=== PATIENT | male | born 1930 | race Caucasian/White ===

== ENCOUNTER 2017-01-31 17:18 | Inpatient (IN) ==
--- NOTE | 2017-01-31 17:42 | Emergency Department Note ---
Fall HPI - General Chief Complaint: Fall Stated Complaint: Fall Time Seen by Provider: 01/31/17 17:39 Source: patient, family, EMS Mode of arrival: EMS - History of Present Illness HPI Narrative: This patient fell in the kitchen and has pain in his right hip. he had a previous hip replacement on that side. Not sure why he fell. - Related Data Home Medications Medication Instructions Recorded Confirmed No Known Home Meds [No Known Home 01/31/17 01/31/17 Meds] Allergies Allergy/AdvReac Type Severity Reaction Status Date / Time No Known Drug Allergies Allergy Verified 01/31/17 17:24 Review of Systems All systems ED: reviewed and negative except as stated. Fall PMH - Past Medical History PMF Narrative: Medical History (Last Updated 11/13/16 @ 10:21 by Bradley Whelan MD) Memory difficulties (Chronic) Fracture of rib (Resolved) Ribs, multiple fractures (Resolved) Vascular dementia of acute onset (Ruled-out) Past Surgical History (Last Updated 11/15/15 @ 08:41 by Bradley Whelan MD) History of hip replacement (Resolved) Ulcer, surgical (Resolved) - Social History smoking status: Former smoker Physical Exam Patient has tenderness about the right hip - General Limitations: no limitations General appearance: alert, in no apparent distress - Head Head exam: atraumatic, normocephalic - Eye Eye exam: Present: normal appearance - ENT ENT exam: normal exam - Neck Neck exam: Present: normal inspection - Chest Chest inspection: Present: normal inspection - Respiratory Respiratory exam: Present: normal lung sounds bilaterally - Cardiovascular Cardiovascular exam: Present: regular rate, normal rhythm, normal heart sounds - Abdominal Exam Abdominal exam: Present: soft. Absent: distention, tenderness - Neurological Exam Neurological exam: Present: alert - Psychiatric Psychiatric exam: Present: normal affect, normal mood - Skin Skin exam: Present: warm, dry, intact Course Vital Signs Temperature 97.1 F 01/31/17 17:19 Pulse Rate 80 01/31/17 17:19 Respiratory Rate 16 01/31/17 17:19 Blood Pressure 112/71 01/31/17 17:19 Pulse Oximetry (%) 94 01/31/17 17:19 Temperature 97.1 F 01/31/17 17:19 Pulse Rate 65 01/31/17 17:46 Respiratory Rate 16 01/31/17 17:19 Blood Pressure 119/67 01/31/17 17:46 Pulse Oximetry (%) 96 01/31/17 17:46 Fall - [facility] Narrative Medical decision making narrative: X-ray shows a sub-trochanteric fracture in the bone going around the prosthesis with slight displacement. Dr. Ribeiro did the original surgery 3 years ago. I discussed case with the orthopedist electrophonic engineer Dr. Bourne who requested to call Dr. Ribeiro. Dr. Ribeiro said he is unavailable tonight to take care of this patient. Dr. Bourne then said the patient could go home in a wheelchair and follow-up with Dr. Ribeiro in clinic tomorrow. We will send him home with some hydrocodone. - Radiology Data Radiology results reviewed: Yes I reviewed the patient's radiology results. Disposition Pt seen by [employer] only: No Clinical Impression: Femur fracture, right Disposition: Home, Self-Care Condition: Good Instructions: Leg Fracture (ED), Hip Fracture (ED) Additional Instructions: Follow-up with Dr. Campos tomorrow Referrals: Bradley Whelan MD [Primary Care Provider] - Omega Campos MD [Physician] - Time of Disposition: 18:30
[2017-01-31] MEDS: HYDROmorphone 2 MG/ML SYRINGE IV PRN ×2 (17:52→19:51)
--- NOTE | 2017-01-31 18:12 | XRay Report ---
CLINICAL INFORMATION: Fall. Right hip injury TECHNIQUE: AP pelvis. AP and crosstable lateral right hip COMPARISON: Previous postoperative right hip dated 02/27/2014 FINDINGS: Previous right total hip arthroplasty. Acute right subtrochanteric fracture. Lateral view demonstrates slight displacement of the lesser trochanter. Pelvis is negative. No fracture. No lytic lesion. Sacrum is negative. 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
[2017-01-31] MEDS ORDERED: HYDROcodone/APAP (PP) 5/325MG TABLET (#4) PO ONE (18:29)
[2017-01-31] MEDS ORDERED: 0.9 % SODIUM CHLORIDE 1,000 ML IV SCH (19:00)
--- NOTE | 2017-01-31 19:56 | XRay Report ---
INDICATION: Preoperative chest x-ray. Hip fracture. TECHNIQUE: AP chest x-ray,portable semiupright COMPARISON: Previous examinations dated 09/19/2014, 09/13/2014 FINDINGS:Elevated right hemidiaphragm. This is unchanged. No acute or focal pulmonary parenchymal infiltrate. Lungs are negative. Heart size and vascularity are normal. No pulmonary congestion. No pulmonary edema No interval change IMPRESSION: No acute abnormality. No interval change Interpreted and Authenticated by: Eliezer Koehler 01/31/17
[2017-01-31 19:58] LABS: Basophils # (Auto) 0 K/mcL (0.0-0.3); Basophils % (Auto) 0.2 % (0.0-2.0); Eosinophils # (Auto) 0.1 K/mcL (0.0-0.7); Eosinophils % (Auto) 1.3 % (0.0-7.0); Granulocytes % (Auto) 87.1 % (38.0-78.0); Lymphocytes # (Auto) 0.7 K/mcL (1.5-4.8); Lymphocytes % (Auto) 6.9 % (15.5-49.0); Mean Corpuscular HGB Conc 34.1 g/dL (31.0-36.0); Monocytes # (Auto) 0.5 K/mcL (0.1-0.9); Monocytes % (Auto) 4.5 % (1.0-12.0); Platelet Count 201 K/mcL (140-440); RBC 4.19 M/mcL (4.50-5.90); Red Cell Distribution Width 15.5 % (11.5-14.5)
[2017-01-31 20:09] LABS: ALT/SGPT 7 U/l (0-40); Albumin 4.2 gm/dL (3.2-5.2); Albumin/Globulin Ratio 1.6 (1.0-2.3); Alkaline Phosphatase 61 U/L (39-117); Blood Urea Nitrogen 21 mg/dl (8-23)
[2017-01-31] MEDS ORDERED: ONDANSETRON 4 MG/2 ML VIAL IV ONE (20:41)
[2017-01-31 21:21] LABS: Appearance,Urine CLEAR; Bacteria,Urine 0 /hpf (0); Bilirubin,Urine NEG (NEG); Color,Urine YELLOW; Glucose,Urine (UA) NEGATIVE (NEG); Leukocyte Esterase,Urine NEG /uL (NEG); Mucus,Urine FEW /hpf (0); Nitrate,Urine NEG (NEG); Protein,Urine NEG (NEG); Specific Gravity,Urine 1.024 (1.000-1.035); Urine Blood 0.2 mg/dL (<0.03); Urine RBC 44 /hpf (0-1); Urine Squamous Epithelial Cell < 1 /hpf (0-4); Urine WBC 2 /hpf (0-4); Urobilinogen,Urine NEG (NEG)
--- NOTE | 2017-01-31 21:40 | Internal Med History&Physical ---
Medical - H&P: HPI Patient information: Note initiated : 01/31/17 at 9:38 pm Service Date, if different from initiated Date: [] Patient: Edgard Bae a 86 y/o M admitted on for Fall. Chief Complaint: [] History of present illness: Mr. Bae is a 86 year old man who apparently fell this evening at home. ER evaluation revealed an acute right subtrochanteric hip fracture with slight displacement of the lesser trochanter, as well as a previous right total hip arthroplasty. The patient has moderate dementia, and cannot recall how or why he fell. When I saw him late in the evening, his family was not available. Otherwise, he does not think that he has been ill lately. He denies being aware fever or chills, headaches or dizziness, new or ear symptoms, chest pain or palpitations, shortness of breath or wheezing or cough, abdominal pain, nausea or vomiting, diarrhea or constipation, or dysuria. Medical History Memory difficulties (Chronic) Fracture of rib (Resolved) Ribs, multiple fractures (Resolved) Vascular dementia of acute onset (Ruled-out) Surgical History History of hip replacement (Resolved) Ulcer, surgical (Resolved) Medication List: No Known Home Meds Allergies/Adverse Reactions No Known Drug Allergies Allergy Social History smoking status: Former smoker Medical - H&P: Meds Home Medications Medication Instructions Recorded Confirmed Type No Known Home Meds [No Known Home 01/31/17 01/31/17 History Meds] Allergies Allergy/AdvReac Type Severity Reaction Status Date / Time No Known Drug Allergies Allergy Verified 01/31/17 17:24 Medical - H&P: Exam - Constitutional Vitals: Temp Pulse Resp BP Pulse Ox 97.1 F 80 16 93/62 88 L 01/31/17 17:19 01/31/17 21:33 01/31/17 17:19 01/31/17 21:31 01/31/17 21:33 O2 saturation ranges from 87-98% on room air On exam, he is a well-developed well-nourished pleasant elderly man in no acute distress. He reports he has pain only if he moves. Head: Normocephalic, atraumatic. TM's and canals clear. Perrla, EOMI, anicteric. Neck: Is supple, without obvious lymphadenopathy, JVD, thyromegaly, bruits. Cardiac exam shows regular rate and rhythm with normal S1 and S2. Lungs are clear to auscultation, without rales, rhonchi, wheezes. Abdomen is soft and nontender with no obvious masses. Bowel sounds are active. Extremities: Right leg actually appears to be held in a bit of internal rotation. He is able to move his toes and feet well, but movement of the leg is uncomfortable. Left leg appears normal, without cyanosis, clubbing, edema. Neurologic exam: The patient is extremely forgetful, but calm and cooperative. Motor exam is grossly nonfocal. Medical - H&P: Reslt - Labs CBC & Chem 7: 02/03/17 04:08 02/03/17 04:08 Labs: Short CBC 01/31/17 Range/Units 19:15 WBC 10.7 (4.5-11.0) K/mcL Hgb 13.0 L (13.5-16.5) g/dL Hct 38.1 L (41.0-55.0) % Plt Count 201 (140-440) K/mcL BMP 01/31/17 19:15 Sodium 138 Potassium 4.9 Chloride 101 Carbon Dioxide 29 BUN 21 Creatinine 1.0 Glucose 139 H Calcium 8.8 Liver Function 01/31/17 Range/Units 19:15 Total Bilirubin 0.6 (0.0-1.0) mg/dL AST 13 (0-37) U/l ALT 7 (0-40) U/l Alkaline Phosphatase 61 (39-117) U/L Albumin 4.2 (3.2-5.2) gm/dL Urine 01/31/17 Range/Units 20:37 Urine Color Yellow Urine Appearance Clear Urine pH 5.0 (5.0-9.0) Ur Specific [place] 1.024 (1.000-1.035) Urine Protein Neg (NEG) mg/dL Urine Glucose (UA) Negative (NEG) mg/dL CBC differential: Shows granulocyte count of 9300, lymphocyte count of 700 Urinalysis: Shows 44 red blood cells, without leukocyte esterase or nitrites. Chest x-ray: Shows elevated right hemidiaphragm, unchanged. No other abnormalities. Hip x-ray: Shows acute right trochanteric fracture, and previous right total hip arthroplasty. Medical - H&P: A/P (1) Femur fracture, right Current visit: Yes Status: Acute (2) Impairment of cognitive function Problem details: with balance difficulties Current visit: No Status: Chronic - Narrative A/P Narrative: #1. Orthopedic. Patient presents with hip fracture after fall. Admit for monitoring. -Orthopedic consult with Dr. Bourne in the morning. -N.p.o. after midnight in case surgery will be performed. -IV fluids, urinalysis, preop EKG and chest x-ray. -Pain control with IV and oral pain medications. -PT and OT evaluations. At this time, I do not see any absolute contraindications for surgery. The patient is in generally good health. 2. CODE STATUS: Chart indicates DNR CODE STATUS. 3. DVT prophylaxis: SCDs tonight. Start heparin or Coumadin postop. 4. Hematuria. No signs of infection at this time.
[2017-01-31] MEDS ORDERED: ACETAMINOPHEN 325 MG TABLET PO PRN (22:29)
[2017-01-31] MEDS ORDERED: ONDANSETRON 4 MG/2 ML VIAL IV PRN (22:29)
[2017-01-31] MEDS ORDERED: NALOXONE HCL 0.4 MG/ML VIAL IV PRN (22:29)
[2017-01-31] MEDS ORDERED: DOCUSATE SODIUM 100 MG CAPSULE PO PRN (22:29)
[2017-01-31] MEDS ORDERED: MAGNESIUM HYDROXIDE 30 ML ORAL.SUSP PO PRN (22:29)
[2017-01-31] MEDS: 0.9 % SODIUM CHLORIDE 10 ML SYRINGE IV SCH (22:40)
[2017-01-31] MEDS: DEXTROSE 5%-LR 1,000 ML IV SCH (22:40)
[2017-01-31 23:18] LABS: Basophils # (Auto) 0 K/mcL (0.0-0.3); Basophils % (Auto) 0.2 % (0.0-2.0); Eosinophils # (Auto) 0.1 K/mcL (0.0-0.7); Eosinophils % (Auto) 0.7 % (0.0-7.0); Granulocytes % (Auto) 88.6 % (38.0-78.0); Lymphocytes # (Auto) 0.6 K/mcL (1.5-4.8); Lymphocytes % (Auto) 4.6 % (15.5-49.0); Mean Cell Volume 89.2 fL (80.0-100.0); Mean Corpuscular HGB Conc 33.7 g/dL (31.0-36.0); Mean Corpuscular Hemoglobin 30.1 pg (26.0-34.0); Monocytes # (Auto) 0.7 K/mcL (0.1-0.9); Monocytes % (Auto) 5.9 % (1.0-12.0); Platelet Count 191 K/mcL (140-440); RBC 4.04 M/mcL (4.50-5.90); Red Cell Distribution Width 14.8 % (11.5-14.5)
[2017-02-01] MEDS ORDERED: ACETAMINOPHEN 325 MG TABLET PO ONE (02:15)
[2017-02-01] MEDS ORDERED: HYDROmorphone 2 MG/ML SYRINGE ONE (02:15)
[2017-02-01] MEDS: 0.9 % SODIUM CHLORIDE 10 ML SYRINGE IV SCH ×3 (05:31→22:26)
[2017-02-01 06:08] LABS: Basophils # (Auto) 0 K/mcL (0.0-0.3); Basophils % (Auto) 0.3 % (0.0-2.0); Eosinophils # (Auto) 0 K/mcL (0.0-0.7); Eosinophils % (Auto) 0.1 % (0.0-7.0); Granulocytes % (Auto) 80.4 % (38.0-78.0); Lymphocytes % (Auto) 10.8 % (15.5-49.0); Mean Cell Volume 92.1 fL (80.0-100.0); Mean Corpuscular HGB Conc 34.4 g/dL (31.0-36.0); Mean Corpuscular Hemoglobin 31.7 pg (26.0-34.0); Monocytes # (Auto) 0.8 K/mcL (0.1-0.9); Monocytes % (Auto) 8.4 % (1.0-12.0); Platelet Count 174 K/mcL (140-440); RBC 3.57 M/mcL (4.50-5.90)
[2017-02-01 06:39] LABS: ALT/SGPT 6 U/l (0-40); Albumin 3.8 gm/dL (3.2-5.2); Albumin/Globulin Ratio 1.7 (1.0-2.3); Alkaline Phosphatase 56 U/L (39-117); Bilirubin,Direct < 0.2 mg/dL (0.0-0.3); Blood Urea Nitrogen 22 mg/dl (8-23); Gamma Glutamyl Transpeptidase 8 U/L (8-61); Magnesium 2.1 mg/dL (1.6-2.5); Uric Acid 6.7 mg/dL (2.5-8.0)
[2017-02-01] MEDS: HYDROmorphone 2 MG/ML SYRINGE IV PRN ×2 (10:00→11:34)
--- NOTE | 2017-02-01 10:32 | Internal Med Progress Note ---
Medical - PN: Subj Patient information: Note initiated : 02/01/17 at 10:32 am Service Date, if different from initiated Date: [] Patient: Edgard Bae 86 y/o M admitted on 01/31/17 for Fall. Chief Complaint: [] Interval history: January 31, 2017:History of present illness: Mr. Bae is a 86 year old man who apparently fell this evening at home. ER evaluation revealed an acute right subtrochanteric hip fracture with slight displacement of the lesser trochanter, as well as a previous right total hip arthroplasty. The patient has moderate dementia, and cannot recall how or why he fell. When I saw him late in the evening, his family was not available. Otherwise, he does not think that he has been ill lately. He denies being aware fever or chills, headaches or dizziness, new or ear symptoms, chest pain or palpitations, shortness of breath or wheezing or cough, abdominal pain, nausea or vomiting, diarrhea or constipation, or dysuria. February 01: This morning, the patient was having a bit more pain, and was given IV Dilaudid. About an hour later I was called to see him urgently, as the nurse found him somewhat obtunded and twitching all over. Extremities were cyanotic, and the patient had decreased mental status. O2 saturation at the time was reading about 70% but we were not sure the oximeter was accurate. Follow-up blood gas did confirm that the patient was hypoxic, with a PO2 of 40, and a PCO2 of 53. As we talked with him and did test on him, he did become a bit more arousable. The twitching was a little hard to figure out, and I thought perhaps he was having an allergic reaction to the Dilaudid, so Benadryl was given. He was also given topical nitroglycerin, IV Lasix, and albuterol nebulizer treatment, and oxygen, while we were working him up. He was then transferred over to telemetry for closer monitoring. EKG did not show acute changes. D-dimer is elevated, but this would be expected in the setting of his hip fracture. Troponin is normal. BNP is a bit elevated at 500. Currently, the patient is still quite sleepy. His color is much improved. He is now maintaining oxygen saturations in the mid 90s on 2 L O2 via mask. He reports no fevers or chills, cough, chest pain or palpitations, and denied feeling especially short of breath. He denied abdominal pain, nausea or vomiting, diarrhea. Chester catheter remains in place. He continues to have significant right hip pain with any movement of the right leg. - Constitutional Vitals: Vital Signs Temp Pulse Resp BP Pulse Ox 97.5 F 73 20 118/68 95 02/01/17 07:08 02/01/17 04:00 02/01/17 07:08 02/01/17 07:08 02/01/17 08:44 Period Temp Pulse Resp BP Sys/[place]son Pulse Ox Last 24 Hr 97.5 F-98.4 F 73-77 16-20 95-118/60-68 88-97 Intake and Output 01/31/17 02/01/17 02/01/17 21:59 05:59 13:59 Output Total 250 / 250 Balance -250 / -250 Intake & Output: Intake & Output 01/31/17 02/01/17 02/01/17 21:59 05:59 13:59 Output Total 250 / 250 Balance -250 / -250 Output: Urine Catheter Amount 250 / 250 On exam, he looked fine first thing this morning. Later in the morning, he was lethargic, although able to answer some questions. He appeared quite cyanotic. He had myoclonic jerking noted of all extremities. He seemed to be having chills. Current vital signs: Temperature 100.7, heart rate 112, respiratory rate 18, blood pressure 110/76, O2 saturation 92% on a 5 L mask Neck showed no obvious JVD or lymphadenopathy. Cardiac exam showed regular rate and rhythm. Lungs had somewhat coarse breath sounds, with soft expiratory wheezes noted. Abdomen was soft and nontender. Extremities show no significant edema. Other than his lethargy and his baseline forgetfulness, neuro exam appears nonfocal. Medical - PN: Obj Da - Labs CBC & Chem 7: 02/01/17 12:38 02/01/17 05:00 Labs: Abnormal Lab Results 02/01/17 02/01/17 02/01/17 05:00 05:00 05:00 WBC RBC 3.57 L Hgb 11.3 L Hct 32.9 L RDW 16.0 H Gran % 80.4 H Lymph % (Auto) 10.8 L Gran # Lymph # (Auto) 1.0 L PT 15.2 H INR 1.2 H Anion Gap 6.0 L Glucose 128 H Calcium 8.4 L 01/31/17 22:51 WBC 12.6 H RBC 4.04 L Hgb 12.1 L Hct 36.0 L RDW 14.8 H Gran % 88.6 H Lymph % (Auto) 4.6 L Gran # 11.2 H Lymph # (Auto) 0.6 L PT INR Anion Gap Glucose Calcium February 01: CBC: White blood cell count 13,000, hemoglobin 12, hematocrit 36, granulocyte count 11,000 D-dimer is elevated at 7.7 ProBNP is mildly elevated at 501 Troponin is normal at less than 0.01 EKG showed sinus tachycardia, with no obvious acute ischemic changes. ABG on room air, while in distress: Shows pH of 7.37, PCO2 of 53, PO2 of 40, bicarb of 30, O2 saturation 73% Chest x-ray: There is moderate cardiomegaly. Chronic right diaphragm elevation. Minor right base atelectasis. No signs of CHF. Nasal MRSA screen is negative. January 31: CBC differential: Shows granulocyte count of 9300, lymphocyte count of 700 Urinalysis: Shows 44 red blood cells, without leukocyte esterase or nitrites. Chest x-ray: Shows elevated right hemidiaphragm, unchanged. No other abnormalities. Hip x-ray: Shows acute right trochanteric fracture, and previous right total hip arthroplasty. Meds: Medications Acetaminophen (Tylenol) 650 mg PO Q6HP PRN PRN Reason: PAIN/FEVER > 101 Last Admin: 02/01/17 10:01 Dose: 650 mg Docusate Sodium (Colace) 100 mg PO BID PRN PRN Reason: Constipation Hydromorphone HCl (Dilaudid) 1 mg IV Q2HP PRN PRN Reason: Pain Last Admin: 02/01/17 10:00 Dose: 1 mg Dextrose/Lactated Ringer's (Dextrose 5%-Lactated Ringers) 1,000 mls @ 100 mls/ hr IV .Q10H MYKEL Last Admin: 01/31/17 22:40 Dose: 100 mls/hr Magnesium Hydroxide (Milk Of Magnesia) 30 ml PO DAILYP PRN PRN Reason: Constipation Naloxone HCl (Narcan) 0.1 mg IV Q2MIN PRN PRN Reason: Opiate Reversal Ondansetron HCl (Zofran) 4 mg IV Q6HP PRN PRN Reason: Nausea And Vomiting Sodium Chloride (Saline Flush) 10 ml IV Q8 MYKEL Last Admin: 02/01/17 05:31 Dose: Not Given Medical - PN: A/P - Time Spent With Patient Total time spent is greater than 50% in coordination of care (as documented) at patient's floor/unit and/or counseling patient: Greater than 35 minutes (1) Femur fracture, right Status: Acute Current Visit: Yes (2) Impairment of cognitive function Problem details: with balance difficulties Status: Chronic Current Visit: No - Narrative A/P Narrative: #1. Cardiopulmonary. Patient had a sudden decline in oxygenation earlier today, of uncertain cause. The most likely etiology is probably oversedation with narcotics, causing respiratory depression. However, he could also have experienced acute embolism , acute MA, acute infection, medication reaction. -Patient has been transferred to telemetry for closer monitoring. Vital signs are reasonably stable at this time. At this time I am leaning towards just giving him more time to recover, and withholding narcotics until he is clearly in need of them. Dilaudid has been discontinued. -If he gradually wakes up and breathes better over the next 12 hours or so, then we will reassess if he is stable for surgical repair of his hip. If he continues to be hypoxic, we may need to proceed with CT angiogram of the chest, to rule out embolism. #2. Orthopedic. Patient presents with right hip fracture. He was seen by Dr. Bourne today. Decisions about surgery are being put off until we are sure the patient is more stable. -Dilaudid discontinued. Use oral or IV Tylenol, and then low-dose morphine if absolutely needed. -Patient will eventually need PT and OT evaluations. 2. CODE STATUS: Chart indicates DNR CODE STATUS. 3. DVT prophylaxis: SCDs tonight. Start heparin or Coumadin postop. 4. Hematuria. No signs of infection at this time. #5. Infectious disease. The patient is currently febrile, tachycardic, and did bump his white blood cell count. I think he is probably at high risk for an aspiration event earlier today, so we will cover him with Zosyn for now. Approximately 60 minutes has been spent so far today, interviewing and examining the patient twice, reviewing test results, reviewing plan of care with family and the staff, touching base with orthopedics, and writing orders. Medical - PN: Qual - VTE Deep Vein Thrombosis/Pulmonary Embolism Present on Admission: No
[2017-02-01] MEDS: DEXTROSE 5%-LR 1,000 ML IV SCH ×4 (10:54→22:27)
[2017-02-01] MEDS ORDERED: diphenhydrAMINE 50 MG/ML VIAL IV ONE (12:18)
[2017-02-01] MEDS ORDERED: ALBUTEROL SULFATE 2.5 MG/3 ML NEBULIZER NEB ONE ×2 (12:22→13:00)
[2017-02-01] MEDS ORDERED: FUROSEMIDE 20 MG/2 ML VIAL IV ONE ×2 (12:26→12:39)
[2017-02-01] MEDS ORDERED: NITROGLYCERIN 1 GM OINT.TOP TD ONE ×2 (12:28→12:42)
--- NOTE | 2017-02-01 12:54 | XRay Report ---
CLINICAL INFORMATION: Dyspnea COMPARISON: 01/31/2017 FINDINGS: Moderate cardiomegaly is unchanged. Mediastinum is unremarkable. Pulmonary vessels are normal. Right diaphragm shows moderate chronic elevation. There are bowel loops in the right subdiaphragmatic region which are known to be interposed between the liver and the anterior abdominal wall on the prior two view chest. Minor atelectasis in the right base IMPRESSION: Moderate stable cardiomegaly-no evidence of CHF Moderate chronic elevation right diaphragm-stable Interpreted and Authenticated by: Eliezer Underwood 02/01/17
[2017-02-01] MEDS ORDERED: NALOXONE HCL 0.4 MG/ML VIAL IV PRN (13:00)
[2017-02-01] MEDS ORDERED: DOCUSATE SODIUM 100 MG CAPSULE PO PRN (13:00)
[2017-02-01] MEDS ORDERED: ACETAMINOPHEN 325 MG TABLET PO PRN (13:00)
[2017-02-01 13:07] LABS: Basophils # (Auto) 0 K/mcL (0.0-0.3); Basophils % (Auto) 0.1 % (0.0-2.0); Eosinophils # (Auto) 0.1 K/mcL (0.0-0.7); Lymphocytes # (Auto) 1.1 K/mcL (1.5-4.8); Mean Cell Volume 92.2 fL (80.0-100.0); Mean Corpuscular HGB Conc 34.7 g/dL (31.0-36.0); Monocytes # (Auto) 0.9 K/mcL (0.1-0.9); Monocytes % (Auto) 6.9 % (1.0-12.0); Platelet Count 192 K/mcL (140-440); Red Cell Distribution Width 15.5 % (11.5-14.5)
[2017-02-01] MEDS: PIPERACILLIN SODIUM/TAZOBACTAM 3.375 GM in DEXTROSE 5% IN WATER 50 ML IV SCH ×2 (17:31→22:25)
--- NOTE | 2017-02-01 21:19 | Consultation ---
DATE OF CONSULTATION: 02/01/2017 DATE OF CONSULTATION: 02/01/2017 CHIEF COMPLAINT: Right hip pain. HISTORY: This 86-year-old male who fell yesterday evening from standing level height, had pain and inability to bear weight. He does have dementia. He was taken to the Emergency Department at [facility]. X-rays were taken which showed a fracture around a prior total hip arthroplasty. Apparently the total hip was done by Dr. Campos approximately 3 years ago. He is ambulatory independently. His pain is worse with movement, better with rest. Denies any other associated injuries, although unreliable due to his dementia. PAST MEDICAL HISTORY: Dementia. PAST SURGICAL HISTORY: His total hip replacement done by Dr. Campos 3 years ago. ALLERGIES: He has NO KNOWN DRUG ALLERGIES. SOCIAL HISTORY: He lives with his in a multilevel home. Former smoker. REVIEW OF SYSTEMS: Difficult to assess due to his memory problems. FAMILY HISTORY: Unobtainable. PHYSICAL EXAMINATION: VITAL SIGNS: On admission temperature was 97.1, pulse 80, respirations 16, blood pressure 93/62. He is 88 percent O2 sat. GENERAL APPEARANCE: He appears stated age in no acute distress. He is oriented to person. EXTREMITIES: Bilateral upper extremities and left lower extremity show no obvious evidence of injury and are normal to inspection, range of motion, stability and strength. The right hip on inspection shows skin with a healed surgical scar. He has no obvious deformity; however, he is tender to palpation over the right hip. Range of motion is limited secondary to pain. Stability: There is no gross instability noted although difficult to assess due to pain. Strength is 5/5 with foot flexion and extension distally. IMAGING: X-rays reviewed show a minimally displaced fracture of the proximal femur around a total hip arthroplasty stem. IMPRESSION: Mildly displaced periprosthetic right proximal femur fracture in an 86-year-old male with dementia but who was previously ambulatory. PLAN: I discussed with his treatment options which include nonoperative treatment and nonweightbearing and letting the fracture heal. I did discuss with them however, it might not allow him to ever really walk again and would mainly to just be transfers. The second option would be to proceed operatively with revision of the total hip arthroplasty, removal of his hip stem with replacement of a long hip stem. They would like to proceed surgically. However, at the time I was visiting the patient he had an acute decline and he was transferred to the Intensive Care Unit. Hospitalist has held surgery for now so we will do this tomorrow if he has stabilized by then. I did discuss with his that the mortality within a year from a hip fracture is very high with or without operative intervention and even if he made it through the surgery he is at high risk for complications including pneumonia, DVT and pulmonary embolus risk, urinary tract infection, possible falling and dislocating the hip. I also discussed with her, there is a high probability he will not return to his prior level of function and may never be able to return to his multilevel home. ANGELIB:milvia Job ID: [id number] Doc ID: [id number] John Bourne MD
[2017-02-02] MEDS: PIPERACILLIN SODIUM/TAZOBACTAM 3.375 GM in DEXTROSE 5% IN WATER 50 ML IV SCH ×3 (05:36→21:46)
[2017-02-02] MEDS: 0.9 % SODIUM CHLORIDE 10 ML SYRINGE IV SCH ×2 (05:37→14:46)
[2017-02-02 07:10] LABS: ALT/SGPT 8 U/l (0-40); Albumin 3.6 gm/dL (3.2-5.2); Albumin/Globulin Ratio 1.6 (1.0-2.3); Alkaline Phosphatase 51 U/L (39-117); Bilirubin,Direct 0.2 mg/dL (0.0-0.3); Blood Urea Nitrogen 22 mg/dl (8-23); Gamma Glutamyl Transpeptidase 7 U/L (8-61); Magnesium 1.8 mg/dL (1.6-2.5); Uric Acid 5.9 mg/dL (2.5-8.0)
--- NOTE | 2017-02-02 08:04 | XRay Report ---
CLINICAL INFORMATION: Fever COMPARISON: 02/01/2017 FINDINGS: Mild cardiomegaly is unchanged. Mediastinum and pulmonary vessels are normal. Moderate chronic elevation right diaphragm seen - as before. There is minor atelectasis right base. No infiltrates. No effusions IMPRESSION: Moderate chronic elevation right diaphragm with minor right basilar atelectasis. No infiltrates Interpreted and Authenticated by: Eliezer Underwood 02/02/17
[2017-02-02 08:23] LABS: Basophils # (Auto) 0 K/mcL (0.0-0.3); Basophils % (Auto) 0.3 % (0.0-2.0); Eosinophils # (Auto) 0 K/mcL (0.0-0.7); Eosinophils % (Auto) 0.1 % (0.0-7.0); Lymphocytes # (Auto) 0.9 K/mcL (1.5-4.8); Mean Cell Volume 91.6 fL (80.0-100.0); Mean Corpuscular HGB Conc 34.9 g/dL (31.0-36.0); Monocytes % (Auto) 13.6 % (1.0-12.0); Platelet Count 128 K/mcL (140-440); RBC 3.32 M/mcL (4.50-5.90); Red Cell Distribution Width 15.6 % (11.5-14.5)
[2017-02-02] MEDS: DEXTROSE 5%-LR 1,000 ML IV SCH ×2 (08:33→19:57)
[2017-02-02] MEDS ORDERED: ceFAZolin 1 GM VIAL IV ONE (15:15)
[2017-02-02] MEDS ORDERED: ceFAZolin 1 GM VIAL ONE (15:27)
[2017-02-02] MEDS ORDERED: MIDAZOLAM 5 MG/5 ML VIAL IV ONE (15:30)
[2017-02-02] MEDS ORDERED: PROPOFOL 200 MG/20 ML VIAL IV ONE (15:30)
[2017-02-02] MEDS ORDERED: LIDOCAINE HCL/PF 100 MG/5 ML SYRINGE IV ONE (15:30)
[2017-02-02] MEDS ORDERED: ONDANSETRON 4 MG/2 ML VIAL IV ONE (15:30)
[2017-02-02] MEDS ORDERED: TRANEXAMIC ACID 1,000 MG/10 ML VIAL IV ONE (15:30)
[2017-02-02] MEDS ORDERED: fentaNYL 100 MCG/2 ML VIAL IV ONE (15:30)
[2017-02-02] MEDS ORDERED: DEXAMETHASONE 10 MG/ML VIAL IV ONE (15:30)
[2017-02-02] MEDS ORDERED: fentaNYL 100 MCG/2 ML VIAL IV PRN (16:55)
[2017-02-02] MEDS ORDERED: FLUMAZENIL 0.1 MG/ML ML IV PRN (16:55)
[2017-02-02] MEDS ORDERED: LACTATED RINGERS 250 ML IV PRN (16:55)
[2017-02-02] MEDS ORDERED: ONDANSETRON 4 MG/2 ML VIAL IV PRN (16:55)
[2017-02-02] MEDS ORDERED: NALOXONE HCL 0.4 MG/ML VIAL IV PRN (16:55)
[2017-02-02] MEDS ORDERED: ACETAMINOPHEN 1,000 MG/100 ML BOTTLE IV ONE (16:55)
[2017-02-02] MEDS ORDERED: BENZOCAINE/MENTHOL 1 LOZENGE PO PRN (16:55)
[2017-02-02] MEDS ORDERED: MEPERIDINE 25 MG/ML SYRINGE IV PRN (16:55)
[2017-02-02] MEDS ORDERED: IPRATROPIUM/ALBUTEROL 3 ML AMPUL.NEB NEB PRN (16:55)
[2017-02-02] MEDS ORDERED: diphenhydrAMINE 50 MG/ML VIAL IV PRN (16:55)
[2017-02-02] MEDS ORDERED: METHOCARBAMOL 1,000 MG/10 ML VIAL IV PRN (16:55)
[2017-02-02] MEDS ORDERED: LACTATED RINGERS 1,000 ML IV SCH (17:00)
--- NOTE | 2017-02-02 17:11 | Brief Operative Note ---
Date of procedure: 02/02/17 Pre-op diagnosis: Right periprosthetic proximal femur fracture Post-op diagnosis: same Procedure: Revision of Right total hip arthroplasty femoral component for periprosthetic fracture, removal of previous femoral stem Grafts/Implants: Yes (Bishop 17mm distal 195mm stem, 25mm +20 proximal body, + 2.5 36mm head) Anesthesia: spinal, GLMA Findings: stem well fixed Complications: none Surgeon: John Bourne Home Care Companion: Rambo Deluca Estimated blood loss (cc): 100 Specimens Removed/Pathology: other (removed femoral stem & cobalt chrome head) Condition: stable Disposition: PACU
--- NOTE | 2017-02-02 17:45 | Internal Med Progress Note ---
Medical - PN: Subj Patient information: Note initiated : 02/02/17 at 10:36 am Patient: Edgard Bae 86 y/o M admitted on 01/31/17 for Fall/Femur Fracture, Right. Interval history: January 31, 2017:History of present illness: Mr. Bae is a 86 year old man who apparently fell this evening at home. ER evaluation revealed an acute right subtrochanteric hip fracture with slight displacement of the lesser trochanter, as well as a previous right total hip arthroplasty. The patient has moderate dementia, and cannot recall how or why he fell. When I saw him late in the evening, his family was not available. Otherwise, he does not think that he has been ill lately. He denies being aware fever or chills, headaches or dizziness, new or ear symptoms, chest pain or palpitations, shortness of breath or wheezing or cough, abdominal pain, nausea or vomiting, diarrhea or constipation, or dysuria. February 01: This morning, the patient was having a bit more pain, and was given IV Dilaudid. About an hour later I was called to see him urgently, as the nurse found him somewhat obtunded and twitching all over. Extremities were cyanotic, and the patient had decreased mental status. O2 saturation at the time was reading about 70% but we were not sure the oximeter was accurate. Follow-up blood gas did confirm that the patient was hypoxic, with a PO2 of 40, and a PCO2 of 53. As we talked with him and did test on him, he did become a bit more arousable. The twitching was a little hard to figure out, and I thought perhaps he was having an allergic reaction to the Dilaudid, so Benadryl was given. He was also given topical nitroglycerin, IV Lasix, and albuterol nebulizer treatment, and oxygen, while we were working him up. He was then transferred over to telemetry for closer monitoring. EKG did not show acute changes. D-dimer is elevated, but this would be expected in the setting of his hip fracture. Troponin is normal. BNP is a bit elevated at 500. Currently, the patient is still quite sleepy. His color is much improved. He is now maintaining oxygen saturations in the mid 90s on 2 L O2 via mask. He reports no fevers or chills, cough, chest pain or palpitations, and denied feeling especially short of breath. He denied abdominal pain, nausea or vomiting, diarrhea. Chester catheter remains in place. He continues to have significant right hip pain with any movement of the right leg. February 02: Today, the patient reports he is feeling better. He still notes pain in the right hip if he moves, but is otherwise comfortable. He denies fever or chills, headaches or dizziness, chest pain or palpitations, shortness of breath or wheezing, abdominal pain, nausea or vomiting, diarrhea or constipation. Chester catheter remains in place. Vital signs overnight, with O2 saturations ranging from 94-98% on 1-2 L O2. He did spike a temperature of 101.7 last evening. - Constitutional Vitals: Vital Signs Temp Pulse Resp BP Pulse Ox 99.1 F H 93 H 18 101/56 95 02/02/17 08:00 02/02/17 00:27 02/02/17 08:00 02/02/17 08:00 02/02/17 08:00 Period Temp Pulse Resp BP Sys/Hutson Pulse Ox Last 24 Hr 98 F-101.7 F 81-113 18-24 101-139/51-78 91-100 Intake and Output 02/01/17 02/02/17 02/02/17 21:59 05:59 13:59 Intake Total 1050 / 1050 977 / 977 241 / 241 Output Total 1000 / 1000 650 / 650 Balance 50 / 50 327 / 327 241 / 241 Weight 175 lb 14.4 oz Intake & Output: Intake & Output 02/01/17 02/02/17 02/02/17 21:59 05:59 13:59 Intake Total 1050 / 1050 977 / 977 241 / 241 Output Total 1000 / 1000 650 / 650 Balance 50 / 50 327 / 327 241 / 241 Weight 175 lb 14.4 oz Intake: IV 1050 / 1050 857 / 857 241 / 241 Dextrose 5%-Lactated 1000 / 1000 807 / 807 193 / 193 Ringers 1,000 ml @ 100 mls/hr IV .Q10H [facility] Rx#: [id number] Zosyn 3.375 gm In 50 / 50 50 / 50 48 / 48 Dextrose 5% in Water 50 ml @ 100 mls/hr IV Q8H [facility] Rx#:[id number] Oral 120 / 120 Output: Urine Catheter Amount 1000 / 1000 650 / 650 Other: # Bowel Movements 0 0 The patient is awake and alert, in no acute distress. Temperature 100.4. Heart rate 80. Respiratory rate 18-24. Blood pressure 131/ 62. O2 saturation is 91-99% on 1 L O2 Neck showed no obvious JVD or lymphadenopathy. Cardiac exam showed regular rate and rhythm. Lungs had somewhat coarse breath sounds, with soft expiratory wheezes noted. Abdomen was soft and nontender. Extremities show no significant edema. Other than his lethargy and his baseline forgetfulness, neuro exam appears nonfocal. Medical - PN: Obj Da - Labs CBC & Chem 7: 02/02/17 07:45 02/02/17 03:57 Labs: Abnormal Lab Results 02/02/17 02/02/17 02/01/17 07:45 03:57 12:38 WBC RBC 3.32 L Hgb 10.6 L Hct 30.4 L RDW 15.6 H Plt Count 128 L Gran % Lymph % (Auto) 12.0 L [place] % (Auto) 13.6 H Gran # Lymph # (Auto) 0.9 L [place] # (Auto) 1.0 H PT INR D-Dimer 7.71 H Anion Gap Glucose 123 H Calcium 8.4 L Phosphorus 2.6 L Total Bilirubin 1.2 H GGT 7 L NT-Pro-B Natriuret Pep 02/01/17 02/01/17 02/01/17 12:38 12:38 05:00 WBC 13.2 H RBC 3.90 L Hgb 12.5 L Hct 36.0 L RDW 15.5 H Plt Count Gran % 84.0 H Lymph % (Auto) 8.0 L [place] % (Auto) Gran # 11.1 H Lymph # (Auto) 1.1 L [place] # (Auto) PT 15.2 H INR 1.2 H D-Dimer Anion Gap Glucose Calcium Phosphorus Total Bilirubin GGT NT-Pro-B Natriuret Pep 501.1 H 02/01/17 02/01/17 01/31/17 05:00 05:00 22:51 WBC 12.6 H RBC 3.57 L 4.04 L Hgb 11.3 L 12.1 L Hct 32.9 L 36.0 L RDW 16.0 H 14.8 H Plt Count Gran % 80.4 H 88.6 H Lymph % (Auto) 10.8 L 4.6 L [place] % (Auto) Gran # 11.2 H Lymph # (Auto) 1.0 L 0.6 L [place] # (Auto) PT INR D-Dimer Anion Gap 6.0 L Glucose 128 H Calcium 8.4 L Phosphorus Total Bilirubin GGT NT-Pro-B Natriuret Pep February 02: Chest x-ray: Moderate chronic elevation of the right diaphragm, with right basilar atelectasis. No infiltrates are seen. February 01: CBC: White blood cell count 13,000, hemoglobin 12, hematocrit 36, granulocyte count 11,000 D-dimer is elevated at 7.7 ProBNP is mildly elevated at 501 Troponin is normal at less than 0.01 EKG showed sinus tachycardia, with no obvious acute ischemic changes. ABG on room air, while in distress: Shows pH of 7.37, PCO2 of 53, PO2 of 40, bicarb of 30, O2 saturation 73% Chest x-ray: There is moderate cardiomegaly. Chronic right diaphragm elevation. Minor right base atelectasis. No signs of CHF. Nasal MRSA screen is negative. January 31: CBC differential: Shows granulocyte count of 9300, lymphocyte count of 700 Urinalysis: Shows 44 red blood cells, without leukocyte esterase or nitrites. Chest x-ray: Shows elevated right hemidiaphragm, unchanged. No other abnormalities. Hip x-ray: Shows acute right trochanteric fracture, and previous right total hip arthroplasty. Meds: Medications Acetaminophen (Tylenol) 650 mg PO Q6HP PRN PRN Reason: PAIN/FEVER > 101 Last Admin: 02/02/17 00:35 Dose: 650 mg Docusate Sodium (Colace) 100 mg PO BID PRN PRN Reason: Constipation Dextrose/Lactated Ringer's (Dextrose 5%-Lactated Ringers) 1,000 mls @ 100 mls/ hr IV .[facility]10H [facility] Last Admin: 02/02/17 08:33 Dose: 100 mls/hr Piperacillin Sod/Tazobactam (Sod 3.375 gm/ Dextrose) 50 mls @ 100 mls/hr IV Q8H [facility] Last Infusion: 02/02/17 06:05 Dose: 0 mls/hr Magnesium Hydroxide (Milk Of Magnesia) 30 ml PO DAILYP PRN PRN Reason: Constipation Morphine Sulfate (Morphine) 1 mg IV Q3HP PRN PRN Reason: Pain Naloxone HCl (Narcan) 0.1 mg IV Q2MIN PRN PRN Reason: Opiate Reversal Ondansetron HCl (Zofran) 4 mg IV Q6HP PRN PRN Reason: Nausea And Vomiting Sodium Chloride (Saline Flush) 10 ml IV Q8 [facility] Last Admin: 02/02/17 05:37 Dose: Not Given Medical - PN: A/P - Time Spent With Patient Total time spent is greater than 50% in coordination of care (as documented) at patient's floor/unit and/or counseling patient: 25 - 35 minutes (1) Femur fracture, right Status: Acute Current Visit: Yes (2) Impairment of cognitive function Problem details: with balance difficulties Status: Chronic Current Visit: No - Narrative A/P Narrative: #1. Cardiopulmonary. Patient had a sudden decline in oxygenation yesterday, of uncertain cause. The most likely etiology is probably oversedation with narcotics, causing respiratory depression. However, he could also have experienced acute embolism , acute FL, acute infection, medication reaction. -He was monitored on telemetry overnight, and did fine. He did spike a fever, and I suspect he may have aspirated during yesterday's events. However his chest x-ray looks fine today. I did add IV Zosyn to cover for possible aspiration. Otherwise, he does appear stable today, and I think it would be fine to move ahead with his hip surgery. He is anxious to get this over with, and to try to get back to walking so that he can eventually make it back home. #2. Orthopedic. Patient presents with right hip fracture. He was seen by Dr. Bourne. I believe they will proceed with hip replacement surgery today. -Dilaudid discontinued. Use oral or IV Tylenol, and then low-dose morphine if absolutely needed. -Patient will eventually need PT and OT evaluations. 2. CODE STATUS: Chart indicates DNR CODE STATUS. 3. DVT prophylaxis: SCDs tonight. Start heparin or Coumadin postop. 4. Hematuria. No signs of infection at this time. #5. Infectious disease. The patient may have aspirated yesterday, so is currently being covered with IV Zosyn. Blood cultures are pending. Approximately 30 minutes has been spent so far today, interviewing and examining the patient , reviewing test results, reviewing plan of care with family and the staff, touching base with orthopedics, and writing orders. Medical - PN: Qual - VTE Deep Vein Thrombosis/Pulmonary Embolism Present on Admission: No
--- NOTE | 2017-02-02 18:24 | XRay Report ---
CLINICAL INFORMATION: Postop right total hip revision. Acute right subtrochanteric fracture COMPARISON: 01/31/2017 preoperative study. FINDINGS: A new long stem femoral neck prosthesis has been placed and cerclage wires transfix the subtrochanteric fracture. All relationships are anatomic. Acetabular region normal. Soft tissue swelling seen as before. IMPRESSION: Right hip revision by cerclage wires. The subtrochanteric fracture remains anatomically aligned Interpreted and Authenticated by: Eliezer Underwood 02/02/17
[2017-02-02] MEDS: ceFAZolin 1 GM VIAL IV SCH (21:46)
[2017-02-03] MEDS ORDERED: IPRATROPIUM/ALBUTEROL SULFATE 1 PUFF INHALER INH PRN (03:34)
[2017-02-03] MEDS ORDERED: FUROSEMIDE 20 MG/2 ML VIAL IV ONE ×2 (03:35→03:36)
[2017-02-03] MEDS ORDERED: IPRATROPIUM/ALBUTEROL 3 ML AMPUL.NEB NEB ONE (03:35)
[2017-02-03 05:59] LABS: Basophils # (Auto) 0 K/mcL (0.0-0.3); Basophils % (Auto) 0 % (0.0-2.0); Eosinophils # (Auto) 0 K/mcL (0.0-0.7); Eosinophils % (Auto) 0 % (0.0-7.0); Lymphocytes # (Auto) 0.7 K/mcL (1.5-4.8); Lymphocytes % (Auto) 4.4 % (15.5-49.0); Mean Cell Volume 92.6 fL (80.0-100.0); Mean Corpuscular HGB Conc 34.3 g/dL (31.0-36.0); Mean Corpuscular Hemoglobin 31.7 pg (26.0-34.0); Monocytes # (Auto) 1.1 K/mcL (0.1-0.9); Monocytes % (Auto) 6.6 % (1.0-12.0); Platelet Count 171 K/mcL (140-440); RBC 3.46 M/mcL (4.50-5.90); Red Cell Distribution Width 15.5 % (11.5-14.5)
[2017-02-03] MEDS: ceFAZolin 1 GM VIAL IV SCH (06:01)
[2017-02-03] MEDS: PIPERACILLIN SODIUM/TAZOBACTAM 3.375 GM in DEXTROSE 5% IN WATER 50 ML IV SCH ×3 (06:01→22:03)
[2017-02-03 06:26] LABS: ALT/SGPT 13 U/l (0-40); Albumin 3.4 gm/dL (3.2-5.2); Albumin/Globulin Ratio 1.2 (1.0-2.3); Alkaline Phosphatase 47 U/L (39-117); Bilirubin,Direct < 0.2 mg/dL (0.0-0.3); Blood Urea Nitrogen 20 mg/dl (8-23); Gamma Glutamyl Transpeptidase 10 U/L (8-61); Magnesium 1.6 mg/dL (1.6-2.5); Uric Acid 4.4 mg/dL (2.5-8.0)
--- NOTE | 2017-02-03 08:16 | Operative Note ---
DATE OF OPERATION: 02/02/2017 PREOPERATIVE DIAGNOSIS: Right periprosthetic proximal femur fracture. POSTOPERATIVE DIAGNOSIS: Right periprosthetic proximal femur fracture. PROCEDURE PERFORMED: Revision right total hip arthroplasty of the femoral component with internal fixation of the proximal femur fracture using the Steele hoahaoism modular hip stem size 17 x 195 mm distal stem with a 25 mm +20 proximal body, a +2.5, 36 mm delta ceramic head ball. SURGEON: John Bourne MD. RAILCAR BRAKE OPERATOR: Abdoulaye Deluca PA-C. ANESTHESIA: Spinal plus general. DRAINS: None. SPECIMENS REMOVED: Prior femoral stem. BLOOD LOSS: 100 mL COMPLICATIONS: None. POSTOPERATIVE CONDITION: Fair. INDICATIONS FOR SURGERY: This is an 86-year-old, mildly demented male who was previously ambulatory and had a hip replacement done 3 years ago. He sustained a fall 2 days ago injuring his right hip and was unable to bear weight. He was taken to the Emergency Department and x-rays showed a periprosthetic subtrochanteric fracture of the proximal femur. I had a discussion with his regarding option of nonoperative treatment versus operative treatment and she elected to proceed with operative treatment. FINDINGS AT SURGERY: The previous hip femoral stem was well fixed to the proximal fragment. Revision showed what appeared to be relatively equal leg lengths and stable hip. PROCEDURE IN DETAIL: The patient and his had been seen preoperatively and informed consent had been obtained after discussion of risks and benefits of surgery. Risks including, but not limited to, bleeding, possibly requiring transfusion; infection, possibly requiring implant removal and prolonged IV antibiotics; injury to nerves, blood vessels, and other surrounding structures; anesthetic risks, which include heart attack, stroke or , DVT and pulmonary embolus risks, dislocation; fracture, possibility of needing further revision surgery. She understood these risks and wished to have them proceed and she had power of deputy attorney general. The patient was marked in preoperative holding and then received spinal anesthesia. He was taken to the operating room and general anesthesia induced. He was carefully positioned in the left lateral decubitus position and pressure points carefully padded. The right hip and lower extremity were carefully prepped and draped in normal sterile fashion and a time-out was performed verifying patient name, operative site, and plan. Ioban was used to cover all skin surfaces and then his previous posterior hip incision was used. Scalpel was used through skin and subcutaneous tissue, continued sharp dissection down onto the IT band. This was hemorrhagic from his fall. We then incised the iliotibial band in line with the skin incision and a Charnley retractor was placed. There was a large hematoma which was aspirated and we had direct visualization and then into the joint as it appeared that the posterior capsular repair had at least partially failed. We went ahead and released the remainder of the capsule and then dislocated the hip prosthesis. The femoral head was removed with a drift punch. We then proceeded to try and remove the femoral stem using flexible osteotomes circumferentially around the stem. It was a difficult time getting along the medial calcar. We also noted there was almost no bone posteriorly. We continued trying with a SLAP hammer and when we could not get it loose we continued working with longer flexible osteotomes. Finally we were able to remove the stem; however, there was some cortical bone attached to the lateral portion of the distal porous coating that came out with the stem. Once we had the stem removed we started reaming the distal shaft and 17 mm reamer took some cortical chatter and reaming to seat down to the greater trochanter. Due to the concern of fracture propagation distally, we went ahead and chose a longer 195 mm depth. We opened a 1 95 x 17 stem. We irrigated the femoral canal with IrriSept as well as the whole joint. After giving this a minute, we pulse lavaged copiously with saline and then impacted the femoral stem with gentle rapid blows of the mallet. This finally seated at about +20 on our sizing. We then went ahead and reamed up for the proximal body due to the absence of the posterior bone. We went all the way up to 25 mm proximal body. We chose a +20. We did go ahead and trial this with a standard head ball. We reduced the hip without excessive tension. We liked our stability, so we went ahead and removed the proximal body trial and opened the definitive trial. This was anteverted anatomically and then screwed onto the shaft distally. I then trialed with a +2.5 head as the previous head ball head reduced fairly easily. This time it reduced with better tension. We checked our leg length through the drapes and it appeared equal so we went ahead and first placed two cables around the proximal femur. These were 2.0 mm. One was placed at the level of the subtrochanter area and this was tensioned and crimped and cut and then we placed one around the greater trochanter and just above the lesser trochanter. This was tensioned and cut. We then cleaned the proximal stem and trunnion, and dried it and then a 36 delta ceramic head ball was briskly impacted. The hip was reduced again with excellent tension. We then did another IrriSept irrigation and after a minute we pulse lavaged with saline, used a #5 FiberWire to repair the posterior capsule with [id number] sutures. We then used #1 Vicryl, one running proximal and one running distal to close our iliotibial band. Final IrriSept irrigation was done, after a minute pulse lavage and then 2-0 Monocryl for subcutaneous and susana for skin. Xeroform and sterile dressing were applied. Abductor wedge was placed. The patient was turned supine and transferred to [facility], extubated, and taken to recovery. [email or web address] Job ID: [id number] Doc ID: [id number] John Bourne MD
--- NOTE | 2017-02-03 09:00 | XRay Report ---
CLINICAL INFORMATION: Dyspnea COMPARISON: 02/02/2017 FINDINGS: Moderate cardiomegaly is unchanged. Mediastinum is unremarkable. Pulmonary vasculature is slightly distended. There is minor perihilar airspace disease either infiltrate or edema as well. Marked chronic elevation right diaphragm noted no definite effusion IMPRESSION: Mild perihilar edema or infiltrate developing since yesterday. Interpreted and Authenticated by: Eliezer Underwood 02/03/17
[2017-02-03] MEDS: ONDANSETRON 4 MG/2 ML VIAL IV PRN ×2 (09:48→16:03)
[2017-02-03] MEDS ORDERED: ALBUTEROL SULFATE 2.5 MG/3 ML NEBULIZER NEB PRN (10:00)
[2017-02-03] MEDS ORDERED: DEXTROSE 5%-1/2NS W/20MEQ KCL 1,000 ML IV SCH (10:15)
--- NOTE | 2017-02-03 10:16 | Internal Med Progress Note ---
Medical - PN: Subj Patient information: Note initiated : 02/03/17 at 10:16 am Patient: Edgard Bae 86 y/o M admitted on 01/31/17 for Fall/Femur Fracture, Right. Interval history: January 31, 2017:History of present illness: Mr. Bae is a 86 year old man who apparently fell this evening at home. ER evaluation revealed an acute right subtrochanteric hip fracture with slight displacement of the lesser trochanter, as well as a previous right total hip arthroplasty. The patient has moderate dementia, and cannot recall how or why he fell. When I saw him late in the evening, his family was not available. Otherwise, he does not think that he has been ill lately. He denies being aware fever or chills, headaches or dizziness, new or ear symptoms, chest pain or palpitations, shortness of breath or wheezing or cough, abdominal pain, nausea or vomiting, diarrhea or constipation, or dysuria. February 01: This morning, the patient was having a bit more pain, and was given IV Dilaudid. About an hour later I was called to see him urgently, as the nurse found him somewhat obtunded and twitching all over. Extremities were cyanotic, and the patient had decreased mental status. O2 saturation at the time was reading about 70% but we were not sure the oximeter was accurate. Follow-up blood gas did confirm that the patient was hypoxic, with a PO2 of 40, and a PCO2 of 53. As we talked with him and did test on him, he did become a bit more arousable. The twitching was a little hard to figure out, and I thought perhaps he was having an allergic reaction to the Dilaudid, so Benadryl was given. He was also given topical nitroglycerin, IV Lasix, and albuterol nebulizer treatment, and oxygen, while we were working him up. He was then transferred over to telemetry for closer monitoring. EKG did not show acute changes. D-dimer is elevated, but this would be expected in the setting of his hip fracture. Troponin is normal. BNP is a bit elevated at 500. Currently, the patient is still quite sleepy. His color is much improved. He is now maintaining oxygen saturations in the mid 90s on 2 L O2 via mask. He reports no fevers or chills, cough, chest pain or palpitations, and denied feeling especially short of breath. He denied abdominal pain, nausea or vomiting, diarrhea. Chester catheter remains in place. He continues to have significant right hip pain with any movement of the right leg. February 02: Today, the patient reports he is feeling better. He still notes pain in the right hip if he moves, but is otherwise comfortable. He denies fever or chills, headaches or dizziness, chest pain or palpitations, shortness of breath or wheezing, abdominal pain, nausea or vomiting, diarrhea or constipation. Chester catheter remains in place. Vital signs overnight, with O2 saturations ranging from 94-98% on 1-2 L O2. He did spike a temperature of 101.7 last evening. February 03: This morning, after being given morphine for pain, the patient vomited and appeared to aspirate vomitus into his lungs. He was suctioned by respiratory therapy, and oxygen mask applied. Later in the morning his O2 saturations continued to decline, and I requested that respiratory therapy start him on BiPAP. Not long after that, the patient vomited again, in spite of being n.p.o. , into the facemask. The vomit consisted mainly of bilious appearing fluid. We then placed an NG tube, and high flow oxygen via mask. The patient has been less alert today, but does wake up enough to tell me that he is not having any pain. He does feel like his breathing is a bit labored. Otherwise he does not report subjective fever or chills, chest pain or palpitations, abdominal pain, diarrhea or constipation. His hip pain is relatively well controlled at this time. - Constitutional Vitals: Vital Signs Temp Pulse Resp BP Pulse Ox 99.4 F H 106 H 22 99/53 96 02/03/17 08:00 02/03/17 08:35 02/03/17 08:19 02/03/17 08:00 02/03/17 08:19 Period Temp Pulse Resp BP Sys/Hutson Pulse Ox Last 24 Hr 97.7 F-100.4 F 75-106 16-24 69-149/41-79 90-100 Intake and Output 02/02/17 02/03/17 02/03/17 21:59 05:59 13:59 Intake Total 1124 / 1124 682 / 682 50 / 50 Output Total 280 / 280 990 / 990 Balance 844 / 844 -308 / -308 50 / 50 Weight 177 lb Intake & Output: Intake & Output 02/02/17 02/03/17 02/03/17 21:59 05:59 13:59 Intake Total 1124 / 1124 682 / 682 50 / 50 Output Total 280 / 280 990 / 990 Balance 844 / 844 -308 / -308 50 / 50 Weight 177 lb Intake: IV 874 / 874 562 / 562 50 / 50 Dextrose 5%-Lactated 824 / 824 512 / 512 Ringers 1,000 ml @ 100 mls/hr IV .Q10H [facility] Rx#: [id number] Zosyn 3.375 gm In 50 / 50 50 / 50 50 / 50 Dextrose 5% in Water 50 ml @ 100 mls/hr IV Q8H [facility] Rx#:[id number] Oral 120 / 120 Epidural 250 / 250 Output: Urine Catheter Amount 280 / 280 990 / 990 Other: # Bowel Movements 0 0 On exam, the patient is a bit sleepy. Current vital signs show temperature of 96.1, heart rate 107, respiratory rate 16, blood pressure 120/75, O2 saturation is 97% on a 10 L mask Supple without obvious JVD. Cardiac exam shows regular rate and rhythm. Lung exam initially this morning showed just a few scattered crackles. This afternoon after aspirating, breath sounds are much more coarse, with more wheezing noted throughout both lung salvador. He tends to have a fair amount of upper airway noise as well. Abdomen is soft and nontender with normal bowel sounds. Extremities show no significant edema. Neurologic: The patient's and staff report that he has been intermittently confused since surgery. Medical - PN: Obj Da - Labs CBC & Chem 7: 02/03/17 04:08 02/03/17 04:08 Labs: Abnormal Lab Results 02/03/17 02/03/17 02/02/17 04:08 04:08 07:45 WBC 16.2 H RBC 3.46 L 3.32 L Hgb 11.0 L 10.6 L Hct 32.0 L 30.4 L RDW 15.5 H 15.6 H Plt Count 128 L Gran % 89.0 H Lymph % (Auto) 4.4 L 12.0 L Stearns % (Auto) 13.6 H Gran # 14.4 H Lymph # (Auto) 0.7 L 0.9 L Stearns # (Auto) 1.1 H 1.0 H PT INR D-Dimer Anion Gap 17.0 H Glucose 168 H Calcium 8.4 L Phosphorus Total Bilirubin GGT NT-Pro-B Natriuret Pep 02/02/17 02/01/17 02/01/17 03:57 12:38 12:38 WBC 13.2 H RBC 3.90 L Hgb 12.5 L Hct 36.0 L RDW 15.5 H Plt Count Gran % 84.0 H Lymph % (Auto) 8.0 L Stearns % (Auto) Gran # 11.1 H Lymph # (Auto) 1.1 L Stearns # (Auto) PT INR D-Dimer 7.71 H Anion Gap Glucose 123 H Calcium 8.4 L Phosphorus 2.6 L Total Bilirubin 1.2 H GGT 7 L NT-Pro-B Natriuret Pep 02/01/17 02/01/17 02/01/17 12:38 05:00 05:00 WBC RBC 3.57 L Hgb 11.3 L Hct 32.9 L RDW 16.0 H Plt Count Gran % 80.4 H Lymph % (Auto) 10.8 L Stearns % (Auto) Gran # Lymph # (Auto) 1.0 L Stearns # (Auto) PT 15.2 H INR 1.2 H D-Dimer Anion Gap Glucose Calcium Phosphorus Total Bilirubin GGT NT-Pro-B Natriuret Pep 501.1 H 02/01/17 01/31/17 05:00 22:51 WBC 12.6 H RBC 4.04 L Hgb 12.1 L Hct 36.0 L RDW 14.8 H Plt Count Gran % 88.6 H Lymph % (Auto) 4.6 L Stearns % (Auto) Gran # 11.2 H Lymph # (Auto) 0.6 L Stearns # (Auto) PT INR D-Dimer Anion Gap 6.0 L Glucose 128 H Calcium 8.4 L Phosphorus Total Bilirubin GGT NT-Pro-B Natriuret Pep February 03: Follow-up chest x-ray this afternoon shows mild perihilar infiltrates, with slight worsening. Continued elevation of the right hemidiaphragm. February 02: Chest x-ray: Moderate chronic elevation of the right diaphragm, with right basilar atelectasis. No infiltrates are seen. February 01: CBC: White blood cell count 13,000, hemoglobin 12, hematocrit 36, granulocyte count 11,000 D-dimer is elevated at 7.7 ProBNP is mildly elevated at 501 Troponin is normal at less than 0.01 EKG showed sinus tachycardia, with no obvious acute ischemic changes. ABG on room air, while in distress: Shows pH of 7.37, PCO2 of 53, PO2 of 40, bicarb of 30, O2 saturation 73% Chest x-ray: There is moderate cardiomegaly. Chronic right diaphragm elevation. Minor right base atelectasis. No signs of CHF. Nasal MRSA screen is negative. January 31: CBC differential: Shows granulocyte count of 9300, lymphocyte count of 700 Urinalysis: Shows 44 red blood cells, without leukocyte esterase or nitrites. Chest x-ray: Shows elevated right hemidiaphragm, unchanged. No other abnormalities. Hip x-ray: Shows acute right trochanteric fracture, and previous right total hip arthroplasty. Meds: Medications Albuterol Sulfate (Ventolin) 2.5 mg NEB Q6HRT MYKEL Albuterol Sulfate (Ventolin) 2.5 mg NEB Q2HP PRN PRN Reason: Shortness Of Breath Docusate Sodium (Colace) 100 mg PO BID PRN PRN Reason: Constipation Piperacillin Sod/Tazobactam (Sod 3.375 gm/ Dextrose) 50 mls @ 100 mls/hr IV Q8H [facility] Last Infusion: 02/03/17 07:09 Dose: Infused Potassium Chloride/Dextrose/Sod Cl (Dextrose 5%-1/2ns W/20meq Kcl) 1,000 mls @ 50 mls/hr IV .Q20H [facility] Acetaminophen (Ofirmev) 650 mg in 65 mls @ 130 mls/hr IV Q6HP PRN PRN Reason: PAIN/FEVER > 101 Magnesium Hydroxide (Milk Of Magnesia) 30 ml PO DAILYP PRN PRN Reason: Constipation Morphine Sulfate (Morphine) 1 mg IV Q3HP PRN PRN Reason: Pain Last Admin: 02/03/17 09:16 Dose: 1 mg Naloxone HCl (Narcan) 0.1 mg IV Q2MIN PRN PRN Reason: Opiate Reversal Ondansetron HCl (Zofran) 4 mg IV Q6HP PRN PRN Reason: Nausea And Vomiting Last Admin: 02/03/17 09:48 Dose: 4 mg Medical - PN: A/P - Time Spent With Patient Total time spent is greater than 50% in coordination of care (as documented) at patient's floor/unit and/or counseling patient: Greater than 35 minutes (1) Femur fracture, right Status: Acute Current Visit: Yes (2) Impairment of cognitive function Problem details: with balance difficulties Status: Chronic Current Visit: No - Narrative A/P Narrative: #1. Cardiopulmonary. Patient had a sudden decline in oxygenation again today, after apparent aspiration, twice. He did not tolerate the initial trial of BiPAP. He is currently on high flow oxygen mask, and is maintaining O2 saturations. He continues on IV Zosyn to cover for aspiration pneumonia versus pneumonitis. #2. Orthopedic. Patient presents with right hip fracture. He was seen by Dr. Bourne. He did undergo hip replacement surgery today, and overall did well with the surgery. We are now just trying to manage his nausea and pain during the postop period - low-dose morphine if absolutely needed. IV Tylenol as needed. -Patient will eventually need PT and OT evaluations. -Start DVT prophylaxis soon. 2. CODE STATUS: Chart indicates DNR CODE STATUS. 3. DVT prophylaxis: SCDs tonight. Start heparin or Coumadin postop. 4. Hematuria. No signs of infection at this time. #5. Infectious disease. The patient may have aspirated yesterday, so is currently being covered with IV Zosyn. Blood cultures are pending. Approximately 45 minutes has been spent so far today, interviewing and examining the patient , reviewing test results, reviewing plan of care with family and the staff, and writing orders. Medical - PN: Qual - VTE Deep Vein Thrombosis/Pulmonary Embolism Present on Admission: No
[2017-02-03] MEDS: ALBUTEROL SULFATE 2.5 MG/3 ML NEBULIZER NEB SCH ×2 (11:00→18:32)
--- NOTE | 2017-02-03 13:58 | XRay Report ---
CLINICAL INFORMATION: Aspiration hypoxia COMPARISON: 02/03/2017 0824 hours FINDINGS: Moderate cardiomegaly is unchanged. Mediastinum is unremarkable. Pulmonary vessels appear normal. There is mild bilateral perihilar infiltrate which have worsened slightly. Moderate chronic elevation of the right diaphragm with interposition of the hepatic flexure of the colon between the liver and diaphragm seen - as before. IMPRESSION: Mild perihilar infiltrates - slight worsening. No evidence CHF Interpreted and Authenticated by: Eliezer Underwood 02/03/17
--- NOTE | 2017-02-03 16:38 | Orthopedic Progress Note ---
Orthopedics - Auxillary Note - Subjective Patient Information: Note initiated : 02/03/17 at 4:37 pm Service Date, if different from initiated Date: [] Patient: Edgard Bae 86 y/o M admitted on 01/31/17 for Fall/Femur Fracture, Right. Chief Complaint: Pt sleeping on exam. Spoke with son. bandages c/d/i nvi-distal Vital Signs Temp Pulse Pulse Pulse Pulse Resp BP 02/03/17 15:50 96.1 F L 16 120/75 02/03/17 14:45 107 H 02/03/17 14:00 104 H 22 121/80 02/03/17 13:00 113 H 99/60 02/03/17 12:53 120 H 18 02/03/17 12:48 115 H 124/69 02/03/17 12:05 98.9 F 24 H 115/69 02/03/17 12:00 121 H 115/69 02/03/17 11:29 101 H 115/62 02/03/17 11:15 98 H 22 02/03/17 10:00 24 H 02/03/17 08:35 106 H 02/03/17 08:19 96 H 22 02/03/17 08:00 99.4 F H 95 H 20 99/53 02/03/17 04:11 98.8 F 99 H 22 118/63 02/03/17 00:00 97.7 F 84 18 96/64 02/02/17 23:00 75 105/66 02/02/17 22:00 87 102/58 02/02/17 21:15 85 16 02/02/17 21:00 83 106/64 02/02/17 20:34 82 02/02/17 20:30 89 112/63 02/02/17 20:15 98.0 F 92 H 85 18 02/02/17 20:00 83 98/59 02/02/17 19:51 91 H 02/02/17 19:45 88 86 18 103/58 02/02/17 19:30 88 101/68 02/02/17 19:15 86 87 18 104/60 02/02/17 19:01 86 92/52 02/02/17 19:00 88 16 02/02/17 18:51 18 02/02/17 18:45 87 89 16 109/58 02/02/17 18:39 94 H 105/41 02/02/17 18:38 97.8 F 88 16 02/02/17 18:25 99.1 F H 94 H 97 H 95 H 18 02/02/17 18:10 99.1 F H 94 H 97 H 95 H 18 02/02/17 17:50 99.1 F H 100 H 97 H 95 H 20 02/02/17 17:45 99.1 F H 95 H 97 H 94 H 20 02/02/17 17:40 99.1 F H 94 H 97 H 94 H 18 02/02/17 17:35 99.1 F H 97 H 97 H 24 H BP BP Pulse Ox 02/03/17 15:50 97 02/03/17 14:45 02/03/17 14:00 94 02/03/17 13:00 02/03/17 12:53 93 02/03/17 12:48 02/03/17 12:05 94 02/03/17 12:00 98 02/03/17 11:29 02/03/17 11:15 02/03/17 10:00 93 02/03/17 08:35 02/03/17 08:19 96 02/03/17 08:00 93 02/03/17 04:11 94 02/03/17 00:00 95 02/02/17 23:00 99 02/02/17 22:00 94 02/02/17 21:15 102/58 96 02/02/17 21:00 93 02/02/17 20:34 94 02/02/17 20:30 91 02/02/17 20:15 112/63 94 02/02/17 20:00 97 02/02/17 19:51 97 02/02/17 19:45 103/58 92 02/02/17 19:30 98 02/02/17 19:15 104/60 96 02/02/17 19:01 92 02/02/17 19:00 92/52 94 02/02/17 18:51 94 02/02/17 18:45 109/58 96 02/02/17 18:39 92 02/02/17 18:38 105/41 95 02/02/17 18:25 122/64 134/74 100 02/02/17 18:10 122/64 134/74 100 02/02/17 17:50 119/58 134/74 02/02/17 17:45 122/67 134/74 02/02/17 17:40 145/64 134/74 02/02/17 17:35 149/79 134/74 95 Intake and Output 02/03/17 02/03/17 02/03/17 05:59 13:59 21:59 Intake Total 682 / 682 50 / 50 50 / 50 Output Total 990 / 990 Balance -308 / -308 50 / 50 50 / 50 Intake: IV 562 / 562 50 / 50 50 / 50 Dextrose 5%-Lactated 512 / 512 Ringers 1,000 ml @ 100 mls/hr IV .Q10H [facility] Rx#: [id number] Zosyn 3.375 gm In 50 / 50 50 / 50 50 / 50 Dextrose 5% in Water 50 ml @ 100 mls/hr IV Q8H [facility] Rx#:[id number] Oral 120 / 120 Output: Urine Catheter Amount 990 / 990 Other: # Bowel Movements 0 Laboratory Results - last 24 hr 02/03/17 02/03/17 04:08 04:08 WBC 16.2 H RBC 3.46 L Hgb 11.0 L Hct 32.0 L MCV 92.6 MCH 31.7 MCHC 34.3 RDW 15.5 H Plt Count 171 MPV 9.1 Gran % 89.0 H Lymph % (Auto) 4.4 L Hamilton % (Auto) 6.6 Eos % (Auto) 0 Baso % (Auto) 0 Gran # 14.4 H Lymph # (Auto) 0.7 L Hamilton # (Auto) 1.1 H Eos # (Auto) 0 Baso # (Auto) 0 Sodium 137 Potassium 3.9 Chloride 96 Carbon Dioxide 24 Anion Gap 17.0 H BUN 20 Creatinine 1.0 GFR Calculation 67 Glucose 168 H Uric Acid 4.4 Calcium 8.4 L Phosphorus 2.9 Magnesium 1.6 Total Bilirubin 0.8 Direct Bilirubin < 0.2 GGT 10 AST 25 ALT 13 Alkaline Phosphatase 47 Lactate Dehydrogenase 237 Total Protein 6.3 Albumin 3.4 Globulin 2.9 Albumin/Globulin Ratio 1.2 Triglycerides 55 continue with medical tx per hospitalist. mobilize with PT when able
[2017-02-03] MEDS: DEXTROSE 5%-1/2NS W/20MEQ KCL 1,000 ML IV SCH (19:18)
[2017-02-04] MEDS: ALBUTEROL SULFATE 2.5 MG/3 ML NEBULIZER NEB SCH ×4 (01:42→19:16)
[2017-02-04] MEDS: DEXTROSE 5%-1/2NS W/20MEQ KCL 1,000 ML IV SCH ×3 (04:37→22:02)
[2017-02-04] MEDS: PIPERACILLIN SODIUM/TAZOBACTAM 3.375 GM in DEXTROSE 5% IN WATER 50 ML IV SCH ×3 (05:44→22:02)
[2017-02-04 06:17] LABS: Basophils # (Auto) 0 K/mcL (0.0-0.3); Basophils % (Auto) 0 % (0.0-2.0); Eosinophils # (Auto) 0.1 K/mcL (0.0-0.7); Eosinophils % (Auto) 0.3 % (0.0-7.0); Granulocytes % (Auto) 88.9 % (38.0-78.0); Lymphocytes # (Auto) 0.7 K/mcL (1.5-4.8); Lymphocytes % (Auto) 3.9 % (15.5-49.0); Mean Cell Volume 91.4 fL (80.0-100.0); Mean Corpuscular HGB Conc 35.4 g/dL (31.0-36.0); Mean Corpuscular Hemoglobin 32.3 pg (26.0-34.0); Monocytes # (Auto) 1.2 K/mcL (0.1-0.9); Monocytes % (Auto) 6.9 % (1.0-12.0); Platelet Count 159 K/mcL (140-440); Red Cell Distribution Width 15.3 % (11.5-14.5)
[2017-02-04 06:30] LABS: ALT/SGPT 9 U/l (0-40); Alkaline Phosphatase 42 U/L (39-117); Bilirubin,Direct < 0.2 mg/dL (0.0-0.3); Blood Urea Nitrogen 36 mg/dl (8-23); Gamma Glutamyl Transpeptidase 8 U/L (8-61); Magnesium 1.8 mg/dL (1.6-2.5); Uric Acid 5.8 mg/dL (2.5-8.0)
--- NOTE | 2017-02-04 07:54 | Orthopedic Progress Note ---
Orthopedics - Auxillary Note - Subjective Patient Information: Note initiated : 02/04/17 at 7:52 am Service Date, if different from initiated Date: [] Patient: Edgard Bae 86 y/o M admitted on 01/31/17 for Fall/Femur Fracture, Right. Chief Complaint: Pt asleep on exam. No ortho concerns per nursing. bandages c/d/i nvi-distal Vital Signs Temp Pulse Pulse Pulse Pulse Resp BP 02/04/17 07:00 100 H 25 H 02/04/17 01:45 104 H 20 02/04/17 00:26 108 H 02/04/17 00:01 100 H 114/70 02/04/17 00:00 106 H 22 02/03/17 23:02 106 H 120/72 02/03/17 22:51 106 H 20 02/03/17 22:01 111 H 145/75 02/03/17 21:01 112 H 130/76 02/03/17 20:52 112 H 23 H 02/03/17 20:01 99 H 119/79 02/03/17 20:00 107 H 100 H 107 H 100 H 22 119/79 02/03/17 19:01 107 H 111/69 02/03/17 18:32 105 H 22 02/03/17 18:01 99.2 F H 110 H 113/62 02/03/17 17:20 106 H 21 02/03/17 17:01 97 H 121/69 02/03/17 16:01 109 H 115/78 02/03/17 15:50 96.1 F L 16 120/75 02/03/17 15:46 103 H 120/75 02/03/17 15:00 105 H 135/86 02/03/17 14:45 107 H 02/03/17 14:00 104 H 22 121/80 02/03/17 13:00 113 H 99/60 02/03/17 12:53 120 H 18 02/03/17 12:48 115 H 124/69 02/03/17 12:05 98.9 F 24 H 115/69 02/03/17 12:00 121 H 115/69 02/03/17 11:29 101 H 115/62 02/03/17 11:15 98 H 22 02/03/17 10:00 24 H 02/03/17 08:35 106 H 09/20/17 08:19 96 H 22 02/03/17 08:00 99.4 F H 95 H 20 99/53 Pulse Ox 02/04/17 07:00 96 02/04/17 01:45 02/04/17 00:26 02/04/17 00:01 02/04/17 00:00 96 02/03/17 23:02 02/03/17 22:51 96 02/03/17 22:01 02/03/17 21:01 02/03/17 20:52 96 02/03/17 20:01 02/03/17 20:00 94 02/03/17 19:01 02/03/17 18:32 98 02/03/17 18:01 02/03/17 17:20 97 02/03/17 17:01 02/03/17 16:01 02/03/17 15:50 97 02/03/17 15:46 02/03/17 15:00 02/03/17 14:45 02/03/17 14:00 94 02/03/17 13:00 02/03/17 12:53 93 02/03/17 12:48 02/03/17 12:05 94 02/03/17 12:00 98 02/03/17 11:29 02/03/17 11:15 02/03/17 10:00 93 02/03/17 08:35 02/03/17 08:19 96 02/03/17 08:00 93 Intake and Output 02/03/17 02/04/17 02/04/17 21:59 05:59 13:59 Intake Total 50 / 50 1050 / 1050 288 / 288 Output Total 100 / 100 320 / 320 Balance -50 / -50 730 / 730 288 / 288 Intake: IV 50 / 50 1050 / 1050 288 / 288 Dextrose 5%-1/2Ns W/20Meq 1000 / 1000 238 / 238 KCl 1,000 ml @ 100 mls/ hr IV .Q10H [facility] Rx#: [id number] Zosyn 3.375 gm In 50 / 50 50 / 50 50 / 50 Dextrose 5% in Water 50 ml @ 100 mls/hr IV Q8H [facility] Rx#:[id number] Output: Urine Catheter Amount 320 / 320 Emesis 100 / 100 Other: # Emeses 3 Laboratory Results - last 24 hr 02/04/17 02/04/17 03:54 03:54 WBC 17.5 H RBC 3.10 L Hgb 10.0 L Hct 28.3 L MCV 91.4 MCH 32.3 MCHC 35.4 RDW 15.3 H Plt Count 159 MPV 9.2 Gran % 88.9 H Lymph % (Auto) 3.9 L Forrest % (Auto) 6.9 Eos % (Auto) 0.3 Baso % (Auto) 0 Gran # 15.6 H Lymph # (Auto) 0.7 L Forrest # (Auto) 1.2 H Eos # (Auto) 0.1 Baso # (Auto) 0 Sodium 135 Potassium 3.8 Chloride 95 L Carbon Dioxide 27 Anion Gap 13.0 BUN 36 H Creatinine 1.1 GFR Calculation 60 Glucose 137 H Uric Acid 5.8 Calcium 8.4 L Phosphorus 2.3 L Magnesium 1.8 Total Bilirubin 0.8 Direct Bilirubin < 0.2 GGT 8 AST 21 ALT 9 Alkaline Phosphatase 42 Lactate Dehydrogenase 211 Total Protein 6.0 Albumin 3.0 L Globulin 3.0 Albumin/Globulin Ratio 1.0 Triglycerides 79 s/p R total hip revision for periprosthetic fx. cont medical management per hospitalist. sign off from ortho. Staple removal in 14 days, Weight bear as tolerated. f/u 10 -14 day with ortho.
--- NOTE | 2017-02-04 08:01 | XRay Report ---
CLINICAL INFORMATION: Follow pneumonia COMPARISON: 02/03/2017 FINDINGS: Moderate cardiomegaly is unchanged. Mediastinum is unremarkable. NG tube in place with the tip overlies the gastric body. Pulmonary vessels are unremarkable. Mild perihilar infiltrates have improved considerably. Right diaphragm remains elevated IMPRESSION: Improvement in perihilar infiltrates - now small. Interpreted and Authenticated by: Eliezer Underwood 02/04/17
[2017-02-04] MEDS ORDERED: MAGNESIUM SULFATE 2 GM/50 ML BAG IV ONE (08:18)
[2017-02-04] MEDS ORDERED: POTASSIUM CHLORIDE 20 MEQ in DEXTROSE 5% IN WATER 250 ML IV ONE (08:19)
[2017-02-04] MEDS: ACETAMINOPHEN 650 MG/65 ML BOTTLE IV PRN ×3 (09:35→22:49)
[2017-02-04] MEDS: PANTOPRAZOLE 40 MG VIAL IV SCH ×2 (09:54→18:41)
[2017-02-04] MEDS: 0.9 % SODIUM CHLORIDE 10 ML SYRINGE IV SCH ×3 (09:55→22:03)
--- NOTE | 2017-02-04 12:55 | Internal Med Progress Note ---
Medical - PN: Subj Patient information: Note initiated : 02/04/17 at 12:38 pm Service Date, if different from initiated Date: [] Patient: Edgard Bae 86 y/o M admitted on 01/31/17 for Fall/Femur Fracture, Right. Chief Complaint: [] Interval history: January 31, 2017:History of present illness: Mr. Bae is a 86 year old man who apparently fell this evening at home. ER evaluation revealed an acute right subtrochanteric hip fracture with slight displacement of the lesser trochanter, as well as a previous right total hip arthroplasty. The patient has moderate dementia, and cannot recall how or why he fell. When I saw him late in the evening, his family was not available. Otherwise, he does not think that he has been ill lately. He denies being aware fever or chills, headaches or dizziness, new or ear symptoms, chest pain or palpitations, shortness of breath or wheezing or cough, abdominal pain, nausea or vomiting, diarrhea or constipation, or dysuria. February 01: This morning, the patient was having a bit more pain, and was given IV Dilaudid. About an hour later I was called to see him urgently, as the nurse found him somewhat obtunded and twitching all over. Extremities were cyanotic, and the patient had decreased mental status. O2 saturation at the time was reading about 70% but we were not sure the oximeter was accurate. Follow-up blood gas did confirm that the patient was hypoxic, with a PO2 of 40, and a PCO2 of 53. As we talked with him and did test on him, he did become a bit more arousable. The twitching was a little hard to figure out, and I thought perhaps he was having an allergic reaction to the Dilaudid, so Benadryl was given. He was also given topical nitroglycerin, IV Lasix, and albuterol nebulizer treatment, and oxygen, while we were working him up. He was then transferred over to telemetry for closer monitoring. EKG did not show acute changes. D-dimer is elevated, but this would be expected in the setting of his hip fracture. Troponin is normal. BNP is a bit elevated at 500. Currently, the patient is still quite sleepy. His color is much improved. He is now maintaining oxygen saturations in the mid 90s on 2 L O2 via mask. He reports no fevers or chills, cough, chest pain or palpitations, and denied feeling especially short of breath. He denied abdominal pain, nausea or vomiting, diarrhea. Chester catheter remains in place. He continues to have significant right hip pain with any movement of the right leg. February 02: Today, the patient reports he is feeling better. He still notes pain in the right hip if he moves, but is otherwise comfortable. He denies fever or chills, headaches or dizziness, chest pain or palpitations, shortness of breath or wheezing, abdominal pain, nausea or vomiting, diarrhea or constipation. Chester catheter remains in place. Vital signs overnight, with O2 saturations ranging from 94-98% on 1-2 L O2. He did spike a temperature of 101.7 last evening. February 03: This morning, after being given morphine for pain, the patient vomited and appeared to aspirate vomitus into his lungs. He was suctioned by respiratory therapy, and oxygen mask applied. Later in the morning his O2 saturations continued to decline, and I requested that respiratory therapy start him on BiPAP. Not long after that, the patient vomited again, in spite of being n.p.o. , into the facemask. The vomit consisted mainly of bilious appearing fluid. We then placed an NG tube, and high flow oxygen via mask. The patient has been less alert today, but does wake up enough to tell me that he is not having any pain. He does feel like his breathing is a bit labored. Otherwise he does not report subjective fever or chills, chest pain or palpitations, abdominal pain, diarrhea or constipation. His hip pain is relatively well controlled at this time. February 04: Patient seen examined, no acute overnight events, patient was asleep much of my eval, but did open eyes slightly to verbal stimuli and did obey commands like grasp hand. The patient wbc count trended up slightly, his tele showed some SVT His NG tube suction shows dark coloured secretions, h/h has remained stable, IV PPI added. NO more vomiting now. Pt remains on bipap to maintain his oxygen saturations, Fio2 40 % in AM, 10/5 settings. He remains on antibiotics. cxr today shows improved perihilar infiltrates. Pertinent ROS: unable,pt asleep. - Constitutional Vitals: Vital Signs Temp Pulse Resp BP Pulse Ox 98.2 F 112 H 25 H 100/65 96 02/04/17 08:01 02/04/17 11:15 02/04/17 11:15 02/04/17 08:01 02/04/17 11:15 Period Temp Pulse Resp BP Sys/Hutson Pulse Ox Last 24 Hr 96.1 F-99.2 F 86-120 16-26 99-145/60-86 93-98 Intake and Output 02/03/17 02/04/17 02/04/17 21:59 05:59 13:59 Intake Total 50 / 50 1905 / 1905 660 / 660 Output Total 100 / 100 320 / 320 520 / 520 Balance -50 / -50 1585 / 1585 140 / 140 Intake & Output: Intake & Output 02/03/17 02/04/17 02/04/17 21:59 05:59 13:59 Intake Total 50 / 50 1905 / 1905 660 / 660 Output Total 100 / 100 320 / 320 520 / 520 Balance -50 / -50 1585 / 1585 140 / 140 Intake: IV 50 / 50 1905 / 1905 660 / 660 Dextrose 5%-1/2Ns W/20Meq 1000 / 1000 495 / 495 KCl 1,000 ml @ 100 mls/ hr IV .Q10H [facility] Rx#: [id number] Zosyn 3.375 gm In 50 / 50 50 / 50 50 / 50 Dextrose 5% in Water 50 ml @ 100 mls/hr IV Q8H [facility] Rx#:[id number] Output: Gastric Drainage 350 / 350 Right Nare 350 / 350 Urine Catheter Amount 320 / 320 170 / 170 Emesis 100 / 100 Other: # Emeses 3 Exam: Constitutional; Afebrile, drowsy, not in distress. Eyes- No icterus, , No periorbital swelling Ears- Ext ear normal, Neck- Midline trachea, supple Respiratory system: Air Entry equal on both sides, No crackles or wheezing, no rhonchi. on bipap, fio2 40, 10/5 CVS- Rate rhythm regular, S1,S2 heard, no gallop, no rub. (intermittent SVT on tele) Abdomen- Soft nontender abdomen, no organomegaly, no tenderness, no guarding or rigidity, [employer]- AOOx0, moving all extremities, no gross focal deficit noted. Medical - PN: Obj Da - Labs CBC & Chem 7: 09/21/17 03:54 02/04/17 03:54 Labs: Abnormal Lab Results 02/04/17 02/04/17 02/03/17 03:54 03:54 04:08 WBC 17.5 H 16.2 H RBC 3.10 L 3.46 L Hgb 10.0 L 11.0 L Hct 28.3 L 32.0 L RDW 15.3 H 15.5 H Plt Count Gran % 88.9 H 89.0 H Lymph % (Auto) 3.9 L 4.4 L [place] % (Auto) Gran # 15.6 H 14.4 H Lymph # (Auto) 0.7 L 0.7 L [place] # (Auto) 1.2 H 1.1 H D-Dimer Chloride 95 L Anion Gap BUN 36 H Glucose 137 H Calcium 8.4 L Phosphorus 2.3 L Total Bilirubin GGT NT-Pro-B Natriuret Pep Albumin 3.0 L 02/03/17 02/02/17 02/02/17 04:08 07:45 03:57 WBC RBC 3.32 L Hgb 10.6 L Hct 30.4 L RDW 15.6 H Plt Count 128 L Gran % Lymph % (Auto) 12.0 L [place] % (Auto) 13.6 H Gran # Lymph # (Auto) 0.9 L [place] # (Auto) 1.0 H D-Dimer Chloride Anion Gap 17.0 H BUN Glucose 168 H 123 H Calcium 8.4 L 8.4 L Phosphorus 2.6 L Total Bilirubin 1.2 H GGT 7 L NT-Pro-B Natriuret Pep Albumin 02/01/17 02/01/17 02/01/17 12:38 12:38 12:38 WBC 13.2 H RBC 3.90 L Hgb 12.5 L Hct 36.0 L RDW 15.5 H Plt Count Gran % 84.0 H Lymph % (Auto) 8.0 L [place] % (Auto) Gran # 11.1 H Lymph # (Auto) 1.1 L [place] # (Auto) D-Dimer 7.71 H Chloride Anion Gap BUN Glucose Calcium Phosphorus Total Bilirubin GGT NT-Pro-B Natriuret Pep 501.1 H Albumin Meds: Medications Albuterol Sulfate (Ventolin) 2.5 mg NEB Q6HRT [facility] Last Admin: 02/04/17 06:56 Dose: 2.5 mg Albuterol Sulfate (Ventolin) 2.5 mg NEB Q2HP PRN PRN Reason: Shortness Of Breath Docusate Sodium (Colace) 100 mg PO BID PRN PRN Reason: Constipation Piperacillin Sod/Tazobactam (Sod 3.375 gm/ Dextrose) 50 mls @ 100 mls/hr IV Q8H [facility] Last Infusion: 02/04/17 07:02 Dose: Infused Acetaminophen (Ofirmev) 650 mg in 65 mls @ 130 mls/hr IV Q6HP PRN PRN Reason: PAIN/FEVER > 101 Last Infusion: 02/04/17 10:17 Dose: Infused Potassium Chloride/Dextrose/Sod Cl (Dextrose 5%-1/2ns W/20meq Kcl) 1,000 mls @ 100 mls/hr IV .Q10H [facility] Last Infusion: 02/04/17 09:35 Dose: 0 mls/hr Magnesium Hydroxide (Milk Of Magnesia) 30 ml PO DAILYP PRN PRN Reason: Constipation Metoclopramide HCl (Reglan) 5 mg IV Q6HP PRN PRN Reason: Nausea And Vomiting Morphine Sulfate (Morphine) 1 mg IV Q3HP PRN PRN Reason: Pain Last Admin: 02/03/17 16:03 Dose: 1 mg Naloxone HCl (Narcan) 0.1 mg IV Q2MIN PRN PRN Reason: Opiate Reversal Ondansetron HCl (Zofran) 4 mg IV Q6HP PRN PRN Reason: Nausea And Vomiting Last Admin: 02/03/17 16:03 Dose: 4 mg Pantoprazole Sodium (Protonix) 40 mg IV BIDAC [facility] Last Admin: 02/04/17 09:54 Dose: 40 mg Sodium Chloride (Saline Flush) 10 ml IV Q8 [facility] Last Admin: 02/04/17 09:55 Dose: 10 ml Medical - PN: A/P - Time Spent With Patient Total time spent is greater than 50% in coordination of care (as documented) at patient's floor/unit and/or counseling patient: - Narrative A/P Narrative: #1. Cardiopulmonary. Aspiration pneumonia Acute hpoxic REsp failure On bipap, tolerating well this AM, wean off as tolerated. On iv zosyn for aspiration pneumonia. continue same. SVT: K 3.8. mg 1.8, replace to keep mg > 2.0, K > 4, metoprolol prn if sustained svt > 30 sec #2. Orthopedic. Patient presents with right hip fracture. He was seen by Dr. Bourne. s/p hip surgery \ - low-dose morphine if absolutely needed avoid as much as possible. IV Tylenol as needed. -Patient will eventually need PT and OT evaluations. 2. CODE STATUS: Chart indicates DNR CODE STATUS. 3. DVT prophylaxis: lovenox sq 4. Hematuria. No signs of infection at this time. #5. Infectious disease. The patient may have aspirated yesterday, so is currently being covered with IV Zosyn. Blood cultures are pending. Medical - PN: Qual - VTE Deep Vein Thrombosis/Pulmonary Embolism Present on Admission: No
[2017-02-04] MEDS ORDERED: ENOXAPARIN 40 MG/0.4 ML SYRINGE SQ SCH (12:59)
[2017-02-04] MEDS ORDERED: METOPROLOL TARTRATE 5 MG/5 ML VIAL IV ONE (14:50)
[2017-02-04] MEDS ORDERED: IOPAMIDOL 100 ML BOTTLE IJ ONE (15:11)
--- NOTE | 2017-02-04 15:32 | Cat Scan Report ---
CLINICAL INFORMATION: Respiratory distress. COMPARISON: Chest CT from 09/17/2014 TECHNIQUE: Axial images obtained through the chest. 80 intravenous contrast administration was administered, and scanning was performed during pulmonary arterial phase. Sagittally and coronally reformatted images were obtained. MIP reformatted images. FINDINGS: Mediastinal windows show a segmental embolus to the superior segment right lower lobe pulmonary artery (axial image 43). No other definite pulmonary emboli identified. Central pulmonary arteries are mildly enlarged suggesting mild pulmonary hypertension. Heart is mildly enlarged. Right ventricle and atrium are proportionate however - no evidence of right heart pressure elevation. No adenopathy seen in the mediastinal, hilar or axillary region. OG tube tip is in the gastric body. Esophagus is grossly normal. Pulmonary parenchymal windows show moderate sized vague groundglass infiltrates throughout both upper and lower lobes. There are scattered bullae throughout both lungs. Small bilateral pleural effusions noted. IMPRESSION: 1. Solitary embolus to the superior segment right lower lobe pulmonary artery. 2. Mild enlargement of the central pulmonary arteries suggesting mild pulmonary hypertension. 3. Moderate sized vague groundglass infiltrates diffusely throughout both lungs. Suspect aspiration or infection. Small bilateral pleural effusions also noted Interpreted and Authenticated by: Eliezer Underwood 02/04/17
[2017-02-04] MEDS ORDERED: ENOXAPARIN 100 MG/ML SYRINGE SQ SCH (16:11)
[2017-02-04] MEDS: METOPROLOL TARTRATE 5 MG/5 ML VIAL IV SCH ×3 (16:19→16:28)
[2017-02-04] MEDS ORDERED: METOPROLOL TARTRATE 5 MG/5 ML VIAL IV PRN (16:26)
[2017-02-04] MEDS ORDERED: ENOXAPARIN 80 MG/0.8 ML SYRINGE SQ ONE (16:31)
[2017-02-05] MEDS: ALBUTEROL SULFATE 2.5 MG/3 ML NEBULIZER NEB SCH ×4 (00:49→19:52)
[2017-02-05] MEDS: 0.9 % SODIUM CHLORIDE 10 ML SYRINGE IV SCH ×5 (05:25→22:12)
[2017-02-05] MEDS: PIPERACILLIN SODIUM/TAZOBACTAM 3.375 GM in DEXTROSE 5% IN WATER 50 ML IV SCH ×3 (05:26→22:12)
[2017-02-05 06:18] LABS: Basophils # (Auto) 0 K/mcL (0.0-0.3); Basophils % (Auto) 0.1 % (0.0-2.0); Eosinophils # (Auto) 0 K/mcL (0.0-0.7); Eosinophils % (Auto) 0.4 % (0.0-7.0); Granulocytes % (Auto) 85.2 % (38.0-78.0); Lymphocytes % (Auto) 7.8 % (15.5-49.0); Mean Cell Volume 92.4 fL (80.0-100.0); Mean Corpuscular HGB Conc 34.5 g/dL (31.0-36.0); Mean Corpuscular Hemoglobin 31.9 pg (26.0-34.0); Monocytes # (Auto) 0.8 K/mcL (0.1-0.9); Monocytes % (Auto) 6.5 % (1.0-12.0); Platelet Count 150 K/mcL (140-440); RBC 2.66 M/mcL (4.50-5.90); Red Cell Distribution Width 15.6 % (11.5-14.5)
[2017-02-05 06:19] LABS: ALT/SGPT 9 U/l (0-40); Albumin/Globulin Ratio 1.1 (1.0-2.3); Alkaline Phosphatase 43 U/L (39-117); Bilirubin,Direct 0.2 mg/dL (0.0-0.3); Blood Urea Nitrogen 34 mg/dl (8-23); Gamma Glutamyl Transpeptidase 12 U/L (8-61); Magnesium 2.4 mg/dL (1.6-2.5); Uric Acid 5.6 mg/dL (2.5-8.0)
[2017-02-05] MEDS: ACETAMINOPHEN 650 MG/65 ML BOTTLE IV PRN ×2 (07:56→23:44)
[2017-02-05] MEDS: PANTOPRAZOLE 40 MG VIAL IV SCH ×2 (08:15→17:16)
[2017-02-05] MEDS: DEXTROSE 5%-1/2NS W/20MEQ KCL 1,000 ML IV SCH ×3 (09:40→20:26)
--- NOTE | 2017-02-05 11:07 | Orthopedic Progress Note ---
Subjective Patient information: Note initiated : 02/05/17 at 11:04 am Service Date, if different from initiated Date: [] Patient: Edgard Bae 86 y/o M admitted on 01/31/17 for Fall/Femur Fracture, Right. Chief Complaint: [] Principal diagnosis: R periprosthetic femur fracture Interval history: still on bipap, lethargic Objective Vital signs: Vital Signs Temp Pulse Resp BP Pulse Ox 02/05/17 09:00 99 H 25 H 100 02/05/17 07:25 108 H 24 H 96 02/05/17 07:20 110 H 25 H 02/05/17 07:00 28 H 98 02/05/17 04:43 94 H 16 95 02/05/17 04:13 98.6 F 102 H 20 111/69 100 02/05/17 02:30 92 H 18 100 02/05/17 00:50 99 H 20 98 02/05/17 00:00 98.7 F 92 H 17 106/68 95 02/04/17 19:58 97.7 F 100 H 22 103/59 97 02/04/17 19:37 94 02/04/17 19:19 105 H 25 H 02/04/17 19:16 104 H 25 H 98 02/04/17 17:54 101 H 22 98 02/04/17 15:24 98 H 21 92 02/04/17 15:17 97.9 F 97 H 20 110/73 94 02/04/17 14:01 116/75 93 02/04/17 13:25 115 H 21 95 02/04/17 13:20 115 H 21 02/04/17 12:01 97.8 F 18 100/71 95 02/04/17 11:15 112 H 25 H 96 Intake and Output 02/04/17 02/05/17 02/05/17 21:59 05:59 13:59 Intake Total 858 / 858 115 / 115 1115 / 1115 Output Total 300 / 300 515 / 515 100 / 100 Balance 558 / 558 -400 / -400 1015 / 1015 Intake: IV 858 / 858 115 / 115 1115 / 1115 Dextrose 5%-1/2Ns W/20Meq 743 / 743 1000 / 1000 KCl 1,000 ml @ 100 mls/ hr IV .Q10H [facility] Rx#: [id number] Zosyn 3.375 gm In 50 / 50 50 / 50 50 / 50 Dextrose 5% in Water 50 ml @ 100 mls/hr IV Q8H [facility] Rx#:[id number] Output: Gastric Drainage 150 / 150 125 / 125 Right Nare 150 / 150 125 / 125 Urine Catheter Amount 150 / 150 390 / 390 100 / 100 Other: Weight 181 lb 14.4 oz Intake & Output: Intake & Output 02/04/17 02/05/17 02/05/17 21:59 05:59 13:59 Intake Total 858 / 858 115 / 115 1115 / 1115 Output Total 300 / 300 515 / 515 100 / 100 Balance 558 / 558 -400 / -400 1015 / 1015 Weight 181 lb 14.4 oz Intake: IV 858 / 858 115 / 115 1115 / 1115 Dextrose 5%-1/2Ns W/20Meq 743 / 743 1000 / 1000 KCl 1,000 ml @ 100 mls/ hr IV .Q10H [facility] Rx#: [id number] Zosyn 3.375 gm In 50 / 50 50 / 50 50 / 50 Dextrose 5% in Water 50 ml @ 100 mls/hr IV Q8H [facility] Rx#:[id number] Output: Gastric Drainage 150 / 150 125 / 125 Right Nare 150 / 150 125 / 125 Urine Catheter Amount 150 / 150 390 / 390 100 / 100 Dressing: Yes clean, Yes dry, Yes intact Extremities exam IM: Yes Foot pink and warm - Periperhal Pulses Peripheral pulses: 1+: posterior tibialis (R) - Labs CBC & BMP: 02/05/17 03:43 02/05/17 03:43 Labs: Orthopedic Labs 02/01/17 02/01/17 12:38 05:00 PT 15.2 H INR 1.2 H D-Dimer 7.71 H 02/05/17 02/04/17 02/04/17 03:43 12:17 03:54 Hgb 8.5 L 9.6 L 10.0 L Hct 24.6 L 27.3 L 28.3 L 02/03/17 02/02/17 02/01/17 04:08 07:45 12:38 Hgb 11.0 L 10.6 L 12.5 L Hct 32.0 L 30.4 L 36.0 L 02/01/17 01/31/17 05:00 22:51 Hgb 11.3 L 12.1 L Hct 32.9 L 36.0 L Assessment and Plan (1) Femur fracture, right POD#3 s/p revision R total hip arthroplasty-ortho stable, -mobilize when cognitive and pulmonary allows -ortho signing off for now when d/c'd susana out 14 days post op, PT for posterior BING protocol, WBAT, f/u Dr. Bourne in 1 month Status: Acute Qualifiers: Femur location: subtrochanteric Fracture type: closed Fracture alignment : displaced
[2017-02-05] MEDS ORDERED: POTASSIUM PHOSPHATE 40 MEQ in DEXTROSE 5% IN WATER 500 ML IV ONE (11:35)
[2017-02-05] MEDS: BISACODYL 10 MG SUPP.RECT PR PRN (11:42)
[2017-02-05] MEDS ORDERED: TPN PER PHARMACY IV SCH (12:31)
--- NOTE | 2017-02-05 14:04 | Internal Med Progress Note ---
Medical - PN: Subj Patient information: Note initiated : 02/05/17 at 2:04 pm Patient: Edgard Bae 86 y/o M admitted on 01/31/17 for Fall/Femur Fracture, Right. Interval history: January 31, 2017:History of present illness: Mr. Bae is a 86 year old man who apparently fell this evening at home. ER evaluation revealed an acute right subtrochanteric hip fracture with slight displacement of the lesser trochanter, as well as a previous right total hip arthroplasty. The patient has moderate dementia, and cannot recall how or why he fell. When I saw him late in the evening, his family was not available. Otherwise, he does not think that he has been ill lately. He denies being aware fever or chills, headaches or dizziness, new or ear symptoms, chest pain or palpitations, shortness of breath or wheezing or cough, abdominal pain, nausea or vomiting, diarrhea or constipation, or dysuria. February 01: This morning, the patient was having a bit more pain, and was given IV Dilaudid. About an hour later I was called to see him urgently, as the nurse found him somewhat obtunded and twitching all over. Extremities were cyanotic, and the patient had decreased mental status. O2 saturation at the time was reading about 70% but we were not sure the oximeter was accurate. Follow-up blood gas did confirm that the patient was hypoxic, with a PO2 of 40, and a PCO2 of 53. As we talked with him and did test on him, he did become a bit more arousable. The twitching was a little hard to figure out, and I thought perhaps he was having an allergic reaction to the Dilaudid, so Benadryl was given. He was also given topical nitroglycerin, IV Lasix, and albuterol nebulizer treatment, and oxygen, while we were working him up. He was then transferred over to telemetry for closer monitoring. EKG did not show acute changes. D-dimer is elevated, but this would be expected in the setting of his hip fracture. Troponin is normal. BNP is a bit elevated at 500. Currently, the patient is still quite sleepy. His color is much improved. He is now maintaining oxygen saturations in the mid 90s on 2 L O2 via mask. He reports no fevers or chills, cough, chest pain or palpitations, and denied feeling especially short of breath. He denied abdominal pain, nausea or vomiting, diarrhea. Chester catheter remains in place. He continues to have significant right hip pain with any movement of the right leg. February 02: Today, the patient reports he is feeling better. He still notes pain in the right hip if he moves, but is otherwise comfortable. He denies fever or chills, headaches or dizziness, chest pain or palpitations, shortness of breath or wheezing, abdominal pain, nausea or vomiting, diarrhea or constipation. Chester catheter remains in place. Vital signs overnight, with O2 saturations ranging from 94-98% on 1-2 L O2. He did spike a temperature of 101.7 last evening. February 03: This morning, after being given morphine for pain, the patient vomited and appeared to aspirate vomitus into his lungs. He was suctioned by respiratory therapy, and oxygen mask applied. Later in the morning his O2 saturations continued to decline, and I requested that respiratory therapy start him on BiPAP. Not long after that, the patient vomited again, in spite of being n.p.o. , into the facemask. The vomit consisted mainly of bilious appearing fluid. We then placed an NG tube, and high flow oxygen via mask. The patient has been less alert today, but does wake up enough to tell me that he is not having any pain. He does feel like his breathing is a bit labored. Otherwise he does not report subjective fever or chills, chest pain or palpitations, abdominal pain, diarrhea or constipation. His hip pain is relatively well controlled at this time. February 04: Patient seen examined, no acute overnight events, patient was asleep much of my eval, but did open eyes slightly to verbal stimuli and did obey commands like grasp hand. The patient wbc count trended up slightly, his tele showed some SVT His NG tube suction shows dark coloured secretions, h/h has remained stable, IV PPI added. NO more vomiting now. Pt remains on bipap to maintain his oxygen saturations, Fio2 40 % in AM, 10/5 settings. He remains on antibiotics. cxr today shows improved perihilar infiltrates. February 05: The patient has continued to struggle. He did receive some morphine overnight, and remains quite somnolent today. The nursing staff feels that Tylenol is actually helping his pain more than morphine. NG output is declining, but continues rather dark in color, although tending towards dark green rather than reddish. The patient really does not arouse enough today to give me a history, although when asked if he is in pain he seems to indicate no. He continues to require BiPAP to maintain oxygen saturations. Because of ongoing hypoxia yesterday, he did undergo CT angiogram, which does show a small PE, in addition to bilateral infiltrates. He is now on Lovenox, therapeutic dose. He has not really had any nutrition since admission, so today we are evaluating for PPN versus TPN. I am reluctant to give him tube feedings at this point, since he has vomited and aspirated twice so far. We will give him more time to decrease his NG output. - Constitutional Vitals: Vital Signs Temp Pulse Resp BP Pulse Ox 98.6 F 106 H 23 H 123/87 96 02/05/17 12:00 02/05/17 13:31 02/05/17 13:31 02/05/17 12:00 02/05/17 13:31 Period Temp Pulse Resp BP Sys/H[place]son Pulse Ox Last 24 Hr 97.7 F-98.7 F 92-110 16-28 103-123/59-87 92-100 Intake and Output 02/05/17 02/05/17 02/05/17 05:59 13:59 21:59 Intake Total 115 / 115 1348 / 1348 Output Total 515 / 515 275 / 275 Balance -400 / -400 1073 / 1073 Weight 181 lb 14.4 oz 181 lb 14.4 oz Patient Weight 02/06/17 05:59 Weight 181 lb 14.4 oz Intake & Output: Intake & Output 02/05/17 02/05/17 02/05/17 05:59 13:59 21:59 Intake Total 115 / 115 1348 / 1348 Output Total 515 / 515 275 / 275 Balance -400 / -400 1073 / 1073 Weight 181 lb 14.4 oz 181 lb 14.4 oz Intake: IV 115 / 115 1348 / 1348 Dextrose 5%-1/2Ns W/20Meq 1233 / 1233 KCl 1,000 ml @ 100 mls/ hr IV .Q10H [facility] Rx#: [id number] Zosyn 3.375 gm In 50 / 50 50 / 50 Dextrose 5% in Water 50 ml @ 100 mls/hr IV Q8H [facility] Rx#:[id number] Output: Gastric Drainage 125 / 125 Right Nare 125 / 125 Urine Catheter Amount 390 / 390 275 / 275 On exam, he is somnolent, but does arouse briefly to stimulation. Nurses note that earlier today he was a little more arousable, but was trying to pull on his lines etc. I believe he is currently sedated due to the morphine. Temperatures 98.2. Heart rate is 106. Respiratory rate 23. Blood pressure 123 /87. O2 saturation 96% on BiPAP at 25 to 30% FiO2. Neck is supple without obvious lymphadenopathy or JVD. Cardiac exam shows regular rate and rhythm. Lungs: Show a few scattered crackles, but overall are fairly clear. No wheezing is noted. Abdomen: Soft and appears nontender. Bowel sounds are active. Extremities: Show no significant edema. Neurologic exam: The patient is mostly somnolent. When he is awake, he is generally confused. Motor exam is grossly nonfocal. Medical - PN: Obj Da - Labs CBC & Chem 7: 02/05/17 03:43 02/05/17 13:02 Labs: Abnormal Lab Results 02/05/17 02/05/17 02/04/17 03:43 03:43 12:17 WBC 12.3 H RBC 2.66 L Hgb 8.5 L 9.6 L Hct 24.6 L 27.3 L RDW 15.6 H Gran % 85.2 H Lymph % (Auto) 7.8 L Gran # 10.5 H Lymph # (Auto) 1.0 L [place] # (Auto) Chloride Anion Gap BUN 34 H Glucose 129 H Calcium 8.0 L Phosphorus 2.2 L Total Protein 5.7 L Albumin 3.0 L 02/04/17 02/04/17 02/03/17 03:54 03:54 04:08 WBC 17.5 H 16.2 H RBC 3.10 L 3.46 L Hgb 10.0 L 11.0 L Hct 28.3 L 32.0 L RDW 15.3 H 15.5 H Gran % 88.9 H 89.0 H Lymph % (Auto) 3.9 L 4.4 L Gran # 15.6 H 14.4 H Lymph # (Auto) 0.7 L 0.7 L [place] # (Auto) 1.2 H 1.1 H Chloride 95 L Anion Gap BUN 36 H Glucose 137 H Calcium 8.4 L Phosphorus 2.3 L Total Protein Albumin 3.0 L 02/03/17 04:08 WBC RBC Hgb Hct RDW Gran % Lymph % (Auto) Gran # Lymph # (Auto) [place] # (Auto) Chloride Anion Gap 17.0 H BUN Glucose 168 H Calcium 8.4 L Phosphorus Total Protein Albumin February 05: No change in mild perihilar infiltrates, suspect aspiration. PICC line tip in the left brachiocephalic junction, nurses instructed to withdraw 2 cm. February 04: CT angiogram: Solitary embolus to the superior right lower lobe segment pulmonary artery. Mild pulmonary hypertension. Moderate vague groundglass infiltrates diffusely throughout both lungs, suspect aspiration. Small bilateral pleural effusions. February 03: Follow-up chest x-ray this afternoon shows mild perihilar infiltrates, with slight worsening. Continued elevation of the right hemidiaphragm. February 02: Chest x-ray: Moderate chronic elevation of the right diaphragm, with right basilar atelectasis. No infiltrates are seen. February 01: CBC: White blood cell count 13,000, hemoglobin 12, hematocrit 36, granulocyte count 11,000 D-dimer is elevated at 7.7 ProBNP is mildly elevated at 501 Troponin is normal at less than 0.01 EKG showed sinus tachycardia, with no obvious acute ischemic changes. ABG on room air, while in distress: Shows pH of 7.37, PCO2 of 53, PO2 of 40, bicarb of 30, O2 saturation 73% Chest x-ray: There is moderate cardiomegaly. Chronic right diaphragm elevation. Minor right base atelectasis. No signs of CHF. Nasal MRSA screen is negative. January 31: CBC differential: Shows granulocyte count of 9300, lymphocyte count of 700 Urinalysis: Shows 44 red blood cells, without leukocyte esterase or nitrites. Chest x-ray: Shows elevated right hemidiaphragm, unchanged. No other abnormalities. Hip x-ray: Shows acute right trochanteric fracture, and previous right total hip arthroplasty. Meds: Medications Albuterol Sulfate (Ventolin) 2.5 mg NEB Q6HRT MYKEL Last Admin: 02/05/17 13:27 Dose: 2.5 mg Albuterol Sulfate (Ventolin) 2.5 mg NEB Q2HP PRN PRN Reason: Shortness Of Breath Bisacodyl (Dulcolax) 10 mg RI Q2-3DAYS PRN PRN Reason: Constipation Last Admin: 02/05/17 11:42 Dose: 10 mg Docusate Sodium (Colace) 100 mg PO BID PRN PRN Reason: Constipation Enoxaparin Sodium (Lovenox) 120 mg SQ DAILY@1500 MYKEL Piperacillin Sod/Tazobactam (Sod 3.375 gm/ Dextrose) 50 mls @ 100 mls/hr IV Q8H [facility] Last Infusion: 02/05/17 06:09 Dose: Infused Acetaminophen (Ofirmev) 650 mg in 65 mls @ 130 mls/hr IV Q6HP PRN PRN Reason: PAIN/FEVER > 101 Last Infusion: 02/05/17 08:30 Dose: Infused Potassium Chloride/Dextrose/Sod Cl (Dextrose 5%-1/2ns W/20meq Kcl) 1,000 mls @ 100 mls/hr IV .Q10H [facility] Last Infusion: 02/05/17 12:00 Dose: 0 mls/hr Potassium Phosphate 40 meq/ (Dextrose) 509.0909 mls @ 127.273 mls/hr IV ONCE ONE Stop: 02/05/17 15:34 Last Admin: 02/05/17 11:54 Dose: 127.273 mls/hr Insulin Human Lispro (Humalog) 0 unit SQ Q6 [facility] PRN Reason: Protocol Magnesium Hydroxide (Milk Of Magnesia) 30 ml PO DAILYP PRN PRN Reason: Constipation Metoclopramide HCl (Reglan) 5 mg IV Q6HP PRN PRN Reason: Nausea And Vomiting Metoprolol Tartrate (Lopressor) 5 mg IV Q4HP PRN PRN Reason: Tachyarrhythmias Naloxone HCl (Narcan) 0.1 mg IV Q2MIN PRN PRN Reason: Opiate Reversal Ondansetron HCl (Zofran) 4 mg IV Q6HP PRN PRN Reason: Nausea And Vomiting Last Admin: 02/03/17 16:03 Dose: 4 mg Pantoprazole Sodium (Protonix) 40 mg IV BIDAC [facility] Last Admin: 02/05/17 08:15 Dose: 40 mg Sodium Chloride (Saline Flush) 10 ml IV Q8 [facility] Last Admin: 02/05/17 09:00 Dose: 10 ml Medical - PN: A/P - Time Spent With Patient Total time spent is greater than 50% in coordination of care (as documented) at patient's floor/unit and/or counseling patient: Greater than 35 minutes (1) Femur fracture, right Status: Acute Current Visit: Yes (2) Impairment of cognitive function Problem details: with balance difficulties Status: Chronic Current Visit: No - Narrative A/P Narrative: #1. Cardio/pulmonary. a) the patient has bilateral pneumonia, likely due to aspiration pneumonia. He also has been diagnosed with a new pulmonary embolism. It is not clear if that was there prior to admission, or if it occurred during his stay here. He continues to be quite groggy, related to pain medications. This makes him high risk for any sort of feeding. -Continue BiPAP for respiratory support, as he is maintaining O2 saturations with this. -Continue therapeutic dose Lovenox, for at least 60 days. Monitor hemoglobin closely. -Continue NG tube, to help avoid recurrent aspiration and vomiting. -Continue iv zosyn for aspiration pneumonia. continue same. b) patient has had episodes of SVT. Potassium and magnesium were both running low, so those were replaced. As needed metoprolol as ordered as well. #2. Orthopedic. Patient presents with right hip fracture. He was seen by Dr. Bourne. s/p hip surgery -We will discontinue morphine, as this does not seem particularly effective, and seems to suppress his mental status significantly. - IV Tylenol as needed. -Patient will eventually need PT and OT evaluations. 3. CODE STATUS: DNR CODE STATUS. 4 DVT prophylaxis: lovenox sq 5. Hematuria. No signs of infection at this time. -Continue Chester catheter for accurate fluid assessments. #6. Infectious disease. The patient is being treated for aspiration pneumonia, as noted above. 7. Neurologic. Patient has known dementia, and increased confusion over the last couple of days , due to acute illness. Continue to follow. 8. GI. Patient did have heme positive NG drainage yesterday. He may have gastritis. NG drainage is improving. He was started on a proton pump inhibitor for possible gastritis. #9. Nutrition. Patient has not adequate nutrition for several days. I have asked the dietitian to make recommendations. I am reluctant to use his gut at this time because of recent vomiting, so we will opt for a PICC line today, and then start PPN, hopefully for just a few days. I would prefer not to pursue a central line or other invasive measures at this time, if not absolutely necessary. -If NG drainage is minimal tomorrow, we may consider tube feedings. He will need speech therapy evaluation prior to any oral diet. Next 10. Renal. Patient continues to have issues with low potassium and phosphate and magnesium. Replace as needed. Approximately 35 minutes has been spent so far today, reviewing the patient's test results, interviewing and examining him, reviewing plan of care with nursing staff several times, and adjusting orders. Medical - PN: Qual - VTE Deep Vein Thrombosis/Pulmonary Embolism Present on Admission: No
[2017-02-05 14:36] LABS: ALT/SGPT 15 U/l (0-40); Albumin/Globulin Ratio 1.3 (1.0-2.3); Alkaline Phosphatase 45 U/L (39-117); Bilirubin,Direct 0.3 mg/dL (0.0-0.3); Blood Urea Nitrogen 32 mg/dl (8-23); Gamma Glutamyl Transpeptidase 17 U/L (8-61); Magnesium 2.3 mg/dL (1.6-2.5); Uric Acid 4.9 mg/dL (2.5-8.0)
[2017-02-05 14:38] LABS: Prealbumin 7.9 mg/dl (20-40)
[2017-02-05] MEDS: ENOXAPARIN 120 MG/0.8 ML SYRINGE SQ SCH (15:21)
--- NOTE | 2017-02-05 16:02 | XRay Report ---
CLINICAL INFORMATION: PICC placement COMPARISON: 02/04/2017 FINDINGS: The heart is mildly enlarged, but unchanged. Mediastinum is unremarkable. PICC line tip is better in the left brachycephalic/SVC junction. NG tube is in stable satisfactory position. Pulmonary vessels are normal. Mild perihilar infiltrates are unchanged IMPRESSION: 1. No change in mild perihilar infiltrates - suspect aspiration 2. PICC line tip in the left brachycephalic SVC junction. Nurses instructed to withdraw tube 2 cm Interpreted and Authenticated by: Eliezer Underwood 02/05/17
[2017-02-05] MEDS ORDERED: DEXTROSE 50% 50 ML VIAL IV PRN (16:03)
[2017-02-05] MEDS ORDERED: [UNRECOGNIZED DRUG - REMARK] IV SCH (17:00)
[2017-02-05] MEDS: FAT EMULSION 20% 250 ML in PREMIX 1 BAG IV SCH (17:05)
[2017-02-05] MEDS: INSULIN LISPRO 1 UNIT/0.01 ML UNIT SQ SCH (17:17)
[2017-02-06] MEDS: INSULIN LISPRO 1 UNIT/0.01 ML UNIT SQ SCH ×4 (00:28→18:03)
[2017-02-06] MEDS: ALBUTEROL SULFATE 2.5 MG/3 ML NEBULIZER NEB SCH ×4 (01:38→19:29)
[2017-02-06] MEDS: DEXTROSE 5%-1/2NS W/20MEQ KCL 1,000 ML IV SCH ×3 (01:39→19:23)
[2017-02-06] MEDS ORDERED: KETOROLAC 15 MG/ML VIAL ONE (03:12)
[2017-02-06] MEDS: ACETAMINOPHEN 650 MG/65 ML BOTTLE IV PRN ×2 (03:56→21:15)
[2017-02-06 05:12] LABS: Basophils # (Auto) 0 K/mcL (0.0-0.3); Basophils % (Auto) 0.2 % (0.0-2.0); Eosinophils # (Auto) 0.2 K/mcL (0.0-0.7); Eosinophils % (Auto) 2.6 % (0.0-7.0); Granulocytes % (Auto) 78.8 % (38.0-78.0); Lymphocytes # (Auto) 0.9 K/mcL (1.5-4.8); Lymphocytes % (Auto) 9.9 % (15.5-49.0); Mean Cell Volume 90.9 fL (80.0-100.0); Mean Corpuscular HGB Conc 34.9 g/dL (31.0-36.0); Mean Corpuscular Hemoglobin 31.7 pg (26.0-34.0); Monocytes # (Auto) 0.7 K/mcL (0.1-0.9); Monocytes % (Auto) 8.5 % (1.0-12.0); Platelet Count 144 K/mcL (140-440); RBC 2.47 M/mcL (4.50-5.90); Red Cell Distribution Width 15.7 % (11.5-14.5)
[2017-02-06 05:22] LABS: ALT/SGPT 19 U/l (0-40); Albumin 2.8 gm/dL (3.2-5.2); Alkaline Phosphatase 44 U/L (39-117); Bilirubin,Direct 0.3 mg/dL (0.0-0.3); Blood Urea Nitrogen 28 mg/dl (8-23); Gamma Glutamyl Transpeptidase 25 U/L (8-61); Magnesium 2.1 mg/dL (1.6-2.5)
[2017-02-06] MEDS: 0.9 % SODIUM CHLORIDE 10 ML SYRINGE IV SCH ×4 (05:28→22:37)
[2017-02-06] MEDS: PIPERACILLIN SODIUM/TAZOBACTAM 3.375 GM in DEXTROSE 5% IN WATER 50 ML IV SCH ×3 (05:28→22:35)
[2017-02-06] MEDS: PANTOPRAZOLE 40 MG VIAL IV SCH ×2 (06:59→17:03)
--- NOTE | 2017-02-06 10:15 | XRay Report ---
CLINICAL INFORMATION: Hypoxia COMPARISON: 02/05/2017 FINDINGS: Moderate cardiomegaly is unchanged. PICC line is now in satisfactory position. Mediastinum and pulmonary vessels are normal. Perihilar infiltrates have almost cleared. Chronic elevation right diaphragm noted IMPRESSION: Near complete clearance of perihilar infiltrates. Interpreted and Authenticated by: Eliezer Underwood 02/06/17
[2017-02-06] MEDS: KETOROLAC 15 MG/ML VIAL IV PRN ×3 (10:59→23:54)
[2017-02-06] MEDS: MAGNESIUM HYDROXIDE 30 ML ORAL.SUSP PO PRN (11:57)
--- NOTE | 2017-02-06 13:23 | Internal Med Progress Note ---
Medical - PN: Subj Patient information: Note initiated : 02/06/17 at 1:23 pm Patient: Edgard Bae 86 y/o M admitted on 01/31/17 for Fall/Femur Fracture, Right. Interval history: January 31, 2017:History of present illness: Mr. Bae is a 86 year old man who apparently fell this evening at home. ER evaluation revealed an acute right subtrochanteric hip fracture with slight displacement of the lesser trochanter, as well as a previous right total hip arthroplasty. The patient has moderate dementia, and cannot recall how or why he fell. When I saw him late in the evening, his family was not available. Otherwise, he does not think that he has been ill lately. He denies being aware fever or chills, headaches or dizziness, new or ear symptoms, chest pain or palpitations, shortness of breath or wheezing or cough, abdominal pain, nausea or vomiting, diarrhea or constipation, or dysuria. February 01: This morning, the patient was having a bit more pain, and was given IV Dilaudid. About an hour later I was called to see him urgently, as the nurse found him somewhat obtunded and twitching all over. Extremities were cyanotic, and the patient had decreased mental status. O2 saturation at the time was reading about 70% but we were not sure the oximeter was accurate. Follow-up blood gas did confirm that the patient was hypoxic, with a PO2 of 40, and a PCO2 of 53. As we talked with him and did test on him, he did become a bit more arousable. The twitching was a little hard to figure out, and I thought perhaps he was having an allergic reaction to the Dilaudid, so Benadryl was given. He was also given topical nitroglycerin, IV Lasix, and albuterol nebulizer treatment, and oxygen, while we were working him up. He was then transferred over to telemetry for closer monitoring. EKG did not show acute changes. D-dimer is elevated, but this would be expected in the setting of his hip fracture. Troponin is normal. BNP is a bit elevated at 500. Currently, the patient is still quite sleepy. His color is much improved. He is now maintaining oxygen saturations in the mid 90s on 2 L O2 via mask. He reports no fevers or chills, cough, chest pain or palpitations, and denied feeling especially short of breath. He denied abdominal pain, nausea or vomiting, diarrhea. Chester catheter remains in place. He continues to have significant right hip pain with any movement of the right leg. February 02: Today, the patient reports he is feeling better. He still notes pain in the right hip if he moves, but is otherwise comfortable. He denies fever or chills, headaches or dizziness, chest pain or palpitations, shortness of breath or wheezing, abdominal pain, nausea or vomiting, diarrhea or constipation. Chester catheter remains in place. Vital signs overnight, with O2 saturations ranging from 94-98% on 1-2 L O2. He did spike a temperature of 101.7 last evening. February 03: This morning, after being given morphine for pain, the patient vomited and appeared to aspirate vomitus into his lungs. He was suctioned by respiratory therapy, and oxygen mask applied. Later in the morning his O2 saturations continued to decline, and I requested that respiratory therapy start him on BiPAP. Not long after that, the patient vomited again, in spite of being n.p.o. , into the facemask. The vomit consisted mainly of bilious appearing fluid. We then placed an NG tube, and high flow oxygen via mask. The patient has been less alert today, but does wake up enough to tell me that he is not having any pain. He does feel like his breathing is a bit labored. Otherwise he does not report subjective fever or chills, chest pain or palpitations, abdominal pain, diarrhea or constipation. His hip pain is relatively well controlled at this time. February 04: Patient seen examined, no acute overnight events, patient was asleep much of my eval, but did open eyes slightly to verbal stimuli and did obey commands like grasp hand. The patient wbc count trended up slightly, his tele showed some SVT His NG tube suction shows dark coloured secretions, h/h has remained stable, IV PPI added. NO more vomiting now. Pt remains on bipap to maintain his oxygen saturations, Fio2 40 % in AM, 10/5 settings. He remains on antibiotics. cxr today shows improved perihilar infiltrates. February 05: The patient has continued to struggle. He did receive some morphine overnight, and remains quite somnolent today. The nursing staff feels that Tylenol is actually helping his pain more than morphine. NG output is declining, but continues rather dark in color, although tending towards dark green rather than reddish. The patient really does not arouse enough today to give me a history, although when asked if he is in pain he seems to indicate no. He continues to require BiPAP to maintain oxygen saturations. Because of ongoing hypoxia yesterday, he did undergo CT angiogram, which does show a small PE, in addition to bilateral infiltrates. He is now on Lovenox, therapeutic dose. He has not really had any nutrition since admission, so today we are evaluating for PPN versus TPN. I am reluctant to give him tube feedings at this point, since he has vomited and aspirated twice so far. We will give him more time to decrease his NG output. February 06: Today, the patient remains fairly somnolent, although nurses note they did get him to sit up on the side of the bed. He did open his eyes long enough to look outside, and also seems to recognize his today. They were not certain that he recognized his other family members. For the most part he remains asleep. He is quite difficult to arouse, and does not answer questions for me this morning. Nurses feel that his respiratory status has been fairly stable overnight. He has some audible wheezing when he is taken off BiPAP, but does very well while on it and seems to tolerate it. He is unable to give a review of systems at this time. Chest x-ray from this morning actually looks a bit better. Hemoglobin and hematocrit have fallen further however. Patient continues to have gross hematuria as well, likely due to being on therapeutic dose Lovenox. Nurses note he has not had a bowel movement in several days. He was given a suppository yesterday, but did not have much of a response. He has not had any oral intake though for several days. He was started on PPN yesterday, after a PICC line was placed. - Constitutional Vitals: Vital Signs Temp Pulse Resp BP Pulse Ox 97.8 F 100 H 22 132/84 98 02/06/17 12:00 02/06/17 11:08 02/06/17 12:00 02/06/17 12:00 02/06/17 12:00 Period Temp Pulse Resp BP Sys/Hutson Pulse Ox Last 24 Hr 97.8 F-99.0 F 80-106 17-26 103-132/62-84 94-98 Intake and Output 02/05/17 02/06/17 02/06/17 21:59 05:59 13:59 Intake Total 559.0909 / 559.0909 1197 / 1197 50 / 50 Output Total 300 / 300 510 / 510 Balance 259.0909 / 259.0909 687 / 687 50 / 50 Weight 184 lb 9.6 oz Intake & Output: Intake & Output 02/05/17 02/06/17 02/06/17 21:59 05:59 13:59 Intake Total 559.0909 / 559.0909 1197 / 1197 50 / 50 Output Total 300 / 300 510 / 510 Balance 259.0909 / 259.0909 687 / 687 50 / 50 Weight 184 lb 9.6 oz Intake: IV 559.0909 / 559.0909 1197 / 1197 50 / 50 Dextrose 5%-1/2Ns W/20Meq 0 / 0 767 / 767 KCl 1,000 ml @ 100 mls/ hr IV .Q10H [facility] Rx#: [id number] Intralipid 20% 250 ml In 250 / 250 Premix 1 Bag @ 25 mls/hr IV Q24H [facility] Rx#:[id number] Zosyn 3.375 gm In 50 / 50 50 / 50 50 / 50 Dextrose 5% in Water 50 ml @ 100 mls/hr IV Q8H [facility] Rx#:[id number] Potassium Phosphate 40 509.0909 / 509.0909 Meq In Dextrose 5% in Water 500 ml @ 127.273 mls/hr IV ONCE ONE Rx#: [id number] Output: Gastric Drainage 100 / 100 150 / 150 Right Nare 100 / 100 150 / 150 Urine Catheter Amount 200 / 200 360 / 360 Current temperature is 97.8, with T-max of 99.0. Heart rate 90-100. Respiratory rate 92-26. Blood pressure 132/84. O2 saturation ranges from 95-98 % on either 6 L oxygen mask or BiPAP with 30% FiO2. Intake and output shows 3100 mL in yesterday, 1085 mL out, positive for 2019 mL. Patient remains fairly somnolent. However breathing appears comfortable with the BiPAP mask in place. Neck shows no obvious JVD. Cardiac exam shows regular rate and rhythm. Lungs are mostly clear, without obvious rales, rhonchi, wheezes. abdomen is soft without obvious tenderness. Bowel sounds are rather hypoactive. NG drainage has slowed quite a bit, and is fairly clear to greenish at this time. Extremities: Show minimal edema. Right hip incision was recently covered with a new dressing, and appears clean and dry. Neurologic: Patient is mostly somnolent, although he was apparently more alert earlier today, which is an improvement over yesterday. Medical - PN: Obj Da - Labs CBC & Chem 7: 02/06/17 15:05 02/07/17 04:00 Labs: Abnormal Lab Results 02/06/17 02/06/17 02/05/17 04:00 04:00 13:02 WBC RBC 2.47 L Hgb 7.8 L Hct 22.4 L RDW 15.7 H Gran % 78.8 H Lymph % (Auto) 9.9 L Gran # Lymph # (Auto) 0.9 L Wallace # (Auto) Chloride BUN 28 H 32 H Glucose 144 H 134 H Calcium 7.8 L 8.0 L Phosphorus 2.4 L 2.5 L Total Protein 5.5 L 5.4 L Albumin 2.8 L 3.0 L Prealbumin 7.9 L 02/05/17 02/05/17 02/04/17 03:43 03:43 12:17 WBC 12.3 H RBC 2.66 L Hgb 8.5 L 9.6 L Hct 24.6 L 27.3 L RDW 15.6 H Gran % 85.2 H Lymph % (Auto) 7.8 L Gran # 10.5 H Lymph # (Auto) 1.0 L Wallace # (Auto) Chloride BUN 34 H Glucose 129 H Calcium 8.0 L Phosphorus 2.2 L Total Protein 5.7 L Albumin 3.0 L Prealbumin 02/04/17 02/04/17 03:54 03:54 WBC 17.5 H RBC 3.10 L Hgb 10.0 L Hct 28.3 L RDW 15.3 H Gran % 88.9 H Lymph % (Auto) 3.9 L Gran # 15.6 H Lymph # (Auto) 0.7 L Wallace # (Auto) 1.2 H Chloride 95 L BUN 36 H Glucose 137 H Calcium 8.4 L Phosphorus 2.3 L Total Protein Albumin 3.0 L Prealbumin February 06: Follow-up H and H this afternoon are stable at 7.9 and 23.2 Chest x-ray: Moderate cardiomegaly. PICC line in satisfactory position. Perihilar infiltrates have almost cleared. Chronic elevation of right diaphragm. February 05: No change in mild perihilar infiltrates, suspect aspiration. PICC line tip in the left brachiocephalic junction, nurses instructed to withdraw 2 cm. February 04: CT angiogram: Solitary embolus to the superior right lower lobe segment pulmonary artery. Mild pulmonary hypertension. Moderate vague groundglass infiltrates diffusely throughout both lungs, suspect aspiration. Small bilateral pleural effusions. February 03: Follow-up chest x-ray this afternoon shows mild perihilar infiltrates, with slight worsening. Continued elevation of the right hemidiaphragm. February 02: Chest x-ray: Moderate chronic elevation of the right diaphragm, with right basilar atelectasis. No infiltrates are seen. Blood cultures are negative so far. February 01: CBC: White blood cell count 13,000, hemoglobin 12, hematocrit 36, granulocyte count 11,000 D-dimer is elevated at 7.7 ProBNP is mildly elevated at 501 Troponin is normal at less than 0.01 EKG showed sinus tachycardia, with no obvious acute ischemic changes. ABG on room air, while in distress: Shows pH of 7.37, PCO2 of 53, PO2 of 40, bicarb of 30, O2 saturation 73% Chest x-ray: There is moderate cardiomegaly. Chronic right diaphragm elevation. Minor right base atelectasis. No signs of CHF. Nasal MRSA screen is negative. January 31: CBC differential: Shows granulocyte count of 9300, lymphocyte count of 700 Urinalysis: Shows 44 red blood cells, without leukocyte esterase or nitrites. Chest x-ray: Shows elevated right hemidiaphragm, unchanged. No other abnormalities. Hip x-ray: Shows acute right trochanteric fracture, and previous right total hip arthroplasty. Meds: Medications Albuterol Sulfate (Ventolin) 2.5 mg NEB Q6HRT [facility] Last Admin: 02/06/17 06:48 Dose: 2.5 mg Albuterol Sulfate (Ventolin) 2.5 mg NEB Q2HP PRN PRN Reason: Shortness Of Breath Bisacodyl (Dulcolax) 10 mg NE Q2-3DAYS PRN PRN Reason: Constipation Last Admin: 02/05/17 11:42 Dose: 10 mg Dextrose (Dextrose 50%) 50 ml IV UD PRN PRN Reason: Hypoglycemia Diagnostic Test (Pha) (Accu-Chek) 1 each FS Q6 [facility] Last Admin: 02/06/17 11:53 Dose: 1 each Docusate Sodium (Colace) 100 mg PO BID PRN PRN Reason: Constipation Enoxaparin Sodium (Lovenox) 120 mg SQ DAILY@1500 [facility] Last Admin: 02/05/17 15:21 Dose: 120 mg Heparin Sodium (Porcine) (Heparin Flush) 2 ml IV Q12 [facility] Last Admin: 02/06/17 09:40 Dose: 2 ml Piperacillin Sod/Tazobactam (Sod 3.375 gm/ Dextrose) 50 mls @ 100 mls/hr IV Q8H [facility] Last Infusion: 02/06/17 06:00 Dose: Infused Acetaminophen (Ofirmev) 650 mg in 65 mls @ 130 mls/hr IV Q6HP PRN PRN Reason: PAIN/FEVER > 101 Last Infusion: 02/06/17 04:50 Dose: Infused Potassium Chloride/Dextrose/Sod Cl (Dextrose 5%-1/2ns W/20meq Kcl) 1,000 mls @ 100 mls/hr IV .Q10H [facility] Last Admin: 02/06/17 01:39 Dose: 100 mls/hr Fat Emulsion Intravenous 250 (ml/ Premix) 250 mls @ 25 mls/hr IV Q24H [facility] Last Infusion: 02/06/17 03:53 Dose: Infused Calcium Gluconate 5 meq/Sodium Chloride 20 meq/Multivitamins/Minerals 10 ml/ Selenium 60 mcg/ Potassium Phosphate 20 meq/ Amino Acids 1,031.7981 mls @ 30 mls/hr IV Q24H [facility] Last Admin: 02/05/17 17:09 Dose: 30 mls/hr Insulin Human Lispro (Humalog) 0 unit SQ Q6 [facility] PRN Reason: Protocol Last Admin: 02/06/17 11:54 Dose: Not Given Ketorolac Tromethamine (Toradol) 15 mg IV Q6HP PRN PRN Reason: Pain Stop: 02/08/17 03:01 Last Admin: 02/06/17 10:59 Dose: 15 mg Magnesium Hydroxide (Milk Of Magnesia) 30 ml PO DAILYP PRN PRN Reason: Constipation Last Admin: 02/06/17 11:57 Dose: 30 ml Metoclopramide HCl (Reglan) 5 mg IV Q6HP PRN PRN Reason: Nausea And Vomiting Metoprolol Tartrate (Lopressor) 5 mg IV Q4HP PRN PRN Reason: Tachyarrhythmias Naloxone HCl (Narcan) 0.1 mg IV Q2MIN PRN PRN Reason: Opiate Reversal Ondansetron HCl (Zofran) 4 mg IV Q6HP PRN PRN Reason: Nausea And Vomiting Last Admin: 02/03/17 16:03 Dose: 4 mg Pantoprazole Sodium (Protonix) 40 mg IV BIDAC [facility] Last Admin: 02/06/17 06:59 Dose: 40 mg Sodium Chloride (Saline Flush) 10 ml IV Q8 [facility] Last Admin: 02/06/17 09:41 Dose: 10 ml Medical - PN: A/P - Time Spent With Patient Total time spent is greater than 50% in coordination of care (as documented) at patient's floor/unit and/or counseling patient: 25 - 35 minutes (1) Femur fracture, right Status: Acute Current Visit: Yes (2) Impairment of cognitive function Problem details: with balance difficulties Status: Chronic Current Visit: No - Narrative A/P Narrative: #1. Cardio/pulmonary. a) the patient has bilateral pneumonia, likely due to aspiration pneumonia. He also has been diagnosed with pulmonary embolism. It is not clear if that was there prior to admission, or if it occurred during his stay here. He continues to be quite groggy, related to pain medications. This makes him high risk for any sort of feeding. -Lungs are fairly clear today. Oxygenation is mildly improved. Chest x-ray shows improvement as well. -Continue BiPAP for respiratory support, as he is maintaining O2 saturations with this. -Continue therapeutic dose Lovenox, for at least 60 days. Monitor hemoglobin closely. -Continue NG tube, to help avoid recurrent aspiration and vomiting. -Continue iv zosyn for aspiration pneumonia. b) patient has had episodes of SVT. Potassium and magnesium were both running low, so those were replaced. As needed metoprolol was ordered as well. SVT has not recurred. #2. Orthopedic. Patient presents with right hip fracture. He was seen by Dr. Bourne. s/p hip surgery -Discontinued morphine, as this does not seem particularly effective, and seems to suppress his mental status significantly. - IV Tylenol as needed. IV Toradol as needed. -PT did work with him today, and they were able to sit him up. He is showing some increased alertness. He is quite weak, and will require extensive rehab. 3. CODE STATUS: DNR CODE STATUS. 4 DVT prophylaxis: lovenox sq 5. Hematuria. No signs of infection at this time. -Continue Chester catheter for accurate fluid assessments. #6. Infectious disease. The patient is being treated for aspiration pneumonia, as noted above. 7. Neurologic. Patient has known dementia, and increased confusion over the last couple of days , due to acute illness. Continue to follow. 8. GI. Patient did have heme positive NG drainage yesterday. He may have gastritis. NG drainage is improving. He was started on a proton pump inhibitor for possible gastritis. NG drainage is decreasing. There are no signs of active bleeding. -Bowel movement so far. He was given milk of magnesia per NG tube today. #9. Nutrition. Patient has not adequate nutrition for several days. I have asked the dietitian to make recommendations. I am reluctant to use his gut at this time because of recent vomiting, so PICC line was placed and TPN was started. I would prefer not to pursue a central line or other invasive measures at this time, if not absolutely necessary. -If NG drainage is minimal tomorrow, we may consider tube feedings. He will need speech therapy evaluation prior to any oral diet. 10. Renal. Patient continues to have issues with low potassium and phosphate and magnesium. Replace as needed. 11. Hematologic. Hemoglobin and hematocrit have declined. I suspect some of this may be delutional, and some due to gross hematuria, while being also on Lovenox. Continue to monitor. If this drops much lower, he will need transfusion. Approximately 35 minutes has been spent so far today, reviewing the patient's test results, interviewing and examining him, reviewing plan of care with nursing staff, and adjusting orders. Medical - PN: Qual - VTE Deep Vein Thrombosis/Pulmonary Embolism Present on Admission: No
[2017-02-06] MEDS: ENOXAPARIN 120 MG/0.8 ML SYRINGE SQ SCH (14:45)
[2017-02-06] MEDS: FAT EMULSION 20% 250 ML in PREMIX 1 BAG IV SCH (16:34)
[2017-02-06] MEDS ORDERED: [UNRECOGNIZED DRUG - REMARK] IV SCH (17:00)
[2017-02-06] MEDS ORDERED: FUROSEMIDE 20 MG/2 ML VIAL IV ONE ×2 (19:30→20:36)
[2017-02-07] MEDS: ALBUTEROL SULFATE 2.5 MG/3 ML NEBULIZER NEB SCH ×4 (01:05→19:34)
[2017-02-07] MEDS: DEXTROSE 5%-1/2NS W/20MEQ KCL 1,000 ML IV SCH ×2 (01:11→01:45)
[2017-02-07] MEDS: ACETAMINOPHEN 650 MG/65 ML BOTTLE IV PRN (03:44)
[2017-02-07] MEDS: PIPERACILLIN SODIUM/TAZOBACTAM 3.375 GM in DEXTROSE 5% IN WATER 50 ML IV SCH ×3 (05:39→22:05)
[2017-02-07] MEDS: 0.9 % SODIUM CHLORIDE 10 ML SYRINGE IV SCH ×4 (05:40→20:25)
[2017-02-07] MEDS: INSULIN LISPRO 1 UNIT/0.01 ML UNIT SQ SCH ×5 (05:45→23:56)
[2017-02-07 06:00] LABS: ALT/SGPT 18 U/l (0-40); Albumin 2.7 gm/dL (3.2-5.2); Alkaline Phosphatase 40 U/L (39-117); Bilirubin,Direct 0.4 mg/dL (0.0-0.3); Blood Urea Nitrogen 25 mg/dl (8-23); Gamma Glutamyl Transpeptidase 26 U/L (8-61); Magnesium 2.2 mg/dL (1.6-2.5); Uric Acid 3.6 mg/dL (2.5-8.0)
[2017-02-07] MEDS: PANTOPRAZOLE 40 MG VIAL IV SCH ×2 (07:38→17:26)
[2017-02-07] MEDS: METOCLOPRAMIDE 10 MG/2 ML VIAL IV PRN (07:49)
[2017-02-07] MEDS ORDERED: FUROSEMIDE 20 MG/2 ML VIAL IV ONE (08:55)
--- NOTE | 2017-02-07 11:58 | Internal Med Progress Note ---
Medical - PN: Subj Patient information: Note initiated : 02/07/17 at 11:58 am Patient: Edgard Bae 86 y/o M admitted on 01/31/17 for Fall/Femur Fracture, Right. Interval history: January 31, 2017:History of present illness: Mr. Bae is a 86 year old man who apparently fell this evening at home. ER evaluation revealed an acute right subtrochanteric hip fracture with slight displacement of the lesser trochanter, as well as a previous right total hip arthroplasty. The patient has moderate dementia, and cannot recall how or why he fell. When I saw him late in the evening, his family was not available. Otherwise, he does not think that he has been ill lately. He denies being aware fever or chills, headaches or dizziness, new or ear symptoms, chest pain or palpitations, shortness of breath or wheezing or cough, abdominal pain, nausea or vomiting, diarrhea or constipation, or dysuria. February 01: This morning, the patient was having a bit more pain, and was given IV Dilaudid. About an hour later I was called to see him urgently, as the nurse found him somewhat obtunded and twitching all over. Extremities were cyanotic, and the patient had decreased mental status. O2 saturation at the time was reading about 70% but we were not sure the oximeter was accurate. Follow-up blood gas did confirm that the patient was hypoxic, with a PO2 of 40, and a PCO2 of 53. As we talked with him and did test on him, he did become a bit more arousable. The twitching was a little hard to figure out, and I thought perhaps he was having an allergic reaction to the Dilaudid, so Benadryl was given. He was also given topical nitroglycerin, IV Lasix, and albuterol nebulizer treatment, and oxygen, while we were working him up. He was then transferred over to telemetry for closer monitoring. EKG did not show acute changes. D-dimer is elevated, but this would be expected in the setting of his hip fracture. Troponin is normal. BNP is a bit elevated at 500. Currently, the patient is still quite sleepy. His color is much improved. He is now maintaining oxygen saturations in the mid 90s on 2 L O2 via mask. He reports no fevers or chills, cough, chest pain or palpitations, and denied feeling especially short of breath. He denied abdominal pain, nausea or vomiting, diarrhea. Chester catheter remains in place. He continues to have significant right hip pain with any movement of the right leg. February 02: Today, the patient reports he is feeling better. He still notes pain in the right hip if he moves, but is otherwise comfortable. He denies fever or chills, headaches or dizziness, chest pain or palpitations, shortness of breath or wheezing, abdominal pain, nausea or vomiting, diarrhea or constipation. Chester catheter remains in place. Vital signs overnight, with O2 saturations ranging from 94-98% on 1-2 L O2. He did spike a temperature of 101.7 last evening. February 03: This morning, after being given morphine for pain, the patient vomited and appeared to aspirate vomitus into his lungs. He was suctioned by respiratory therapy, and oxygen mask applied. Later in the morning his O2 saturations continued to decline, and I requested that respiratory therapy start him on BiPAP. Not long after that, the patient vomited again, in spite of being n.p.o. , into the facemask. The vomit consisted mainly of bilious appearing fluid. We then placed an NG tube, and high flow oxygen via mask. The patient has been less alert today, but does wake up enough to tell me that he is not having any pain. He does feel like his breathing is a bit labored. Otherwise he does not report subjective fever or chills, chest pain or palpitations, abdominal pain, diarrhea or constipation. His hip pain is relatively well controlled at this time. February 04: Patient seen examined, no acute overnight events, patient was asleep much of my eval, but did open eyes slightly to verbal stimuli and did obey commands like grasp hand. The patient wbc count trended up slightly, his tele showed some SVT His NG tube suction shows dark coloured secretions, h/h has remained stable, IV PPI added. NO more vomiting now. Pt remains on bipap to maintain his oxygen saturations, Fio2 40 % in AM, 10/5 settings. He remains on antibiotics. cxr today shows improved perihilar infiltrates. February 05: The patient has continued to struggle. He did receive some morphine overnight, and remains quite somnolent today. The nursing staff feels that Tylenol is actually helping his pain more than morphine. NG output is declining, but continues rather dark in color, although tending towards dark green rather than reddish. The patient really does not arouse enough today to give me a history, although when asked if he is in pain he seems to indicate no. He continues to require BiPAP to maintain oxygen saturations. Because of ongoing hypoxia yesterday, he did undergo CT angiogram, which does show a small PE, in addition to bilateral infiltrates. He is now on Lovenox, therapeutic dose. He has not really had any nutrition since admission, so today we are evaluating for PPN versus TPN. I am reluctant to give him tube feedings at this point, since he has vomited and aspirated twice so far. We will give him more time to decrease his NG output. February 06: Today, the patient remains fairly somnolent, although nurses note they did get him to sit up on the side of the bed. He did open his eyes long enough to look outside, and also seems to recognize his today. They were not certain that he recognized his other family members. For the most part he remains asleep. He is quite difficult to arouse, and does not answer questions for me this morning. Nurses feel that his respiratory status has been fairly stable overnight. He has some audible wheezing when he is taken off BiPAP, but does very well while on it and seems to tolerate it. He is unable to give a review of systems at this time. Chest x-ray from this morning actually looks a bit better. Hemoglobin and hematocrit have fallen further however. Patient continues to have gross hematuria as well, likely due to being on therapeutic dose Lovenox. Nurses note he has not had a bowel movement in several days. He was given a suppository yesterday, but did not have much of a response. He has not had any oral intake though for several days. He was started on PPN yesterday, after a PICC line was placed. February 07: The patient did seem to have some increasing hip pain last night, some morphine was resumed at low doses. This morning he was given another dose of morphine so that he could work with physical therapy, but he was essentially too weak to stand up. He remains fairly somnolent, and only speaks occasionally. He is too sleepy to talk to me when I entered the room this morning, so could not answer a review of systems. Nurses note he still has not had a bowel movement, although he does have some bowel sounds. Oxygenation is improving, and he is currently tolerating low flow oxygen via nasal cannula. Nurses note that he seems to be fine when asleep, but he when he wakes up he starts to have a lot of upper airway noise. Nursing staff also talked with the patient's son, who said he has been declining for the last 2 months. The son noted he had been complaining of hip pain for over a month, and had become quite a bit more sedentary at home. - Constitutional Vitals: Vital Signs Temp Pulse Resp BP Pulse Ox 98.0 F 87 24 H 141/87 100 02/07/17 08:00 02/07/17 08:00 02/07/17 08:00 02/07/17 08:00 02/07/17 08:00 Period Temp Pulse Resp BP Sys/Hutson Pulse Ox Last 24 Hr 97.2 F-98.3 F 73-96 18-24 106-141/69-102 91-100 Intake and Output 02/06/17 02/07/17 02/07/17 21:59 05:59 13:59 Intake Total 763 / 763 1430 / 1430 907 / 907 Output Total 600 / 600 1275 / 1275 800 / 800 Balance 163 / 163 155 / 155 107 / 107 Weight 184 lb 6.4 oz Intake & Output: Intake & Output 02/06/17 02/07/17 02/07/17 21:59 05:59 13:59 Intake Total 763 / 763 1430 / 1430 907 / 907 Output Total 600 / 600 1275 / 1275 800 / 800 Balance 163 / 163 155 / 155 107 / 107 Weight 184 lb 6.4 oz Intake: IV 763 / 763 1430 / 1430 907 / 907 Calcium Gluconate 5 Meq 713 / 713 Sodium Chloride 20 Meq Infuvite Adult 10 ml Selenium 60 Mcg Potassium Phosphate 20 Meq In Clinimix 5%-20% Solution 1,000 ml @ 30 mls/hr IV Q24H [facility] Rx#:[id number] Dextrose 5%-1/2Ns W/20Meq 1000 / 1000 KCl 1,000 ml @ 100 mls/ hr IV .Q10H [facility] Rx#: [id number] Intralipid 20% 250 ml In 250 / 250 Premix 1 Bag @ 25 mls/hr IV Q24H [facility] Rx#:[id number] Zosyn 3.375 gm In 50 / 50 50 / 50 50 / 50 Dextrose 5% in Water 50 ml @ 100 mls/hr IV Q8H [facility] Rx#:[id number] Output: Gastric Drainage 300 / 300 100 / 100 Right Nare 300 / 300 100 / 100 Urine Catheter Amount 300 / 300 1175 / 1175 800 / 800 On exam, he remains mostly obtunded. He only opens his eyes briefly when we try to roll him over. He does not speak to me. Staff notes he will occasionally say yes or no when asked a question.. Temperature is 99.5. Heart rate 84. Respiratory rate 16-24. Blood pressure 108/76. O2 saturation is 100% on 2 L nasal cannula. Intake and output are still positive for 1300 mL yesterday. Weight has increased from his preop weight of 177 pounds, up to 184 pounds. patient remains fairly somnolent. However breathing appears comfortable with the BiPAP mask in place. Neck shows no obvious JVD. Cardiac exam shows regular rate and rhythm. Lungs have scattered rhonchi and wheezes, although most of the noise and hearing appears to be upper airway centered around his trachea. We try to get him to cough to clear his throat, but he could not abdomen is soft without obvious tenderness. Bowel sounds are rather hypoactive. NG drainage has slowed quite a bit, and is fairly clear to greenish at this time. Extremities: Show mild dependent edema. Right hip incision was recently covered with a new dressing, and appears clean and dry. Neurologic: Patient is mostly somnolent, although he was apparently more alert earlier today. Medical - PN: Obj Da - Labs CBC & Chem 7: 02/06/17 15:05 02/07/17 04:00 Labs: Abnormal Lab Results 02/07/17 02/06/17 02/06/17 04:00 15:05 04:00 WBC RBC Hgb 7.9 L Hct 23.2 L RDW Gran % Lymph % (Auto) Gran # Lymph # (Auto) BUN 25 H 28 H Glucose 148 H 144 H Calcium 7.7 L 7.8 L Phosphorus 2.4 L 2.4 L Total Bilirubin 1.1 H Direct Bilirubin 0.4 H Total Protein 5.4 L 5.5 L Albumin 2.7 L 2.8 L Prealbumin 02/06/17 02/05/17 02/05/17 04:00 13:02 03:43 WBC RBC 2.47 L Hgb 7.8 L Hct 22.4 L RDW 15.7 H Gran % 78.8 H Lymph % (Auto) 9.9 L Gran # Lymph # (Auto) 0.9 L BUN 32 H 34 H Glucose 134 H 129 H Calcium 8.0 L 8.0 L Phosphorus 2.5 L 2.2 L Total Bilirubin Direct Bilirubin Total Protein 5.4 L 5.7 L Albumin 3.0 L 3.0 L Prealbumin 7.9 L 02/05/17 02/04/17 03:43 12:17 WBC 12.3 H RBC 2.66 L Hgb 8.5 L 9.6 L Hct 24.6 L 27.3 L RDW 15.6 H Gran % 85.2 H Lymph % (Auto) 7.8 L Gran # 10.5 H Lymph # (Auto) 1.0 L BUN Glucose Calcium Phosphorus Total Bilirubin Direct Bilirubin Total Protein Albumin Prealbumin February 06: Follow-up H and H this afternoon are stable at 7.9 and 23.2 Chest x-ray: Moderate cardiomegaly. PICC line in satisfactory position. Perihilar infiltrates have almost cleared. Chronic elevation of right diaphragm. February 05: No change in mild perihilar infiltrates, suspect aspiration. PICC line tip in the left brachiocephalic junction, nurses instructed to withdraw 2 cm. February 04: CT angiogram: Solitary embolus to the superior right lower lobe segment pulmonary artery. Mild pulmonary hypertension. Moderate vague groundglass infiltrates diffusely throughout both lungs, suspect aspiration. Small bilateral pleural effusions. February 03: Follow-up chest x-ray this afternoon shows mild perihilar infiltrates, with slight worsening. Continued elevation of the right hemidiaphragm. February 02: Chest x-ray: Moderate chronic elevation of the right diaphragm, with right basilar atelectasis. No infiltrates are seen. Blood cultures are negative so far. February 01: CBC: White blood cell count 13,000, hemoglobin 12, hematocrit 36, granulocyte count 11,000 D-dimer is elevated at 7.7 ProBNP is mildly elevated at 501 Troponin is normal at less than 0.01 EKG showed sinus tachycardia, with no obvious acute ischemic changes. ABG on room air, while in distress: Shows pH of 7.37, PCO2 of 53, PO2 of 40, bicarb of 30, O2 saturation 73% Chest x-ray: There is moderate cardiomegaly. Chronic right diaphragm elevation. Minor right base atelectasis. No signs of CHF. Nasal MRSA screen is negative. January 31: CBC differential: Shows granulocyte count of 9300, lymphocyte count of 700 Urinalysis: Shows 44 red blood cells, without leukocyte esterase or nitrites. Chest x-ray: Shows elevated right hemidiaphragm, unchanged. No other abnormalities. Hip x-ray: Shows acute right trochanteric fracture, and previous right total hip arthroplasty. Meds: Medications Albuterol Sulfate (Ventolin) 2.5 mg NEB Q6HRT [facility] Last Admin: 02/07/17 07:02 Dose: 2.5 mg Albuterol Sulfate (Ventolin) 2.5 mg NEB Q2HP PRN PRN Reason: Shortness Of Breath Bisacodyl (Dulcolax) 10 mg UT Q2-3DAYS PRN PRN Reason: Constipation Last Admin: 02/05/17 11:42 Dose: 10 mg Dextrose (Dextrose 50%) 50 ml IV UD PRN PRN Reason: Hypoglycemia Diagnostic Test (Pha) (Accu-Chek) 1 each FS Q6 [facility] Last Admin: 02/07/17 05:44 Dose: 1 each Docusate Sodium (Colace) 100 mg PO BID PRN PRN Reason: Constipation Enoxaparin Sodium (Lovenox) 120 mg SQ DAILY@1500 [facility] Last Admin: 02/06/17 14:45 Dose: 120 mg Heparin Sodium (Porcine) (Heparin Flush) 2 ml IV Q12 [facility] Last Admin: 02/07/17 09:33 Dose: Not Given Piperacillin Sod/Tazobactam (Sod 3.375 gm/ Dextrose) 50 mls @ 100 mls/hr IV Q8H [facility] Last Infusion: 02/07/17 06:10 Dose: Infused Acetaminophen (Ofirmev) 650 mg in 65 mls @ 130 mls/hr IV Q6HP PRN PRN Reason: PAIN/FEVER > 101 Last Infusion: 02/07/17 04:15 Dose: Infused Fat Emulsion Intravenous 250 (ml/ Premix) 250 mls @ 25 mls/hr IV Q24H [facility] Last Infusion: 02/07/17 02:45 Dose: Infused Calcium Gluconate 5 meq/Sodium Chloride 20 meq/Multivitamins/Minerals 10 ml/ Selenium 60 mcg/ Potassium Phosphate 20 meq/ Magnesium Sulfate 8.12 meq/ Amino Acids 1,033.7981 mls @ 50 mls/hr IV Q24H [facility] Stop: 02/07/17 12:59 Last Admin: 02/06/17 16:56 Dose: 50 mls/hr Calcium Gluconate 10 meq/Sodium Chloride 40 meq/Multivitamins/Minerals 10 ml/ Selenium 60 mcg/ Potassium Phosphate 40 meq/ Magnesium Sulfate 16.24 meq/ Sodium Phosphate 30 mmol/ Amino Acids 2,066.0962 mls @ 70 mls/hr IV Q24H [facility] Insulin Human Lispro (Humalog) 0 unit SQ Q6 [facility] PRN Reason: Protocol Last Admin: 02/07/17 05:45 Dose: 2 unit Ketorolac Tromethamine (Toradol) 15 mg IV Q6HP PRN PRN Reason: Pain Stop: 02/08/17 03:01 Last Admin: 02/06/17 23:54 Dose: 15 mg Magnesium Hydroxide (Milk Of Magnesia) 30 ml PO DAILYP PRN PRN Reason: Constipation Last Admin: 02/06/17 11:57 Dose: 30 ml Metoclopramide HCl (Reglan) 5 mg IV Q6HP PRN PRN Reason: Nausea And Vomiting Last Admin: 02/07/17 07:49 Dose: 5 mg Metoprolol Tartrate (Lopressor) 5 mg IV Q4HP PRN PRN Reason: Tachyarrhythmias Morphine Sulfate (Morphine) 1 - 2 mg IV Q4HP PRN PRN Reason: Pain Last Admin: 02/07/17 07:40 Dose: 1 mg Naloxone HCl (Narcan) 0.1 mg IV Q2MIN PRN PRN Reason: Opiate Reversal Ondansetron HCl (Zofran) 4 mg IV Q6HP PRN PRN Reason: Nausea And Vomiting Last Admin: 02/03/17 16:03 Dose: 4 mg Pantoprazole Sodium (Protonix) 40 mg IV BIDAC [facility] Last Admin: 02/07/17 07:38 Dose: 40 mg Sodium Chloride (Saline Flush) 10 ml IV Q8 [facility] Last Admin: 02/07/17 05:40 Dose: 10 ml Medical - PN: A/P - Time Spent With Patient Total time spent is greater than 50% in coordination of care (as documented) at patient's floor/unit and/or counseling patient: 25 - 35 minutes (1) Femur fracture, right Status: Acute Current Visit: Yes (2) Impairment of cognitive function Problem details: with balance difficulties Status: Chronic Current Visit: No - Narrative A/P Narrative: #1. Cardio/pulmonary. a) the patient has bilateral pneumonia, likely due to aspiration pneumonia. He also has been diagnosed with pulmonary embolism. It is not clear if that was there prior to admission, or if it occurred during his stay here. He continues to be quite groggy, related to pain medications. This makes him high risk for any sort of feeding. -Lungs are fairly clear today. Oxygenation is improved. Chest x-ray shows improvement as well. -Continue BiPAP as needed for respiratory support, as he is maintaining O2 saturations with this. -Continue therapeutic dose Lovenox, for at least 60 days. Monitor hemoglobin closely. -Continue NG tube, to help avoid recurrent aspiration and vomiting. This is also occasionally been used for p.o. medications. -Continue iv zosyn for aspiration pneumonia. b) patient had episodes of SVT. Potassium and magnesium were both running low , so those were replaced. As needed metoprolol was ordered as well. SVT has not recurred. #2. Orthopedic. Patient presents with right hip fracture. He was seen by Dr. Bourne. s/p hip surgery Low-dose morphine was resumed last night, as they could not seem to get him comfortable. Unfortunately this still tends to make him quite somnolent. - IV Tylenol as needed. IV Toradol as needed. -PT did work with him today, and they were able to sit him up. He is showing some increased alertness. He is quite weak, and will require extensive rehab. 3. CODE STATUS: DNR CODE STATUS. 4 DVT prophylaxis: lovenox sq 5. Hematuria. No signs of infection at this time. -Continue Chester catheter for accurate fluid assessments. #6. Infectious disease. The patient is being treated for aspiration pneumonia, as noted above. 7. Neurologic. Patient has known dementia, and increased confusion over the last couple of days , due to acute illness. Continue to follow. 8. GI. Patient did have heme positive NG drainage yesterday. He may have gastritis. NG drainage is improving. He was started on a proton pump inhibitor for possible gastritis. NG drainage is decreasing. There are no signs of active bleeding. -Bowel movement so far. Continue as needed bowel meds.. #9. Nutrition. Patient has not adequate nutrition for several days. I have asked the dietitian to make recommendations. I am reluctant to use his gut at this time because of recent vomiting, so PICC line was placed and TPN was started. I would prefer not to pursue a central line or other invasive measures at this time, if not absolutely necessary. -If NG drainage is minimal tomorrow, we may consider tube feedings. He will need speech therapy evaluation prior to any oral diet. 10. Renal. Patient continues to have issues with low potassium and phosphate and magnesium. Replace as needed. 11. Hematologic. Hemoglobin and hematocrit have declined. I suspect some of this may be dilutional, and some due to gross hematuria, while being also on Lovenox. Continue to monitor. If this drops much lower, he will need transfusion. Approximately 35 minutes has been spent so far today, reviewing the patient's test results, interviewing and examining him, reviewing plan of care with nursing staff, and adjusting orders. Medical - PN: Qual - VTE Deep Vein Thrombosis/Pulmonary Embolism Present on Admission: No
[2017-02-07] MEDS: BISACODYL 10 MG SUPP.RECT PR PRN (12:13)
[2017-02-07] MEDS ORDERED: [UNRECOGNIZED DRUG - REMARK] IV SCH (13:00)
[2017-02-07] MEDS: ENOXAPARIN 120 MG/0.8 ML SYRINGE SQ SCH (14:32)
[2017-02-07] MEDS: FAT EMULSION 20% 250 ML in PREMIX 1 BAG IV SCH (15:45)
[2017-02-07] MEDS: KETOROLAC 15 MG/ML VIAL IV PRN (17:27)
[2017-02-08] MEDS: ALBUTEROL SULFATE 2.5 MG/3 ML NEBULIZER NEB SCH ×3 (00:28→13:18)
[2017-02-08] MEDS: PIPERACILLIN SODIUM/TAZOBACTAM 3.375 GM in DEXTROSE 5% IN WATER 50 ML IV SCH ×3 (05:47→22:38)
[2017-02-08] MEDS: INSULIN LISPRO 1 UNIT/0.01 ML UNIT SQ SCH ×3 (05:47→17:47)
[2017-02-08] MEDS: 0.9 % SODIUM CHLORIDE 10 ML SYRINGE IV SCH ×6 (05:48→22:37)
[2017-02-08 06:41] LABS: Basophils # (Auto) 0 K/mcL (0.0-0.3); Basophils % (Auto) 0.2 % (0.0-2.0); Eosinophils # (Auto) 0.7 K/mcL (0.0-0.7); Granulocytes % (Auto) 77.4 % (38.0-78.0); Lymphocytes % (Auto) 9.5 % (15.5-49.0); Mean Cell Volume 91.2 fL (80.0-100.0); Mean Corpuscular HGB Conc 34.5 g/dL (31.0-36.0); Mean Corpuscular Hemoglobin 31.5 pg (26.0-34.0); Monocytes # (Auto) 0.6 K/mcL (0.1-0.9); Monocytes % (Auto) 5.9 % (1.0-12.0); Platelet Count 203 K/mcL (140-440); Red Cell Distribution Width 15.8 % (11.5-14.5)
[2017-02-08] MEDS: PANTOPRAZOLE 40 MG VIAL IV SCH ×2 (07:37→16:35)
[2017-02-08] MEDS: METOCLOPRAMIDE 10 MG/2 ML VIAL IV PRN (07:38)
[2017-02-08 08:30] LABS: ALT/SGPT 16 U/l (0-40); Albumin 2.8 gm/dL (3.2-5.2); Albumin/Globulin Ratio 1.1 (1.0-2.3); Alkaline Phosphatase 40 U/L (39-117); Bilirubin,Direct 0.3 mg/dL (0.0-0.3); Blood Urea Nitrogen 22 mg/dl (8-23); Gamma Glutamyl Transpeptidase 27 U/L (8-61); Magnesium 2.2 mg/dL (1.6-2.5); Uric Acid 3.1 mg/dL (2.5-8.0)
--- NOTE | 2017-02-08 13:53 | Cat Scan Report ---
CLINICAL INFORMATION: Decreased mental status COMPARISON: None. TECHNIQUE: 2.5 mm helical slices were obtained in the skull base to vertex. Following reconstruction, axial reformatted images were reviewed at bone and parenchymal windows. FINDINGS: The ventricles, sulci, fissures, and cisterns are symmetrically enlarged compatible with moderate age-related atrophy - there is no subdural hemorrhage or other extra-axial fluid collection appreciated. Moderate chronic ischemic changes noted in cerebral white matter - expected for age. There is no cerebral hemorrhage, mass effect, edema or other acute intracerebral finding. Bone windows shows no osseous abnormality. A large (18 mm) polyp is seen in the right middle ethmoid air cell. There is also subtotal opacification of the right maxillary sinus. IMPRESSION: Moderate atrophy and chronic ischemic changes in the cerebral white matter - expected for age. No hemorrhage or other acute intracerebral abnormality 17 mm polyp right middle ethmoid air cell and moderate right maxillary sinusitis Interpreted and Authenticated by: Eliezer Underwood 02/08/17
--- NOTE | 2017-02-08 13:58 | XRay Report ---
CLINICAL INFORMATION: Constipation, pain COMPARISON: None FINDINGS: There is moderate stool within the hepatic flexure of the colon - the remainder of the colon is unremarkable. Small bowel and stomach are grossly normal. NG tube in satisfactory position in the gastric body Multiple calcifications overlie the right L5-S1 paraspinous region which were not seen on pelvic films from 01/31/2017 IMPRESSION: Moderate stool confined to the hepatic flexure of the colon - GI tract otherwise normal. Right L5-S1 paraspinous calcifications appearing rapidly over the last week are likely undigested calcific particles in the GI tract Interpreted and Authenticated by: Eliezer Underwood 02/08/17
[2017-02-08] MEDS ORDERED: LACTULOSE 20 GM/30 ML ORAL.SOL PT ONE (14:08)
[2017-02-08] MEDS: [UNRECOGNIZED DRUG - REMARK] IV SCH (14:32)
[2017-02-08] MEDS: ENOXAPARIN 120 MG/0.8 ML SYRINGE SQ SCH (14:51)
[2017-02-08] MEDS: ACETAMINOPHEN 650 MG/65 ML BOTTLE IV PRN (14:56)
[2017-02-08 15:51] LABS: Ferritin 318.4 ng/ml (30-400)
[2017-02-08] MEDS: FAT EMULSION 20% 250 ML in PREMIX 1 BAG IV SCH (16:36)
--- NOTE | 2017-02-08 16:55 | Internal Med Progress Note ---
Medical - PN: Subj Patient information: Note initiated : 02/08/17 at 4:53 pm Service Date, if different from initiated Date: [] Patient: Edgard Bae 86 y/o M admitted on 01/31/17 for Fall/Femur Fracture, Right. Chief Complaint: [] Interval history: January 31, 2017:History of present illness: Mr. Bae is a 86 year old man who apparently fell this evening at home. ER evaluation revealed an acute right subtrochanteric hip fracture with slight displacement of the lesser trochanter, as well as a previous right total hip arthroplasty. The patient has moderate dementia, and cannot recall how or why he fell. When I saw him late in the evening, his family was not available. Otherwise, he does not think that he has been ill lately. He denies being aware fever or chills, headaches or dizziness, new or ear symptoms, chest pain or palpitations, shortness of breath or wheezing or cough, abdominal pain, nausea or vomiting, diarrhea or constipation, or dysuria. February 01: This morning, the patient was having a bit more pain, and was given IV Dilaudid. About an hour later I was called to see him urgently, as the nurse found him somewhat obtunded and twitching all over. Extremities were cyanotic, and the patient had decreased mental status. O2 saturation at the time was reading about 70% but we were not sure the oximeter was accurate. Follow-up blood gas did confirm that the patient was hypoxic, with a PO2 of 40, and a PCO2 of 53. As we talked with him and did test on him, he did become a bit more arousable. The twitching was a little hard to figure out, and I thought perhaps he was having an allergic reaction to the Dilaudid, so Benadryl was given. He was also given topical nitroglycerin, IV Lasix, and albuterol nebulizer treatment, and oxygen, while we were working him up. He was then transferred over to telemetry for closer monitoring. EKG did not show acute changes. D-dimer is elevated, but this would be expected in the setting of his hip fracture. Troponin is normal. BNP is a bit elevated at 500. Currently, the patient is still quite sleepy. His color is much improved. He is now maintaining oxygen saturations in the mid 90s on 2 L O2 via mask. He reports no fevers or chills, cough, chest pain or palpitations, and denied feeling especially short of breath. He denied abdominal pain, nausea or vomiting, diarrhea. Chester catheter remains in place. He continues to have significant right hip pain with any movement of the right leg. February 02: Today, the patient reports he is feeling better. He still notes pain in the right hip if he moves, but is otherwise comfortable. He denies fever or chills, headaches or dizziness, chest pain or palpitations, shortness of breath or wheezing, abdominal pain, nausea or vomiting, diarrhea or constipation. Chester catheter remains in place. Vital signs overnight, with O2 saturations ranging from 94-98% on 1-2 L O2. He did spike a temperature of 101.7 last evening. February 03: This morning, after being given morphine for pain, the patient vomited and appeared to aspirate vomitus into his lungs. He was suctioned by respiratory therapy, and oxygen mask applied. Later in the morning his O2 saturations continued to decline, and I requested that respiratory therapy start him on BiPAP. Not long after that, the patient vomited again, in spite of being n.p.o. , into the facemask. The vomit consisted mainly of bilious appearing fluid. We then placed an NG tube, and high flow oxygen via mask. The patient has been less alert today, but does wake up enough to tell me that he is not having any pain. He does feel like his breathing is a bit labored. Otherwise he does not report subjective fever or chills, chest pain or palpitations, abdominal pain, diarrhea or constipation. His hip pain is relatively well controlled at this time. February 04: Patient seen examined, no acute overnight events, patient was asleep much of my eval, but did open eyes slightly to verbal stimuli and did obey commands like grasp hand. The patient wbc count trended up slightly, his tele showed some SVT His NG tube suction shows dark coloured secretions, h/h has remained stable, IV PPI added. NO more vomiting now. Pt remains on bipap to maintain his oxygen saturations, Fio2 40 % in AM, 10/5 settings. He remains on antibiotics. cxr today shows improved perihilar infiltrates. February 05: The patient has continued to struggle. He did receive some morphine overnight, and remains quite somnolent today. The nursing staff feels that Tylenol is actually helping his pain more than morphine. NG output is declining, but continues rather dark in color, although tending towards dark green rather than reddish. The patient really does not arouse enough today to give me a history, although when asked if he is in pain he seems to indicate no. He continues to require BiPAP to maintain oxygen saturations. Because of ongoing hypoxia yesterday, he did undergo CT angiogram, which does show a small PE, in addition to bilateral infiltrates. He is now on Lovenox, therapeutic dose. He has not really had any nutrition since admission, so today we are evaluating for PPN versus TPN. I am reluctant to give him tube feedings at this point, since he has vomited and aspirated twice so far. We will give him more time to decrease his NG output. February 06: Today, the patient remains fairly somnolent, although nurses note they did get him to sit up on the side of the bed. He did open his eyes long enough to look outside, and also seems to recognize his today. They were not certain that he recognized his other family members. For the most part he remains asleep. He is quite difficult to arouse, and does not answer questions for me this morning. Nurses feel that his respiratory status has been fairly stable overnight. He has some audible wheezing when he is taken off BiPAP, but does very well while on it and seems to tolerate it. He is unable to give a review of systems at this time. Chest x-ray from this morning actually looks a bit better. Hemoglobin and hematocrit have fallen further however. Patient continues to have gross hematuria as well, likely due to being on therapeutic dose Lovenox. Nurses note he has not had a bowel movement in several days. He was given a suppository yesterday, but did not have much of a response. He has not had any oral intake though for several days. He was started on PPN yesterday, after a PICC line was placed. February 07: The patient did seem to have some increasing hip pain last night, some morphine was resumed at low doses. This morning he was given another dose of morphine so that he could work with physical therapy, but he was essentially too weak to stand up. He remains fairly somnolent, and only speaks occasionally. He is too sleepy to talk to me when I entered the room this morning, so could not answer a review of systems. Nurses note he still has not had a bowel movement, although he does have some bowel sounds. Oxygenation is improving, and he is currently tolerating low flow oxygen via nasal cannula. Nurses note that he seems to be fine when asleep, but he when he wakes up he starts to have a lot of upper airway noise. Nursing staff also talked with the patient's son, who said he has been declining for the last 2 months. The son noted he had been complaining of hip pain for over a month, and had become quite a bit more sedentary at home. February 08: Patient seen examined, a bit more awake today, opened eyes to verbal stimulus, and obeyed commands, but overall his mental status is still pretty obtunded. The patient did not respond well enough to provide ROS or any history. He remains on NG tube suction. CT head was done today which was reported neg. He has not had a BM in 6 days, X ray abdomen shows some stool in the hepatic flexure. Lactulose given via NG tube The reason for his obtunded state is bit unknown. likely opiates and infection. He remains on anabiotics, Ammonia level is negative. Pertinent ROS: unable. - Constitutional Vitals: Vital Signs Temp Pulse Resp BP Pulse Ox 99.8 F H 88 20 118/51 90 02/08/17 16:00 02/08/17 13:18 02/08/17 16:00 02/08/17 16:00 02/08/17 16:00 Period Temp Pulse Resp BP Sys/Hutson Pulse Ox Last 24 Hr 98.0 F-99.9 F 82-93 16-24 118-149/51-77 90-100 Intake and Output 02/08/17 02/08/17 02/08/17 05:59 13:59 21:59 Intake Total 300 / 300 50 / 50 1867 / 1867 Output Total 150 / 150 1400 / 1400 Balance 150 / 150 50 / 50 467 / 467 Weight 177 lb 9.6 oz Patient Weight 02/09/17 05:59 Weight 177 lb 9.6 oz Intake & Output: Intake & Output 02/08/17 02/08/17 02/08/17 05:59 13:59 21:59 Intake Total 300 / 300 50 / 50 1867 / 1867 Output Total 150 / 150 1400 / 1400 Balance 150 / 150 50 / 50 467 / 467 Weight 177 lb 9.6 oz Intake: IV 300 / 300 50 / 50 1866 Calcium Gluconate 10 Meq 1752 / 1752 Sodium Chloride 40 Meq Infuvite Adult 10 ml Selenium 60 Mcg Potassium Phosphate 40 Meq Magnesium Sulfate 16.24 Meq Sodium Phosphate 30 Mmol In Clinimix 5%-20% Solution 2,000 ml @ 70 mls/hr IV Q24H [facility] Rx#: [id number] Intralipid 20% 250 ml In 250 / 250 Premix 1 Bag @ 25 mls/hr IV Q24H [facility] Rx#:[id number] Zosyn 3.375 gm In 50 / 50 50 / 50 50 / 50 Dextrose 5% in Water 50 ml @ 100 mls/hr IV Q8H [facility] Rx#:[id number] Output: Gastric Drainage 150 / 150 Right Nare 150 / 150 Urine Catheter Amount 1400 / 1400 Exam: Constitutional; Afebrile,drowsy, not in distress. Eyes- No icterus, , No periorbital swelling Ears- Ext ear normal, Neck- Midline trachea, supple Respiratory system: Air Entry equal on both sides, No crackles, but maureen exp wheezing present. CVS- Rate rhythm regular, S1,S2 heard, no gallop, no rub. Abdomen- Soft nontender abdomen, no organomegaly, no tenderness, no guarding or rigidity, BS present [employer]- AOOx1 (self), moving all extremities, no gross focal deficit noted. Medical - PN: Obj Da - Labs CBC & Chem 7: 02/08/17 04:00 02/08/17 04:00 Labs: Abnormal Lab Results 02/08/17 02/08/17 02/08/17 14:35 04:00 04:00 RBC 2.40 L Hgb 7.6 L Hct 21.9 L RDW 15.8 H Gran % Lymph % (Auto) 9.5 L Gran # 8.2 H Lymph # (Auto) 1.0 L BUN Glucose 144 H Calcium 7.8 L Phosphorus Iron 42 L TIBC 186 L Total Bilirubin 1.2 H Direct Bilirubin Lactate Dehydrogenase 269 H Total Protein 5.3 L Albumin 2.8 L Prealbumin 02/08/17 02/07/17 02/06/17 04:00 04:00 15:05 RBC Hgb 7.9 L Hct 23.2 L RDW Gran % Lymph % (Auto) Gran # Lymph # (Auto) BUN 25 H Glucose 148 H Calcium 7.7 L Phosphorus 2.4 L Iron TIBC Total Bilirubin 1.1 H Direct Bilirubin 0.4 H Lactate Dehydrogenase Total Protein 5.4 L Albumin 2.7 L Prealbumin 12.3 L 02/06/17 02/06/17 04:00 04:00 RBC 2.47 L Hgb 7.8 L Hct 22.4 L RDW 15.7 H Gran % 78.8 H Lymph % (Auto) 9.9 L Gran # Lymph # (Auto) 0.9 L BUN 28 H Glucose 144 H Calcium 7.8 L Phosphorus 2.4 L Iron TIBC Total Bilirubin Direct Bilirubin Lactate Dehydrogenase Total Protein 5.5 L Albumin 2.8 L Prealbumin Meds: Medications Albuterol Sulfate (Ventolin) 2.5 mg NEB Q6HRT [facility] Last Admin: 02/08/17 13:18 Dose: 2.5 mg Albuterol Sulfate (Ventolin) 2.5 mg NEB Q2HP PRN PRN Reason: Shortness Of Breath Bisacodyl (Dulcolax) 10 mg IA Q2-3DAYS PRN PRN Reason: Constipation Last Admin: 02/07/17 12:13 Dose: 10 mg Dextrose (Dextrose 50%) 50 ml IV UD PRN PRN Reason: Hypoglycemia Diagnostic Test (Pha) (Accu-Chek) 1 each FS Q6 [facility] Last Admin: 02/08/17 12:32 Dose: 1 each Docusate Sodium (Colace) 100 mg PO BID PRN PRN Reason: Constipation Enoxaparin Sodium (Lovenox) 120 mg SQ DAILY@1500 [facility] Last Admin: 02/08/17 14:51 Dose: 120 mg Heparin Sodium (Porcine) (Heparin Flush) 2 ml IV Q12 [facility] Last Admin: 02/08/17 08:50 Dose: 2 ml Piperacillin Sod/Tazobactam (Sod 3.375 gm/ Dextrose) 50 mls @ 100 mls/hr IV Q8H [facility] Last Infusion: 02/08/17 15:02 Dose: Infused Acetaminophen (Ofirmev) 650 mg in 65 mls @ 130 mls/hr IV Q6HP PRN PRN Reason: PAIN/FEVER > 101 Last Infusion: 02/08/17 15:27 Dose: Infused Fat Emulsion Intravenous 250 (ml/ Premix) 250 mls @ 25 mls/hr IV Q24H [facility] Last Admin: 02/08/17 16:36 Dose: 25 mls/hr Calcium Gluconate 10 meq/Sodium Chloride 60 meq/Multivitamins/Minerals 10 ml/ Selenium 60 mcg/ Potassium Phosphate 40 meq/ Magnesium Sulfate 16.24 meq/ Sodium Phosphate 15 mmol/ Amino Acids 2,066.0962 mls @ 70 mls/hr IV Q24H [facility] Last Admin: 02/08/17 14:32 Dose: 70 mls/hr Insulin Human Lispro (Humalog) 0 unit SQ Q6 [facility] PRN Reason: Protocol Last Admin: 02/08/17 12:32 Dose: 2 unit Magnesium Hydroxide (Milk Of Magnesia) 30 ml PO DAILYP PRN PRN Reason: Constipation Last Admin: 02/06/17 11:57 Dose: 30 ml Metoclopramide HCl (Reglan) 5 mg IV Q6HP PRN PRN Reason: Nausea And Vomiting Last Admin: 02/08/17 07:38 Dose: 5 mg Metoprolol Tartrate (Lopressor) 5 mg IV Q4HP PRN PRN Reason: Tachyarrhythmias Morphine Sulfate (Morphine) 1 - 2 mg IV Q4HP PRN PRN Reason: Pain Last Admin: 02/08/17 01:04 Dose: 2 mg Naloxone HCl (Narcan) 0.1 mg IV Q2MIN PRN PRN Reason: Opiate Reversal Ondansetron HCl (Zofran) 4 mg IV Q6HP PRN PRN Reason: Nausea And Vomiting Last Admin: 02/03/17 16:03 Dose: 4 mg Pantoprazole Sodium (Protonix) 40 mg IV BIDAC [facility] Last Admin: 02/08/17 16:35 Dose: 40 mg Sodium Chloride (Saline Flush) 10 ml IV Q8 [facility] Last Admin: 02/08/17 14:40 Dose: 10 ml Medical - PN: A/P - Time Spent With Patient Total time spent is greater than 50% in coordination of care (as documented) at patient's floor/unit and/or counseling patient: - Narrative A/P Narrative: #1. Cardio/pulmonary. a) the patient has bilateral pneumonia, likely due to aspiration pneumonia. He also has been diagnosed with pulmonary embolism. It is not clear if that was there prior to admission, or if it occurred during his stay here. He continues to be quite groggy, related to pain medications. This makes him high risk for any sort of feeding. -Lungs have maureen exp wheeze, start on duonebs q4hrs, start on IV solumedrol. -Get ABG. previous ABG reviewed it seems patient had pco2 54, a high PCo2 may explain the patients obtundation. repeat ABG today. -Continue BiPAP as needed for respiratory support, as he is maintaining O2 saturations with this. -Continue therapeutic dose Lovenox, for at least 90 days. Monitor hemoglobin closely. seems to be dropping gradually. -Continue NG tube, to help avoid recurrent aspiration and vomiting. This is also occasionally been used for p.o. medications. -Continue iv zosyn for aspiration pneumonia. b) patient had episodes of SVT. Potassium and magnesium were both running low , so those were replaced. As needed metoprolol was ordered as well. SVT has not recurred. #2. Orthopedic. Patient presents with right hip fracture. He was seen by Dr. Bourne. s/p hip surgery Low-dose morphine was resumed last night, as they could not seem to get him comfortable. Unfortunately this still tends to make him quite somnolent. - IV Tylenol as needed. IV Toradol as needed. -PT did work with him today, and they were able to sit him up. He is showing some increased alertness. He is quite weak, and will require extensive rehab. 3. CODE STATUS: DNR CODE STATUS. 4 DVT prophylaxis: lovenox sq 5. Hematuria. No signs of infection at this time. -Continue Chester catheter for accurate fluid assessments. #6. Infectious disease. The patient is being treated for aspiration pneumonia, as noted above. 7. Neurologic. Patient has known dementia, and increased confusion over the last couple of days , due to acute illness. Continue to follow. CT head done today is negative. 8. GI. Patient did have heme positive NG drainage . He may have gastritis. NG drainage is improving. He was started on a proton pump inhibitor for possible gastritis. NG drainage is decreasing. There are no signs of active bleeding. -Bowel movement so far. are neg. PO lactulose given X Ray abdomen does not show any e/o obstruction. Continue as needed bowel meds.. #9. Nutrition. Patient has not adequate nutrition for several days. I have asked the dietitian to make recommendations. I am reluctant to use his gut at this time because of recent vomiting, so PICC line was placed and TPN was started. I would prefer not to pursue a central line or other invasive measures at this time, if not absolutely necessary. -If NG drainage is minimal tomorrow, we may consider tube feedings. He will need speech therapy evaluation prior to any oral diet. 10. Renal. Patient continues to have issues with low potassium and phosphate and magnesium. Replace as needed. 11. Hematologic. Hemoglobin and hematocrit have declined. I suspect some of this may be dilutional, and some due to gross hematuria, while being also on Lovenox. Continue to monitor. If this drops much lower, he will need transfusion. anemia workup ordered. Medical - PN: Qual - VTE Deep Vein Thrombosis/Pulmonary Embolism Present on Admission: No
[2017-02-08] MEDS: methylPREDNISolone SOD SUCC 125 MG/2 ML VIAL IV SCH ×2 (17:37→22:38)
[2017-02-08] MEDS: IPRATROPIUM/ALBUTEROL 3 ML AMPUL.NEB NEB SCH ×3 (19:13→23:14)
[2017-02-08] MEDS ORDERED: LACTULOSE 20 GM/30 ML ORAL.SOL PO ONE (20:51)
[2017-02-09] MEDS: INSULIN LISPRO 1 UNIT/0.01 ML UNIT SQ SCH ×4 (00:11→18:11)
[2017-02-09] MEDS: IPRATROPIUM/ALBUTEROL 3 ML AMPUL.NEB NEB SCH ×4 (03:02→18:43)
[2017-02-09] MEDS: methylPREDNISolone SOD SUCC 125 MG/2 ML VIAL IV SCH (05:17)
[2017-02-09] MEDS: 0.9 % SODIUM CHLORIDE 10 ML SYRINGE IV SCH ×6 (05:18→22:31)
[2017-02-09] MEDS: PIPERACILLIN SODIUM/TAZOBACTAM 3.375 GM in DEXTROSE 5% IN WATER 50 ML IV SCH ×3 (06:01→22:30)
[2017-02-09 06:25] LABS: Basophils # (Auto) 0 K/mcL (0.0-0.3); Basophils % (Auto) 0 % (0.0-2.0); Eosinophils # (Auto) 0.1 K/mcL (0.0-0.7); Eosinophils % (Auto) 0.5 % (0.0-7.0); Granulocytes % (Auto) 95.2 % (38.0-78.0); Lymphocytes # (Auto) 0.4 K/mcL (1.5-4.8); Lymphocytes % (Auto) 3.1 % (15.5-49.0); Mean Cell Volume 90.8 fL (80.0-100.0); Mean Corpuscular HGB Conc 34.8 g/dL (31.0-36.0); Mean Corpuscular Hemoglobin 31.6 pg (26.0-34.0); Monocytes # (Auto) 0.1 K/mcL (0.1-0.9); Monocytes % (Auto) 1.2 % (1.0-12.0); Platelet Count 251 K/mcL (140-440); RBC 2.65 M/mcL (4.50-5.90); Red Cell Distribution Width 16.2 % (11.5-14.5)
[2017-02-09 06:40] LABS: Prealbumin 14.3 mg/dl (20-40); Retic Absolute 5.9 % (0.5-1.5)
[2017-02-09] MEDS: PANTOPRAZOLE 40 MG VIAL IV SCH ×2 (07:56→17:18)
--- NOTE | 2017-02-09 08:19 | XRay Report ---
CLINICAL INFORMATION: Dyspnea COMPARISON: 02/06/2017 FINDINGS: Moderate cardiomegaly is unchanged. Mediastinum is unremarkable. Lines and tubes in stable satisfactory position. Pulmonary vessels are normal. Minor atelectasis in the right base. No definite infiltrates on today's exam. Marked chronic elevation right diaphragm - as before IMPRESSION: Moderate stable cardiomegaly, marked chronic elevation right diaphragm with minor atelectasis right base - all stable Interpreted and Authenticated by: Eliezer Underwood 02/09/17
[2017-02-09] MEDS: DOCUSATE SODIUM 50 MG/5 ML ORAL.SOL PT PRN (10:07)
--- NOTE | 2017-02-09 10:20 | Internal Med Progress Note ---
Medical - PN: Subj Patient information: Note initiated : 02/09/17 at 10:20 am Patient: Edgard Bae 86 y/o M admitted on 01/31/17 for Fall/Femur Fracture, Right. Interval history: January 31, 2017:History of present illness: Mr. Bae is a 86 year old man who apparently fell this evening at home. ER evaluation revealed an acute right subtrochanteric hip fracture with slight displacement of the lesser trochanter, as well as a previous right total hip arthroplasty. The patient has moderate dementia, and cannot recall how or why he fell. When I saw him late in the evening, his family was not available. Otherwise, he does not think that he has been ill lately. He denies being aware fever or chills, headaches or dizziness, new or ear symptoms, chest pain or palpitations, shortness of breath or wheezing or cough, abdominal pain, nausea or vomiting, diarrhea or constipation, or dysuria. February 01: This morning, the patient was having a bit more pain, and was given IV Dilaudid. About an hour later I was called to see him urgently, as the nurse found him somewhat obtunded and twitching all over. Extremities were cyanotic, and the patient had decreased mental status. O2 saturation at the time was reading about 70% but we were not sure the oximeter was accurate. Follow-up blood gas did confirm that the patient was hypoxic, with a PO2 of 40, and a PCO2 of 53. As we talked with him and did test on him, he did become a bit more arousable. The twitching was a little hard to figure out, and I thought perhaps he was having an allergic reaction to the Dilaudid, so Benadryl was given. He was also given topical nitroglycerin, IV Lasix, and albuterol nebulizer treatment, and oxygen, while we were working him up. He was then transferred over to telemetry for closer monitoring. EKG did not show acute changes. D-dimer is elevated, but this would be expected in the setting of his hip fracture. Troponin is normal. BNP is a bit elevated at 500. Currently, the patient is still quite sleepy. His color is much improved. He is now maintaining oxygen saturations in the mid 90s on 2 L O2 via mask. He reports no fevers or chills, cough, chest pain or palpitations, and denied feeling especially short of breath. He denied abdominal pain, nausea or vomiting, diarrhea. Chester catheter remains in place. He continues to have significant right hip pain with any movement of the right leg. February 02: Today, the patient reports he is feeling better. He still notes pain in the right hip if he moves, but is otherwise comfortable. He denies fever or chills, headaches or dizziness, chest pain or palpitations, shortness of breath or wheezing, abdominal pain, nausea or vomiting, diarrhea or constipation. Chester catheter remains in place. Vital signs overnight, with O2 saturations ranging from 94-98% on 1-2 L O2. He did spike a temperature of 101.7 last evening. February 03: This morning, after being given morphine for pain, the patient vomited and appeared to aspirate vomitus into his lungs. He was suctioned by respiratory therapy, and oxygen mask applied. Later in the morning his O2 saturations continued to decline, and I requested that respiratory therapy start him on BiPAP. Not long after that, the patient vomited again, in spite of being n.p.o. , into the facemask. The vomit consisted mainly of bilious appearing fluid. We then placed an NG tube, and high flow oxygen via mask. The patient has been less alert today, but does wake up enough to tell me that he is not having any pain. He does feel like his breathing is a bit labored. Otherwise he does not report subjective fever or chills, chest pain or palpitations, abdominal pain, diarrhea or constipation. His hip pain is relatively well controlled at this time. February 04: Patient seen examined, no acute overnight events, patient was asleep much of my eval, but did open eyes slightly to verbal stimuli and did obey commands like grasp hand. The patient wbc count trended up slightly, his tele showed some SVT His NG tube suction shows dark coloured secretions, h/h has remained stable, IV PPI added. NO more vomiting now. Pt remains on bipap to maintain his oxygen saturations, Fio2 40 % in AM, 10/5 settings. He remains on antibiotics. cxr today shows improved perihilar infiltrates. February 05: The patient has continued to struggle. He did receive some morphine overnight, and remains quite somnolent today. The nursing staff feels that Tylenol is actually helping his pain more than morphine. NG output is declining, but continues rather dark in color, although tending towards dark green rather than reddish. The patient really does not arouse enough today to give me a history, although when asked if he is in pain he seems to indicate no. He continues to require BiPAP to maintain oxygen saturations. Because of ongoing hypoxia yesterday, he did undergo CT angiogram, which does show a small PE, in addition to bilateral infiltrates. He is now on Lovenox, therapeutic dose. He has not really had any nutrition since admission, so today we are evaluating for PPN versus TPN. I am reluctant to give him tube feedings at this point, since he has vomited and aspirated twice so far. We will give him more time to decrease his NG output. February 06: Today, the patient remains fairly somnolent, although nurses note they did get him to sit up on the side of the bed. He did open his eyes long enough to look outside, and also seems to recognize his today. They were not certain that he recognized his other family members. For the most part he remains asleep. He is quite difficult to arouse, and does not answer questions for me this morning. Nurses feel that his respiratory status has been fairly stable overnight. He has some audible wheezing when he is taken off BiPAP, but does very well while on it and seems to tolerate it. He is unable to give a review of systems at this time. Chest x-ray from this morning actually looks a bit better. Hemoglobin and hematocrit have fallen further however. Patient continues to have gross hematuria as well, likely due to being on therapeutic dose Lovenox. Nurses note he has not had a bowel movement in several days. He was given a suppository yesterday, but did not have much of a response. He has not had any oral intake though for several days. He was started on PPN yesterday, after a PICC line was placed. February 07: The patient did seem to have some increasing hip pain last night, some morphine was resumed at low doses. This morning he was given another dose of morphine so that he could work with physical therapy, but he was essentially too weak to stand up. He remains fairly somnolent, and only speaks occasionally. He is too sleepy to talk to me when I entered the room this morning, so could not answer a review of systems. Nurses note he still has not had a bowel movement, although he does have some bowel sounds. Oxygenation is improving, and he is currently tolerating low flow oxygen via nasal cannula. Nurses note that he seems to be fine when asleep, but he when he wakes up he starts to have a lot of upper airway noise. Nursing staff also talked with the patient's son, who said he has been declining for the last 2 months. The son noted he had been complaining of hip pain for over a month, and had become quite a bit more sedentary at home. February 08: Patient seen examined, a bit more awake today, opened eyes to verbal stimulus, and obeyed commands, but overall his mental status is still pretty obtunded. The patient did not respond well enough to provide ROS or any history. He remains on NG tube suction. CT head was done today which was reported neg. He has not had a BM in 6 days, X ray abdomen shows some stool in the hepatic flexure. Lactulose given via NG tube The reason for his obtunded state is bit unknown. likely opiates and infection. He remains on anabiotics, Ammonia level is negative. February 09: The patient is a little more awake today than yesterday. He is able to sit up on the side of the bed with physical therapy, but is clearly too weak to stand. The source of his continued lethargic mental status has not been clear. He did have a head CT yesterday, which did not show any obvious reason. His son reports that he has been declining in alertness and functional abilities for at least a couple of months. He still has his NG tube in place, to give oral meds, as it is not clear that he is safe to swallow at this time. He is just been quite lethargic. He still occasionally receives morphine for uncontrolled pain, although mostly pain is managed with Tylenol and Toradol. Lungs remain fairly clear. He is oxygenating well currently just with oxygen via nasal cannula. -He continues to receive PPN via his PICC line. -His eyes are open when I entered the room, but he can barely say the word yes when asked him questions. Otherwise he really is not able to participate in a review of systems. - Constitutional Vitals: Vital Signs Temp Pulse Resp BP Pulse Ox 98.2 F 84 16 140/50 96 02/09/17 07:35 02/09/17 07:33 02/09/17 07:35 02/09/17 07:35 02/09/17 07:35 Period Temp Pulse Resp BP Sys/Hutson Pulse Ox Last 24 Hr 98.1 F-99.9 F 84-100 16-28 109-149/50-80 90-98 Intake and Output 02/08/17 02/09/17 02/09/17 21:59 05:59 13:59 Intake Total 1866 300 / 300 50 / 50 Output Total 1775 / 1775 850 / 850 Balance 92 / 92 -550 / -550 50 / 50 Weight 173 lb 12.8 oz Intake & Output: Intake & Output 02/08/17 02/09/17 02/09/17 21:59 05:59 13:59 Intake Total 1866 / 1866 300 / 300 50 / 50 Output Total 1775 / 1775 850 / 850 Balance 92 / 92 -550 / -550 50 / 50 Weight 173 lb 12.8 oz Intake: IV 1866 300 / 300 50 / 50 Calcium Gluconate 10 Meq 1752 / 1752 Sodium Chloride 40 Meq Infuvite Adult 10 ml Selenium 60 Mcg Potassium Phosphate 40 Meq Magnesium Sulfate 16.24 Meq Sodium Phosphate 30 Mmol In Clinimix 5%-20% Solution 2,000 ml @ 70 mls/hr IV Q24H [facility] Rx#: [id number] Intralipid 20% 250 ml In 250 / 250 Premix 1 Bag @ 25 mls/hr IV Q24H [facility] Rx#:[id number] Zosyn 3.375 gm In 50 / 50 50 / 50 50 / 50 Dextrose 5% in Water 50 ml @ 100 mls/hr IV Q8H [facility] Rx#:[id number] Output: Urine Catheter Amount 1775 / 1775 850 / 850 Eyes are open and he is awake, but he still seems lethargic. He is afebrile. Heart rate ranges from 84-108. Respiratory rate ranges from 16 -26. O2 saturation is 90-97% on 2 L nasal cannula. Blood pressure 140/50. Neck shows no obvious JVD. Cardiac exam shows regular rate and rhythm. Lungs have somewhat decreased breath sounds, but overall are quite clear. abdomen is soft without obvious tenderness. Bowel sounds are rather hypoactive. NG drainage has slowed quite a bit, and is fairly clear to greenish at this time. Extremities: Show mild dependent edema. Right hip incision was recently covered with a dressing, and appears clean and dry. Neurologic: Patient is a little more alert today than I have seen him in the past few days. He is still mostly nonverbal though. Medical - PN: Obj Da - Labs CBC & Chem 7: 02/10/17 03:40 02/10/17 03:40 Labs: Abnormal Lab Results 02/09/17 02/09/17 02/09/17 03:30 03:30 03:30 WBC 12.3 H RBC 2.65 L Hgb 8.4 L Hct 24.1 L RDW 16.2 H Gran % 95.2 H Lymph % (Auto) 3.1 L Gran # 11.7 H Lymph # (Auto) 0.4 L Absolute Retic 5.9 H BUN Glucose Calcium Phosphorus Iron TIBC Total Bilirubin Direct Bilirubin Lactate Dehydrogenase Total Protein Albumin Prealbumin 14.3 L 02/08/17 02/08/17 02/08/17 14:35 04:00 04:00 WBC RBC 2.40 L Hgb 7.6 L Hct 21.9 L RDW 15.8 H Gran % Lymph % (Auto) 9.5 L Gran # 8.2 H Lymph # (Auto) 1.0 L Absolute Retic BUN Glucose 144 H Calcium 7.8 L Phosphorus Iron 42 L TIBC 186 L Total Bilirubin 1.2 H Direct Bilirubin Lactate Dehydrogenase 269 H Total Protein 5.3 L Albumin 2.8 L Prealbumin 02/08/17 02/07/17 02/06/17 04:00 04:00 15:05 WBC RBC Hgb 7.9 L Hct 23.2 L RDW Gran % Lymph % (Auto) Gran # Lymph # (Auto) Absolute Retic BUN 25 H Glucose 148 H Calcium 7.7 L Phosphorus 2.4 L Iron TIBC Total Bilirubin 1.1 H Direct Bilirubin 0.4 H Lactate Dehydrogenase Total Protein 5.4 L Albumin 2.7 L Prealbumin 12.3 L February 08: Chest x-ray: Moderate cardiomegaly, chronic right diaphragm elevation. Minor right base atelectasis. Stable. February 06: Follow-up H and H this afternoon are stable at 7.9 and 23.2 Chest x-ray: Moderate cardiomegaly. PICC line in satisfactory position. Perihilar infiltrates have almost cleared. Chronic elevation of right diaphragm. February 05: No change in mild perihilar infiltrates, suspect aspiration. PICC line tip in the left brachiocephalic junction, nurses instructed to withdraw 2 cm. February 04: CT angiogram: Solitary embolus to the superior right lower lobe segment pulmonary artery. Mild pulmonary hypertension. Moderate vague groundglass infiltrates diffusely throughout both lungs, suspect aspiration. Small bilateral pleural effusions. February 03: Follow-up chest x-ray this afternoon shows mild perihilar infiltrates, with slight worsening. Continued elevation of the right hemidiaphragm. February 02: Chest x-ray: Moderate chronic elevation of the right diaphragm, with right basilar atelectasis. No infiltrates are seen. Blood cultures are negative so far. February 01: CBC: White blood cell count 13,000, hemoglobin 12, hematocrit 36, granulocyte count 11,000 D-dimer is elevated at 7.7 ProBNP is mildly elevated at 501 Troponin is normal at less than 0.01 EKG showed sinus tachycardia, with no obvious acute ischemic changes. ABG on room air, while in distress: Shows pH of 7.37, PCO2 of 53, PO2 of 40, bicarb of 30, O2 saturation 73% Chest x-ray: There is moderate cardiomegaly. Chronic right diaphragm elevation. Minor right base atelectasis. No signs of CHF. Nasal MRSA screen is negative. January 31: CBC differential: Shows granulocyte count of 9300, lymphocyte count of 700 Urinalysis: Shows 44 red blood cells, without leukocyte esterase or nitrites. Chest x-ray: Shows elevated right hemidiaphragm, unchanged. No other abnormalities. Hip x-ray: Shows acute right trochanteric fracture, and previous right total hip arthroplasty. Meds: Medications Albuterol/Ipratropium (Duoneb) 3 ml NEB Q4HRT [facility] Last Admin: 02/09/17 07:30 Dose: 3 ml Bisacodyl (Dulcolax) 10 mg TX Q2-3DAYS PRN PRN Reason: Constipation Last Admin: 02/07/17 12:13 Dose: 10 mg Dextrose (Dextrose 50%) 50 ml IV UD PRN PRN Reason: Hypoglycemia Diagnostic Test (Pha) (Accu-Chek) 1 each FS Q6 [facility] Last Admin: 02/09/17 05:16 Dose: 1 each Docusate Sodium (Colace) 100 mg PT BIDP PRN PRN Reason: Constipation Last Admin: 02/09/17 10:07 Dose: 100 mg Enoxaparin Sodium (Lovenox) 120 mg SQ DAILY@1500 [facility] Last Admin: 02/08/17 14:51 Dose: 120 mg Heparin Sodium (Porcine) (Heparin Flush) 2 ml IV Q12 [facility] Last Admin: 02/09/17 10:06 Dose: 2 ml Piperacillin Sod/Tazobactam (Sod 3.375 gm/ Dextrose) 50 mls @ 100 mls/hr IV Q8H [facility] Last Infusion: 02/09/17 06:32 Dose: Infused Acetaminophen (Ofirmev) 650 mg in 65 mls @ 130 mls/hr IV Q6HP PRN PRN Reason: PAIN/FEVER > 101 Last Infusion: 02/08/17 15:27 Dose: Infused Fat Emulsion Intravenous 250 (ml/ Premix) 250 mls @ 25 mls/hr IV Q24H [facility] Last Infusion: 02/09/17 02:40 Dose: Infused Calcium Gluconate 10 meq/Sodium Chloride 60 meq/Multivitamins/Minerals 10 ml/ Selenium 60 mcg/ Potassium Phosphate 40 meq/ Magnesium Sulfate 16.24 meq/ Sodium Phosphate 15 mmol/ Amino Acids 2,066.0962 mls @ 70 mls/hr IV Q24H [facility] Last Admin: 02/08/17 14:32 Dose: 70 mls/hr Insulin Human Lispro (Humalog) 0 unit SQ Q6 [facility] PRN Reason: Protocol Last Admin: 02/09/17 05:16 Dose: 6 unit Magnesium Hydroxide (Milk Of Magnesia) 30 ml PO DAILYP PRN PRN Reason: Constipation Last Admin: 02/06/17 11:57 Dose: 30 ml Methylprednisolone Sodium Succinate (Solu-Medrol) 62.5 mg IV Q8 [facility] Last Admin: 02/09/17 05:17 Dose: 62.5 mg Metoclopramide HCl (Reglan) 5 mg IV Q6HP PRN PRN Reason: Nausea And Vomiting Last Admin: 02/08/17 07:38 Dose: 5 mg Metoprolol Tartrate (Lopressor) 5 mg IV Q4HP PRN PRN Reason: Tachyarrhythmias Morphine Sulfate (Morphine) 1 - 2 mg IV Q4HP PRN PRN Reason: Pain Last Admin: 02/09/17 05:17 Dose: 1 mg Naloxone HCl (Narcan) 0.1 mg IV Q2MIN PRN PRN Reason: Opiate Reversal Ondansetron HCl (Zofran) 4 mg IV Q6HP PRN PRN Reason: Nausea And Vomiting Last Admin: 02/03/17 16:03 Dose: 4 mg Pantoprazole Sodium (Protonix) 40 mg IV BIDAC [facility] Last Admin: 02/09/17 07:56 Dose: 40 mg Sodium Chloride (Saline Flush) 10 ml IV Q8 [facility] Last Admin: 02/09/17 07:56 Dose: 10 ml Medical - PN: A/P - Time Spent With Patient Total time spent is greater than 50% in coordination of care (as documented) at patient's floor/unit and/or counseling patient: Greater than 35 minutes (1) Femur fracture, right Status: Acute Current Visit: Yes (2) Impairment of cognitive function Problem details: with balance difficulties Status: Chronic Current Visit: No - Narrative A/P Narrative: #1. Cardio/pulmonary. a) the patient has bilateral pneumonia, likely due to aspiration pneumonia. He also has been diagnosed with pulmonary embolism. It is not clear if that was there prior to admission, or if it occurred during his stay here. He continues to be quite groggy, related to pain medications. This makes him high risk for any sort of feeding. -Continue as needed nebulized bronchodilators as needed. He is not wheezing today, and has no reported history of COPD, so I will discontinue steroids. -Continue BiPAP as needed for respiratory support, but so far he is doing well on oxygen by nasal cannula. -Continue therapeutic dose Lovenox, for at least 90 days. Monitor hemoglobin closely. seems to be dropping gradually. -Continue NG tube, to help avoid recurrent aspiration and vomiting. This is also occasionally been used for p.o. medications. -Continue iv zosyn for aspiration pneumonia. He is about day 8 on antibiotics today. I will continue for at least another 2 days, and then consider discontinuing, particularly if he is swallowing better. b) patient had episodes of SVT. Potassium and magnesium were both running low , so those were replaced. As needed metoprolol was ordered as well. SVT has not recurred. #2. Orthopedic. Patient presents with right hip fracture. He was seen by Dr. Bourne. s/p hip surgery Low-dose morphine was resumed , as they could not seem to get him comfortable. Unfortunately this still tends to make him quite somnolent. - IV Tylenol as needed. IV Toradol as needed. -PT did work with him today, and they were able to sit him up. He is showing some increased alertness. He is quite weak, and will require extensive rehab. 3. CODE STATUS: DNR CODE STATUS. 4 DVT prophylaxis: lovenox sq 5. Hematuria. No signs of infection at this time. -Continue Chester catheter for accurate fluid assessments. We hope to get the Chester out sometime soon. He is just not alert enough at this time to use a urinal, and this would complicate his care in terms of his hip pain as well. #6. Infectious disease. The patient is being treated for aspiration pneumonia, as noted above. -White blood cell count did bump up a bit today, for uncertain reasons. Chest x -ray from yesterday looked okay. He should be pretty well covered for most things as he is on Zosyn. He certainly has no signs of C. difficile colitis at this point. Elevated white blood cell count may actually be due to the addition of steroids yesterday. 7. Neurologic. Patient has known dementia, and increased confusion over the last couple of days , due to acute illness. Continue to follow. CT head is negative. 8. GI. Patient did have heme positive NG drainage . He may have gastritis. NG drainage is improving. He was started on a proton pump inhibitor for possible gastritis. NG drainage is decreasing. There are no signs of active bleeding. -No Bowel movement so far. are neg. PO lactulose given. Continue as needed bowel meds.. We may add mag citrate today, as his abdominal x -ray does suggest stool in the colon. #9. Nutrition. Patient has not adequate nutrition for several days. I have asked the dietitian to make recommendations. I am reluctant to use his gut at this time because of recent vomiting, so PICC line was placed and PPN was started. I would prefer not to pursue a central line or other invasive measures at this time, if not absolutely necessary. -If NG drainage is minimal tomorrow, we may consider tube feedings. He will need speech therapy evaluation prior to any oral diet. 10. Renal. Patient continues to have issues with low potassium and phosphate and magnesium. Replace as needed. 11. Hematologic. Hemoglobin and hematocrit have declined. I suspect some of this may be dilutional, and some due to gross hematuria, while being also on Lovenox. Continue to monitor. If this drops much lower, he will need transfusion. anemia workup ordered. Approximately 40 minutes was spent today, reviewing patient's test results, interviewing and examining him, reviewing plan of care with staff, and then having a family conference later in the day, to go over all of his treatments and progress to date, with the patient and his . Medical - PN: Qual - VTE Deep Vein Thrombosis/Pulmonary Embolism Present on Admission: No
[2017-02-09] MEDS: ACETAMINOPHEN 160 MG/5 ML ORAL.SOL PT PRN (12:07)
[2017-02-09] MEDS: [UNRECOGNIZED DRUG - REMARK] IV SCH (14:35)
[2017-02-09] MEDS: ENOXAPARIN 120 MG/0.8 ML SYRINGE SQ SCH (14:35)
[2017-02-09] MEDS: FAT EMULSION 20% 250 ML in PREMIX 1 BAG IV SCH (17:18)
[2017-02-09 21:54] LABS: Appearance,Urine HAZY; Bacteria,Urine FEW /hpf (0); Bilirubin,Urine NEG (NEG); Color,Urine YELLOW; Glucose,Urine (UA) NEGATIVE (NEG); Leukocyte Esterase,Urine NEG /uL (NEG); Mucus,Urine FEW /hpf (0); Nitrate,Urine NEG (NEG); Protein,Urine NEG (NEG); Specific Gravity,Urine 1.018 (1.000-1.035); Uric Acid Crystals,Urine FEW /hpf (0); Urine Blood >=1.0 mg/dL (<0.03); Urine RBC > 182 /hpf (0-1); Urine Squamous Epithelial Cell 0 /hpf (0-4); Urine WBC 8 /hpf (0-4); Urobilinogen,Urine NEG (NEG)
[2017-02-10] MEDS: INSULIN LISPRO 1 UNIT/0.01 ML UNIT SQ SCH ×5 (00:29→23:47)
[2017-02-10] MEDS: ACETAMINOPHEN 650 MG/65 ML BOTTLE IV PRN ×2 (03:46→12:16)
[2017-02-10] MEDS ORDERED: RACEPINEPHRINE 0.5 ML AMPUL.NEB NEB ONE (04:33)
[2017-02-10] MEDS ORDERED: RACEPINEPHRINE 0.5 ML AMPUL.NEB ONE (04:47)
[2017-02-10 05:00] LABS: Basophils # (Auto) 0 K/mcL (0.0-0.3); Basophils % (Auto) 0 % (0.0-2.0); Eosinophils # (Auto) 0 K/mcL (0.0-0.7); Eosinophils % (Auto) 0 % (0.0-7.0); Granulocytes % (Auto) 86.4 % (38.0-78.0); Lymphocytes % (Auto) 5.9 % (15.5-49.0); Mean Cell Volume 91.4 fL (80.0-100.0); Mean Corpuscular HGB Conc 34.6 g/dL (31.0-36.0); Mean Corpuscular Hemoglobin 31.6 pg (26.0-34.0); Monocytes # (Auto) 1.4 K/mcL (0.1-0.9); Monocytes % (Auto) 7.7 % (1.0-12.0); Platelet Count 290 K/mcL (140-440); RBC 2.43 M/mcL (4.50-5.90); Red Cell Distribution Width 16.3 % (11.5-14.5)
[2017-02-10] MEDS: PIPERACILLIN SODIUM/TAZOBACTAM 3.375 GM in DEXTROSE 5% IN WATER 50 ML IV SCH ×3 (05:14→22:37)
[2017-02-10] MEDS: 0.9 % SODIUM CHLORIDE 10 ML SYRINGE IV SCH ×4 (05:15→20:42)
[2017-02-10 05:17] LABS: ALT/SGPT 48 U/l (0-40); Albumin/Globulin Ratio 1.3 (1.0-2.3); Alkaline Phosphatase 51 U/L (39-117); Bilirubin,Direct 0.3 mg/dL (0.0-0.3); Blood Urea Nitrogen 29 mg/dl (8-23); Gamma Glutamyl Transpeptidase 50 U/L (8-61); Magnesium 2.1 mg/dL (1.6-2.5); Uric Acid 3.1 mg/dL (2.5-8.0)
[2017-02-10 05:23] LABS: Prealbumin 15.1 mg/dl (20-40)
[2017-02-10] MEDS ORDERED: FUROSEMIDE 20 MG/2 ML VIAL IV ONE (07:56)
[2017-02-10] MEDS: PANTOPRAZOLE 40 MG VIAL IV SCH ×2 (08:35→15:01)
--- NOTE | 2017-02-10 09:34 | Internal Med Progress Note ---
Medical - PN: Subj Patient information: Note initiated : 02/10/17 at 9:34 am Patient: Edgard Bae 86 y/o M admitted on 01/31/17 for Fall/Femur Fracture, Right. Interval history: January 31, 2017:History of present illness: Mr. Bae is a 86 year old man who apparently fell this evening at home. ER evaluation revealed an acute right subtrochanteric hip fracture with slight displacement of the lesser trochanter, as well as a previous right total hip arthroplasty. The patient has moderate dementia, and cannot recall how or why he fell. When I saw him late in the evening, his family was not available. Otherwise, he does not think that he has been ill lately. He denies being aware fever or chills, headaches or dizziness, new or ear symptoms, chest pain or palpitations, shortness of breath or wheezing or cough, abdominal pain, nausea or vomiting, diarrhea or constipation, or dysuria. February 01: This morning, the patient was having a bit more pain, and was given IV Dilaudid. About an hour later I was called to see him urgently, as the nurse found him somewhat obtunded and twitching all over. Extremities were cyanotic, and the patient had decreased mental status. O2 saturation at the time was reading about 70% but we were not sure the oximeter was accurate. Follow-up blood gas did confirm that the patient was hypoxic, with a PO2 of 40, and a PCO2 of 53. As we talked with him and did test on him, he did become a bit more arousable. The twitching was a little hard to figure out, and I thought perhaps he was having an allergic reaction to the Dilaudid, so Benadryl was given. He was also given topical nitroglycerin, IV Lasix, and albuterol nebulizer treatment, and oxygen, while we were working him up. He was then transferred over to telemetry for closer monitoring. EKG did not show acute changes. D-dimer is elevated, but this would be expected in the setting of his hip fracture. Troponin is normal. BNP is a bit elevated at 500. Currently, the patient is still quite sleepy. His color is much improved. He is now maintaining oxygen saturations in the mid 90s on 2 L O2 via mask. He reports no fevers or chills, cough, chest pain or palpitations, and denied feeling especially short of breath. He denied abdominal pain, nausea or vomiting, diarrhea. Chester catheter remains in place. He continues to have significant right hip pain with any movement of the right leg. February 02: Today, the patient reports he is feeling better. He still notes pain in the right hip if he moves, but is otherwise comfortable. He denies fever or chills, headaches or dizziness, chest pain or palpitations, shortness of breath or wheezing, abdominal pain, nausea or vomiting, diarrhea or constipation. Chester catheter remains in place. Vital signs overnight, with O2 saturations ranging from 94-98% on 1-2 L O2. He did spike a temperature of 101.7 last evening. February 03: This morning, after being given morphine for pain, the patient vomited and appeared to aspirate vomitus into his lungs. He was suctioned by respiratory therapy, and oxygen mask applied. Later in the morning his O2 saturations continued to decline, and I requested that respiratory therapy start him on BiPAP. Not long after that, the patient vomited again, in spite of being n.p.o. , into the facemask. The vomit consisted mainly of bilious appearing fluid. We then placed an NG tube, and high flow oxygen via mask. The patient has been less alert today, but does wake up enough to tell me that he is not having any pain. He does feel like his breathing is a bit labored. Otherwise he does not report subjective fever or chills, chest pain or palpitations, abdominal pain, diarrhea or constipation. His hip pain is relatively well controlled at this time. February 04: Patient seen examined, no acute overnight events, patient was asleep much of my eval, but did open eyes slightly to verbal stimuli and did obey commands like grasp hand. The patient wbc count trended up slightly, his tele showed some SVT His NG tube suction shows dark coloured secretions, h/h has remained stable, IV PPI added. NO more vomiting now. Pt remains on bipap to maintain his oxygen saturations, Fio2 40 % in AM, 10/5 settings. He remains on antibiotics. cxr today shows improved perihilar infiltrates. February 05: The patient has continued to struggle. He did receive some morphine overnight, and remains quite somnolent today. The nursing staff feels that Tylenol is actually helping his pain more than morphine. NG output is declining, but continues rather dark in color, although tending towards dark green rather than reddish. The patient really does not arouse enough today to give me a history, although when asked if he is in pain he seems to indicate no. He continues to require BiPAP to maintain oxygen saturations. Because of ongoing hypoxia yesterday, he did undergo CT angiogram, which does show a small PE, in addition to bilateral infiltrates. He is now on Lovenox, therapeutic dose. He has not really had any nutrition since admission, so today we are evaluating for PPN versus TPN. I am reluctant to give him tube feedings at this point, since he has vomited and aspirated twice so far. We will give him more time to decrease his NG output. February 06: Today, the patient remains fairly somnolent, although nurses note they did get him to sit up on the side of the bed. He did open his eyes long enough to look outside, and also seems to recognize his today. They were not certain that he recognized his other family members. For the most part he remains asleep. He is quite difficult to arouse, and does not answer questions for me this morning. Nurses feel that his respiratory status has been fairly stable overnight. He has some audible wheezing when he is taken off BiPAP, but does very well while on it and seems to tolerate it. He is unable to give a review of systems at this time. Chest x-ray from this morning actually looks a bit better. Hemoglobin and hematocrit have fallen further however. Patient continues to have gross hematuria as well, likely due to being on therapeutic dose Lovenox. Nurses note he has not had a bowel movement in several days. He was given a suppository yesterday, but did not have much of a response. He has not had any oral intake though for several days. He was started on PPN yesterday, after a PICC line was placed. February 07: The patient did seem to have some increasing hip pain last night, some morphine was resumed at low doses. This morning he was given another dose of morphine so that he could work with physical therapy, but he was essentially too weak to stand up. He remains fairly somnolent, and only speaks occasionally. He is too sleepy to talk to me when I entered the room this morning, so could not answer a review of systems. Nurses note he still has not had a bowel movement, although he does have some bowel sounds. Oxygenation is improving, and he is currently tolerating low flow oxygen via nasal cannula. Nurses note that he seems to be fine when asleep, but he when he wakes up he starts to have a lot of upper airway noise. Nursing staff also talked with the patient's son, who said he has been declining for the last 2 months. The son noted he had been complaining of hip pain for over a month, and had become quite a bit more sedentary at home. February 08: Patient seen examined, a bit more awake today, opened eyes to verbal stimulus, and obeyed commands, but overall his mental status is still pretty obtunded. The patient did not respond well enough to provide ROS or any history. He remains on NG tube suction. CT head was done today which was reported neg. He has not had a BM in 6 days, X ray abdomen shows some stool in the hepatic flexure. Lactulose given via NG tube The reason for his obtunded state is bit unknown. likely opiates and infection. He remains on anabiotics, Ammonia level is negative. February 09: The patient is a little more awake today than yesterday. He is able to sit up on the side of the bed with physical therapy, but is clearly too weak to stand. The source of his continued lethargic mental status has not been clear. He did have a head CT yesterday, which did not show any obvious reason. His son reports that he has been declining in alertness and functional abilities for at least a couple of months. He still has his NG tube in place, to give oral meds, as it is not clear that he is safe to swallow at this time. He is just been quite lethargic. He still occasionally receives morphine for uncontrolled pain, although mostly pain is managed with Tylenol and Toradol. Lungs remain fairly clear. He is oxygenating well currently just with oxygen via nasal cannula. -He continues to receive PPN via his PICC line. -His eyes are open when I entered the room, but he can barely say the word yes when asked him questions. Otherwise he really is not able to participate in a review of systems. February 10: We have been attempting to minimize how much morphine the patient gets. Yesterday speech therapy worked with him, and felt that he could tolerate a dysphagia diet. G-tube was removed. This morning, he is sitting up on the side of the bed, after being propped up, and is eating. Staff says so far he seems to be swallowing pretty well. He coughs after some bites, does not appear to be aspirating. The patient continues very weak, but he is much more awake and alert this morning. He denies any significant pain. He denies fever chills, chest pain, abdominal pain, nausea or vomiting or diarrhea. He has not had a bowel movement in over a week. Although he reportedly is passing some flatus. He does note that his breathing is a little labored. His cough continues to be quite weak, but he does a better job with strong encouragement. He did bump his white blood cell count today, but I am hopeful that that is just from yesterday's steroid dose. He does continue to be a little far ahead on his intake versus output. - Constitutional Vitals: Vital Signs Temp Pulse Resp BP Pulse Ox 98.4 F 84 24 H 138/83 96 02/10/17 07:26 02/10/17 07:26 02/10/17 07:26 02/10/17 07:26 02/10/17 07:26 Period Temp Pulse Resp BP Sys/Hutson Pulse Ox Last 24 Hr 97.4 F-100.0 F 84-123 16-28 118-141/74-83 93-98 Intake and Output 02/09/17 02/10/17 02/10/17 21:59 05:59 13:59 Intake Total 1913 415 / 415 Output Total 600 / 600 928 / 928 Balance 1314 / 1314 -513 / -513 Weight 181 lb Intake & Output: Intake & Output 02/09/17 02/10/17 02/10/17 21:59 05:59 13:59 Intake Total 1913 415 / 415 Output Total 600 / 600 928 / 928 Balance 1314 / 1314 -513 / -513 Weight 181 lb Intake: IV 1733 / 1733 415 / 415 Calcium Gluconate 10 Meq 1684 / 1684 Sodium Chloride 60 Meq Infuvite Adult 10 ml Selenium 60 Mcg Potassium Phosphate 40 Meq Magnesium Sulfate 16.24 Meq Sodium Phosphate 15 Mmol In Clinimix 5%-20% Solution 2,000 ml @ 70 mls/hr IV Q24H [facility] Rx#: [id number] Intralipid 20% 250 ml In 250 / 250 Premix 1 Bag @ 25 mls/hr IV Q24H [facility] Rx#:[id number] Zosyn 3.375 gm In 50 / 50 100 / 100 Dextrose 5% in Water 50 ml @ 100 mls/hr IV Q8H [facility] Rx#:[id number] Oral 180 / 180 Output: Urine Catheter Amount 600 / 600 928 / 928 Other: Meal Dinner Percent of Meal Consumed 75% Feeding Ability Total Assistance He is afebrile. Rate 84. Respiratory rate ranges from 16-28. When he is awake , he exhibits upper airway noise and almost sounds like stridor. When he is asleep this noise goes away. O2 saturations continue to range from 93-98% on 2 L nasal cannula. He is sitting up on the side of the bed. He is being fed by staff Neck is supple without obvious JVD. Cardiac exam shows regular rate and rhythm. Lungs: He still has a few crackles scattered throughout the right lung salvador, and a few crackles just at the left base. Otherwise I do not hear significant rhonchi or wheezing. Abdomen soft and nontender. Extremities show minimal edema. Neurologic exam: The patient is awake. He seems to answer questions appropriately, but voice is very soft, and he speaks very few words. He remains extraordinarily weak, requiring maximal assistance with any movements. Medical - PN: Obj Da - Labs CBC & Chem 7: 02/10/17 03:40 02/10/17 03:40 Labs: Abnormal Lab Results 02/10/17 02/10/17 02/09/17 03:40 03:40 20:13 WBC 17.7 H RBC 2.43 L Hgb 7.7 L Hct 22.2 L RDW 16.3 H Gran % 86.4 H Lymph % (Auto) 5.9 L Gran # 15.3 H Lymph # (Auto) 1.0 L [place] # (Auto) 1.4 H Absolute Retic BUN 29 H Glucose 142 H Calcium 7.8 L Iron TIBC Total Bilirubin 1.1 H AST 55 H ALT 48 H Lactate Dehydrogenase 259 H Total Protein 5.4 L Albumin 3.0 L Prealbumin 15.1 L Urine Occult Blood >=1.0 A Urine RBC > 182 H Urine WBC 8 H Uric Acid Crystals Few A Urine Bacteria Few A 02/09/17 02/09/17 02/09/17 03:30 03:30 03:30 WBC 12.3 H RBC 2.65 L Hgb 8.4 L Hct 24.1 L RDW 16.2 H Gran % 95.2 H Lymph % (Auto) 3.1 L Gran # 11.7 H Lymph # (Auto) 0.4 L [place] # (Auto) Absolute Retic 5.9 H BUN Glucose Calcium Iron TIBC Total Bilirubin AST ALT Lactate Dehydrogenase Total Protein Albumin Prealbumin 14.3 L Urine Occult Blood Urine RBC Urine WBC Uric Acid Crystals Urine Bacteria 02/08/17 02/08/17 02/08/17 14:35 04:00 04:00 WBC RBC 2.40 L Hgb 7.6 L Hct 21.9 L RDW 15.8 H Gran % Lymph % (Auto) 9.5 L Gran # 8.2 H Lymph # (Auto) 1.0 L [place] # (Auto) Absolute Retic BUN Glucose 144 H Calcium 7.8 L Iron 42 L TIBC 186 L Total Bilirubin 1.2 H AST ALT Lactate Dehydrogenase 269 H Total Protein 5.3 L Albumin 2.8 L Prealbumin Urine Occult Blood Urine RBC Urine WBC Uric Acid Crystals Urine Bacteria 02/08/17 04:00 WBC RBC Hgb Hct RDW Gran % Lymph % (Auto) Gran # Lymph # (Auto) [place] # (Auto) Absolute Retic BUN Glucose Calcium Iron TIBC Total Bilirubin AST ALT Lactate Dehydrogenase Total Protein Albumin Prealbumin 12.3 L Urine Occult Blood Urine RBC Urine WBC Uric Acid Crystals Urine Bacteria February 09: Urinalysis: Shows greater than 180 red blood cells, 8 white blood cells, few bacteria. Culture is pending. Chest x-ray: Shows mild recurrent perihilar airspace infiltrates. February 08: Chest x-ray: Moderate cardiomegaly, chronic right diaphragm elevation. Minor right base atelectasis. Stable. February 06: Follow-up H and H this afternoon are stable at 7.9 and 23.2 Chest x-ray: Moderate cardiomegaly. PICC line in satisfactory position. Perihilar infiltrates have almost cleared. Chronic elevation of right diaphragm. February 05: No change in mild perihilar infiltrates, suspect aspiration. PICC line tip in the left brachiocephalic junction, nurses instructed to withdraw 2 cm. February 04: CT angiogram: Solitary embolus to the superior right lower lobe segment pulmonary artery. Mild pulmonary hypertension. Moderate vague groundglass infiltrates diffusely throughout both lungs, suspect aspiration. Small bilateral pleural effusions. February 03: Follow-up chest x-ray this afternoon shows mild perihilar infiltrates, with slight worsening. Continued elevation of the right hemidiaphragm. February 02: Chest x-ray: Moderate chronic elevation of the right diaphragm, with right basilar atelectasis. No infiltrates are seen. Blood cultures are negative so far. February 01: CBC: White blood cell count 13,000, hemoglobin 12, hematocrit 36, granulocyte count 11,000 D-dimer is elevated at 7.7 ProBNP is mildly elevated at 501 Troponin is normal at less than 0.01 EKG showed sinus tachycardia, with no obvious acute ischemic changes. ABG on room air, while in distress: Shows pH of 7.37, PCO2 of 53, PO2 of 40, bicarb of 30, O2 saturation 73% Chest x-ray: There is moderate cardiomegaly. Chronic right diaphragm elevation. Minor right base atelectasis. No signs of CHF. Nasal MRSA screen is negative. Meds: Medications Acetaminophen (Tylenol) 650 mg PT Q6HP PRN PRN Reason: PAIN/FEVER > 101 Last Admin: 02/09/17 12:07 Dose: 650 mg Albuterol Sulfate (Ventolin) 2.5 mg NEB Q4HP PRN PRN Reason: Shortness Of Breath Bisacodyl (Dulcolax) 10 mg TN Q2-3DAYS PRN PRN Reason: Constipation Last Admin: 02/07/17 12:13 Dose: 10 mg Dextrose (Dextrose 50%) 50 ml IV UD PRN PRN Reason: Hypoglycemia Diagnostic Test (Pha) (Accu-Chek) 1 each FS Q6 [facility] Last Admin: 02/10/17 05:58 Dose: 1 each Docusate Sodium (Colace) 100 mg PT BIDP PRN PRN Reason: Constipation Last Admin: 02/09/17 10:07 Dose: 100 mg Enoxaparin Sodium (Lovenox) 120 mg SQ DAILY@1500 [facility] Last Admin: 02/09/17 14:35 Dose: 120 mg Heparin Sodium (Porcine) (Heparin Flush) 2 ml IV Q12 [facility] Last Admin: 02/09/17 22:30 Dose: 2 ml Piperacillin Sod/Tazobactam (Sod 3.375 gm/ Dextrose) 50 mls @ 100 mls/hr IV Q8H [facility] Last Infusion: 02/10/17 05:56 Dose: Infused Acetaminophen (Ofirmev) 650 mg in 65 mls @ 130 mls/hr IV Q6HP PRN PRN Reason: PAIN/FEVER > 101 Last Infusion: 02/10/17 04:17 Dose: Infused Fat Emulsion Intravenous 250 (ml/ Premix) 250 mls @ 25 mls/hr IV Q24H [facility] Last Infusion: 02/10/17 03:20 Dose: Infused Calcium Gluconate 10 meq/Sodium Chloride 60 meq/Multivitamins/Minerals 10 ml/ Selenium 60 mcg/ Potassium Phosphate 40 meq/ Magnesium Sulfate 16.24 meq/ Sodium Phosphate 15 mmol/ Amino Acids 2,066.0962 mls @ 70 mls/hr IV Q24H [facility] Stop: 02/10/17 12:59 Last Admin: 02/09/17 14:35 Dose: 70 mls/hr Calcium Gluconate 10 meq/Sodium Chloride 60 meq/Multivitamins/Minerals 10 ml/ Selenium 60 mcg/ Potassium Phosphate 50 meq/ Magnesium Sulfate 16.24 meq/ Sodium Phosphate 15 mmol/ Amino Acids 2,068.3689 mls @ 70 mls/hr IV Q24H [facility] Insulin Human Lispro (Humalog) 0 unit SQ Q6 [facility] PRN Reason: Protocol Last Admin: 02/10/17 05:59 Dose: 2 unit Iron Carb/Multivit/Barry/Folic Acid (Multivitamin W/Minerals) 1 tab PO DAILY [facility] Magnesium Hydroxide (Milk Of Magnesia) 30 ml PO DAILYP PRN PRN Reason: Constipation Last Admin: 02/06/17 11:57 Dose: 30 ml Metoclopramide HCl (Reglan) 5 mg IV Q6HP PRN PRN Reason: Nausea And Vomiting Last Admin: 02/08/17 07:38 Dose: 5 mg Metoprolol Tartrate (Lopressor) 5 mg IV Q4HP PRN PRN Reason: Tachyarrhythmias Morphine Sulfate (Morphine) 1 - 2 mg IV Q4HP PRN PRN Reason: Pain Last Admin: 02/10/17 04:07 Dose: 1 mg Naloxone HCl (Narcan) 0.1 mg IV Q2MIN PRN PRN Reason: Opiate Reversal Ondansetron HCl (Zofran) 4 mg IV Q6HP PRN PRN Reason: Nausea And Vomiting Last Admin: 02/03/17 16:03 Dose: 4 mg Pantoprazole Sodium (Protonix) 40 mg IV BIDAC [facility] Last Admin: 02/10/17 08:35 Dose: 40 mg Sodium Chloride (Saline Flush) 10 ml IV Q8 [facility] Last Admin: 02/10/17 08:35 Dose: 10 ml Medical - PN: A/P - Time Spent With Patient Total time spent is greater than 50% in coordination of care (as documented) at patient's floor/unit and/or counseling patient: 25 - 35 minutes (1) Femur fracture, right Status: Acute Current Visit: Yes (2) Impairment of cognitive function Problem details: with balance difficulties Status: Chronic Current Visit: No - Narrative A/P Narrative: #1. Cardio/pulmonary. a) the patient has bilateral pneumonia, likely due to aspiration pneumonia. He also has been diagnosed with pulmonary embolism. It is not clear if that was there prior to admission, or if it occurred during his stay here. He continues to be quite groggy, related to pain medications. This makes him high risk for any sort of feeding. -Continue as needed nebulized bronchodilators as needed. He is not wheezing today, and has no reported history of COPD, so I discontinued steroids. -He is now off BiPAP, and so far is doing well on oxygen by nasal cannula. -Continue therapeutic dose Lovenox, for at least 90 days. Monitor hemoglobin closely. seems to be dropping gradually. H and H remain at around 7 and 22. It is not a clear if this is affecting his functional status. He may need to be transfused at some point. Continue to monitor. -NG tube was pulled yesterday. He is now tolerating small amounts of a dysphasia diet. -Continue iv zosyn for aspiration pneumonia. He is about day 9 on antibiotics today. I plan on discontinuing this tomorrow. b) patient had episodes of SVT. Potassium and magnesium were both running low , so those were replaced. As needed metoprolol was ordered as well. SVT has not recurred. c) the patient has developed apparent pulmonary vascular congestion, CHF at least twice now since surgery. He has been receiving lots of IV fluids due to his n.p.o. status. IV Lasix was ordered again this morning. It would probably be reasonable to get an echocardiogram, to assess his LV function. #2. Orthopedic. Patient presents with right hip fracture. He was seen by Dr. Bourne. s/p hip surgery Low-dose morphine was resumed , as they could not seem to get him comfortable. Unfortunately this still tends to make him quite somnolent. - IV Tylenol as needed. IV Toradol as needed. -PT did work with him today, and they were able to sit him up. He is showing some increased alertness. He is quite weak, and will require extensive rehab. 3. CODE STATUS: DNR CODE STATUS. 4 DVT prophylaxis: lovenox sq 5. Hematuria. No signs of infection at this time. -Continue Chester catheter for accurate fluid assessments. We hope to get the Chester out sometime soon. He is just not alert enough at this time to use a urinal, and this would complicate his care in terms of his hip pain as well. #6. Infectious disease. The patient is being treated for aspiration pneumonia, as noted above. -White blood cell count did bump up a bit today, for uncertain reasons. Chest x-ray is more suggestive of recurrent CHF. Patient was dosed with IV Lasix this morning. He should be pretty well covered for most things as he is on Zosyn. He certainly has no signs of C. difficile colitis at this point. Elevated white blood cell count may actually be due to the addition of steroids yesterday. 7. Neurologic. Patient has known dementia, and increased confusion over the last couple of days , due to acute illness. Continue to follow. CT head is negative. 8. GI. Patient did have heme positive NG drainage . He may have gastritis. He was started on a proton pump inhibitor for possible gastritis. There are no signs of active bleeding. -No Bowel movement so far. are neg. PO lactulose given. Continue as needed bowel meds.. We may add mag citrate today, as his abdominal x -ray does suggest stool in the colon. We will add prune juice to his oral diet as well. #9. Nutrition. Patient has not adequate nutrition for several days. I have asked the dietitian to make recommendations. -He continues on TPN for now, as we reintroduce small amounts of an oral diet. The dietitian is following. 10. Renal. Electrolytes are generally in the normal range now. 11. Hematologic. Hemoglobin and hematocrit have declined. I suspect some of this may be dilutional, and some due to gross hematuria, while being also on Lovenox. Continue to monitor. If this drops much lower, he will need transfusion. anemia workup ordered. Approximately 30 minutes was spent today, reviewing patient's test results, interviewing and examining him, reviewing plan of care with staff, and writing orders. Medical - PN: Qual - VTE Deep Vein Thrombosis/Pulmonary Embolism Present on Admission: No
[2017-02-10] MEDS: MULTIVIT,THER IRON,CA,FA & MIN 1 TABLET PO SCH (10:13)
--- NOTE | 2017-02-10 10:15 | XRay Report ---
CLINICAL INFORMATION: Fever and leukocytosis COMPARISON: 02/08/2017 FINDINGS: Moderate cardiomegaly is unchanged. Mediastinum is unremarkable. Left PICC line in stable satisfactory position. NG tube now out. Chronic elevation right diaphragm seen - as before. Pulmonary vessels are normal. Mild recurrent perihilar airspace infiltrates noted IMPRESSION: Minimal recurrent perihilar infiltrates. Interpreted and Authenticated by: Eliezer Underwood 02/10/17
[2017-02-10] MEDS: ALBUTEROL SULFATE 2.5 MG/3 ML NEBULIZER NEB PRN (11:29)
[2017-02-10] MEDS ORDERED: [UNRECOGNIZED DRUG - REMARK] IV SCH (13:00)
[2017-02-10] MEDS: ENOXAPARIN 120 MG/0.8 ML SYRINGE SQ SCH (14:05)
[2017-02-10] MEDS: DOCUSATE SODIUM 50 MG/5 ML ORAL.SOL PT PRN ×2 (14:39→20:49)
[2017-02-10] MEDS: FAT EMULSION 20% 250 ML in PREMIX 1 BAG IV SCH (15:00)
[2017-02-11] MEDS: ACETAMINOPHEN 160 MG/5 ML ORAL.SOL PT PRN (03:56)
[2017-02-11] MEDS: 0.9 % SODIUM CHLORIDE 10 ML SYRINGE IV SCH ×4 (03:58→20:27)
[2017-02-11] MEDS: ALBUTEROL SULFATE 2.5 MG/3 ML NEBULIZER NEB PRN ×2 (04:00→11:49)
[2017-02-11 05:30] LABS: Basophils # (Auto) 0 K/mcL (0.0-0.3); Basophils % (Auto) 0 % (0.0-2.0); Eosinophils # (Auto) 0.4 K/mcL (0.0-0.7); Eosinophils % (Auto) 2.2 % (0.0-7.0); Granulocytes % (Auto) 83.4 % (38.0-78.0); Lymphocytes # (Auto) 1.2 K/mcL (1.5-4.8); Lymphocytes % (Auto) 7.6 % (15.5-49.0); Mean Cell Volume 91.3 fL (80.0-100.0); Mean Corpuscular HGB Conc 34.4 g/dL (31.0-36.0); Mean Corpuscular Hemoglobin 31.4 pg (26.0-34.0); Monocytes # (Auto) 1.1 K/mcL (0.1-0.9); Monocytes % (Auto) 6.8 % (1.0-12.0); Platelet Count 340 K/mcL (140-440); RBC 2.79 M/mcL (4.50-5.90); Red Cell Distribution Width 17.1 % (11.5-14.5)
[2017-02-11] MEDS: PIPERACILLIN SODIUM/TAZOBACTAM 3.375 GM in DEXTROSE 5% IN WATER 50 ML IV SCH (05:47)
[2017-02-11] MEDS: INSULIN LISPRO 1 UNIT/0.01 ML UNIT SQ SCH ×3 (05:54→17:01)
[2017-02-11 05:57] LABS: ALT/SGPT 54 U/l (0-40); Albumin 3.3 gm/dL (3.2-5.2); Albumin/Globulin Ratio 1.2 (1.0-2.3); Alkaline Phosphatase 63 U/L (39-117); Bilirubin,Direct 0.3 mg/dL (0.0-0.3); Blood Urea Nitrogen 38 mg/dl (8-23); Gamma Glutamyl Transpeptidase 56 U/L (8-61); Magnesium 2.5 mg/dL (1.6-2.5); Uric Acid 4.1 mg/dL (2.5-8.0)
[2017-02-11] MEDS: PANTOPRAZOLE 40 MG VIAL IV SCH ×2 (07:32→17:00)
[2017-02-11] MEDS: MULTIVIT,THER IRON,CA,FA & MIN 1 TABLET PO SCH (09:40)
[2017-02-11] MEDS: LACTOBACILLUS 1 CAPSULE PO SCH ×2 (09:40→20:26)
[2017-02-11] MEDS: ACETAMINOPHEN 650 MG/65 ML BOTTLE IV PRN (10:20)
--- NOTE | 2017-02-11 10:30 | Internal Med Progress Note ---
Medical - PN: Subj Patient information: Note initiated : 02/11/17 at 10:29 am Patient: Edgard Bae 86 y/o M admitted on 01/31/17 for Fall/Femur Fracture, Right. Interval history: January 31, 2017:History of present illness: Mr. Bae is a 86 year old man who apparently fell this evening at home. ER evaluation revealed an acute right subtrochanteric hip fracture with slight displacement of the lesser trochanter, as well as a previous right total hip arthroplasty. The patient has moderate dementia, and cannot recall how or why he fell. When I saw him late in the evening, his family was not available. Otherwise, he does not think that he has been ill lately. He denies being aware fever or chills, headaches or dizziness, new or ear symptoms, chest pain or palpitations, shortness of breath or wheezing or cough, abdominal pain, nausea or vomiting, diarrhea or constipation, or dysuria. February 01: This morning, the patient was having a bit more pain, and was given IV Dilaudid. About an hour later I was called to see him urgently, as the nurse found him somewhat obtunded and twitching all over. Extremities were cyanotic, and the patient had decreased mental status. O2 saturation at the time was reading about 70% but we were not sure the oximeter was accurate. Follow-up blood gas did confirm that the patient was hypoxic, with a PO2 of 40, and a PCO2 of 53. As we talked with him and did test on him, he did become a bit more arousable. The twitching was a little hard to figure out, and I thought perhaps he was having an allergic reaction to the Dilaudid, so Benadryl was given. He was also given topical nitroglycerin, IV Lasix, and albuterol nebulizer treatment, and oxygen, while we were working him up. He was then transferred over to telemetry for closer monitoring. EKG did not show acute changes. D-dimer is elevated, but this would be expected in the setting of his hip fracture. Troponin is normal. BNP is a bit elevated at 500. Currently, the patient is still quite sleepy. His color is much improved. He is now maintaining oxygen saturations in the mid 90s on 2 L O2 via mask. He reports no fevers or chills, cough, chest pain or palpitations, and denied feeling especially short of breath. He denied abdominal pain, nausea or vomiting, diarrhea. Chester catheter remains in place. He continues to have significant right hip pain with any movement of the right leg. February 02: Today, the patient reports he is feeling better. He still notes pain in the right hip if he moves, but is otherwise comfortable. He denies fever or chills, headaches or dizziness, chest pain or palpitations, shortness of breath or wheezing, abdominal pain, nausea or vomiting, diarrhea or constipation. Chester catheter remains in place. Vital signs overnight, with O2 saturations ranging from 94-98% on 1-2 L O2. He did spike a temperature of 101.7 last evening. February 03: This morning, after being given morphine for pain, the patient vomited and appeared to aspirate vomitus into his lungs. He was suctioned by respiratory therapy, and oxygen mask applied. Later in the morning his O2 saturations continued to decline, and I requested that respiratory therapy start him on BiPAP. Not long after that, the patient vomited again, in spite of being n.p.o. , into the facemask. The vomit consisted mainly of bilious appearing fluid. We then placed an NG tube, and high flow oxygen via mask. The patient has been less alert today, but does wake up enough to tell me that he is not having any pain. He does feel like his breathing is a bit labored. Otherwise he does not report subjective fever or chills, chest pain or palpitations, abdominal pain, diarrhea or constipation. His hip pain is relatively well controlled at this time. February 04: Patient seen examined, no acute overnight events, patient was asleep much of my eval, but did open eyes slightly to verbal stimuli and did obey commands like grasp hand. The patient wbc count trended up slightly, his tele showed some SVT His NG tube suction shows dark coloured secretions, h/h has remained stable, IV PPI added. NO more vomiting now. Pt remains on bipap to maintain his oxygen saturations, Fio2 40 % in AM, 10/5 settings. He remains on antibiotics. cxr today shows improved perihilar infiltrates. February 05: The patient has continued to struggle. He did receive some morphine overnight, and remains quite somnolent today. The nursing staff feels that Tylenol is actually helping his pain more than morphine. NG output is declining, but continues rather dark in color, although tending towards dark green rather than reddish. The patient really does not arouse enough today to give me a history, although when asked if he is in pain he seems to indicate no. He continues to require BiPAP to maintain oxygen saturations. Because of ongoing hypoxia yesterday, he did undergo CT angiogram, which does show a small PE, in addition to bilateral infiltrates. He is now on Lovenox, therapeutic dose. He has not really had any nutrition since admission, so today we are evaluating for PPN versus TPN. I am reluctant to give him tube feedings at this point, since he has vomited and aspirated twice so far. We will give him more time to decrease his NG output. February 06: Today, the patient remains fairly somnolent, although nurses note they did get him to sit up on the side of the bed. He did open his eyes long enough to look outside, and also seems to recognize his today. They were not certain that he recognized his other family members. For the most part he remains asleep. He is quite difficult to arouse, and does not answer questions for me this morning. Nurses feel that his respiratory status has been fairly stable overnight. He has some audible wheezing when he is taken off BiPAP, but does very well while on it and seems to tolerate it. He is unable to give a review of systems at this time. Chest x-ray from this morning actually looks a bit better. Hemoglobin and hematocrit have fallen further however. Patient continues to have gross hematuria as well, likely due to being on therapeutic dose Lovenox. Nurses note he has not had a bowel movement in several days. He was given a suppository yesterday, but did not have much of a response. He has not had any oral intake though for several days. He was started on PPN yesterday, after a PICC line was placed. February 07: The patient did seem to have some increasing hip pain last night, some morphine was resumed at low doses. This morning he was given another dose of morphine so that he could work with physical therapy, but he was essentially too weak to stand up. He remains fairly somnolent, and only speaks occasionally. He is too sleepy to talk to me when I entered the room this morning, so could not answer a review of systems. Nurses note he still has not had a bowel movement, although he does have some bowel sounds. Oxygenation is improving, and he is currently tolerating low flow oxygen via nasal cannula. Nurses note that he seems to be fine when asleep, but he when he wakes up he starts to have a lot of upper airway noise. Nursing staff also talked with the patient's son, who said he has been declining for the last 2 months. The son noted he had been complaining of hip pain for over a month, and had become quite a bit more sedentary at home. February 08: Patient seen examined, a bit more awake today, opened eyes to verbal stimulus, and obeyed commands, but overall his mental status is still pretty obtunded. The patient did not respond well enough to provide ROS or any history. He remains on NG tube suction. CT head was done today which was reported neg. He has not had a BM in 6 days, X ray abdomen shows some stool in the hepatic flexure. Lactulose given via NG tube The reason for his obtunded state is bit unknown. likely opiates and infection. He remains on anabiotics, Ammonia level is negative. February 09: The patient is a little more awake today than yesterday. He is able to sit up on the side of the bed with physical therapy, but is clearly too weak to stand. The source of his continued lethargic mental status has not been clear. He did have a head CT yesterday, which did not show any obvious reason. His son reports that he has been declining in alertness and functional abilities for at least a couple of months. He still has his NG tube in place, to give oral meds, as it is not clear that he is safe to swallow at this time. He is just been quite lethargic. He still occasionally receives morphine for uncontrolled pain, although mostly pain is managed with Tylenol and Toradol. Lungs remain fairly clear. He is oxygenating well currently just with oxygen via nasal cannula. -He continues to receive PPN via his PICC line. -His eyes are open when I entered the room, but he can barely say the word yes when asked him questions. Otherwise he really is not able to participate in a review of systems. February 10: We have been attempting to minimize how much morphine the patient gets. Yesterday speech therapy worked with him, and felt that he could tolerate a dysphagia diet. G-tube was removed. This morning, he is sitting up on the side of the bed, after being propped up, and is eating. Staff says so far he seems to be swallowing pretty well. He coughs after some bites, does not appear to be aspirating. The patient continues very weak, but he is much more awake and alert this morning. He denies any significant pain. He denies fever chills, chest pain, abdominal pain, nausea or vomiting or diarrhea. He has not had a bowel movement in over a week. Although he reportedly is passing some flatus. He does note that his breathing is a little labored. His cough continues to be quite weak, but he does a better job with strong encouragement. He did bump his white blood cell count today, but I am hopeful that that is just from yesterday's steroid dose. He does continue to be a little far ahead on his intake versus output. February 11: -The patient has made good progress over the last 24 hours. He is now fully awake and alert, although he really does not say much. He has been able to eat and swallow safely, although again not enough to get in the required calories. He continues to get fidgety at times, but is unable to express what is wrong. We suspect that he is having pain. -He still has not had a bowel movement, although there were some smears of stool today. -Nurses note his cough is much stronger, and is now producing a conoey colored phlegm. He seems to be clearing his throat much better than before. -When he is asked about pain, he says no, but he does not really seem to answer much in the way of other questions. He seems to deny chest pain or trouble breathing or abdominal discomfort, but being able to understand what he says and knowing whether or not that is reliable is a challenge. -He continues to make a wheezing noise with his throat whenever he is he awake or anxious. This sounds almost like stridor, but on auscultation it is definitely an expiratory noise in his neck area. It disappears when he goes to sleep. - Constitutional Vitals: Vital Signs Temp Pulse Resp BP Pulse Ox 98.0 F 98 H 28 H 117/66 92 02/11/17 03:52 02/11/17 03:52 02/11/17 03:52 02/11/17 03:52 02/11/17 03:52 Period Temp Pulse Resp BP Sys/Hutson Pulse Ox Last 24 Hr 97.7 F-99.6 F 86-102 18- 110-128/63-75 91-96 Intake and Output 02/10/17 02/11/17 02/11/17 21:59 05:59 13:59 Intake Total 270 / 270 300 / 300 Output Total 1525 / 1525 650 / 650 Balance -1255 / -1255 -350 / -350 Weight 185 lb 185 lb Patient Weight 02/12/17 05:59 Weight 185 lb Intake & Output: Intake & Output 02/10/17 02/11/17 02/11/17 21:59 05:59 13:59 Intake Total 270 / 270 300 / 300 Output Total 1525 / 1525 650 / 650 Balance -1255 / -1255 -350 / -350 Weight 185 lb 185 lb Intake: IV 50 / 50 300 / 300 Intralipid 20% 250 ml In 250 / 250 Premix 1 Bag @ 25 mls/hr IV Q24H [facility] Rx#:[id number] Zosyn 3.375 gm In 50 / 50 50 / 50 Dextrose 5% in Water 50 ml @ 100 mls/hr IV Q8H [facility] Rx#:[id number] Oral 220 / 220 0 / 0 Output: Urine Catheter Amount 1525 / 1525 650 / 650 Other: Meal Dinner Percent of Meal Consumed 50% Feeding Ability Total Assistance T-max was 99.6 yesterday, around 4 PM. He has been afebrile since then. Heart rate 95. Respiratory rate 17-28. Blood pressure 117/66. O2 saturation is 92% on 2 L nasal cannula. He is lying in bed, and is squirming around a bit. He is grimacing some, and may be having some pain, but is unable to articulate this. Neck is supple without obvious JVD. Cardiac exam shows regular rate and rhythm. Lungs: He still has a few crackles scattered bilaterally, . Otherwise I do not hear significant rhonchi or wheezing. He continues to have a loud stridorous upper airway noise, heard only on expiration. He seems to be able to stop doing this on command, when he understands what you are asking. Abdomen soft and nontender. Extremities show minimal edema. Neurologic exam: The patient is awake. He seems to answer questions appropriately, but voice is very soft, and he speaks very few words. He remains quite weak, requiring maximal assistance with any movements, but definitely looks stronger than yesterday.. Medical - PN: Obj Da - Labs CBC & Chem 7: 02/11/17 04:40 02/11/17 04:40 Labs: Abnormal Lab Results 02/11/17 02/11/17 02/10/17 04:40 04:40 03:40 WBC 16.4 H 17.7 H RBC 2.79 L 2.43 L Hgb 8.8 L 7.7 L Hct 25.4 L 22.2 L RDW 17.1 H 16.3 H Gran % 83.4 H 86.4 H Lymph % (Auto) 7.6 L 5.9 L Gran # 13.7 H 15.3 H Lymph # (Auto) 1.2 L 1.0 L Lagrange # (Auto) 1.1 H 1.4 H Absolute Retic BUN 38 H Glucose 140 H Calcium 8.4 L Iron TIBC Total Bilirubin 1.2 H AST 46 H ALT 54 H Lactate Dehydrogenase 289 H Total Protein Albumin Prealbumin Urine Occult Blood Urine RBC Urine WBC Uric Acid Crystals Urine Bacteria 02/10/17 02/09/17 02/09/17 03:40 20:13 03:30 WBC RBC Hgb Hct RDW Gran % Lymph % (Auto) Gran # Lymph # (Auto) Lagrange # (Auto) Absolute Retic 5.9 H BUN 29 H Glucose 142 H Calcium 7.8 L Iron TIBC Total Bilirubin 1.1 H AST 55 H ALT 48 H Lactate Dehydrogenase 259 H Total Protein 5.4 L Albumin 3.0 L Prealbumin 15.1 L Urine Occult Blood >=1.0 A Urine RBC > 182 H Urine WBC 8 H Uric Acid Crystals Few A Urine Bacteria Few A 02/09/17 02/09/17 02/08/17 03:30 03:30 14:35 WBC 12.3 H RBC 2.65 L Hgb 8.4 L Hct 24.1 L RDW 16.2 H Gran % 95.2 H Lymph % (Auto) 3.1 L Gran # 11.7 H Lymph # (Auto) 0.4 L [place]range # (Auto) Absolute Retic BUN Glucose Calcium Iron 42 L TIBC 186 L Total Bilirubin AST ALT Lactate Dehydrogenase Total Protein Albumin Prealbumin 14.3 L Urine Occult Blood Urine RBC Urine WBC Uric Acid Crystals Urine Bacteria February 10: Echocardiogram: Borderline LVH. Ejection fraction 65%. Mild left atrial dilation. Borderline pulmonary hypertension. February 09: Urinalysis: Shows greater than 180 red blood cells, 8 white blood cells, few bacteria. Culture is negative. Chest x-ray: Shows mild recurrent perihilar airspace infiltrates. February 08: Chest x-ray: Moderate cardiomegaly, chronic right diaphragm elevation. Minor right base atelectasis. Stable. February 06: Follow-up H and H this afternoon are stable at 7.9 and 23.2 Chest x-ray: Moderate cardiomegaly. PICC line in satisfactory position. Perihilar infiltrates have almost cleared. Chronic elevation of right diaphragm. February 05: No change in mild perihilar infiltrates, suspect aspiration. PICC line tip in the left brachiocephalic junction, nurses instructed to withdraw 2 cm. February 04: CT angiogram: Solitary embolus to the superior right lower lobe segment pulmonary artery. Mild pulmonary hypertension. Moderate vague groundglass infiltrates diffusely throughout both lungs, suspect aspiration. Small bilateral pleural effusions. February 03: Follow-up chest x-ray this afternoon shows mild perihilar infiltrates, with slight worsening. Continued elevation of the right hemidiaphragm. February 02: Chest x-ray: Moderate chronic elevation of the right diaphragm, with right basilar atelectasis. No infiltrates are seen. Blood cultures are negative so far. February 01: CBC: White blood cell count 13,000, hemoglobin 12, hematocrit 36, granulocyte count 11,000 D-dimer is elevated at 7.7 ProBNP is mildly elevated at 501 Troponin is normal at less than 0.01 EKG showed sinus tachycardia, with no obvious acute ischemic changes. ABG on room air, while in distress: Shows pH of 7.37, PCO2 of 53, PO2 of 40, bicarb of 30, O2 saturation 73% Chest x-ray: There is moderate cardiomegaly. Chronic right diaphragm elevation. Minor right base atelectasis. No signs of CHF. Nasal MRSA screen is negative. Meds: Medications Acetaminophen (Tylenol) 650 mg PT Q6HP PRN PRN Reason: PAIN/FEVER > 101 Last Admin: 02/11/17 03:56 Dose: 650 mg Albuterol Sulfate (Ventolin) 2.5 mg NEB Q4HP PRN PRN Reason: Shortness Of Breath Last Admin: 02/11/17 04:00 Dose: 2.5 mg Bisacodyl (Dulcolax) 10 mg ND Q2-3DAYS PRN PRN Reason: Constipation Last Admin: 02/07/17 12:13 Dose: 10 mg Dextrose (Dextrose 50%) 50 ml IV UD PRN PRN Reason: Hypoglycemia Diagnostic Test (Pha) (Accu-Chek) 1 each FS Q6 [facility] Last Admin: 02/11/17 05:50 Dose: 1 each Docusate Sodium (Colace) 100 mg PT BIDP PRN PRN Reason: Constipation Last Admin: 02/10/17 20:49 Dose: 100 mg Enoxaparin Sodium (Lovenox) 120 mg SQ DAILY@1500 [facility] Last Admin: 02/10/17 14:05 Dose: 120 mg Heparin Sodium (Porcine) (Heparin Flush) 2 ml IV Q12 [facility] Last Admin: 02/11/17 09:41 Dose: 2 ml Acetaminophen (Ofirmev) 650 mg in 65 mls @ 130 mls/hr IV Q6HP PRN PRN Reason: PAIN/FEVER > 101 Last Infusion: 02/10/17 13:23 Dose: Infused Calcium Gluconate 10 meq/Sodium Chloride 70 meq/Multivitamins/Minerals 10 ml/ Selenium 60 mcg/ Magnesium Sulfate 8.12 meq/ Potassium Chloride 40 meq/ Amino Acids 2,072.5053 mls @ 70 mls/hr IV Q24H [facility] Insulin Human Lispro (Humalog) 0 unit SQ Q6 [facility] PRN Reason: Protocol Last Admin: 02/11/17 05:54 Dose: 4 unit Iron Carb/Multivit/Pricing Analyst/Folic Acid (Multivitamin W/Minerals) 1 tab PO DAILY [facility] Last Admin: 02/11/17 09:40 Dose: 1 tab Lactobacillus Rhamnosus (Culturelle) 1 cap PO BID [facility] Last Admin: 02/11/17 09:40 Dose: 1 cap Magnesium Hydroxide (Milk Of Magnesia) 30 ml PO DAILYP PRN PRN Reason: Constipation Last Admin: 02/06/17 11:57 Dose: 30 ml Metoclopramide HCl (Reglan) 5 mg IV Q6HP PRN PRN Reason: Nausea And Vomiting Last Admin: 02/08/17 07:38 Dose: 5 mg Metoprolol Tartrate (Lopressor) 5 mg IV Q4HP PRN PRN Reason: Tachyarrhythmias Morphine Sulfate (Morphine) 1 - 2 mg IV Q4HP PRN PRN Reason: Pain Last Admin: 02/11/17 07:31 Dose: 2 mg Naloxone HCl (Narcan) 0.1 mg IV Q2MIN PRN PRN Reason: Opiate Reversal Ondansetron HCl (Zofran) 4 mg IV Q6HP PRN PRN Reason: Nausea And Vomiting Last Admin: 02/03/17 16:03 Dose: 4 mg Pantoprazole Sodium (Protonix) 40 mg IV BIDAC [facility] Last Admin: 02/11/17 07:32 Dose: 40 mg Sodium Chloride (Saline Flush) 10 ml IV Q8 [facility] Last Admin: 02/11/17 06:03 Dose: Not Given Medical - PN: A/P - Time Spent With Patient Total time spent is greater than 50% in coordination of care (as documented) at patient's floor/unit and/or counseling patient: Greater than 35 minutes (1) Femur fracture, right Status: Acute Current Visit: Yes (2) Impairment of cognitive function Problem details: with balance difficulties Status: Chronic Current Visit: No - Narrative A/P Narrative: #1. Cardio/pulmonary. a) the patient has bilateral pneumonia, likely due to aspiration pneumonia. He also has been diagnosed with pulmonary embolism. It is not clear if that was there prior to admission, or if it occurred during his stay here. He continues to be quite groggy, related to pain medications. This makes him high risk for any sort of feeding. -Continue as needed nebulized bronchodilators as needed. He is not wheezing , and has no reported history of COPD, so I discontinued steroids. -He is now off BiPAP, and so far is doing well on oxygen by nasal cannula. -Continue therapeutic dose Lovenox, for at least 90 days. Monitor hemoglobin closely. seems to be dropping gradually. H and H remain fairly stable between 7 and . It is not a clear if this is affecting his functional status. He may need to be transfused at some point. Continue to monitor. -NG tube was pulled. He is now tolerating small amounts of a dysphagia diet. -Status post 10 days of IV Zosyn. This was discontinued today. Continue to monitor.. b) patient had episodes of SVT. Potassium and magnesium were both running low , so those were replaced. As needed metoprolol was ordered as well. SVT has not recurred. c) the patient has developed apparent pulmonary vascular congestion, CHF at least twice now since surgery. He has been receiving lots of IV fluids due to his n.p.o. status. -Echo looks okay. He did diurese over 1700 mL, and lung seem a bit clearer today. -We hope to improve his oral calorie intake to meet his goals, so that we can stop TPN. Lipids will be stopped today. #2. Orthopedic. Patient presents with right hip fracture. He was seen by Dr. Bourne. s/p hip surgery Low-dose morphine was resumed , as they could not seem to get him comfortable. Unfortunately this still tends to make him quite somnolent. - IV Tylenol as needed. IV Toradol as needed. -PT did work with him today.. He is showing some increased alertness. He is quite weak, and will require extensive rehab. 3. CODE STATUS: DNR CODE STATUS. 4 DVT prophylaxis: lovenox sq 5. Hematuria. No signs of infection at this time. -Continue Chester catheter for accurate fluid assessments. We hope to get the Chester out sometime soon. He is just not alert enough at this time to use a urinal, and this would complicate his care in terms of his hip pain as well. #6. Infectious disease. The patient was treated for aspiration pneumonia, as noted above. -White blood cell count is somewhat improved today. Chest x-ray is more suggestive of recurrent CHF. Patient was diuresed with Lasix yesterday. 7. Neurologic. Patient has known dementia, and increased confusion , due to acute illness. Continue to follow. CT head is negative. 8. GI. Patient did have heme positive NG drainage . He may have gastritis. He was started on a proton pump inhibitor for possible gastritis. There are no signs of active bleeding. -No Bowel movement so far. are neg. PO lactulose given. Continue as needed bowel meds.. We may add mag citrate today, as his abdominal x -ray does suggest stool in the colon. We will add prune juice to his oral diet as well. #9. Nutrition. Patient has not adequate nutrition for several days. I have asked the dietitian to make recommendations. -He continues on TPN for now, as we reintroduce small amounts of an oral diet. The dietitian is following. Lipids are discontinued today. Try to improve oral intake, in addition to nutritional supplements, so that we can eventually stop the PPN. 10. Renal. Electrolytes are generally in the normal range now. 11. Hematologic. Hemoglobin and hematocrit very of a bit. I suspect some of this may be dilutional, and some due to gross hematuria, while being also on Lovenox. Continue to monitor. If this drops much lower, he will need transfusion. anemia workup ordered. Approximately 35 minutes was spent today, reviewing patient's test results, interviewing and examining him, reviewing plan of care with staff, and writing orders. Medical - PN: Qual - VTE Deep Vein Thrombosis/Pulmonary Embolism Present on Admission: No
[2017-02-11] MEDS ORDERED: [UNRECOGNIZED DRUG - REMARK] IV SCH (13:00)
--- NOTE | 2017-02-11 14:41 | XRay Report ---
CLINICAL INFORMATION: Constipation and abdominal pain COMPARISON: 02/08/2017 FINDINGS: Moderate colonic stool noted within the hepatic flexure region. No soft tissue mass or organomegaly. There is a cluster of benign-appearing calcifications the right midabdomen again noted. IMPRESSION: Moderate colonic stool.. At this point in hospitalization, consider abdomen and pelvic CT to evaluate significant pathology which may be occult on plain film Interpreted and Authenticated by: Eliezer Underwood 02/11/17
[2017-02-11] MEDS: ENOXAPARIN 120 MG/0.8 ML SYRINGE SQ SCH (15:30)
[2017-02-11] MEDS: BISACODYL 10 MG SUPP.RECT PR PRN (17:09)
[2017-02-12] MEDS: INSULIN LISPRO 1 UNIT/0.01 ML UNIT SQ SCH ×4 (00:25→18:44)
[2017-02-12] MEDS: ALBUTEROL SULFATE 2.5 MG/3 ML NEBULIZER NEB PRN (02:38)
[2017-02-12 05:43] LABS: Basophils # (Auto) 0 K/mcL (0.0-0.3); Basophils % (Auto) 0 % (0.0-2.0); Eosinophils # (Auto) 0.3 K/mcL (0.0-0.7); Eosinophils % (Auto) 1.7 % (0.0-7.0); Granulocytes % (Auto) 86.4 % (38.0-78.0); Lymphocytes % (Auto) 6.7 % (15.5-49.0); Mean Cell Volume 91.2 fL (80.0-100.0); Mean Corpuscular HGB Conc 34.8 g/dL (31.0-36.0); Mean Corpuscular Hemoglobin 31.7 pg (26.0-34.0); Monocytes # (Auto) 0.8 K/mcL (0.1-0.9); Monocytes % (Auto) 5.2 % (1.0-12.0); Platelet Count 269 K/mcL (140-440); RBC 2.39 M/mcL (4.50-5.90); Red Cell Distribution Width 16.9 % (11.5-14.5)
[2017-02-12 05:57] LABS: ALT/SGPT 34 U/l (0-40); Albumin 2.7 gm/dL (3.2-5.2); Albumin/Globulin Ratio 1.1 (1.0-2.3); Alkaline Phosphatase 58 U/L (39-117); Bilirubin,Direct 0.3 mg/dL (0.0-0.3); Blood Urea Nitrogen 28 mg/dl (8-23); Gamma Glutamyl Transpeptidase 37 U/L (8-61); Magnesium 1.9 mg/dL (1.6-2.5); Uric Acid 4.4 mg/dL (2.5-8.0)
[2017-02-12] MEDS: 0.9 % SODIUM CHLORIDE 10 ML SYRINGE IV SCH ×3 (05:57→22:00)
[2017-02-12] MEDS: PANTOPRAZOLE 40 MG VIAL IV SCH ×2 (07:14→16:14)
--- NOTE | 2017-02-12 08:35 | XRay Report ---
CLINICAL INFORMATION: Fever COMPARISON: 02/09/2017 FINDINGS: Moderate cardiomegaly is unchanged. Mediastinum is unremarkable. The pulmonary vessels are mildly distended compared to a baseline study from 09/19/2014. No definite infiltrate or pulmonary edema. Minor atelectasis right base due to chronic elevation right diaphragm noted IMPRESSION: 1. Mild CHF 2. mild bibasilar atelectasis Interpreted and Authenticated by: Eliezer Underwood 02/12/17
[2017-02-12] MEDS: LACTOBACILLUS 1 CAPSULE PO SCH ×2 (08:52→20:47)
[2017-02-12] MEDS: MULTIVIT,THER IRON,CA,FA & MIN 1 TABLET PO SCH (08:52)
[2017-02-12] MEDS: MAGNESIUM HYDROXIDE 30 ML ORAL.SUSP PO PRN (08:52)
[2017-02-12] MEDS: DOCUSATE SODIUM 50 MG/5 ML ORAL.SOL PT PRN (08:54)
--- NOTE | 2017-02-12 10:04 | Internal Med Progress Note ---
Medical - PN: Subj Patient information: Note initiated : 02/12/17 at 10:04 am Patient: Edgard Bae 86 y/o M admitted on 01/31/17 for Fall/Femur Fracture, Right. Interval history: January 31, 2017:History of present illness: Mr. Bae is a 86 year old man who apparently fell this evening at home. ER evaluation revealed an acute right subtrochanteric hip fracture with slight displacement of the lesser trochanter, as well as a previous right total hip arthroplasty. The patient has moderate dementia, and cannot recall how or why he fell. When I saw him late in the evening, his family was not available. Otherwise, he does not think that he has been ill lately. He denies being aware fever or chills, headaches or dizziness, new or ear symptoms, chest pain or palpitations, shortness of breath or wheezing or cough, abdominal pain, nausea or vomiting, diarrhea or constipation, or dysuria. February 01: This morning, the patient was having a bit more pain, and was given IV Dilaudid. About an hour later I was called to see him urgently, as the nurse found him somewhat obtunded and twitching all over. Extremities were cyanotic, and the patient had decreased mental status. O2 saturation at the time was reading about 70% but we were not sure the oximeter was accurate. Follow-up blood gas did confirm that the patient was hypoxic, with a PO2 of 40, and a PCO2 of 53. As we talked with him and did test on him, he did become a bit more arousable. The twitching was a little hard to figure out, and I thought perhaps he was having an allergic reaction to the Dilaudid, so Benadryl was given. He was also given topical nitroglycerin, IV Lasix, and albuterol nebulizer treatment, and oxygen, while we were working him up. He was then transferred over to telemetry for closer monitoring. EKG did not show acute changes. D-dimer is elevated, but this would be expected in the setting of his hip fracture. Troponin is normal. BNP is a bit elevated at 500. Currently, the patient is still quite sleepy. His color is much improved. He is now maintaining oxygen saturations in the mid 90s on 2 L O2 via mask. He reports no fevers or chills, cough, chest pain or palpitations, and denied feeling especially short of breath. He denied abdominal pain, nausea or vomiting, diarrhea. Chester catheter remains in place. He continues to have significant right hip pain with any movement of the right leg. February 02: Today, the patient reports he is feeling better. He still notes pain in the right hip if he moves, but is otherwise comfortable. He denies fever or chills, headaches or dizziness, chest pain or palpitations, shortness of breath or wheezing, abdominal pain, nausea or vomiting, diarrhea or constipation. Chester catheter remains in place. Vital signs overnight, with O2 saturations ranging from 94-98% on 1-2 L O2. He did spike a temperature of 101.7 last evening. February 03: This morning, after being given morphine for pain, the patient vomited and appeared to aspirate vomitus into his lungs. He was suctioned by respiratory therapy, and oxygen mask applied. Later in the morning his O2 saturations continued to decline, and I requested that respiratory therapy start him on BiPAP. Not long after that, the patient vomited again, in spite of being n.p.o. , into the facemask. The vomit consisted mainly of bilious appearing fluid. We then placed an NG tube, and high flow oxygen via mask. The patient has been less alert today, but does wake up enough to tell me that he is not having any pain. He does feel like his breathing is a bit labored. Otherwise he does not report subjective fever or chills, chest pain or palpitations, abdominal pain, diarrhea or constipation. His hip pain is relatively well controlled at this time. February 04: Patient seen examined, no acute overnight events, patient was asleep much of my eval, but did open eyes slightly to verbal stimuli and did obey commands like grasp hand. The patient wbc count trended up slightly, his tele showed some SVT His NG tube suction shows dark coloured secretions, h/h has remained stable, IV PPI added. NO more vomiting now. Pt remains on bipap to maintain his oxygen saturations, Fio2 40 % in AM, 10/5 settings. He remains on antibiotics. cxr today shows improved perihilar infiltrates. February 05: The patient has continued to struggle. He did receive some morphine overnight, and remains quite somnolent today. The nursing staff feels that Tylenol is actually helping his pain more than morphine. NG output is declining, but continues rather dark in color, although tending towards dark green rather than reddish. The patient really does not arouse enough today to give me a history, although when asked if he is in pain he seems to indicate no. He continues to require BiPAP to maintain oxygen saturations. Because of ongoing hypoxia yesterday, he did undergo CT angiogram, which does show a small PE, in addition to bilateral infiltrates. He is now on Lovenox, therapeutic dose. He has not really had any nutrition since admission, so today we are evaluating for PPN versus TPN. I am reluctant to give him tube feedings at this point, since he has vomited and aspirated twice so far. We will give him more time to decrease his NG output. February 06: Today, the patient remains fairly somnolent, although nurses note they did get him to sit up on the side of the bed. He did open his eyes long enough to look outside, and also seems to recognize his today. They were not certain that he recognized his other family members. For the most part he remains asleep. He is quite difficult to arouse, and does not answer questions for me this morning. Nurses feel that his respiratory status has been fairly stable overnight. He has some audible wheezing when he is taken off BiPAP, but does very well while on it and seems to tolerate it. He is unable to give a review of systems at this time. Chest x-ray from this morning actually looks a bit better. Hemoglobin and hematocrit have fallen further however. Patient continues to have gross hematuria as well, likely due to being on therapeutic dose Lovenox. Nurses note he has not had a bowel movement in several days. He was given a suppository yesterday, but did not have much of a response. He has not had any oral intake though for several days. He was started on PPN yesterday, after a PICC line was placed. February 07: The patient did seem to have some increasing hip pain last night, some morphine was resumed at low doses. This morning he was given another dose of morphine so that he could work with physical therapy, but he was essentially too weak to stand up. He remains fairly somnolent, and only speaks occasionally. He is too sleepy to talk to me when I entered the room this morning, so could not answer a review of systems. Nurses note he still has not had a bowel movement, although he does have some bowel sounds. Oxygenation is improving, and he is currently tolerating low flow oxygen via nasal cannula. Nurses note that he seems to be fine when asleep, but he when he wakes up he starts to have a lot of upper airway noise. Nursing staff also talked with the patient's son, who said he has been declining for the last 2 months. The son noted he had been complaining of hip pain for over a month, and had become quite a bit more sedentary at home. February 08: Patient seen examined, a bit more awake today, opened eyes to verbal stimulus, and obeyed commands, but overall his mental status is still pretty obtunded. The patient did not respond well enough to provide ROS or any history. He remains on NG tube suction. CT head was done today which was reported neg. He has not had a BM in 6 days, X ray abdomen shows some stool in the hepatic flexure. Lactulose given via NG tube The reason for his obtunded state is bit unknown. likely opiates and infection. He remains on anabiotics, Ammonia level is negative. February 09: The patient is a little more awake today than yesterday. He is able to sit up on the side of the bed with physical therapy, but is clearly too weak to stand. The source of his continued lethargic mental status has not been clear. He did have a head CT yesterday, which did not show any obvious reason. His son reports that he has been declining in alertness and functional abilities for at least a couple of months. He still has his NG tube in place, to give oral meds, as it is not clear that he is safe to swallow at this time. He is just been quite lethargic. He still occasionally receives morphine for uncontrolled pain, although mostly pain is managed with Tylenol and Toradol. Lungs remain fairly clear. He is oxygenating well currently just with oxygen via nasal cannula. -He continues to receive PPN via his PICC line. -His eyes are open when I entered the room, but he can barely say the word yes when asked him questions. Otherwise he really is not able to participate in a review of systems. February 10: We have been attempting to minimize how much morphine the patient gets. Yesterday speech therapy worked with him, and felt that he could tolerate a dysphagia diet. G-tube was removed. This morning, he is sitting up on the side of the bed, after being propped up, and is eating. Staff says so far he seems to be swallowing pretty well. He coughs after some bites, does not appear to be aspirating. The patient continues very weak, but he is much more awake and alert this morning. He denies any significant pain. He denies fever chills, chest pain, abdominal pain, nausea or vomiting or diarrhea. He has not had a bowel movement in over a week. Although he reportedly is passing some flatus. He does note that his breathing is a little labored. His cough continues to be quite weak, but he does a better job with strong encouragement. He did bump his white blood cell count today, but I am hopeful that that is just from yesterday's steroid dose. He does continue to be a little far ahead on his intake versus output. February 11: -The patient has made good progress over the last 24 hours. He is now fully awake and alert, although he really does not say much. He has been able to eat and swallow safely, although again not enough to get in the required calories. He continues to get fidgety at times, but is unable to express what is wrong. We suspect that he is having pain. -He still has not had a bowel movement, although there were some smears of stool today. -Nurses note his cough is much stronger, and is now producing a cooney colored phlegm. He seems to be clearing his throat much better than before. -When he is asked about pain, he says no, but he does not really seem to answer much in the way of other questions. He seems to deny chest pain or trouble breathing or abdominal discomfort, but being able to understand what he says and knowing whether or not that is reliable is a challenge. -He continues to make a wheezing noise with his throat whenever he is he awake or anxious. This sounds almost like stridor, but on auscultation it is definitely an expiratory noise in his neck area. It disappears when he goes to sleep. February 12: Today, the patient is a little more confused. Last night he ended up pulling out his PICC line, so he was moved back to the ICU for closer monitoring. TPN was discontinued. He has been tolerating an oral dysphagia diet. The dietitian is working with speech therapy, to try to be sure he gets in enough calories, safely, orally. His is in the room with him this morning. She is not sure that he recognizes her today. When I ask him who she is, he cannot tell me. He does indicate that he is not having any pain right now, and seems to deny chest pain or trouble breathing, abdominal pain, but he seems fairly confused, so history is not likely to be reliable. His Zosyn was stopped, and so far chest x-ray has not shown recurrent aspiration pneumonia. White blood cell count continues to drift downward. Next line nurses continue to be concerned that he is having pain, as he is often restless. Morphine does not seem to help a great deal with the pain, and does certainly make him more sedated. - Constitutional Vitals: Vital Signs Temp Pulse Resp BP Pulse Ox 99.2 F H 90 20 144/71 97 02/12/17 02:50 02/12/17 02:51 02/12/17 02:51 02/12/17 02:50 02/12/17 02:50 Period Temp Pulse Resp BP Sys/Hutson Pulse Ox Last 24 Hr 98.0 F-99.2 F 89-105 17-24 98-144/60-94 93-100 Intake and Output 02/11/17 02/12/17 02/12/17 21:59 05:59 13:59 Intake Total 422 / 422 Output Total 650 / 650 650 / 650 Balance -228 / -228 -650 / -650 Weight 183 lb 14.4 oz 183 lb 14.4 oz Patient Weight 02/13/17 05:59 Weight 183 lb 14.4 oz Intake & Output: Intake & Output 02/11/17 02/12/17 02/12/17 21:59 05:59 13:59 Intake Total 422 / 422 Output Total 650 / 650 650 / 650 Balance -228 / -228 -650 / -650 Weight 183 lb 14.4 oz 183 lb 14.4 oz Intake: IV 152 / 152 Calcium Gluconate 10 Meq Sodium 152 / 152 Chloride 70 Meq Infuvite Adult 10 ml Selenium 60 Mcg Magnesium Sulfate 8.12 Meq Potassium Chloride 40 Meq In Clinimix 5%-20% Solution 2,000 ml @ 70 mls/hr IV Q24H MYKEL Rx#: [id number] Oral 270 / 270 Output: Urine Catheter Amount 650 / 650 650 / 650 Other: Meal Dinner Percent of Meal Consumed 50% Feeding Ability Total Assistance # of times incontinent of 1 Bowels He is lying in bed, and is squirming around a bit. He is awake, but is less alert and less conversant today than yesterday. He is unable to tell me who his is. Temperature 99.2. Heart rate 90. Respiratory rate 20. Blood pressure 144/71. O2 saturation 97% on 2 L. Neck is supple without obvious JVD. Cardiac exam shows regular rate and rhythm. Lungs: He still has a few crackles scattered bilaterally, . Otherwise I do not hear significant rhonchi or wheezing. He continues to have a loud stridorous upper airway noise, heard only on expiration. This noise resolves if he relaxes , and when he sleeps. Abdomen soft and nontender. Extremities show minimal edema. Neurologic exam: The patient is awake. He seems to answer questions appropriately, but voice is very soft, and he speaks very few words. He remains quite weak, requiring maximal assistance with any movements, and appears to perhaps be a little bit weaker than yesterday. Medical - PN: Obj Da - Labs CBC & Chem 7: 02/12/17 04:05 02/12/17 04:05 Labs: Abnormal Lab Results 02/12/17 02/12/17 02/11/17 04:05 04:05 04:40 WBC 15.3 H 16.4 H RBC 2.39 L 2.79 L Hgb 7.6 L 8.8 L Hct 21.8 L 25.4 L RDW 16.9 H 17.1 H Gran % 86.4 H 83.4 H Lymph % (Auto) 6.7 L 7.6 L Gran # 13.2 H 13.7 H Lymph # (Auto) 1.0 L 1.2 L [place] # (Auto) 1.1 H BUN 28 H Glucose Calcium 7.3 L Total Bilirubin AST ALT Lactate Dehydrogenase Total Protein 5.1 L Albumin 2.7 L Prealbumin Urine Occult Blood Urine RBC Urine WBC Uric Acid Crystals Urine Bacteria 02/11/17 02/10/17 02/10/17 04:40 03:40 03:40 WBC 17.7 H RBC 2.43 L Hgb 7.7 L Hct 22.2 L RDW 16.3 H Gran % 86.4 H Lymph % (Auto) 5.9 L Gran # 15.3 H Lymph # (Auto) 1.0 L [place] # (Auto) 1.4 H BUN 38 H 29 H Glucose 140 H 142 H Calcium 8.4 L 7.8 L Total Bilirubin 1.2 H 1.1 H AST 46 H 55 H ALT 54 H 48 H Lactate Dehydrogenase 289 H 259 H Total Protein 5.4 L Albumin 3.0 L Prealbumin 15.1 L Urine Occult Blood Urine RBC Urine WBC Uric Acid Crystals Urine Bacteria 02/09/17 20:13 WBC RBC Hgb Hct RDW Gran % Lymph % (Auto) Gran # Lymph # (Auto) [place] # (Auto) BUN Glucose Calcium Total Bilirubin AST ALT Lactate Dehydrogenase Total Protein Albumin Prealbumin Urine Occult Blood >=1.0 A Urine RBC > 182 H Urine WBC 8 H Uric Acid Crystals Few A Urine Bacteria Few A February 12: Chest x-ray: Most consistent with mild CHF and mild bibasilar atelectasis. February 11: Abdominal x-ray shows moderate colonic stool. Consider abdominal CT if having abdominal pain. February 10: Echocardiogram: Borderline LVH. Ejection fraction 65%. Mild left atrial dilation. Borderline pulmonary hypertension. February 09: Urinalysis: Shows greater than 180 red blood cells, 8 white blood cells, few bacteria. Culture is negative. Chest x-ray: Shows mild recurrent perihilar airspace infiltrates. February 08: Chest x-ray: Moderate cardiomegaly, chronic right diaphragm elevation. Minor right base atelectasis. Stable. February 06: Follow-up H and H this afternoon are stable at 7.9 and 23.2 Chest x-ray: Moderate cardiomegaly. PICC line in satisfactory position. Perihilar infiltrates have almost cleared. Chronic elevation of right diaphragm. February 05: No change in mild perihilar infiltrates, suspect aspiration. PICC line tip in the left brachiocephalic junction, nurses instructed to withdraw 2 cm. February 04: CT angiogram: Solitary embolus to the superior right lower lobe segment pulmonary artery. Mild pulmonary hypertension. Moderate vague groundglass infiltrates diffusely throughout both lungs, suspect aspiration. Small bilateral pleural effusions. February 03: Follow-up chest x-ray this afternoon shows mild perihilar infiltrates, with slight worsening. Continued elevation of the right hemidiaphragm. February 02: Chest x-ray: Moderate chronic elevation of the right diaphragm, with right basilar atelectasis. No infiltrates are seen. Blood cultures are negative so far. February 01: CBC: White blood cell count 13,000, hemoglobin 12, hematocrit 36, granulocyte count 11,000 D-dimer is elevated at 7.7 ProBNP is mildly elevated at 501 Troponin is normal at less than 0.01 EKG showed sinus tachycardia, with no obvious acute ischemic changes. ABG on room air, while in distress: Shows pH of 7.37, PCO2 of 53, PO2 of 40, bicarb of 30, O2 saturation 73% Chest x-ray: There is moderate cardiomegaly. Chronic right diaphragm elevation. Minor right base atelectasis. No signs of CHF. Nasal MRSA screen is negative. Meds: Medications Acetaminophen (Tylenol) 650 mg PT Q6HP PRN PRN Reason: PAIN/FEVER > 101 Last Admin: 02/11/17 03:56 Dose: 650 mg Albuterol Sulfate (Ventolin) 2.5 mg NEB Q4HP PRN PRN Reason: Shortness Of Breath Last Admin: 02/12/17 02:38 Dose: 2.5 mg Bisacodyl (Dulcolax) 10 mg [place] Q2-3DAYS PRN PRN Reason: Constipation Last Admin: 02/11/17 17:09 Dose: 10 mg Dextrose (Dextrose 50%) 50 ml IV UD PRN PRN Reason: Hypoglycemia Diagnostic Test (Pha) (Accu-Chek) 1 each FS Q6 [facility] Last Admin: 02/12/17 05:56 Dose: 1 each Docusate Sodium (Colace) 100 mg PT BIDP PRN PRN Reason: Constipation Last Admin: 02/12/17 08:54 Dose: 100 mg Enoxaparin Sodium (Lovenox) 120 mg SQ DAILY@1500 MYKEL Last Admin: 02/11/17 15:30 Dose: 120 mg Acetaminophen (Ofirmev) 650 mg in 65 mls @ 130 mls/hr IV Q6HP PRN PRN Reason: PAIN/FEVER > 101 Last Infusion: 02/11/17 11:20 Dose: Infused Insulin Human Lispro (Humalog) 0 unit SQ Q6 [facility] PRN Reason: Protocol Last Admin: 02/12/17 05:57 Dose: Not Given Iron Carb/Multivit/[employer]/Folic Acid (Multivitamin W/Minerals) 1 tab PO DAILY [facility] Last Admin: 02/12/17 08:52 Dose: 1 tab Lactobacillus Rhamnosus (Culturelle) 1 cap PO BID [facility] Last Admin: 02/12/17 08:52 Dose: 1 cap Magnesium Hydroxide (Milk Of Magnesia) 30 ml PO DAILYP PRN PRN Reason: Constipation Last Admin: 02/12/17 08:52 Dose: 30 ml Metoclopramide HCl (Reglan) 5 mg IV Q6HP PRN PRN Reason: Nausea And Vomiting Last Admin: 02/08/17 07:38 Dose: 5 mg Metoprolol Tartrate (Lopressor) 5 mg IV Q4HP PRN PRN Reason: Tachyarrhythmias Morphine Sulfate (Morphine) 1 - 2 mg IV Q4HP PRN PRN Reason: Pain Last Admin: 02/12/17 07:15 Dose: 2 mg Naloxone HCl (Narcan) 0.1 mg IV Q2MIN PRN PRN Reason: Opiate Reversal Ondansetron HCl (Zofran) 4 mg IV Q6HP PRN PRN Reason: Nausea And Vomiting Last Admin: 02/03/17 16:03 Dose: 4 mg Pantoprazole Sodium (Protonix) 40 mg IV BIDAC [facility] Last Admin: 02/12/17 07:14 Dose: 40 mg Sodium Chloride (Saline Flush) 10 ml IV Q8 [facility] Last Admin: 02/12/17 05:57 Dose: 10 ml Medical - PN: A/P - Time Spent With Patient Total time spent is greater than 50% in coordination of care (as documented) at patient's floor/unit and/or counseling patient: (1) Femur fracture, right Status: Acute Current Visit: Yes (2) Impairment of cognitive function Problem details: with balance difficulties Status: Chronic Current Visit: No - Narrative A/P Narrative: #1. Cardio/pulmonary. a) the patient has bilateral pneumonia, likely due to aspiration pneumonia. He also has been diagnosed with pulmonary embolism. It is not clear if that was there prior to admission, or if it occurred during his stay here. He continues to be quite groggy, related to pain medications. This makes him high risk for any sort of feeding. -Continue as needed nebulized bronchodilators as needed. He is not wheezing , and has no reported history of COPD, so I discontinued steroids. -He is now off BiPAP, and so far is doing well on oxygen by nasal cannula. -Pulmonary embolism. Continue therapeutic dose Lovenox, for at least 90 days. Monitor hemoglobin closely. seems to be dropping gradually. H and H remain fairly stable between 7 and . It is not a clear if this is affecting his functional status. He may need to be transfused at some point. Continue to monitor. -NG tube was pulled. He is now tolerating dysphagia diet. -Status post 10 days of IV Zosyn. This was discontinued yesterday. Continue to monitor.. -Chest x-ray suggestive of mild pulmonary vascular congestion. He diuresed yesterday after Lasix. He is positive on fluids today. We will start daily oral Lasix. b) patient had episodes of SVT. Potassium and magnesium were both running low , so those were replaced. As needed metoprolol was ordered as well. SVT has not recurred. c) the patient has developed apparent pulmonary vascular congestion, CHF at least twice now since surgery. He has been receiving lots of IV fluids due to his n.p.o. status. -Echo looks okay. Lasix started daily. PPN was stopped yesterday after he pulled his PICC line. Dietary is increasing his supplements to his diet. #2. Orthopedic. Patient presents with right hip fracture. He was seen by Dr. Bourne. s/p hip surgery Low-dose morphine was resumed , as they could not seem to get him comfortable. Unfortunately this still tends to make him quite somnolent. -Start scheduled ibuprofen and Tylenol today. - IV Tylenol as needed. IV Toradol as needed. - He is quite weak, and will require extensive rehab. 3. CODE STATUS: DNR CODE STATUS. 4 DVT prophylaxis: lovenox sq 5. Hematuria. No signs of infection at this time. -Continue Chester catheter for accurate fluid assessments. We hope to get the Chester out sometime soon. He is just not alert enough at this time to use a urinal, and this would complicate his care in terms of his hip pain as well. #6. Infectious disease. The patient was treated for aspiration pneumonia, as noted above. -White blood cell count is somewhat improved today. Chest x-ray is more suggestive of recurrent CHF. Patient was diuresed with Lasix yesterday. 7. Neurologic. Patient has known dementia, and increased confusion , due to acute illness. Continue to follow. CT head is negative. 8. GI. Patient did have heme positive NG drainage . He may have gastritis. He was started on a proton pump inhibitor for possible gastritis. There are no signs of active bleeding. -Patient finally had 2 bowel movements last night, after numerous laxatives. Nurses will continue to monitor this. #9. Nutrition. Patient has not adequate nutrition for several days. I have asked the dietitian to make recommendations. TPN was discontinued after he pulled his PICC line. The dietitian is following. 10. Renal. Electrolytes are generally in the normal range now. 11. Hematologic. Hemoglobin and hematocrit very of a bit. I suspect some of this may be dilutional, and some due to gross hematuria, while being also on Lovenox. Continue to monitor. If this drops much lower, he will need transfusion. anemia workup ordered. Approximately 35 minutes was spent today, reviewing patient's test results, interviewing and examining him, reviewing plan of care with staff, and writing orders. Medical - PN: Qual - VTE Deep Vein Thrombosis/Pulmonary Embolism Present on Admission: No
[2017-02-12] MEDS: ACETAMINOPHEN 160 MG/5 ML ORAL.SOL PT PRN ×2 (11:57→20:48)
[2017-02-12] MEDS: IBUPROFEN 600 MG TABLET PO SCH ×2 (14:58→20:47)
[2017-02-12] MEDS: ACETAMINOPHEN 500 MG TABLET PO PRN (14:58)
[2017-02-12] MEDS: ENOXAPARIN 120 MG/0.8 ML SYRINGE SQ SCH (14:58)
[2017-02-12] MEDS ORDERED: IBUPROFEN 600 MG TABLET PO PRN (15:00)
[2017-02-13] MEDS: INSULIN LISPRO 1 UNIT/0.01 ML UNIT SQ SCH ×4 (00:42→17:17)
[2017-02-13] MEDS: ALBUTEROL SULFATE 2.5 MG/3 ML NEBULIZER NEB PRN (02:13)
[2017-02-13 05:22] LABS: Basophils # (Auto) 0 K/mcL (0.0-0.3); Basophils % (Auto) 0.1 % (0.0-2.0); Eosinophils # (Auto) 0.4 K/mcL (0.0-0.7); Eosinophils % (Auto) 2.5 % (0.0-7.0); Granulocytes % (Auto) 86.1 % (38.0-78.0); Lymphocytes # (Auto) 1.1 K/mcL (1.5-4.8); Lymphocytes % (Auto) 6.6 % (15.5-49.0); Mean Cell Volume 90.9 fL (80.0-100.0); Mean Corpuscular HGB Conc 33.9 g/dL (31.0-36.0); Mean Corpuscular Hemoglobin 30.8 pg (26.0-34.0); Monocytes # (Auto) 0.8 K/mcL (0.1-0.9); Monocytes % (Auto) 4.7 % (1.0-12.0); Platelet Count 309 K/mcL (140-440); RBC 2.75 M/mcL (4.50-5.90); Red Cell Distribution Width 16.7 % (11.5-14.5)
[2017-02-13 05:48] LABS: ALT/SGPT 34 U/l (0-40); Albumin 3.2 gm/dL (3.2-5.2); Albumin/Globulin Ratio 1.1 (1.0-2.3); Alkaline Phosphatase 72 U/L (39-117); Bilirubin,Direct 0.4 mg/dL (0.0-0.3); Blood Urea Nitrogen 36 mg/dl (8-23); Gamma Glutamyl Transpeptidase 38 U/L (8-61); Magnesium 2.4 mg/dL (1.6-2.5); Uric Acid 6.8 mg/dL (2.5-8.0)
[2017-02-13] MEDS: 0.9 % SODIUM CHLORIDE 10 ML SYRINGE IV SCH ×3 (05:56→20:26)
[2017-02-13] MEDS: MULTIVIT,THER IRON,CA,FA & MIN 1 TABLET PO SCH (08:21)
[2017-02-13] MEDS: PANTOPRAZOLE 40 MG VIAL IV SCH ×2 (08:21→15:50)
[2017-02-13] MEDS: ACETAMINOPHEN 500 MG TABLET PO PRN (08:21)
[2017-02-13] MEDS: LACTOBACILLUS 1 CAPSULE PO SCH ×2 (08:30→20:25)
[2017-02-13] MEDS: IBUPROFEN 600 MG TABLET PO SCH (08:31)
[2017-02-13] MEDS ORDERED: FUROSEMIDE 20 MG TABLET PO SCH (09:00)
--- NOTE | 2017-02-13 10:52 | Internal Med Progress Note ---
Medical - PN: Subj Patient information: Note initiated : 02/13/17 at 10:47 am Service Date, if different from initiated Date: [] Patient: Edgard Bae 86 y/o M admitted on 01/31/17 for Fall/Femur Fracture, Right. Chief Complaint: [] Interval history: January 31, 2017:History of present illness: Mr. Bae is a 86 year old man who apparently fell this evening at home. ER evaluation revealed an acute right subtrochanteric hip fracture with slight displacement of the lesser trochanter, as well as a previous right total hip arthroplasty. The patient has moderate dementia, and cannot recall how or why he fell. When I saw him late in the evening, his family was not available. Otherwise, he does not think that he has been ill lately. He denies being aware fever or chills, headaches or dizziness, new or ear symptoms, chest pain or palpitations, shortness of breath or wheezing or cough, abdominal pain, nausea or vomiting, diarrhea or constipation, or dysuria. February 01: This morning, the patient was having a bit more pain, and was given IV Dilaudid. About an hour later I was called to see him urgently, as the nurse found him somewhat obtunded and twitching all over. Extremities were cyanotic, and the patient had decreased mental status. O2 saturation at the time was reading about 70% but we were not sure the oximeter was accurate. Follow-up blood gas did confirm that the patient was hypoxic, with a PO2 of 40, and a PCO2 of 53. As we talked with him and did test on him, he did become a bit more arousable. The twitching was a little hard to figure out, and I thought perhaps he was having an allergic reaction to the Dilaudid, so Benadryl was given. He was also given topical nitroglycerin, IV Lasix, and albuterol nebulizer treatment, and oxygen, while we were working him up. He was then transferred over to telemetry for closer monitoring. EKG did not show acute changes. D-dimer is elevated, but this would be expected in the setting of his hip fracture. Troponin is normal. BNP is a bit elevated at 500. Currently, the patient is still quite sleepy. His color is much improved. He is now maintaining oxygen saturations in the mid 90s on 2 L O2 via mask. He reports no fevers or chills, cough, chest pain or palpitations, and denied feeling especially short of breath. He denied abdominal pain, nausea or vomiting, diarrhea. Chesetr catheter remains in place. He continues to have significant right hip pain with any movement of the right leg. February 02: Today, the patient reports he is feeling better. He still notes pain in the right hip if he moves, but is otherwise comfortable. He denies fever or chills, headaches or dizziness, chest pain or palpitations, shortness of breath or wheezing, abdominal pain, nausea or vomiting, diarrhea or constipation. [place] catheter remains in place. Vital signs overnight, with O2 saturations ranging from 94-98% on 1-2 L O2. He did spike a temperature of 101.7 last evening. February 03: This morning, after being given morphine for pain, the patient vomited and appeared to aspirate vomitus into his lungs. He was suctioned by respiratory therapy, and oxygen mask applied. Later in the morning his O2 saturations continued to decline, and I requested that respiratory therapy start him on BiPAP. Not long after that, the patient vomited again, in spite of being n.p.o. , into the facemask. The vomit consisted mainly of bilious appearing fluid. We then placed an NG tube, and high flow oxygen via mask. The patient has been less alert today, but does wake up enough to tell me that he is not having any pain. He does feel like his breathing is a bit labored. Otherwise he does not report subjective fever or chills, chest pain or palpitations, abdominal pain, diarrhea or constipation. His hip pain is relatively well controlled at this time. February 04: Patient seen examined, no acute overnight events, patient was asleep much of my eval, but did open eyes slightly to verbal stimuli and did obey commands like grasp hand. The patient wbc count trended up slightly, his tele showed some SVT His NG tube suction shows dark coloured secretions, h/h has remained stable, IV PPI added. NO more vomiting now. Pt remains on bipap to maintain his oxygen saturations, Fio2 40 % in AM, 10/5 settings. He remains on antibiotics. cxr today shows improved perihilar infiltrates. February 05: The patient has continued to struggle. He did receive some morphine overnight, and remains quite somnolent today. The nursing staff feels that Tylenol is actually helping his pain more than morphine. NG output is declining, but continues rather dark in color, although tending towards dark green rather than reddish. The patient really does not arouse enough today to give me a history, although when asked if he is in pain he seems to indicate no. He continues to require BiPAP to maintain oxygen saturations. Because of ongoing hypoxia yesterday, he did undergo CT angiogram, which does show a small PE, in addition to bilateral infiltrates. He is now on Lovenox, therapeutic dose. He has not really had any nutrition since admission, so today we are evaluating for PPN versus TPN. I am reluctant to give him tube feedings at this point, since he has vomited and aspirated twice so far. We will give him more time to decrease his NG output. February 06: Today, the patient remains fairly somnolent, although nurses note they did get him to sit up on the side of the bed. He did open his eyes long enough to look outside, and also seems to recognize his today. They were not certain that he recognized his other family members. For the most part he remains asleep. He is quite difficult to arouse, and does not answer questions for me this morning. Nurses feel that his respiratory status has been fairly stable overnight. He has some audible wheezing when he is taken off BiPAP, but does very well while on it and seems to tolerate it. He is unable to give a review of systems at this time. Chest x-ray from this morning actually looks a bit better. Hemoglobin and hematocrit have fallen further however. Patient continues to have gross hematuria as well, likely due to being on therapeutic dose Lovenox. Nurses note he has not had a bowel movement in several days. He was given a suppository yesterday, but did not have much of a response. He has not had any oral intake though for several days. He was started on PPN yesterday, after a PICC line was placed. February 07: The patient did seem to have some increasing hip pain last night, some morphine was resumed at low doses. This morning he was given another dose of morphine so that he could work with physical therapy, but he was essentially too weak to stand up. He remains fairly somnolent, and only speaks occasionally. He is too sleepy to talk to me when I entered the room this morning, so could not answer a review of systems. Nurses note he still has not had a bowel movement, although he does have some bowel sounds. Oxygenation is improving, and he is currently tolerating low flow oxygen via nasal cannula. Nurses note that he seems to be fine when asleep, but he when he wakes up he starts to have a lot of upper airway noise. Nursing staff also talked with the patient's son, who said he has been declining for the last 2 months. The son noted he had been complaining of hip pain for over a month, and had become quite a bit more sedentary at home. February 08: Patient seen examined, a bit more awake today, opened eyes to verbal stimulus, and obeyed commands, but overall his mental status is still pretty obtunded. The patient did not respond well enough to provide ROS or any history. He remains on NG tube suction. CT head was done today which was reported neg. He has not had a BM in 6 days, X ray abdomen shows some stool in the hepatic flexure. Lactulose given via NG tube The reason for his obtunded state is bit unknown. likely opiates and infection. He remains on anabiotics, Ammonia level is negative. February 09: The patient is a little more awake today than yesterday. He is able to sit up on the side of the bed with physical therapy, but is clearly too weak to stand. The source of his continued lethargic mental status has not been clear. He did have a head CT yesterday, which did not show any obvious reason. His son reports that he has been declining in alertness and functional abilities for at least a couple of months. He still has his NG tube in place, to give oral meds, as it is not clear that he is safe to swallow at this time. He is just been quite lethargic. He still occasionally receives morphine for uncontrolled pain, although mostly pain is managed with Tylenol and Toradol. Lungs remain fairly clear. He is oxygenating well currently just with oxygen via nasal cannula. -He continues to receive PPN via his PICC line. -His eyes are open when I entered the room, but he can barely say the word yes when asked him questions. Otherwise he really is not able to participate in a review of systems. February 10: We have been attempting to minimize how much morphine the patient gets. Yesterday speech therapy worked with him, and felt that he could tolerate a dysphagia diet. G-tube was removed. This morning, he is sitting up on the side of the bed, after being propped up, and is eating. Staff says so far he seems to be swallowing pretty well. He coughs after some bites, does not appear to be aspirating. The patient continues very weak, but he is much more awake and alert this morning. He denies any significant pain. He denies fever chills, chest pain, abdominal pain, nausea or vomiting or diarrhea. He has not had a bowel movement in over a week. Although he reportedly is passing some flatus. He does note that his breathing is a little labored. His cough continues to be quite weak, but he does a better job with strong encouragement. He did bump his white blood cell count today, but I am hopeful that that is just from yesterday's steroid dose. He does continue to be a little far ahead on his intake versus output. February 11: -The patient has made good progress over the last 24 hours. He is now fully awake and alert, although he really does not say much. He has been able to eat and swallow safely, although again not enough to get in the required calories. He continues to get fidgety at times, but is unable to express what is wrong. We suspect that he is having pain. -He still has not had a bowel movement, although there were some smears of stool today. -Nurses note his cough is much stronger, and is now producing a cooney colored phlegm. He seems to be clearing his throat much better than before. -When he is asked about pain, he says no, but he does not really seem to answer much in the way of other questions. He seems to deny chest pain or trouble breathing or abdominal discomfort, but being able to understand what he says and knowing whether or not that is reliable is a challenge. -He continues to make a wheezing noise with his throat whenever he is he awake or anxious. This sounds almost like stridor, but on auscultation it is definitely an expiratory noise in his neck area. It disappears when he goes to sleep. February 12: Today, the patient is a little more confused. Last night he ended up pulling out his PICC line, so he was moved back to the ICU for closer monitoring. TPN was discontinued. He has been tolerating an oral dysphagia diet. The dietitian is working with speech therapy, to try to be sure he gets in enough calories, safely, orally. His is in the room with him this morning. She is not sure that he recognizes her today. When I ask him who she is, he cannot tell me. He does indicate that he is not having any pain right now, and seems to deny chest pain or trouble breathing, abdominal pain, but he seems fairly confused, so history is not likely to be reliable. His Zosyn was stopped, and so far chest x-ray has not shown recurrent aspiration pneumonia. White blood cell count continues to drift downward. Next line nurses continue to be concerned that he is having pain, as he is often restless. Morphine does not seem to help a great deal with the pain, and does certainly make him more sedated. February 13: More alert today but still uncomfortable. Yesterday when getting up to chair, he required a 3 person max assist and he had significant pain. He is still having pain and is alert after receiving 1 mg of morphine. His white count is rising today. Will try scheduled Tylenol 1 g 4 times a day and tramadol every 6 hours as needed. His bowels are moving. He ate 100% of breakfast. Pertinent ROS: no fevers - Constitutional Vitals: Vital Signs Temp Pulse Resp BP Pulse Ox 98.2 F 80 22 113/63 99 02/13/17 04:00 02/13/17 04:00 02/13/17 04:00 02/13/17 04:00 02/13/17 04:00 Period Temp Pulse Resp BP Sys/[place] Pulse Ox Last 24 Hr 97.8 F-99.4 F 80-101 20-22 113-133/58-75 94-99 Intake and Output 02/12/17 02/13/17 02/13/17 21:59 05:59 13:59 Intake Total 300 / 300 60 / 60 Output Total 650 / 650 500 / 500 Balance -350 / -350 -440 / -440 Weight 177 lb General: NAD, frail. Alert and conversant. Neck: Supple with no JVD CV: Regular rate and rhythm. Respiratory: Lungs are clear to auscultation bilaterally. Abdomen: Soft, nondistended, nontender. Positive bowel tones. Extremities: No clubbing, cyanosis or edema. Neuro: He is alert. He is oriented to try state and states that it is "golf" season. He states the years 1961. No focal motor or sensory deficits. Intake & Output: Intake & Output 02/12/17 02/13/17 02/13/17 21:59 05:59 13:59 Intake Total 300 / 300 60 / 60 Output Total 650 / 650 500 / 500 Balance -350 / -350 -440 / -440 Weight 177 lb Intake: Oral 300 / 300 60 / 60 Output: Urine Catheter Amount 650 / 650 500 / 500 Other: Meal Dinner Percent of Meal Consumed 75% Feeding Ability Total Assistance # of times incontinent of 1 Bowels Medical - PN: Obj Da - Labs CBC & Chem 7: 02/13/17 03:52 02/13/17 03:52 Labs: Abnormal Lab Results 02/13/17 02/13/17 02/12/17 03:52 03:52 04:05 WBC 16.3 H 15.3 H RBC 2.75 L 2.39 L Hgb 8.5 L 7.6 L Hct 25.0 L 21.8 L RDW 16.7 H 16.9 H Gran % 86.1 H 86.4 H Lymph % (Auto) 6.6 L 6.7 L Gran # 14.0 H 13.2 H Lymph # (Auto) 1.1 L 1.0 L Sharp # (Auto) BUN 36 H Glucose 116 H Calcium 8.3 L Total Bilirubin 1.5 H Direct Bilirubin 0.4 H AST ALT Lactate Dehydrogenase 296 H Total Protein Albumin 02/12/17 02/11/17 02/11/17 04:05 04:40 04:40 WBC 16.4 H RBC 2.79 L Hgb 8.8 L Hct 25.4 L RDW 17.1 H Gran % 83.4 H Lymph % (Auto) 7.6 L Gran # 13.7 H Lymph # (Auto) 1.2 L Sharp # (Auto) 1.1 H BUN 28 H 38 H Glucose 140 H Calcium 7.3 L 8.4 L Total Bilirubin 1.2 H Direct Bilirubin AST 46 H ALT 54 H Lactate Dehydrogenase 289 H Total Protein 5.1 L Albumin 2.7 L Meds: Medications Acetaminophen (Tylenol) 1,000 mg PO Q6 MYKEL Albuterol Sulfate (Ventolin) 2.5 mg NEB Q4HP PRN PRN Reason: Shortness Of Breath Last Admin: 02/13/17 02:13 Dose: 2.5 mg Bisacodyl (Dulcolax) 10 mg SD Q2-3DAYS PRN PRN Reason: Constipation Last Admin: 02/11/17 17:09 Dose: 10 mg Dextrose (Dextrose 50%) 50 ml IV UD PRN PRN Reason: Hypoglycemia Diagnostic Test (Pha) (Accu-Chek) 1 each FS Q6 MYKEL Last Admin: 02/13/17 05:56 Dose: 1 each Docusate Sodium (Colace) 100 mg PT BIDP PRN PRN Reason: Constipation Last Admin: 02/12/17 08:54 Dose: 100 mg Enoxaparin Sodium (Lovenox) 120 mg SQ DAILY@1500 MYKEL Last Admin: 02/12/17 14:58 Dose: 120 mg Furosemide (Lasix) 20 mg PO DAILY MYKEL Last Admin: 02/13/17 08:21 Dose: 20 mg Acetaminophen (Ofirmev) 650 mg in 65 mls @ 130 mls/hr IV Q6HP PRN PRN Reason: PAIN/FEVER > 101 Last Infusion: 02/11/17 11:20 Dose: Infused Insulin Human Lispro (Humalog) 0 unit SQ Q6 MYKEL PRN Reason: Protocol Last Admin: 02/13/17 05:56 Dose: Not Given Iron Carb/Multivit/[place]/Folic Acid (Multivitamin W/Minerals) 1 tab PO DAILY [facility] Last Admin: 02/13/17 08:21 Dose: 1 tab Lactobacillus Rhamnosus (Culturelle) 1 cap PO BID MYKEL Last Admin: 02/13/17 08:30 Dose: 1 cap Lidocaine (Lidoderm) 1 patch TOPICAL DAILY@1000 MYKEL Magnesium Hydroxide (Milk Of Magnesia) 30 ml PO DAILYP PRN PRN Reason: Constipation Last Admin: 02/12/17 08:52 Dose: 30 ml Metoclopramide HCl (Reglan) 5 mg IV Q6HP PRN PRN Reason: Nausea And Vomiting Last Admin: 02/08/17 07:38 Dose: 5 mg Metoprolol Tartrate (Lopressor) 5 mg IV Q4HP PRN PRN Reason: Tachyarrhythmias Morphine Sulfate (Morphine) 1 mg IV Q4HP PRN PRN Reason: Pain Last Admin: 02/13/17 07:04 Dose: 1 mg Naloxone HCl (Narcan) 0.1 mg IV Q2MIN PRN PRN Reason: Opiate Reversal Ondansetron HCl (Zofran) 4 mg IV Q6HP PRN PRN Reason: Nausea And Vomiting Last Admin: 02/03/17 16:03 Dose: 4 mg Pantoprazole Sodium (Protonix) 40 mg IV BIDAC [facility] Last Admin: 02/13/17 08:21 Dose: 40 mg Sodium Chloride (Saline Flush) 10 ml IV Q8 [facility] Last Admin: 02/13/17 05:56 Dose: 10 ml Tramadol HCl (Ultram) 50 mg PO Q4-6HP PRN PRN Reason: Pain Medical - PN: A/P - Time Spent With Patient Total time spent is greater than 50% in coordination of care (as documented) at patient's floor/unit and/or counseling patient: Greater than 35 minutes - Narrative A/P Narrative: #Pulmonary. a) s/p aspiration pneumonia likely related to sedation related to pain meds. He completed 10-day course of Zosyn on 02/11. s/p bipap. Now on RA b) Pulmonary embolism. Continue therapeutic dose Lovenox. Start warfarin, pharmacy to dose. Will need anticoagulation for at least 90 days. c) pulmonary edema seen on CXR 02/12. Has had multiple episodes of volume overload this admission. Cont oral daily Lasix. Monitor vol status closely as he has LVH and suspected diastolic dysfunction, EF 65-70% on echo this admission. Avoid hypovolemia and tachycardia. #Cardiac a) episodes of SVT related to hypoK and hypoMg. Now resolved. Cont tele for now. PRN metoprolol ordered. b)see pulm edema assessment # Orthopedic. a) R periprosthetic hip fx. s/p BING revision 02/02/[address] Bourne. Pain control an issue with somnolence previously attributed to opiates. Will schedule Tylenol 1g QID and add tramadol PRN. Cont morphine 1 g q 4PRN. Trial of lidocaine patch. DC ibuprofen to prevent bleeding complications while on anticoagulation. - He is quite weak, and will require extensive rehab. # Infectious disease. a)leukocytosis worsening. No clear e/o infection. Monitor for today. If spikes fever, will reculture. # Neurologic. a) acute delirium 2/2 illness with underlying dementia. Supportive measures. Pain mmgt plan as above. CT head negative. # GI a)heme +NGT drainage, likely gastritis. Cont PPI. H/H stable. b)constipation--cont bowel regimen. #Severe protein calorie malnutrition -pulled NGT and PICC. Was previously on TPN. -tolerating dysphagia diet and eating well. Dietitian following. # Renal/ a) electrolyte derangements resolved b) hematuria-no e/o infection. Consider DC of Chester tomorrow. # Hematologic a) anemia, likely acute blood loss and some dilution. He has inflammatory block as well by iron studies--monitor. Transfuse if Hgb less than 7.0. Monitor for any signs of bleeding. RBC folate normal. f/u MMA #DVT prophylaxis: lovenox sq # CODE STATUS: DNR CODE STATUS. is POA. Medical - PN: Qual - VTE Deep Vein Thrombosis/Pulmonary Embolism Present on Admission: No
[2017-02-13] MEDS: ACETAMINOPHEN 500 MG TABLET PO SCH ×2 (13:04→17:16)
[2017-02-13] MEDS: traMADol 50 MG TABLET PO PRN (13:06)
[2017-02-13] MEDS: LIDOCAINE PATCH TOPICAL SCH (13:13)
[2017-02-13] MEDS ORDERED: WARFARIN 5 MG TABLET PO ONE (14:00)
[2017-02-13] MEDS: ENOXAPARIN 120 MG/0.8 ML SYRINGE SQ SCH (15:50)
[2017-02-14] MEDS: INSULIN LISPRO 1 UNIT/0.01 ML UNIT SQ SCH ×2 (00:14→05:50)
[2017-02-14] MEDS: ACETAMINOPHEN 500 MG TABLET PO SCH ×5 (00:15→23:32)
[2017-02-14] MEDS: 0.9 % SODIUM CHLORIDE 10 ML SYRINGE IV SCH ×3 (05:50→20:16)
[2017-02-14 06:39] LABS: Basophils # (Auto) 0 K/mcL (0.0-0.3); Basophils % (Auto) 0 % (0.0-2.0); Eosinophils # (Auto) 0.3 K/mcL (0.0-0.7); Eosinophils % (Auto) 1.5 % (0.0-7.0); Granulocytes % (Auto) 89.9 % (38.0-78.0); Lymphocytes # (Auto) 0.7 K/mcL (1.5-4.8); Lymphocytes % (Auto) 4.1 % (15.5-49.0); Mean Cell Volume 92.9 fL (80.0-100.0); Mean Corpuscular HGB Conc 34.3 g/dL (31.0-36.0); Mean Corpuscular Hemoglobin 31.8 pg (26.0-34.0); Monocytes # (Auto) 0.8 K/mcL (0.1-0.9); Monocytes % (Auto) 4.5 % (1.0-12.0); Platelet Count 318 K/mcL (140-440); RBC 2.85 M/mcL (4.50-5.90)
[2017-02-14] MEDS: LACTOBACILLUS 1 CAPSULE PO SCH ×2 (08:46→20:16)
[2017-02-14] MEDS: LIDOCAINE PATCH TOPICAL SCH ×2 (08:46→10:45)
[2017-02-14] MEDS: PANTOPRAZOLE 40 MG VIAL IV SCH ×2 (08:46→16:37)
[2017-02-14] MEDS: MULTIVIT,THER IRON,CA,FA & MIN 1 TABLET PO SCH (08:46)
[2017-02-14] MEDS: traMADol 50 MG TABLET PO PRN ×2 (08:46→20:18)
[2017-02-14] MEDS ORDERED: traMADol 50 MG TABLET PO PRN ×2 (09:30→09:40)
[2017-02-14] MEDS ORDERED: ALBUTEROL SULFATE 2.5 MG/3 ML NEBULIZER NEB PRN ×3 (09:30→09:40)
--- NOTE | 2017-02-14 09:35 | Internal Med Progress Note ---
Medical - PN: Subj Patient information: Note initiated : 02/14/17 at 9:29 am Service Date, if different from initiated Date: [] Patient: Edgard Bae 86 y/o M admitted on 01/31/17 for Fall/Femur Fracture, Right. Chief Complaint: [] Interval history: January 31, 2017:History of present illness: Mr. Bae is a 86 year old man who apparently fell this evening at home. ER evaluation revealed an acute right subtrochanteric hip fracture with slight displacement of the lesser trochanter, as well as a previous right total hip arthroplasty. The patient has moderate dementia, and cannot recall how or why he fell. When I saw him late in the evening, his family was not available. Otherwise, he does not think that he has been ill lately. He denies being aware fever or chills, headaches or dizziness, new or ear symptoms, chest pain or palpitations, shortness of breath or wheezing or cough, abdominal pain, nausea or vomiting, diarrhea or constipation, or dysuria. February 01: This morning, the patient was having a bit more pain, and was given IV Dilaudid. About an hour later I was called to see him urgently, as the nurse found him somewhat obtunded and twitching all over. Extremities were cyanotic, and the patient had decreased mental status. O2 saturation at the time was reading about 70% but we were not sure the oximeter was accurate. Follow-up blood gas did confirm that the patient was hypoxic, with a PO2 of 40, and a PCO2 of 53. As we talked with him and did test on him, he did become a bit more arousable. The twitching was a little hard to figure out, and I thought perhaps he was having an allergic reaction to the Dilaudid, so Benadryl was given. He was also given topical nitroglycerin, IV Lasix, and albuterol nebulizer treatment, and oxygen, while we were working him up. He was then transferred over to telemetry for closer monitoring. EKG did not show acute changes. D-dimer is elevated, but this would be expected in the setting of his hip fracture. Troponin is normal. BNP is a bit elevated at 500. Currently, the patient is still quite sleepy. His color is much improved. He is now maintaining oxygen saturations in the mid 90s on 2 L O2 via mask. He reports no fevers or chills, cough, chest pain or palpitations, and denied feeling especially short of breath. He denied abdominal pain, nausea or vomiting, diarrhea. Chester catheter remains in place. He continues to have significant right hip pain with any movement of the right leg. February 02: Today, the patient reports he is feeling better. He still notes pain in the right hip if he moves, but is otherwise comfortable. He denies fever or chills, headaches or dizziness, chest pain or palpitations, shortness of breath or wheezing, abdominal pain, nausea or vomiting, diarrhea or constipation. Chester catheter remains in place. Vital signs overnight, with O2 saturations ranging from 94-98% on 1-2 L O2. He did spike a temperature of 101.7 last evening. February 03: This morning, after being given morphine for pain, the patient vomited and appeared to aspirate vomitus into his lungs. He was suctioned by respiratory therapy, and oxygen mask applied. Later in the morning his O2 saturations continued to decline, and I requested that respiratory therapy start him on BiPAP. Not long after that, the patient vomited again, in spite of being n.p.o. , into the facemask. The vomit consisted mainly of bilious appearing fluid. We then placed an NG tube, and high flow oxygen via mask. The patient has been less alert today, but does wake up enough to tell me that he is not having any pain. He does feel like his breathing is a bit labored. Otherwise he does not report subjective fever or chills, chest pain or palpitations, abdominal pain, diarrhea or constipation. His hip pain is relatively well controlled at this time. February 04: Patient seen examined, no acute overnight events, patient was asleep much of my eval, but did open eyes slightly to verbal stimuli and did obey commands like grasp hand. The patient wbc count trended up slightly, his tele showed some SVT His NG tube suction shows dark coloured secretions, h/h has remained stable, IV PPI added. NO more vomiting now. Pt remains on bipap to maintain his oxygen saturations, Fio2 40 % in AM, 10/5 settings. He remains on antibiotics. cxr today shows improved perihilar infiltrates. February 05: The patient has continued to struggle. He did receive some morphine overnight, and remains quite somnolent today. The nursing staff feels that Tylenol is actually helping his pain more than morphine. NG output is declining, but continues rather dark in color, although tending towards dark green rather than reddish. The patient really does not arouse enough today to give me a history, although when asked if he is in pain he seems to indicate no. He continues to require BiPAP to maintain oxygen saturations. Because of ongoing hypoxia yesterday, he did undergo CT angiogram, which does show a small PE, in addition to bilateral infiltrates. He is now on Lovenox, therapeutic dose. He has not really had any nutrition since admission, so today we are evaluating for PPN versus TPN. I am reluctant to give him tube feedings at this point, since he has vomited and aspirated twice so far. We will give him more time to decrease his NG output. February 06: Today, the patient remains fairly somnolent, although nurses note they did get him to sit up on the side of the bed. He did open his eyes long enough to look outside, and also seems to recognize his today. They were not certain that he recognized his other family members. For the most part he remains asleep. He is quite difficult to arouse, and does not answer questions for me this morning. Nurses feel that his respiratory status has been fairly stable overnight. He has some audible wheezing when he is taken off BiPAP, but does very well while on it and seems to tolerate it. He is unable to give a review of systems at this time. Chest x-ray from this morning actually looks a bit better. Hemoglobin and hematocrit have fallen further however. Patient continues to have gross hematuria as well, likely due to being on therapeutic dose Lovenox. Nurses note he has not had a bowel movement in several days. He was given a suppository yesterday, but did not have much of a response. He has not had any oral intake though for several days. He was started on PPN yesterday, after a PICC line was placed. February 07: The patient did seem to have some increasing hip pain last night, some morphine was resumed at low doses. This morning he was given another dose of morphine so that he could work with physical therapy, but he was essentially too weak to stand up. He remains fairly somnolent, and only speaks occasionally. He is too sleepy to talk to me when I entered the room this morning, so could not answer a review of systems. Nurses note he still has not had a bowel movement, although he does have some bowel sounds. Oxygenation is improving, and he is currently tolerating low flow oxygen via nasal cannula. Nurses note that he seems to be fine when asleep, but he when he wakes up he starts to have a lot of upper airway noise. Nursing staff also talked with the patient's son, who said he has been declining for the last 2 months. The son noted he had been complaining of hip pain for over a month, and had become quite a bit more sedentary at home. February 08: Patient seen examined, a bit more awake today, opened eyes to verbal stimulus, and obeyed commands, but overall his mental status is still pretty obtunded. The patient did not respond well enough to provide ROS or any history. He remains on NG tube suction. CT head was done today which was reported neg. He has not had a BM in 6 days, X ray abdomen shows some stool in the hepatic flexure. Lactulose given via NG tube The reason for his obtunded state is bit unknown. likely opiates and infection. He remains on anabiotics, Ammonia level is negative. February 09: The patient is a little more awake today than yesterday. He is able to sit up on the side of the bed with physical therapy, but is clearly too weak to stand. The source of his continued lethargic mental status has not been clear. He did have a head CT yesterday, which did not show any obvious reason. His son reports that he has been declining in alertness and functional abilities for at least a couple of months. He still has his NG tube in place, to give oral meds, as it is not clear that he is safe to swallow at this time. He is just been quite lethargic. He still occasionally receives morphine for uncontrolled pain, although mostly pain is managed with Tylenol and Toradol. Lungs remain fairly clear. He is oxygenating well currently just with oxygen via nasal cannula. -He continues to receive PPN via his PICC line. -His eyes are open when I entered the room, but he can barely say the word yes when asked him questions. Otherwise he really is not able to participate in a review of systems. February 10: We have been attempting to minimize how much morphine the patient gets. Yesterday speech therapy worked with him, and felt that he could tolerate a dysphagia diet. G-tube was removed. This morning, he is sitting up on the side of the bed, after being propped up, and is eating. Staff says so far he seems to be swallowing pretty well. He coughs after some bites, does not appear to be aspirating. The patient continues very weak, but he is much more awake and alert this morning. He denies any significant pain. He denies fever chills, chest pain, abdominal pain, nausea or vomiting or diarrhea. He has not had a bowel movement in over a week. Although he reportedly is passing some flatus. He does note that his breathing is a little labored. His cough continues to be quite weak, but he does a better job with strong encouragement. He did bump his white blood cell count today, but I am hopeful that that is just from yesterday's steroid dose. He does continue to be a little far ahead on his intake versus output. February 11: -The patient has made good progress over the last 24 hours. He is now fully awake and alert, although he really does not say much. He has been able to eat and swallow safely, although again not enough to get in the required calories. He continues to get fidgety at times, but is unable to express what is wrong. We suspect that he is having pain. -He still has not had a bowel movement, although there were some smears of stool today. -Nurses note his cough is much stronger, and is now producing a cooney colored phlegm. He seems to be clearing his throat much better than before. -When he is asked about pain, he says no, but he does not really seem to answer much in the way of other questions. He seems to deny chest pain or trouble breathing or abdominal discomfort, but being able to understand what he says and knowing whether or not that is reliable is a challenge. -He continues to make a wheezing noise with his throat whenever he is he awake or anxious. This sounds almost like stridor, but on auscultation it is definitely an expiratory noise in his neck area. It disappears when he goes to sleep. February 12: Today, the patient is a little more confused. Last night he ended up pulling out his PICC line, so he was moved back to the ICU for closer monitoring. TPN was discontinued. He has been tolerating an oral dysphagia diet. The dietitian is working with speech therapy, to try to be sure he gets in enough calories, safely, orally. His is in the room with him this morning. She is not sure that he recognizes her today. When I ask him who she is, he cannot tell me. He does indicate that he is not having any pain right now, and seems to deny chest pain or trouble breathing, abdominal pain, but he seems fairly confused, so history is not likely to be reliable. His Zosyn was stopped, and so far chest x-ray has not shown recurrent aspiration pneumonia. White blood cell count continues to drift downward. Next line nurses continue to be concerned that he is having pain, as he is often restless. Morphine does not seem to help a great deal with the pain, and does certainly make him more sedated. February 13: More alert today but still uncomfortable. Yesterday when getting up to chair, he required a 3 person max assist and he had significant pain. He is still having pain and is alert after receiving 1 mg of morphine. His white count is rising today. Will try scheduled Tylenol 1 g 4 times a day and tramadol every 6 hours as needed. His bowels are moving. He ate 100% of breakfast. February 14: His son, Navneet, is at the bedside. He states his father looks the best he has thus far this hospitalization. Pain was under better control yesterday but he appears uncomfortable this morning. He has had no ectopy on telemetry. His white count continues to be elevated at 16. He has thrush on exam today. He is still wheezing but looks dry on his labs and by exam. Lasix was changed to every other day. She has had no fevers, but given his persistent leukocytosis will evaluate urine and blood cultures. Pertinent ROS: No fever or chest pain - Constitutional Vitals: Vital Signs Temp Pulse Resp BP Pulse Ox 98.4 F 92 H 20 129/61 90 02/14/17 07:35 02/14/17 04:00 02/14/17 07:35 02/14/17 07:35 02/14/17 07:35 Period Temp Pulse Resp BP Sys/[place] Pulse Ox Last 24 Hr 97.0 F-98.8 F 90-92 18-24 99-133/60-88 90-93 Intake and Output 02/13/17 02/14/17 02/14/17 21:59 05:59 13:59 Intake Total 360 / 360 Output Total 850 / 850 850 / 850 Balance -490 / -490 -850 / -850 Weight 174 lb 14.4 oz Intake & Output: Intake & Output 02/13/17 02/14/17 02/14/17 21:59 05:59 13:59 Intake Total 360 / 360 Output Total 850 / 850 850 / 850 Balance -490 / -490 -850 / -850 Weight 174 lb 14.4 oz Intake: Oral 360 / 360 Output: Urine Catheter Amount 850 / 850 850 / 850 Other: Meal Dinner Percent of Meal Consumed 75% Feeding Ability Total Assistance # Bowel Movements 1 # of times incontinent of 1 Bowels General: NAD, frail. Alert and conversant. Neck: Supple with no JVD CV: Regular rate and rhythm. Respiratory: B wheezing Abdomen: Soft, nondistended, nontender. Positive bowel tones. : Chester with clear urine Extremities: No clubbing, cyanosis or edema. Neuro: He is alert. He is oriented to [place]; thinks it is winter. He states the years 1986. He recognizes his son at bedside. No focal motor or sensory deficits. Medical - PN: Obj Da - Labs CBC & Chem 7: 02/14/17 04:21 02/13/17 03:52 Labs: Abnormal Lab Results 02/14/17 02/14/17 02/13/17 04:21 04:21 03:52 WBC 16.7 H 16.3 H RBC 2.85 L 2.75 L Hgb 9.1 L 8.5 L Hct 26.5 L 25.0 L RDW 17.0 H 16.7 H Gran % 89.9 H 86.1 H Lymph % (Auto) 4.1 L 6.6 L Gran # 15.0 H 14.0 H Lymph # (Auto) 0.7 L 1.1 L PT 16.1 H INR 1.3 H BUN Glucose Calcium Total Bilirubin Direct Bilirubin Lactate Dehydrogenase Total Protein Albumin 02/13/17 02/12/17 02/12/17 03:52 04:05 04:05 WBC 15.3 H RBC 2.39 L Hgb 7.6 L Hct 21.8 L RDW 16.9 H Gran % 86.4 H Lymph % (Auto) 6.7 L Gran # 13.2 H Lymph # (Auto) 1.0 L PT INR BUN 36 H 28 H Glucose 116 H Calcium 8.3 L 7.3 L Total Bilirubin 1.5 H Direct Bilirubin 0.4 H Lactate Dehydrogenase 296 H Total Protein 5.1 L Albumin 2.7 L Meds: Medications Acetaminophen (Tylenol) 1,000 mg PO Q6 [facility] Last Admin: 02/14/17 08:46 Dose: 1,000 mg Albuterol Sulfate (Ventolin) 2.5 mg NEB Q4HP PRN PRN Reason: Shortness Of Breath Last Admin: 02/13/17 02:13 Dose: 2.5 mg Bisacodyl (Dulcolax) 10 mg UT Q2-3DAYS PRN PRN Reason: Constipation Last Admin: 02/11/17 17:09 Dose: 10 mg Dextrose (Dextrose 50%) 50 ml IV UD PRN PRN Reason: Hypoglycemia Diagnostic Test (Pha) (Accu-Chek) 1 each FS Q6 [facility] Last Admin: 02/14/17 05:49 Dose: 1 each Docusate Sodium (Colace) 100 mg PT BIDP PRN PRN Reason: Constipation Last Admin: 02/12/17 08:54 Dose: 100 mg Enoxaparin Sodium (Lovenox) 120 mg SQ DAILY@1500 MYKEL Last Admin: 02/13/17 15:50 Dose: 120 mg Furosemide (Lasix) 20 mg PO Q48 [facility] Acetaminophen (Ofirmev) 650 mg in 65 mls @ 130 mls/hr IV Q6HP PRN PRN Reason: PAIN/FEVER > 101 Last Infusion: 02/11/17 11:20 Dose: Infused Insulin Human Lispro (Humalog) 0 unit SQ Q6 MYKEL PRN Reason: Protocol Last Admin: 02/14/17 05:50 Dose: Not Given Iron Carb/Multivit/[place]/Folic Acid (Multivitamin W/Minerals) 1 tab PO DAILY [facility] Last Admin: 02/14/17 08:46 Dose: 1 tab Lactobacillus Rhamnosus (Culturelle) 1 cap PO BID [facility] Last Admin: 02/14/17 08:46 Dose: 1 cap Lidocaine (Lidoderm) 1 patch TOPICAL DAILY@1000 MYKEL Last Admin: 02/14/17 08:46 Dose: 1 patch Magnesium Hydroxide (Milk Of Magnesia) 30 ml PO DAILYP PRN PRN Reason: Constipation Last Admin: 02/12/17 08:52 Dose: 30 ml Metoclopramide HCl (Reglan) 5 mg IV Q6HP PRN PRN Reason: Nausea And Vomiting Last Admin: 02/08/17 07:38 Dose: 5 mg Metoprolol Tartrate (Lopressor) 5 mg IV Q4HP PRN PRN Reason: Tachyarrhythmias Morphine Sulfate (Morphine) 1 mg IV Q4HP PRN PRN Reason: Pain Last Admin: 02/14/17 08:39 Dose: 1 mg Naloxone HCl (Narcan) 0.1 mg IV Q2MIN PRN PRN Reason: Opiate Reversal Ondansetron HCl (Zofran) 4 mg IV Q6HP PRN PRN Reason: Nausea And Vomiting Last Admin: 02/03/17 16:03 Dose: 4 mg Pantoprazole Sodium (Protonix) 40 mg IV BIDAC [facility] Last Admin: 02/14/17 08:46 Dose: 40 mg Sodium Chloride (Saline Flush) 10 ml IV Q8 [facility] Last Admin: 02/14/17 05:50 Dose: 10 ml Tramadol HCl (Ultram) 50 mg PO Q4-6HP PRN PRN Reason: Pain Last Admin: 02/14/17 08:46 Dose: 50 mg Warfarin Sodium (Coumadin Per Pharmacy) 1 order PO UD [facility] Warfarin Sodium (Coumadin) 5 mg PO ONCE@1400 ONE Stop: 02/14/17 14:01 Medical - PN: A/P - Time Spent With Patient Total time spent is greater than 50% in coordination of care (as documented) at patient's floor/unit and/or counseling patient: Greater than 35 minutes - Narrative A/P Narrative: #Pulmonary. a) s/p aspiration pneumonia likely related to sedation related to pain meds. He completed 10-day course of Zosyn on 02/11. s/p bipap. Now on RA b) Pulmonary embolism. Continue therapeutic dose Lovenox. Start warfarin, pharmacy to dose. Will need anticoagulation for at least 90 days. c) pulmonary edema seen on CXR 02/12. Has had multiple episodes of volume overload this admission. Changed Lasix to Q48H given uremia on labs; to start . Monitor vol status closely as he has LVH and suspected diastolic dysfunction , EF 65-70% on echo this admission. Avoid hypovolemia and tachycardia. d) bronchospasm: Will add scheduled Duonebs in addition to PRN albuterol #Cardiac a) episodes of SVT related to hypoK and hypoMg. Now resolved. Transfer off tele today. PRN metoprolol ordered. b)see pulm edema assessment # Orthopedic. a) R periprosthetic hip fx. s/p BING revision 02/02/[address] Bourne. Pain control an issue with somnolence previously attributed to opiates. Cont schedule Tylenol 1g QID and increase tramadol to 100mg q6H PRN. Cont morphine 1 g q 4PRN. Trial of lidocaine patch. DC'd ibuprofen to prevent bleeding complications while on anticoagulation. - He is quite weak, and will require extensive rehab. # Infectious disease. a)leukocytosis persists. No clear e/o infection. BC and UA today. b) thrush: Nystatin SSW started 02/14 # Neurologic. a) acute delirium 2/2 illness with underlying dementia. Supportive measures. Pain mmgt plan as above. CT head negative. # GI a)heme +NGT drainage, likely gastritis. Cont PPI. H/H stable. b)constipation--cont bowel regimen. #Severe protein calorie malnutrition -pulled NGT and PICC. Was previously on TPN. -tolerating dysphagia diet and eating well. Dietitian following. # Renal/ a) electrolyte derangements resolved b) hematuria-no e/o infection. Bleeding resolved. If UA negative, will DC Chester. # Hematologic a) anemia, likely acute blood loss and some dilution. He has inflammatory block as well by iron studies--monitor. Transfuse if Hgb less than 7.0. Monitor for any signs of bleeding. RBC folate normal. f/u MMA #DVT prophylaxis: lovenox sq # CODE STATUS: DNR CODE STATUS. is POA. #ADOD: Possibly to SNF on Wednesday depending on cx results. Medical - PN: Qual - VTE Deep Vein Thrombosis/Pulmonary Embolism Present on Admission: No
[2017-02-14 09:37] LABS: Appearance,Urine HAZY; Bacteria,Urine 0 /hpf (0); Bilirubin,Urine NEG (NEG); Color,Urine YELLOW; Glucose,Urine (UA) NEGATIVE (NEG); Leukocyte Esterase,Urine 25 /uL (NEG); Mucus,Urine MANY /hpf (0); Nitrate,Urine NEG (NEG); Protein,Urine 100 mg/dL (NEG); Specific Gravity,Urine 1.018 (1.000-1.035); Urine Blood >=1.0 mg/dL (<0.03); Urine RBC > 182 /hpf (0-1); Urine Squamous Epithelial Cell 1 /hpf (0-4); Urine WBC 20 /hpf (0-4)
[2017-02-14] MEDS ORDERED: MAGNESIUM HYDROXIDE 30 ML ORAL.SUSP PO PRN (09:40)
[2017-02-14] MEDS ORDERED: ONDANSETRON 4 MG/2 ML VIAL IV PRN (09:40)
[2017-02-14] MEDS ORDERED: ACETAMINOPHEN 650 MG/65 ML BOTTLE IV PRN (09:40)
[2017-02-14] MEDS ORDERED: DEXTROSE 50% 50 ML VIAL IV PRN (09:40)
[2017-02-14] MEDS ORDERED: NALOXONE HCL 0.4 MG/ML VIAL IV PRN (09:40)
[2017-02-14] MEDS ORDERED: BISACODYL 10 MG SUPP.RECT PR PRN (09:40)
[2017-02-14] MEDS ORDERED: DOCUSATE SODIUM 50 MG/5 ML ORAL.SOL PT PRN (09:40)
[2017-02-14] MEDS ORDERED: METOCLOPRAMIDE 10 MG/2 ML VIAL IV PRN (09:40)
[2017-02-14] MEDS ORDERED: METOPROLOL TARTRATE 5 MG/5 ML VIAL IV PRN (09:40)
[2017-02-14] MEDS: IPRATROPIUM/ALBUTEROL 3 ML AMPUL.NEB NEB SCH ×4 (11:21→23:24)
[2017-02-14] MEDS ORDERED: NYSTATIN 500,000 UNITS/5 ML ORAL.SUSP SSW SCH (13:00)
[2017-02-14] MEDS ORDERED: WARFARIN 5 MG TABLET PO ONE ×2 (14:00)
[2017-02-14] MEDS: NYSTATIN 500,000 UNITS/5 ML ORAL.SUSP SSW SCH ×3 (14:13→20:16)
[2017-02-14] MEDS: ENOXAPARIN 120 MG/0.8 ML SYRINGE SQ SCH (14:13)
[2017-02-15] MEDS: 0.9 % SODIUM CHLORIDE 10 ML SYRINGE IV SCH ×3 (05:09→20:50)
[2017-02-15] MEDS: ACETAMINOPHEN 500 MG TABLET PO SCH ×4 (05:09→23:40)
[2017-02-15 05:35] LABS: Basophils # (Auto) 0 K/mcL (0.0-0.3); Basophils % (Auto) 0.1 % (0.0-2.0); Eosinophils # (Auto) 0.2 K/mcL (0.0-0.7); Eosinophils % (Auto) 1.5 % (0.0-7.0); Granulocytes % (Auto) 84.5 % (38.0-78.0); Lymphocytes # (Auto) 0.9 K/mcL (1.5-4.8); Lymphocytes % (Auto) 8.4 % (15.5-49.0); Mean Corpuscular Hemoglobin 31.2 pg (26.0-34.0); Monocytes # (Auto) 0.6 K/mcL (0.1-0.9); Monocytes % (Auto) 5.5 % (1.0-12.0); Platelet Count 313 K/mcL (140-440); RBC 2.82 M/mcL (4.50-5.90); Red Cell Distribution Width 16.9 % (11.5-14.5)
[2017-02-15 05:58] LABS: ALT/SGPT 24 U/l (0-40); Albumin 3.1 gm/dL (3.2-5.2); Albumin/Globulin Ratio 1.1 (1.0-2.3); Alkaline Phosphatase 79 U/L (39-117); Blood Urea Nitrogen 31 mg/dl (8-23)
[2017-02-15] MEDS: IPRATROPIUM/ALBUTEROL 3 ML AMPUL.NEB NEB SCH ×5 (07:10→23:03)
[2017-02-15] MEDS: traMADol 50 MG TABLET PO PRN ×3 (07:52→20:49)
[2017-02-15] MEDS: PANTOPRAZOLE 40 MG VIAL IV SCH ×2 (07:54→17:49)
[2017-02-15] MEDS: NYSTATIN 500,000 UNITS/5 ML ORAL.SUSP SSW SCH ×4 (10:26→20:49)
[2017-02-15] MEDS: MULTIVIT,THER IRON,CA,FA & MIN 1 TABLET PO SCH (10:26)
[2017-02-15] MEDS: LACTOBACILLUS 1 CAPSULE PO SCH ×2 (10:27→20:49)
[2017-02-15] MEDS: LIDOCAINE PATCH TOPICAL SCH (10:27)
--- NOTE | 2017-02-15 11:32 | Internal Med Progress Note ---
Medical - PN: Subj Patient information: Note initiated : 02/15/17 at 11:29 am Service Date, if different from initiated Date: [] Patient: Edgard Bae 86 y/o M admitted on 01/31/17 for Fall/Femur Fracture, Right. Chief Complaint: [] Interval history: January 31, 2017:History of present illness: Mr. Bae is a 86 year old man who apparently fell this evening at home. ER evaluation revealed an acute right subtrochanteric hip fracture with slight displacement of the lesser trochanter, as well as a previous right total hip arthroplasty. The patient has moderate dementia, and cannot recall how or why he fell. When I saw him late in the evening, his family was not available. Otherwise, he does not think that he has been ill lately. He denies being aware fever or chills, headaches or dizziness, new or ear symptoms, chest pain or palpitations, shortness of breath or wheezing or cough, abdominal pain, nausea or vomiting, diarrhea or constipation, or dysuria. February 01: This morning, the patient was having a bit more pain, and was given IV Dilaudid. About an hour later I was called to see him urgently, as the nurse found him somewhat obtunded and twitching all over. Extremities were cyanotic, and the patient had decreased mental status. O2 saturation at the time was reading about 70% but we were not sure the oximeter was accurate. Follow-up blood gas did confirm that the patient was hypoxic, with a PO2 of 40, and a PCO2 of 53. As we talked with him and did test on him, he did become a bit more arousable. The twitching was a little hard to figure out, and I thought perhaps he was having an allergic reaction to the Dilaudid, so Benadryl was given. He was also given topical nitroglycerin, IV Lasix, and albuterol nebulizer treatment, and oxygen, while we were working him up. He was then transferred over to telemetry for closer monitoring. EKG did not show acute changes. D-dimer is elevated, but this would be expected in the setting of his hip fracture. Troponin is normal. BNP is a bit elevated at 500. Currently, the patient is still quite sleepy. His color is much improved. He is now maintaining oxygen saturations in the mid 90s on 2 L O2 via mask. He reports no fevers or chills, cough, chest pain or palpitations, and denied feeling especially short of breath. He denied abdominal pain, nausea or vomiting, diarrhea. Chester catheter remains in place. He continues to have significant right hip pain with any movement of the right leg. February 02: Today, the patient reports he is feeling better. He still notes pain in the right hip if he moves, but is otherwise comfortable. He denies fever or chills, headaches or dizziness, chest pain or palpitations, shortness of breath or wheezing, abdominal pain, nausea or vomiting, diarrhea or constipation. Chester catheter remains in place. Vital signs overnight, with O2 saturations ranging from 94-98% on 1-2 L O2. He did spike a temperature of 101.7 last evening. February 03: This morning, after being given morphine for pain, the patient vomited and appeared to aspirate vomitus into his lungs. He was suctioned by respiratory therapy, and oxygen mask applied. Later in the morning his O2 saturations continued to decline, and I requested that respiratory therapy start him on BiPAP. Not long after that, the patient vomited again, in spite of being n.p.o. , into the facemask. The vomit consisted mainly of bilious appearing fluid. We then placed an NG tube, and high flow oxygen via mask. The patient has been less alert today, but does wake up enough to tell me that he is not having any pain. He does feel like his breathing is a bit labored. Otherwise he does not report subjective fever or chills, chest pain or palpitations, abdominal pain, diarrhea or constipation. His hip pain is relatively well controlled at this time. February 04: Patient seen examined, no acute overnight events, patient was asleep much of my eval, but did open eyes slightly to verbal stimuli and did obey commands like grasp hand. The patient wbc count trended up slightly, his tele showed some SVT His NG tube suction shows dark coloured secretions, h/h has remained stable, IV PPI added. NO more vomiting now. Pt remains on bipap to maintain his oxygen saturations, Fio2 40 % in AM, 10/5 settings. He remains on antibiotics. cxr today shows improved perihilar infiltrates. February 05: The patient has continued to struggle. He did receive some morphine overnight, and remains quite somnolent today. The nursing staff feels that Tylenol is actually helping his pain more than morphine. NG output is declining, but continues rather dark in color, although tending towards dark green rather than reddish. The patient really does not arouse enough today to give me a history, although when asked if he is in pain he seems to indicate no. He continues to require BiPAP to maintain oxygen saturations. Because of ongoing hypoxia yesterday, he did undergo CT angiogram, which does show a small PE, in addition to bilateral infiltrates. He is now on Lovenox, therapeutic dose. He has not really had any nutrition since admission, so today we are evaluating for PPN versus TPN. I am reluctant to give him tube feedings at this point, since he has vomited and aspirated twice so far. We will give him more time to decrease his NG output. February 06: Today, the patient remains fairly somnolent, although nurses note they did get him to sit up on the side of the bed. He did open his eyes long enough to look outside, and also seems to recognize his today. They were not certain that he recognized his other family members. For the most part he remains asleep. He is quite difficult to arouse, and does not answer questions for me this morning. Nurses feel that his respiratory status has been fairly stable overnight. He has some audible wheezing when he is taken off BiPAP, but does very well while on it and seems to tolerate it. He is unable to give a review of systems at this time. Chest x-ray from this morning actually looks a bit better. Hemoglobin and hematocrit have fallen further however. Patient continues to have gross hematuria as well, likely due to being on therapeutic dose Lovenox. Nurses note he has not had a bowel movement in several days. He was given a suppository yesterday, but did not have much of a response. He has not had any oral intake though for several days. He was started on PPN yesterday, after a PICC line was placed. February 07: The patient did seem to have some increasing hip pain last night, some morphine was resumed at low doses. This morning he was given another dose of morphine so that he could work with physical therapy, but he was essentially too weak to stand up. He remains fairly somnolent, and only speaks occasionally. He is too sleepy to talk to me when I entered the room this morning, so could not answer a review of systems. Nurses note he still has not had a bowel movement, although he does have some bowel sounds. Oxygenation is improving, and he is currently tolerating low flow oxygen via nasal cannula. Nurses note that he seems to be fine when asleep, but he when he wakes up he starts to have a lot of upper airway noise. Nursing staff also talked with the patient's son, who said he has been declining for the last 2 months. The son noted he had been complaining of hip pain for over a month, and had become quite a bit more sedentary at home. February 08: Patient seen examined, a bit more awake today, opened eyes to verbal stimulus, and obeyed commands, but overall his mental status is still pretty obtunded. The patient did not respond well enough to provide ROS or any history. He remains on NG tube suction. CT head was done today which was reported neg. He has not had a BM in 6 days, X ray abdomen shows some stool in the hepatic flexure. Lactulose given via NG tube The reason for his obtunded state is bit unknown. likely opiates and infection. He remains on anabiotics, Ammonia level is negative. February 09: The patient is a little more awake today than yesterday. He is able to sit up on the side of the bed with physical therapy, but is clearly too weak to stand. The source of his continued lethargic mental status has not been clear. He did have a head CT yesterday, which did not show any obvious reason. His son reports that he has been declining in alertness and functional abilities for at least a couple of months. He still has his NG tube in place, to give oral meds, as it is not clear that he is safe to swallow at this time. He is just been quite lethargic. He still occasionally receives morphine for uncontrolled pain, although mostly pain is managed with Tylenol and Toradol. Lungs remain fairly clear. He is oxygenating well currently just with oxygen via nasal cannula. -He continues to receive PPN via his PICC line. -His eyes are open when I entered the room, but he can barely say the word yes when asked him questions. Otherwise he really is not able to participate in a review of systems. February 10: We have been attempting to minimize how much morphine the patient gets. Yesterday speech therapy worked with him, and felt that he could tolerate a dysphagia diet. G-tube was removed. This morning, he is sitting up on the side of the bed, after being propped up, and is eating. Staff says so far he seems to be swallowing pretty well. He coughs after some bites, does not appear to be aspirating. The patient continues very weak, but he is much more awake and alert this morning. He denies any significant pain. He denies fever chills, chest pain, abdominal pain, nausea or vomiting or diarrhea. He has not had a bowel movement in over a week. Although he reportedly is passing some flatus. He does note that his breathing is a little labored. His cough continues to be quite weak, but he does a better job with strong encouragement. He did bump his white blood cell count today, but I am hopeful that that is just from yesterday's steroid dose. He does continue to be a little far ahead on his intake versus output. February 11: -The patient has made good progress over the last 24 hours. He is now fully awake and alert, although he really does not say much. He has been able to eat and swallow safely, although again not enough to get in the required calories. He continues to get fidgety at times, but is unable to express what is wrong. We suspect that he is having pain. -He still has not had a bowel movement, although there were some smears of stool today. -Nurses note his cough is much stronger, and is now producing a cooney colored phlegm. He seems to be clearing his throat much better than before. -When he is asked about pain, he says no, but he does not really seem to answer much in the way of other questions. He seems to deny chest pain or trouble breathing or abdominal discomfort, but being able to understand what he says and knowing whether or not that is reliable is a challenge. -He continues to make a wheezing noise with his throat whenever he is he awake or anxious. This sounds almost like stridor, but on auscultation it is definitely an expiratory noise in his neck area. It disappears when he goes to sleep. February 12: Today, the patient is a little more confused. Last night he ended up pulling out his PICC line, so he was moved back to the ICU for closer monitoring. TPN was discontinued. He has been tolerating an oral dysphagia diet. The dietitian is working with speech therapy, to try to be sure he gets in enough calories, safely, orally. His is in the room with him this morning. She is not sure that he recognizes her today. When I ask him who she is, he cannot tell me. He does indicate that he is not having any pain right now, and seems to deny chest pain or trouble breathing, abdominal pain, but he seems fairly confused, so history is not likely to be reliable. His Zosyn was stopped, and so far chest x-ray has not shown recurrent aspiration pneumonia. White blood cell count continues to drift downward. Next line nurses continue to be concerned that he is having pain, as he is often restless. Morphine does not seem to help a great deal with the pain, and does certainly make him more sedated. February 13: More alert today but still uncomfortable. Yesterday when getting up to chair, he required a 3 person max assist and he had significant pain. He is still having pain and is alert after receiving 1 mg of morphine. His white count is rising today. Will try scheduled Tylenol 1 g 4 times a day and tramadol every 6 hours as needed. His bowels are moving. He ate 100% of breakfast. February 14: His son, Navneet, is at the bedside. He states his father looks the best he has thus far this hospitalization. Pain was under better control yesterday but he appears uncomfortable this morning. He has had no ectopy on telemetry. His white count continues to be elevated at 16. He has thrush on exam today. He is still wheezing but looks dry on his labs and by exam. Lasix was changed to every other day. She has had no fevers, but given his persistent leukocytosis will evaluate urine and blood cultures. February 15: He was confused overnight and somewhat restless, but looks great this morning. His leukocytosis has resolved without additional antibiotics. His UA had microscopic hematuria yesterday and a little pyuria; urine culture yesterday shows no growth to date. His pain is under better control and he was able to mobilize with physical therapy today. He is having some urinary retention after removal of the Chester and we are trying straight cath. Pertinent ROS: no sob or cp - Constitutional Vitals: Vital Signs Temp Pulse Resp BP Pulse Ox 98 F 80 16 130/80 97 02/15/17 08:00 02/15/17 11:05 02/15/17 11:05 02/15/17 08:00 02/15/17 11:07 Period Temp Pulse Resp BP Sys/Hutson Pulse Ox Last 24 Hr 97.8 F-98.5 F 52-96 16-20 102-136/65-80 92-98 Intake and Output 02/14/17 02/15/17 02/15/17 21:59 05:59 13:59 Intake Total 40 / 40 120 / 120 Output Total 952 / 952 1 / 1 500 / 500 Balance -912 / -912 119 / 119 -500 / -500 Weight 174 lb Intake & Output: Intake & Output 02/14/17 02/15/17 02/15/17 21:59 05:59 13:59 Intake Total 40 / 40 120 / 120 Output Total 952 / 952 1 / 1 500 / 500 Balance -912 / -912 119 / 119 -500 / -500 Weight 174 lb Intake: Oral 40 / 40 120 / 120 Output: Urine Catheter Amount 950 / 950 500 / 500 # of times incontinent of urine Urine/Stool Mix Other: Meal Breakfast Percent of Meal Consumed Refused Feeding Ability Total Assistance # Voids 1 # of times incontinent of 1 Bowels Exam: General: No acute distress. Alert. Smiling. CV: Regular rate and rhythm. Pulmonary: CTAB. No wheezing today. Abdomen: Soft, nondistended, nontender. Positive bowel tones. Extremities: No clubbing, cyanosis or edema. Neuro: Alert. He is oriented to [place] and [place]fall season" although he cannot come in a month. He is able to choose the correct year when given multiple choices. No focal motor deficits Medical - PN: Obj Da - Labs CBC & Chem 7: 02/15/17 04:20 02/15/17 04:20 Labs: Abnormal Lab Results 02/15/17 02/15/17 02/15/17 04:20 04:20 04:20 WBC RBC 2.82 L Hgb 8.8 L Hct 26.0 L RDW 16.9 H Gran % 84.5 H Lymph % (Auto) 8.4 L Gran # 9.2 H Lymph # (Auto) 0.9 L PT 17.4 H INR 1.4 H BUN 31 H Glucose 124 H Calcium 8.3 L Total Bilirubin 1.2 H Direct Bilirubin Lactate Dehydrogenase Albumin 3.1 L Urine Protein Urine Occult Blood Urine Urobilinogen Ur Leukocyte Esterase Urine RBC Urine WBC Urine Mucus 02/14/17 02/14/17 02/14/17 08:38 04:21 04:21 WBC 16.7 H RBC 2.85 L Hgb 9.1 L Hct 26.5 L RDW 17.0 H Gran % 89.9 H Lymph % (Auto) 4.1 L Gran # 15.0 H Lymph # (Auto) 0.7 L PT 16.1 H INR 1.3 H BUN Glucose Calcium Total Bilirubin Direct Bilirubin Lactate Dehydrogenase Albumin Urine Protein 100 A Urine Occult Blood >=1.0 A Urine Urobilinogen 4.0 A Ur Leukocyte Esterase 25 A Urine RBC > 182 H Urine WBC 20 H Urine Mucus Many A 02/13/17 02/13/17 03:52 03:52 WBC 16.3 H RBC 2.75 L Hgb 8.5 L Hct 25.0 L RDW 16.7 H Gran % 86.1 H Lymph % (Auto) 6.6 L Gran # 14.0 H Lymph # (Auto) 1.1 L PT INR BUN 36 H Glucose 116 H Calcium 8.3 L Total Bilirubin 1.5 H Direct Bilirubin 0.4 H Lactate Dehydrogenase 296 H Albumin Urine Protein Urine Occult Blood Urine Urobilinogen Ur Leukocyte Esterase Urine RBC Urine WBC Urine Mucus Meds: Medications Acetaminophen (Tylenol) 1,000 mg PO Q6 [facility] Last Admin: 02/15/17 05:09 Dose: 1,000 mg Albuterol Sulfate (Ventolin) 2.5 mg NEB Q2HP PRN PRN Reason: Shortness Of Breath Albuterol/Ipratropium (Duoneb) 3 ml NEB [id number] [facility] Last Admin: 02/15/17 10:54 Dose: 3 ml Bisacodyl (Dulcolax) 10 mg NJ Q2-3DAYS PRN PRN Reason: Constipation Dextrose (Dextrose 50%) 50 ml IV UD PRN PRN Reason: Hypoglycemia Docusate Sodium (Colace) 100 mg PT BIDP PRN PRN Reason: Constipation Enoxaparin Sodium (Lovenox) 120 mg SQ DAILY@1500 [facility] Last Admin: 02/14/17 14:13 Dose: 120 mg Furosemide (Lasix) 20 mg PO Q48 [facility] Acetaminophen (Ofirmev) 650 mg in 65 mls @ 130 mls/hr IV Q6HP PRN PRN Reason: PAIN/FEVER > 101 Iron Carb/Multivit/Loup/Folic Acid (Multivitamin W/Minerals) 1 tab PO DAILY [facility] Last Admin: 02/15/17 10:26 Dose: 1 tab Lactobacillus Rhamnosus (Culturelle) 1 cap PO BID [facility] Last Admin: 02/15/17 10:27 Dose: 1 cap Lidocaine (Lidoderm) 1 patch TOPICAL DAILY@1000 [facility] Last Admin: 02/15/17 10:27 Dose: 1 patch Magnesium Hydroxide (Milk Of Magnesia) 30 ml PO DAILYP PRN PRN Reason: Constipation Metoclopramide HCl (Reglan) 5 mg IV Q6HP PRN PRN Reason: Nausea And Vomiting Metoprolol Tartrate (Lopressor) 5 mg IV Q4HP PRN PRN Reason: Tachyarrhythmias Morphine Sulfate (Morphine) 1 mg IV Q4HP PRN PRN Reason: Pain Last Admin: 02/14/17 20:17 Dose: 1 mg Naloxone HCl (Narcan) 0.1 mg IV Q2MIN PRN PRN Reason: Opiate Reversal Nystatin (Nystatin) 500,000 units SSW QID [facility] Last Admin: 02/15/17 10:26 Dose: 500,000 units Ondansetron HCl (Zofran) 4 mg IV Q6HP PRN PRN Reason: Nausea And Vomiting Pantoprazole Sodium (Protonix) 40 mg IV BIDAC [facility] Last Admin: 02/15/17 07:54 Dose: 40 mg Sodium Chloride (Saline Flush) 10 ml IV Q8 [facility] Last Admin: 02/15/17 05:09 Dose: 10 ml Tramadol HCl (Ultram) 100 mg PO Q6HP PRN PRN Reason: Pain Last Admin: 02/15/17 07:52 Dose: 100 mg Warfarin Sodium (Coumadin Per Pharmacy) 1 order PO UD [facility] Warfarin Sodium (Coumadin) 5 mg PO ONCE@1400 ONE Stop: 02/15/17 14:01 Medical - PN: A/P - Time Spent With Patient Total time spent is greater than 50% in coordination of care (as documented) at patient's floor/unit and/or counseling patient: 25 - 35 minutes - Narrative A/P Narrative: #Pulmonary. a) s/p aspiration pneumonia likely related to sedation related to pain meds. He completed 10-day course of Zosyn on 02/11. s/p bipap. Now on RA b) Pulmonary embolism. Continue therapeutic dose Lovenox. Cont warfarin, pharmacy to dose. Will need anticoagulation for at least 90 days. INR 1.4 today. c) pulmonary edema seen on CXR 02/12. Has had multiple episodes of volume overload this admission. Changed Lasix to Q48H given uremia on labs; to start . Monitor vol status closely as he has LVH and suspected diastolic dysfunction , EF 65-70% on echo this admission. Avoid hypovolemia and tachycardia. d) bronchospasm: Will add scheduled Duonebs in addition to PRN albuterol #Cardiac a) episodes of SVT related to hypoK and hypoMg. Now resolved b)see pulm edema assessment # Orthopedic. a) R periprosthetic hip fx. s/p BING revision 02/02/[address] Bourne. Pain control an issue with somnolence previously attributed to opiates. Cont schedule Tylenol 1g QID and increase tramadol to 100mg q6H PRN. Cont morphine 1 g q 4PRN. Trial of lidocaine patch. DC'd ibuprofen to prevent bleeding complications while on anticoagulation. - He is quite weak, and will require extensive rehab. # Infectious disease. a)leukocytosis resolved. f/u final cultures--blood and urine b) thrush: Nystatin SSW started 02/14 # Neurologic. a) acute delirium 2/2 illness with underlying dementia. Supportive measures. Pain mmgt plan as above. CT head negative. # GI a)heme +NGT drainage, likely gastritis. Cont PPI. H/H stable. b)constipation--cont bowel regimen. #Severe protein calorie malnutrition -pulled NGT and PICC. Was previously on TPN. -tolerating dysphagia diet and eating well. Dietitian following. # Renal/ a) electrolyte derangements resolved b) hematuria-no e/o infection. Bleeding resolved. Needs urology eval as OP. c) urinary retention--Chester DC'd 02/14. PRN straight cath for now. Add Flomax. May need to DC with Chester. # Hematologic a) anemia, likely acute blood loss and some dilution. He has inflammatory block as well by iron studies--monitor. Transfuse if Hgb less than 7.0. Monitor for any signs of bleeding. RBC folate normal. f/u MMA--still pending from 02/08. H/H stable #DVT prophylaxis: lovenox sq # CODE STATUS: DNR CODE STATUS. is POA. #ADOD: Likely to SNF on Wednesday--will cont to address urinary retention today. Medical - PN: Qual - VTE Deep Vein Thrombosis/Pulmonary Embolism Present on Admission: No
[2017-02-15 11:41] LABS: Methylmalonic Acid 153 nmol/L (87-318)
[2017-02-15] MEDS ORDERED: WARFARIN 5 MG TABLET PO ONE (14:00)
[2017-02-15] MEDS: ENOXAPARIN 120 MG/0.8 ML SYRINGE SQ SCH (15:47)
[2017-02-15] MEDS ORDERED: TAMSULOSIN 0.4 MG CAPSULE PO SCH (21:00)
[2017-02-16] MEDS: traMADol 50 MG TABLET PO PRN ×3 (02:36→20:43)
[2017-02-16] MEDS: 0.9 % SODIUM CHLORIDE 10 ML SYRINGE IV SCH ×3 (05:28→23:25)
[2017-02-16] MEDS: ACETAMINOPHEN 500 MG TABLET PO SCH ×3 (05:28→18:42)
[2017-02-16 06:01] LABS: Basophils # (Auto) 0 K/mcL (0.0-0.3); Basophils % (Auto) 0.1 % (0.0-2.0); Eosinophils # (Auto) 0.1 K/mcL (0.0-0.7); Eosinophils % (Auto) 1.8 % (0.0-7.0); Granulocytes % (Auto) 82.3 % (38.0-78.0); Lymphocytes # (Auto) 0.7 K/mcL (1.5-4.8); Lymphocytes % (Auto) 8.9 % (15.5-49.0); Mean Cell Volume 92.6 fL (80.0-100.0); Mean Corpuscular HGB Conc 34.4 g/dL (31.0-36.0); Mean Corpuscular Hemoglobin 31.9 pg (26.0-34.0); Monocytes # (Auto) 0.6 K/mcL (0.1-0.9); Monocytes % (Auto) 6.9 % (1.0-12.0); Platelet Count 302 K/mcL (140-440); RBC 2.78 M/mcL (4.50-5.90); Red Cell Distribution Width 17.3 % (11.5-14.5)
[2017-02-16 06:30] LABS: ALT/SGPT 26 U/l (0-40); Alkaline Phosphatase 79 U/L (39-117); Blood Urea Nitrogen 27 mg/dl (8-23)
[2017-02-16] MEDS: IPRATROPIUM/ALBUTEROL 3 ML AMPUL.NEB NEB SCH ×3 (07:08→15:22)
[2017-02-16] MEDS ORDERED: FUROSEMIDE 20 MG TABLET PO SCH (09:00)
[2017-02-16] MEDS: MULTIVIT,THER IRON,CA,FA & MIN 1 TABLET PO SCH (09:01)
[2017-02-16] MEDS: LACTOBACILLUS 1 CAPSULE PO SCH ×2 (09:01→20:44)
[2017-02-16] MEDS: NYSTATIN 500,000 UNITS/5 ML ORAL.SUSP SSW SCH ×5 (09:02→20:43)
[2017-02-16] MEDS: FUROSEMIDE 20 MG TABLET PO SCH (09:02)
[2017-02-16] MEDS: PANTOPRAZOLE 40 MG VIAL IV SCH (09:03)
[2017-02-16] MEDS: LIDOCAINE PATCH TOPICAL SCH (12:33)
--- NOTE | 2017-02-16 14:10 | Internal Med Progress Note ---
Medical - PN: Subj Patient information: Note initiated : 02/16/17 at 2:06 pm Service Date, if different from initiated Date: [] Patient: Edgard Bae 86 y/o M admitted on 01/31/17 for Fall/Femur Fracture, Right. Chief Complaint: [] Interval history: January 31, 2017:History of present illness: Mr. Bae is a 86 year old man who apparently fell this evening at home. ER evaluation revealed an acute right subtrochanteric hip fracture with slight displacement of the lesser trochanter, as well as a previous right total hip arthroplasty. The patient has moderate dementia, and cannot recall how or why he fell. When I saw him late in the evening, his family was not available. Otherwise, he does not think that he has been ill lately. He denies being aware fever or chills, headaches or dizziness, new or ear symptoms, chest pain or palpitations, shortness of breath or wheezing or cough, abdominal pain, nausea or vomiting, diarrhea or constipation, or dysuria. February 01: This morning, the patient was having a bit more pain, and was given IV Dilaudid. About an hour later I was called to see him urgently, as the nurse found him somewhat obtunded and twitching all over. Extremities were cyanotic, and the patient had decreased mental status. O2 saturation at the time was reading about 70% but we were not sure the oximeter was accurate. Follow-up blood gas did confirm that the patient was hypoxic, with a PO2 of 40, and a PCO2 of 53. As we talked with him and did test on him, he did become a bit more arousable. The twitching was a little hard to figure out, and I thought perhaps he was having an allergic reaction to the Dilaudid, so Benadryl was given. He was also given topical nitroglycerin, IV Lasix, and albuterol nebulizer treatment, and oxygen, while we were working him up. He was then transferred over to telemetry for closer monitoring. EKG did not show acute changes. D-dimer is elevated, but this would be expected in the setting of his hip fracture. Troponin is normal. BNP is a bit elevated at 500. Currently, the patient is still quite sleepy. His color is much improved. He is now maintaining oxygen saturations in the mid 90s on 2 L O2 via mask. He reports no fevers or chills, cough, chest pain or palpitations, and denied feeling especially short of breath. He denied abdominal pain, nausea or vomiting, diarrhea. Lee catheter remains in place. He continues to have significant right hip pain with any movement of the right leg. February 02: Today, the patient reports he is feeling better. He still notes pain in the right hip if he moves, but is otherwise comfortable. He denies fever or chills, headaches or dizziness, chest pain or palpitations, shortness of breath or wheezing, abdominal pain, nausea or vomiting, diarrhea or constipation. Lee catheter remains in place. Vital signs overnight, with O2 saturations ranging from 94-98% on 1-2 L O2. He did spike a temperature of 101.7 last evening. February 03: This morning, after being given morphine for pain, the patient vomited and appeared to aspirate vomitus into his lungs. He was suctioned by respiratory therapy, and oxygen mask applied. Later in the morning his O2 saturations continued to decline, and I requested that respiratory therapy start him on BiPAP. Not long after that, the patient vomited again, in spite of being n.p.o. , into the facemask. The vomit consisted mainly of bilious appearing fluid. We then placed an NG tube, and high flow oxygen via mask. The patient has been less alert today, but does wake up enough to tell me that he is not having any pain. He does feel like his breathing is a bit labored. Otherwise he does not report subjective fever or chills, chest pain or palpitations, abdominal pain, diarrhea or constipation. His hip pain is relatively well controlled at this time. February 04: Patient seen examined, no acute overnight events, patient was asleep much of my eval, but did open eyes slightly to verbal stimuli and did obey commands like grasp hand. The patient wbc count trended up slightly, his tele showed some SVT His NG tube suction shows dark coloured secretions, h/h has remained stable, IV PPI added. NO more vomiting now. Pt remains on bipap to maintain his oxygen saturations, Fio2 40 % in AM, 10/5 settings. He remains on antibiotics. cxr today shows improved perihilar infiltrates. February 05: The patient has continued to struggle. He did receive some morphine overnight, and remains quite somnolent today. The nursing staff feels that Tylenol is actually helping his pain more than morphine. NG output is declining, but continues rather dark in color, although tending towards dark green rather than reddish. The patient really does not arouse enough today to give me a history, although when asked if he is in pain he seems to indicate no. He continues to require BiPAP to maintain oxygen saturations. Because of ongoing hypoxia yesterday, he did undergo CT angiogram, which does show a small PE, in addition to bilateral infiltrates. He is now on Lovenox, therapeutic dose. He has not really had any nutrition since admission, so today we are evaluating for PPN versus TPN. I am reluctant to give him tube feedings at this point, since he has vomited and aspirated twice so far. We will give him more time to decrease his NG output. February 06: Today, the patient remains fairly somnolent, although nurses note they did get him to sit up on the side of the bed. He did open his eyes long enough to look outside, and also seems to recognize his today. They were not certain that he recognized his other family members. For the most part he remains asleep. He is quite difficult to arouse, and does not answer questions for me this morning. Nurses feel that his respiratory status has been fairly stable overnight. He has some audible wheezing when he is taken off BiPAP, but does very well while on it and seems to tolerate it. He is unable to give a review of systems at this time. Chest x-ray from this morning actually looks a bit better. Hemoglobin and hematocrit have fallen further however. Patient continues to have gross hematuria as well, likely due to being on therapeutic dose Lovenox. Nurses note he has not had a bowel movement in several days. He was given a suppository yesterday, but did not have much of a response. He has not had any oral intake though for several days. He was started on PPN yesterday, after a PICC line was placed. February 07: The patient did seem to have some increasing hip pain last night, some morphine was resumed at low doses. This morning he was given another dose of morphine so that he could work with physical therapy, but he was essentially too weak to stand up. He remains fairly somnolent, and only speaks occasionally. He is too sleepy to talk to me when I entered the room this morning, so could not answer a review of systems. Nurses note he still has not had a bowel movement, although he does have some bowel sounds. Oxygenation is improving, and he is currently tolerating low flow oxygen via nasal cannula. Nurses note that he seems to be fine when asleep, but he when he wakes up he starts to have a lot of upper airway noise. Nursing staff also talked with the patient's son, who said he has been declining for the last 2 months. The son noted he had been complaining of hip pain for over a month, and had become quite a bit more sedentary at home. February 08: Patient seen examined, a bit more awake today, opened eyes to verbal stimulus, and obeyed commands, but overall his mental status is still pretty obtunded. The patient did not respond well enough to provide ROS or any history. He remains on NG tube suction. CT head was done today which was reported neg. He has not had a BM in 6 days, X ray abdomen shows some stool in the hepatic flexure. Lactulose given via NG tube The reason for his obtunded state is bit unknown. likely opiates and infection. He remains on anabiotics, Ammonia level is negative. February 09: The patient is a little more awake today than yesterday. He is able to sit up on the side of the bed with physical therapy, but is clearly too weak to stand. The source of his continued lethargic mental status has not been clear. He did have a head CT yesterday, which did not show any obvious reason. His son reports that he has been declining in alertness and functional abilities for at least a couple of months. He still has his NG tube in place, to give oral meds, as it is not clear that he is safe to swallow at this time. He is just been quite lethargic. He still occasionally receives morphine for uncontrolled pain, although mostly pain is managed with Tylenol and Toradol. Lungs remain fairly clear. He is oxygenating well currently just with oxygen via nasal cannula. -He continues to receive PPN via his PICC line. -His eyes are open when I entered the room, but he can barely say the word yes when asked him questions. Otherwise he really is not able to participate in a review of systems. February 10: We have been attempting to minimize how much morphine the patient gets. Yesterday speech therapy worked with him, and felt that he could tolerate a dysphagia diet. G-tube was removed. This morning, he is sitting up on the side of the bed, after being propped up, and is eating. Staff says so far he seems to be swallowing pretty well. He coughs after some bites, does not appear to be aspirating. The patient continues very weak, but he is much more awake and alert this morning. He denies any significant pain. He denies fever chills, chest pain, abdominal pain, nausea or vomiting or diarrhea. He has not had a bowel movement in over a week. Although he reportedly is passing some flatus. He does note that his breathing is a little labored. His cough continues to be quite weak, but he does a better job with strong encouragement. He did bump his white blood cell count today, but I am hopeful that that is just from yesterday's steroid dose. He does continue to be a little far ahead on his intake versus output. February 11: -The patient has made good progress over the last 24 hours. He is now fully awake and alert, although he really does not say much. He has been able to eat and swallow safely, although again not enough to get in the required calories. He continues to get fidgety at times, but is unable to express what is wrong. We suspect that he is having pain. -He still has not had a bowel movement, although there were some smears of stool today. -Nurses note his cough is much stronger, and is now producing a cooney colored phlegm. He seems to be clearing his throat much better than before. -When he is asked about pain, he says no, but he does not really seem to answer much in the way of other questions. He seems to deny chest pain or trouble breathing or abdominal discomfort, but being able to understand what he says and knowing whether or not that is reliable is a challenge. -He continues to make a wheezing noise with his throat whenever he is he awake or anxious. This sounds almost like stridor, but on auscultation it is definitely an expiratory noise in his neck area. It disappears when he goes to sleep. February 12: Today, the patient is a little more confused. Last night he ended up pulling out his PICC line, so he was moved back to the ICU for closer monitoring. TPN was discontinued. He has been tolerating an oral dysphagia diet. The dietitian is working with speech therapy, to try to be sure he gets in enough calories, safely, orally. His is in the room with him this morning. She is not sure that he recognizes her today. When I ask him who she is, he cannot tell me. He does indicate that he is not having any pain right now, and seems to deny chest pain or trouble breathing, abdominal pain, but he seems fairly confused, so history is not likely to be reliable. His Zosyn was stopped, and so far chest x-ray has not shown recurrent aspiration pneumonia. White blood cell count continues to drift downward. Next line nurses continue to be concerned that he is having pain, as he is often restless. Morphine does not seem to help a great deal with the pain, and does certainly make him more sedated. February 13: More alert today but still uncomfortable. Yesterday when getting up to chair, he required a 3 person max assist and he had significant pain. He is still having pain and is alert after receiving 1 mg of morphine. His white count is rising today. Will try scheduled Tylenol 1 g 4 times a day and tramadol every 6 hours as needed. His bowels are moving. He ate 100% of breakfast. February 14: His son, Navneet, is at the bedside. He states his father looks the best he has thus far this hospitalization. Pain was under better control yesterday but he appears uncomfortable this morning. He has had no ectopy on telemetry. His white count continues to be elevated at 16. He has thrush on exam today. He is still wheezing but looks dry on his labs and by exam. Lasix was changed to every other day. She has had no fevers, but given his persistent leukocytosis will evaluate urine and blood cultures. February 15: He was confused overnight and somewhat restless, but looks great this morning. His leukocytosis has resolved without additional antibiotics. His UA had microscopic hematuria yesterday and a little pyuria; urine culture yesterday shows no growth to date. His pain is under better control and he was able to mobilize with physical therapy today. He is having some urinary retention after removal of the Lee and we are trying straight cath. october 3: patient seen examined, this am was bit more confused compared to yesterday as per staff, he was in pain last night and he did get 1mg morphine. likely drowsy secondary to that, labs ok, he has been trying to rmove his clothes and he also ahs been needing straight cath for urinary retention Plan to place lee again today, flomax bid and urology referral as outpatient. will hold off discharge today in light of mental status, hopefully will be doing welli AM, plan to increase tramadol to q4h prn. Pertinent ROS: Denies headache, dizziness Denies chest pain, palpitations Denies cough or shortness of breath Denies abdominal pain, nausea or vomiting. - Constitutional Vitals: Vital Signs Temp Pulse Resp BP Pulse Ox 98.2 F 88 20 129/66 95 02/16/17 12:00 02/16/17 11:03 02/16/17 12:00 02/16/17 12:00 02/16/17 12:00 Period Temp Pulse Resp BP Sys/[place] Pulse Ox Last 24 Hr 97.5 F-98.7 F 76-95 16-24 108-129/59-73 90-96 Intake and Output 02/16/17 02/16/17 02/16/17 05:59 13:59 21:59 Intake Total 150 / 150 Balance 150 / 150 Intake & Output: Intake & Output 02/16/17 02/16/17 02/16/17 05:59 13:59 21:59 Intake Total 150 / 150 Balance 150 / 150 Intake: Oral 150 / 150 Medical - PN: Obj Da - Labs CBC & Chem 7: 02/16/17 04:10 02/16/17 04:10 Labs: Abnormal Lab Results 02/16/17 02/16/17 02/16/17 04:10 04:10 04:10 WBC RBC 2.78 L Hgb 8.9 L Hct 25.7 L RDW 17.3 H Gran % 82.3 H Lymph % (Auto) 8.9 L Gran # Lymph # (Auto) 0.7 L PT 22.5 H INR 1.9 H BUN 27 H Glucose 111 H Calcium 8.4 L Total Bilirubin 1.1 H Albumin 3.0 L Urine Protein Urine Occult Blood Urine Urobilinogen Ur Leukocyte Esterase Urine RBC Urine WBC Urine Mucus 02/15/17 02/15/17 02/15/17 04:20 04:20 04:20 WBC RBC 2.82 L Hgb 8.8 L Hct 26.0 L RDW 16.9 H Gran % 84.5 H Lymph % (Auto) 8.4 L Gran # 9.2 H Lymph # (Auto) 0.9 L PT 17.4 H INR 1.4 H BUN 31 H Glucose 124 H Calcium 8.3 L Total Bilirubin 1.2 H Albumin 3.1 L Urine Protein Urine Occult Blood Urine Urobilinogen Ur Leukocyte Esterase Urine RBC Urine WBC Urine Mucus 02/14/17 02/14/17 02/14/17 08:38 04:21 04:21 WBC 16.7 H RBC 2.85 L Hgb 9.1 L Hct 26.5 L RDW 17.0 H Gran % 89.9 H Lymph % (Auto) 4.1 L Gran # 15.0 H Lymph # (Auto) 0.7 L PT 16.1 H INR 1.3 H BUN Glucose Calcium Total Bilirubin Albumin Urine Protein 100 A Urine Occult Blood >=1.0 A Urine Urobilinogen 4.0 A Ur Leukocyte Esterase 25 A Urine RBC > 182 H Urine WBC 20 H Urine Mucus Many A Meds: Medications Acetaminophen (Tylenol) 1,000 mg PO Q6 [facility] Last Admin: 02/16/17 12:26 Dose: 1,000 mg Albuterol Sulfate (Ventolin) 2.5 mg NEB Q2HP PRN PRN Reason: Shortness Of Breath Albuterol/Ipratropium (Duoneb) 3 ml NEB [id number] [facility] Last Admin: 02/16/17 10:48 Dose: 3 ml Bisacodyl (Dulcolax) 10 mg SC Q2-3DAYS PRN PRN Reason: Constipation Dextrose (Dextrose 50%) 50 ml IV UD PRN PRN Reason: Hypoglycemia Docusate Sodium (Colace) 100 mg PT BIDP PRN PRN Reason: Constipation Enoxaparin Sodium (Lovenox) 120 mg SQ DAILY@1500 [facility] Last Admin: 02/15/17 15:47 Dose: 120 mg Furosemide (Lasix) 20 mg PO Q48 [facility] Last Admin: 02/16/17 09:02 Dose: 20 mg Iron Carb/Multivit/[place]/Folic Acid (Multivitamin W/Minerals) 1 tab PO DAILY [facility] Last Admin: 02/16/17 09:01 Dose: 1 tab Lactobacillus Rhamnosus (Culturelle) 1 cap PO BID [facility] Last Admin: 02/16/17 09:01 Dose: 1 cap Lidocaine (Lidoderm) 1 patch TOPICAL DAILY@1000 [facility] Last Admin: 02/16/17 12:33 Dose: 1 patch Magnesium Hydroxide (Milk Of Magnesia) 30 ml PO DAILYP PRN PRN Reason: Constipation Metoclopramide HCl (Reglan) 5 mg IV Q6HP PRN PRN Reason: Nausea And Vomiting Metoprolol Tartrate (Lopressor) 5 mg IV Q4HP PRN PRN Reason: Tachyarrhythmias Naloxone HCl (Narcan) 0.1 mg IV Q2MIN PRN PRN Reason: Opiate Reversal Nystatin (Nystatin) 500,000 units SSW QID [facility] Last Admin: 02/16/17 13:28 Dose: Not Given Ondansetron HCl (Zofran) 4 mg IV Q6HP PRN PRN Reason: Nausea And Vomiting Pantoprazole Sodium (Protonix) 40 mg IV BIDAC [facility] Last Admin: 02/16/17 09:03 Dose: 40 mg Sodium Chloride (Saline Flush) 10 ml IV Q8 [facility] Last Admin: 02/16/17 05:28 Dose: 10 ml Tamsulosin HCl (Flomax) 0.4 mg PO BID [facility] Tramadol HCl (Ultram) 100 mg PO Q4HP PRN PRN Reason: Pain Warfarin Sodium (Coumadin Per Pharmacy) 1 order PO UD [facility] Medical - PN: A/P - Time Spent With Patient Total time spent is greater than 50% in coordination of care (as documented) at patient's floor/unit and/or counseling patient: Medical - PN: Qual - VTE Deep Vein Thrombosis/Pulmonary Embolism Present on Admission: No
[2017-02-16] MEDS: TAMSULOSIN 0.4 MG CAPSULE PO SCH ×2 (16:30→20:46)
[2017-02-16] MEDS: ENOXAPARIN 120 MG/0.8 ML SYRINGE SQ SCH (16:31)
[2017-02-16] MEDS: WARFARIN 3 MG TABLET PO SCH ×2 (18:33→18:43)
[2017-02-16] MEDS: PANTOPRAZOLE 40 MG TABLET PO SCH ×2 (18:33→18:43)
[2017-02-16] MEDS ORDERED: OLANZapine 2.5 MG TABLET PO SCH (21:00)
[2017-02-17] MEDS: ACETAMINOPHEN 500 MG TABLET PO SCH ×4 (00:03→16:59)
[2017-02-17] MEDS: traMADol 50 MG TABLET PO PRN ×2 (03:12→09:07)
[2017-02-17] MEDS: 0.9 % SODIUM CHLORIDE 10 ML SYRINGE IV SCH ×3 (05:40→20:32)
[2017-02-17 06:33] LABS: Basophils # (Auto) 0 K/mcL (0.0-0.3); Basophils % (Auto) 0.3 % (0.0-2.0); Eosinophils # (Auto) 0.1 K/mcL (0.0-0.7); Eosinophils % (Auto) 2.3 % (0.0-7.0); Granulocytes % (Auto) 75.6 % (38.0-78.0); Lymphocytes # (Auto) 0.8 K/mcL (1.5-4.8); Lymphocytes % (Auto) 12.9 % (15.5-49.0); Mean Cell Volume 92.6 fL (80.0-100.0); Mean Corpuscular HGB Conc 34.1 g/dL (31.0-36.0); Mean Corpuscular Hemoglobin 31.6 pg (26.0-34.0); Monocytes # (Auto) 0.6 K/mcL (0.1-0.9); Monocytes % (Auto) 8.9 % (1.0-12.0); Platelet Count 296 K/mcL (140-440); RBC 2.64 M/mcL (4.50-5.90)
[2017-02-17 07:01] LABS: ALT/SGPT 27 U/l (0-40); Albumin 3.2 gm/dL (3.2-5.2); Albumin/Globulin Ratio 1.2 (1.0-2.3); Alkaline Phosphatase 81 U/L (39-117); Blood Urea Nitrogen 27 mg/dl (8-23)
--- NOTE | 2017-02-17 08:09 | XRay Report ---
HISTORY: Reason for Exam: delirium , fell and fractured right femur FINDINGS: Right diaphragm is moderately elevated. This is a chronic stable finding. There are prominent increased interstitial lung markings bilaterally. These findings have remained stable since 02/09/17. There is no consolidating infiltrate. There is left ventricular prominence. The pulmonary vessels are difficult to evaluate due to the widespread interstitial lung disease. There is no pleural effusion. The aorta is tortuous. There are old healed fractures posterolaterally in the left seventh and eighth ribs. Impression: bilateral interstitial lung disease. This could be due to inflammation, pulmonary vascular congestion or pulmonary fibrosis. There has been no change from the recent exams. Interpreted and Authenticated by: Leo Colunga 02/17/17
[2017-02-17] MEDS: LACTOBACILLUS 1 CAPSULE PO SCH (09:07)
[2017-02-17] MEDS: MULTIVIT,THER IRON,CA,FA & MIN 1 TABLET PO SCH (09:07)
[2017-02-17] MEDS: PANTOPRAZOLE 40 MG TABLET PO SCH ×2 (09:07→16:59)
[2017-02-17] MEDS: TAMSULOSIN 0.4 MG CAPSULE PO SCH (09:07)
[2017-02-17] MEDS: NYSTATIN 500,000 UNITS/5 ML ORAL.SUSP SSW SCH ×3 (09:07→16:59)
[2017-02-17] MEDS: LIDOCAINE PATCH TOPICAL SCH (09:08)
[2017-02-17 11:29] LABS: Appearance,Urine HAZY; Bacteria,Urine FEW /hpf (0); Bilirubin,Urine NEG (NEG); Color,Urine AMBER; Glucose,Urine (UA) NEGATIVE (NEG); Leukocyte Esterase,Urine 75 /uL (NEG); Mucus,Urine MANY /hpf (0); Nitrate,Urine NEG (NEG); Protein,Urine 30 mg/dL (NEG); Specific Gravity,Urine 1.026 (1.000-1.035); Urine Blood >=1.0 mg/dL (<0.03); Urine RBC 179 /hpf (0-1); Urine Squamous Epithelial Cell 0 /hpf (0-4); Urine WBC 60 /hpf (0-4)
--- NOTE | 2017-02-17 13:53 | Internal Med Progress Note ---
Medical - PN: Subj Patient information: Note initiated : 02/17/17 at 1:51 pm Service Date, if different from initiated Date: [] Patient: Edgard Bae 86 y/o M admitted on 01/31/17 for Fall/Femur Fracture, Right. Chief Complaint: [] Interval history: January 31, 2017:History of present illness: Mr. Bae is a 86 year old man who apparently fell this evening at home. ER evaluation revealed an acute right subtrochanteric hip fracture with slight displacement of the lesser trochanter, as well as a previous right total hip arthroplasty. The patient has moderate dementia, and cannot recall how or why he fell. When I saw him late in the evening, his family was not available. Otherwise, he does not think that he has been ill lately. He denies being aware fever or chills, headaches or dizziness, new or ear symptoms, chest pain or palpitations, shortness of breath or wheezing or cough, abdominal pain, nausea or vomiting, diarrhea or constipation, or dysuria. February 01: This morning, the patient was having a bit more pain, and was given IV Dilaudid. About an hour later I was called to see him urgently, as the nurse found him somewhat obtunded and twitching all over. Extremities were cyanotic, and the patient had decreased mental status. O2 saturation at the time was reading about 70% but we were not sure the oximeter was accurate. Follow-up blood gas did confirm that the patient was hypoxic, with a PO2 of 40, and a PCO2 of 53. As we talked with him and did test on him, he did become a bit more arousable. The twitching was a little hard to figure out, and I thought perhaps he was having an allergic reaction to the Dilaudid, so Benadryl was given. He was also given topical nitroglycerin, IV Lasix, and albuterol nebulizer treatment, and oxygen, while we were working him up. He was then transferred over to telemetry for closer monitoring. EKG did not show acute changes. D-dimer is elevated, but this would be expected in the setting of his hip fracture. Troponin is normal. BNP is a bit elevated at 500. Currently, the patient is still quite sleepy. His color is much improved. He is now maintaining oxygen saturations in the mid 90s on 2 L O2 via mask. He reports no fevers or chills, cough, chest pain or palpitations, and denied feeling especially short of breath. He denied abdominal pain, nausea or vomiting, diarrhea. Ele catheter remains in place. He continues to have significant right hip pain with any movement of the right leg. February 02: Today, the patient reports he is feeling better. He still notes pain in the right hip if he moves, but is otherwise comfortable. He denies fever or chills, headaches or dizziness, chest pain or palpitations, shortness of breath or wheezing, abdominal pain, nausea or vomiting, diarrhea or constipation. Lee catheter remains in place. Vital signs overnight, with O2 saturations ranging from 94-98% on 1-2 L O2. He did spike a temperature of 101.7 last evening. February 03: This morning, after being given morphine for pain, the patient vomited and appeared to aspirate vomitus into his lungs. He was suctioned by respiratory therapy, and oxygen mask applied. Later in the morning his O2 saturations continued to decline, and I requested that respiratory therapy start him on BiPAP. Not long after that, the patient vomited again, in spite of being n.p.o. , into the facemask. The vomit consisted mainly of bilious appearing fluid. We then placed an NG tube, and high flow oxygen via mask. The patient has been less alert today, but does wake up enough to tell me that he is not having any pain. He does feel like his breathing is a bit labored. Otherwise he does not report subjective fever or chills, chest pain or palpitations, abdominal pain, diarrhea or constipation. His hip pain is relatively well controlled at this time. February 04: Patient seen examined, no acute overnight events, patient was asleep much of my eval, but did open eyes slightly to verbal stimuli and did obey commands like grasp hand. The patient wbc count trended up slightly, his tele showed some SVT His NG tube suction shows dark coloured secretions, h/h has remained stable, IV PPI added. NO more vomiting now. Pt remains on bipap to maintain his oxygen saturations, Fio2 40 % in AM, 10/5 settings. He remains on antibiotics. cxr today shows improved perihilar infiltrates. February 05: The patient has continued to struggle. He did receive some morphine overnight, and remains quite somnolent today. The nursing staff feels that Tylenol is actually helping his pain more than morphine. NG output is declining, but continues rather dark in color, although tending towards dark green rather than reddish. The patient really does not arouse enough today to give me a history, although when asked if he is in pain he seems to indicate no. He continues to require BiPAP to maintain oxygen saturations. Because of ongoing hypoxia yesterday, he did undergo CT angiogram, which does show a small PE, in addition to bilateral infiltrates. He is now on Lovenox, therapeutic dose. He has not really had any nutrition since admission, so today we are evaluating for PPN versus TPN. I am reluctant to give him tube feedings at this point, since he has vomited and aspirated twice so far. We will give him more time to decrease his NG output. February 06: Today, the patient remains fairly somnolent, although nurses note they did get him to sit up on the side of the bed. He did open his eyes long enough to look outside, and also seems to recognize his today. They were not certain that he recognized his other family members. For the most part he remains asleep. He is quite difficult to arouse, and does not answer questions for me this morning. Nurses feel that his respiratory status has been fairly stable overnight. He has some audible wheezing when he is taken off BiPAP, but does very well while on it and seems to tolerate it. He is unable to give a review of systems at this time. Chest x-ray from this morning actually looks a bit better. Hemoglobin and hematocrit have fallen further however. Patient continues to have gross hematuria as well, likely due to being on therapeutic dose Lovenox. Nurses note he has not had a bowel movement in several days. He was given a suppository yesterday, but did not have much of a response. He has not had any oral intake though for several days. He was started on PPN yesterday, after a PICC line was placed. February 07: The patient did seem to have some increasing hip pain last night, some morphine was resumed at low doses. This morning he was given another dose of morphine so that he could work with physical therapy, but he was essentially too weak to stand up. He remains fairly somnolent, and only speaks occasionally. He is too sleepy to talk to me when I entered the room this morning, so could not answer a review of systems. Nurses note he still has not had a bowel movement, although he does have some bowel sounds. Oxygenation is improving, and he is currently tolerating low flow oxygen via nasal cannula. Nurses note that he seems to be fine when asleep, but he when he wakes up he starts to have a lot of upper airway noise. Nursing staff also talked with the patient's son, who said he has been declining for the last 2 months. The son noted he had been complaining of hip pain for over a month, and had become quite a bit more sedentary at home. February 08: Patient seen examined, a bit more awake today, opened eyes to verbal stimulus, and obeyed commands, but overall his mental status is still pretty obtunded. The patient did not respond well enough to provide ROS or any history. He remains on NG tube suction. CT head was done today which was reported neg. He has not had a BM in 6 days, X ray abdomen shows some stool in the hepatic flexure. Lactulose given via NG tube The reason for his obtunded state is bit unknown. likely opiates and infection. He remains on anabiotics, Ammonia level is negative. February 09: The patient is a little more awake today than yesterday. He is able to sit up on the side of the bed with physical therapy, but is clearly too weak to stand. The source of his continued lethargic mental status has not been clear. He did have a head CT yesterday, which did not show any obvious reason. His son reports that he has been declining in alertness and functional abilities for at least a couple of months. He still has his NG tube in place, to give oral meds, as it is not clear that he is safe to swallow at this time. He is just been quite lethargic. He still occasionally receives morphine for uncontrolled pain, although mostly pain is managed with Tylenol and Toradol. Lungs remain fairly clear. He is oxygenating well currently just with oxygen via nasal cannula. -He continues to receive PPN via his PICC line. -His eyes are open when I entered the room, but he can barely say the word yes when asked him questions. Otherwise he really is not able to participate in a review of systems. February 10: We have been attempting to minimize how much morphine the patient gets. Yesterday speech therapy worked with him, and felt that he could tolerate a dysphagia diet. G-tube was removed. This morning, he is sitting up on the side of the bed, after being propped up, and is eating. Staff says so far he seems to be swallowing pretty well. He coughs after some bites, does not appear to be aspirating. The patient continues very weak, but he is much more awake and alert this morning. He denies any significant pain. He denies fever chills, chest pain, abdominal pain, nausea or vomiting or diarrhea. He has not had a bowel movement in over a week. Although he reportedly is passing some flatus. He does note that his breathing is a little labored. His cough continues to be quite weak, but he does a better job with strong encouragement. He did bump his white blood cell count today, but I am hopeful that that is just from yesterday's steroid dose. He does continue to be a little far ahead on his intake versus output. February 11: -The patient has made good progress over the last 24 hours. He is now fully awake and alert, although he really does not say much. He has been able to eat and swallow safely, although again not enough to get in the required calories. He continues to get fidgety at times, but is unable to express what is wrong. We suspect that he is having pain. -He still has not had a bowel movement, although there were some smears of stool today. -Nurses note his cough is much stronger, and is now producing a cooney colored phlegm. He seems to be clearing his throat much better than before. -When he is asked about pain, he says no, but he does not really seem to answer much in the way of other questions. He seems to deny chest pain or trouble breathing or abdominal discomfort, but being able to understand what he says and knowing whether or not that is reliable is a challenge. -He continues to make a wheezing noise with his throat whenever he is he awake or anxious. This sounds almost like stridor, but on auscultation it is definitely an expiratory noise in his neck area. It disappears when he goes to sleep. February 12: Today, the patient is a little more confused. Last night he ended up pulling out his PICC line, so he was moved back to the ICU for closer monitoring. TPN was discontinued. He has been tolerating an oral dysphagia diet. The dietitian is working with speech therapy, to try to be sure he gets in enough calories, safely, orally. His is in the room with him this morning. She is not sure that he recognizes her today. When I ask him who she is, he cannot tell me. He does indicate that he is not having any pain right now, and seems to deny chest pain or trouble breathing, abdominal pain, but he seems fairly confused, so history is not likely to be reliable. His Zosyn was stopped, and so far chest x-ray has not shown recurrent aspiration pneumonia. White blood cell count continues to drift downward. Next line nurses continue to be concerned that he is having pain, as he is often restless. Morphine does not seem to help a great deal with the pain, and does certainly make him more sedated. February 13: More alert today but still uncomfortable. Yesterday when getting up to chair, he required a 3 person max assist and he had significant pain. He is still having pain and is alert after receiving 1 mg of morphine. His white count is rising today. Will try scheduled Tylenol 1 g 4 times a day and tramadol every 6 hours as needed. His bowels are moving. He ate 100% of breakfast. February 14: His son, Navneet, is at the bedside. He states his father looks the best he has thus far this hospitalization. Pain was under better control yesterday but he appears uncomfortable this morning. He has had no ectopy on telemetry. His white count continues to be elevated at 16. He has thrush on exam today. He is still wheezing but looks dry on his labs and by exam. Lasix was changed to every other day. She has had no fevers, but given his persistent leukocytosis will evaluate urine and blood cultures. February 15: He was confused overnight and somewhat restless, but looks great this morning. His leukocytosis has resolved without additional antibiotics. His UA had microscopic hematuria yesterday and a little pyuria; urine culture yesterday shows no growth to date. His pain is under better control and he was able to mobilize with physical therapy today. He is having some urinary retention after removal of the Lee and we are trying straight cath. october 3: patient seen examined, this am was bit more confused compared to yesterday as per staff, he was in pain last night and he did get 1mg morphine. likely drowsy secondary to that, labs ok, he has been trying to rmove his clothes and he also ahs been needing straight cath for urinary retention Plan to place lee again today, flomax bid and urology referral as outpatient. will hold off discharge today in light of mental status, hopefully will be doing welli AM, plan to increase tramadol to q4h prn. February 17: patient remains intermittently confused, removed lee yesterday, and was unable to pass urine overnight, he is on bid flomax, and lee was reinserted today. He removes his clothes and prefers to be naked, otherwise he has no other aggressive behavior. The patient has h/o dementia and his mental condition seems to have been worsening even prior to his fall. 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 labs stable, ua is positive but multiple cultures are neg, will repeat culture again. CXR is reported neg for acute changes. The patient will be started on po celebrex today to help Plan of care reviewed with the patients son. if patient remains stable will plan for d/c in AM Pertinent ROS: Denies headache, dizziness Denies chest pain, palpitations Denies cough or shortness of breath Denies abdominal pain, nausea or vomiting. - Constitutional Vitals: Vital Signs Temp Pulse Resp BP Pulse Ox 97.6 F 76 20 120/73 97 02/17/17 10:58 02/17/17 10:58 02/17/17 10:58 02/17/17 10:58 02/17/17 10:58 Period Temp Pulse Resp BP Sys/Hutson Pulse Ox Last 24 Hr 97.3 F-98.9 F 76-103 18-24 109-137/64-79 92-97 Intake and Output 02/16/17 02/17/17 02/17/17 21:59 05:59 13:59 Intake Total 120 / 120 120 / 120 Output Total 500 / 500 Balance -380 / -380 120 / 120 Weight 166 lb Intake & Output: Intake & Output 02/16/17 02/17/17 02/17/17 21:59 05:59 13:59 Intake Total 120 / 120 120 / 120 Output Total 500 / 500 Balance -380 / -380 120 / 120 Weight 166 lb Intake: Oral 120 / 120 120 / 120 Output: Urine Catheter Amount 500 / 500 Other: Meal Dinner Lunch Percent of Meal Consumed 25% Refused Feeding Ability Total Assistance Exam: Constitutional; Afebrile, cooperative, alert, not in distress. lying comfortably in bed Eyes- No icterus, , No periorbital swelling Ears- Ext ear normal, hearing normal to conversation. Neck- Midline trachea, supple Respiratory system: Air Entry equal on both sides, No crackles or wheezing, no rhonchi. CVS- Rate rhythm regular, S1,S2 heard, no gallop, no rub. Abdomen- Soft nontender abdomen, no organomegaly, no tenderness, no guarding or rigidity, INCOME TAX ADJUSTER- AOOx2, moving all extremities, no gross focal deficit noted. Medical - PN: Obj Da - Labs CBC & Chem 7: 02/17/17 04:15 02/17/17 04:15 Labs: Abnormal Lab Results 02/17/17 02/17/17 02/17/17 09:00 04:15 04:15 RBC 2.64 L Hgb 8.3 L Hct 24.4 L RDW 18.0 H Gran % Lymph % (Auto) 12.9 L Gran # Lymph # (Auto) 0.8 L PT INR BUN 27 H Glucose Calcium 8.5 L Total Bilirubin 1.1 H Total Protein 5.8 L Albumin Urine Protein 30 A Urine Ketones 5/tr A Urine Occult Blood >=1.0 A Urine Urobilinogen 4.0 A Ur Leukocyte Esterase 75 A Urine RBC 179 H Urine WBC 60 H Urine Bacteria Few A Urine Mucus Many A 02/17/17 02/16/17 02/16/17 04:15 04:10 04:10 RBC 2.78 L Hgb 8.9 L Hct 25.7 L RDW 17.3 H Gran % 82.3 H Lymph % (Auto) 8.9 L Gran # Lymph # (Auto) 0.7 L PT 24.2 H INR 2.1 H BUN 27 H Glucose 111 H Calcium 8.4 L Total Bilirubin 1.1 H Total Protein Albumin 3.0 L Urine Protein Urine Ketones Urine Occult Blood Urine Urobilinogen Ur Leukocyte Esterase Urine RBC Urine WBC Urine Bacteria Urine Mucus 10/07/3102/15/17 02/15/17 04:10 04:20 04:20 RBC Hgb Hct RDW Gran % Lymph % (Auto) Gran # Lymph # (Auto) PT 22.5 H 17.4 H INR 1.9 H 1.4 H BUN 31 H Glucose 124 H Calcium 8.3 L Total Bilirubin 1.2 H Total Protein Albumin 3.1 L Urine Protein Urine Ketones Urine Occult Blood Urine Urobilinogen Ur Leukocyte Esterase Urine RBC Urine WBC Urine Bacteria Urine Mucus 02/15/17 04:20 RBC 2.82 L Hgb 8.8 L Hct 26.0 L RDW 16.9 H Gran % 84.5 H Lymph % (Auto) 8.4 L Gran # 9.2 H Lymph # (Auto) 0.9 L PT INR BUN Glucose Calcium Total Bilirubin Total Protein Albumin Urine Protein Urine Ketones Urine Occult Blood Urine Urobilinogen Ur Leukocyte Esterase Urine RBC Urine WBC Urine Bacteria Urine Mucus Meds: Medications Acetaminophen (Tylenol) 1,000 mg PO Q6 [facility], [facility] Last Admin: 02/17/17 05:40 Dose: 1,000 mg Albuterol Sulfate (Ventolin) 2.5 mg NEB Q2HP PRN PRN Reason: Shortness Of Breath Bisacodyl (Dulcolax) 10 mg [place] Q2-3DAYS PRN PRN Reason: Constipation Celecoxib (Celebrex) 200 mg PO DAILY [facility] Dextrose (Dextrose 50%) 50 ml IV UD PRN PRN Reason: Hypoglycemia Docusate Sodium (Colace) 100 mg PT BIDP PRN PRN Reason: Constipation Furosemide (Lasix) 20 mg PO Q48 [facility] Last Admin: 02/16/17 09:02 Dose: 20 mg Iron Carb/Multivit/[place]/Folic Acid (Multivitamin W/Minerals) 1 tab PO DAILY [facility] Last Admin: 02/17/17 09:07 Dose: 1 tab Lactobacillus Rhamnosus (Culturelle) 1 cap PO BID [facility] Last Admin: 02/17/17 09:07 Dose: 1 cap Lidocaine (Lidoderm) 1 patch TOPICAL DAILY@1000 [facility] Last Admin: 02/17/17 09:08 Dose: 1 patch Magnesium Hydroxide (Milk Of Magnesia) 30 ml PO DAILYP PRN PRN Reason: Constipation Metoclopramide HCl (Reglan) 5 mg IV Q6HP PRN PRN Reason: Nausea And Vomiting Metoprolol Tartrate (Lopressor) 5 mg IV Q4HP PRN PRN Reason: Tachyarrhythmias Naloxone HCl (Narcan) 0.1 mg IV Q2MIN PRN PRN Reason: Opiate Reversal Nystatin (Nystatin) 500,000 units SSW QID [facility] Last Admin: 02/17/17 09:07 Dose: 500,000 units Olanzapine (Zyprexa) 2.5 mg PO HS [facility] Last Admin: 02/16/17 20:43 Dose: 2.5 mg Ondansetron HCl (Zofran) 4 mg IV Q6HP PRN PRN Reason: Nausea And Vomiting Pantoprazole Sodium (Protonix) 40 mg PO BIDAC [facility] Last Admin: 02/17/17 09:07 Dose: 40 mg Sodium Chloride (Saline Flush) 10 ml IV Q8 [facility] Last Admin: 02/17/17 05:40 Dose: Not Given Tamsulosin HCl (Flomax) 0.4 mg PO BID [facility] Last Admin: 02/17/17 09:07 Dose: 0.4 mg Tramadol HCl (Ultram) 100 mg PO Q4HP PRN PRN Reason: Pain Last Admin: 02/17/17 09:07 Dose: 100 mg Warfarin Sodium (Coumadin Per Pharmacy) 1 order PO UD [facility] Warfarin Sodium (Coumadin) 3 mg PO ONCE@1400 ONE Stop: 02/17/17 14:01 Medical - PN: A/P - Time Spent With Patient Total time spent is greater than 50% in coordination of care (as documented) at patient's floor/unit and/or counseling patient: - Narrative A/P Narrative: #Pulmonary. a) s/p aspiration pneumonia likely related to sedation related to pain meds. He completed 10-day course of Zosyn on 02/11. s/p bipap. Now on RA b) Pulmonary embolism. on coumadin now with therapeutic INR, lovenox discontinued. c) pulmonary edema seen on CXR 02/12. Has had multiple episodes of volume overload this admission. Changed Lasix to Q48H given uremia on labs; to start . Monitor vol status closely as he has LVH and suspected diastolic dysfunction , EF 65-70% on echo this admission. Avoid hypovolemia and tachycardia. d) bronchospasm: Will add scheduled TID Duonebs in addition to PRN albuterol #Cardiac a) episodes of SVT related to hypoK and hypoMg. Now resolved b)see pulm edema assessment # Orthopedic. a) R periprosthetic hip fx. s/p BING revision 02/02/[address] Bourne. Pain control an issue with somnolence previously attributed to opiates. Cont schedule Tylenol 1g QID and increase tramadol to 100mg q4H PRN. morphine dicontined, started on celebrex 200mg qd. Trial of lidocaine patch. - He remains quite weak, and will require extensive rehab. # Infectious disease. a)leukocytosis resolved. f/u final cultures--blood and urine b) thrush: Nystatin SSW started 02/14 # Neurologic. dementia with behavorial issues: started on zyprexa 2.5mg qhs CT head negative. # GI a)heme +NGT drainage, likely gastritis. Cont PPI. H/H stable. able to tolerate po now, does not have NG tube anymore. b)constipation--cont bowel regimen. #Severe protein calorie malnutrition -pulled NGT and PICC. Was previously on TPN. -tolerating dysphagia diet and eating well. Dietitian following. calorie counting ordered # Renal/ a) electrolyte derangements resolved b) hematuria-no e/o infection. Bleeding resolved. Needs urology eval as OP . c) urinary retention--Lee DC'd 02/14. Added Flomax 0.4mg bid. but still has ongoing retention, lee placed again, will be discharged with lee # Hematologic a) anemia, likely acute blood loss and some dilution. He has inflammatory block as well by iron studies--monitor. Transfuse if Hgb less than 7.0. Monitor for any signs of bleeding. RBC folate normal. f/u MMA--still pending from 02/08. H/H stable #DVT prophylaxis: on coumadin with therapeutic INR # CODE STATUS: DNR CODE STATUS. is POA. Medical - PN: Qual - VTE Deep Vein Thrombosis/Pulmonary Embolism Present on Admission: No
[2017-02-17] MEDS ORDERED: WARFARIN 3 MG TABLET PO ONE (14:00)
[2017-02-17] MEDS: CELECOXIB 200 MG CAPSULE PO SCH (14:02)
[2017-02-17] MEDS ORDERED: OLANZapine 5 MG TABLET PO ONE (17:11)
[2017-02-17] MEDS: OLANZapine 2.5 MG TABLET PO SCH (17:13)
[2017-02-17] MEDS ORDERED: LORazepam 2 MG/ML VIAL IV PRN (20:20)
[2017-02-17] MEDS ORDERED: LORazepam 2 MG/ML VIAL ONE (20:28)
[2017-02-18] MEDS: LACTOBACILLUS 1 CAPSULE PO SCH ×2 (00:15→09:16)
[2017-02-18] MEDS: TAMSULOSIN 0.4 MG CAPSULE PO SCH ×2 (00:15→09:16)
[2017-02-18] MEDS: ACETAMINOPHEN 500 MG TABLET PO SCH ×3 (00:15→12:18)
[2017-02-18] MEDS: NYSTATIN 500,000 UNITS/5 ML ORAL.SUSP SSW SCH ×3 (00:15→12:19)
[2017-02-18] MEDS: OLANZapine 2.5 MG TABLET PO SCH (00:16)
[2017-02-18] MEDS: 0.9 % SODIUM CHLORIDE 10 ML SYRINGE IV SCH ×2 (05:27→16:21)
[2017-02-18 06:10] LABS: Basophils # (Auto) 0 K/mcL (0.0-0.3); Basophils % (Auto) 0 % (0.0-2.0); Eosinophils # (Auto) 0.1 K/mcL (0.0-0.7); Granulocytes % (Auto) 86.1 % (38.0-78.0); Lymphocytes # (Auto) 0.8 K/mcL (1.5-4.8); Lymphocytes % (Auto) 7.5 % (15.5-49.0); Mean Cell Volume 93.2 fL (80.0-100.0); Mean Corpuscular HGB Conc 33.8 g/dL (31.0-36.0); Mean Corpuscular Hemoglobin 31.5 pg (26.0-34.0); Monocytes # (Auto) 0.5 K/mcL (0.1-0.9); Monocytes % (Auto) 5.4 % (1.0-12.0); Platelet Count 347 K/mcL (140-440); RBC 3.16 M/mcL (4.50-5.90); Red Cell Distribution Width 18.1 % (11.5-14.5)
[2017-02-18 06:22] LABS: ALT/SGPT 38 U/l (0-40); Albumin 3.4 gm/dL (3.2-5.2); Albumin/Globulin Ratio 1.1 (1.0-2.3); Alkaline Phosphatase 102 U/L (39-117); Blood Urea Nitrogen 28 mg/dl (8-23)
[2017-02-18] MEDS ORDERED: cefTRIAXone 1 GM in DEXTROSE 5% IN WATER 50 ML IV ONE (09:02)
[2017-02-18] MEDS ORDERED: cefTRIAXone 2 GM in DEXTROSE 5% IN WATER 50 ML IV ONE (09:06)
[2017-02-18] MEDS: traMADol 50 MG TABLET PO PRN (09:15)
[2017-02-18] MEDS: PANTOPRAZOLE 40 MG TABLET PO SCH (09:15)
[2017-02-18] MEDS: MULTIVIT,THER IRON,CA,FA & MIN 1 TABLET PO SCH (09:16)
[2017-02-18] MEDS: CELECOXIB 200 MG CAPSULE PO SCH (09:16)
[2017-02-18] MEDS: LIDOCAINE PATCH TOPICAL SCH (09:16)
[2017-02-18] MEDS: FUROSEMIDE 20 MG TABLET PO SCH (09:16)
[2017-02-18] MEDS ORDERED: LORazepam 0.5 MG TABLET PO PRN (09:54)
[2017-02-18] MEDS ORDERED: FLU VACC QS2017-18 36MOS UP/PF 60 MCG/0.5 ML SYRINGE IM ONE (09:54)
--- NOTE | 2017-02-18 10:44 | Discharge Summary ---
Medical - DS: Prov Patient information: Note initiated : 02/18/17 at 10:40 am Service Date, if different from initiated Date: [] Patient: Edgard Bae 86 y/o M admitted on 01/31/17 for Fall/Femur Fracture, Right. Chief Complaint: [] Date of admission: 01/31/17 21:53 Discharge date: 02/18/17 Primary care physician: Bradley Whelan Admitting clinician: Na Heller Consults: 01/31/17 21:20 Consult to Physician [CONS] Stat Comment: Consulting Provider: John Bourne Reason For Exam: Physician to Consult Consult to Physician [CONS] Stat Comment: Consulting Provider: Na Heller Reason For Exam: Physician to Consult 02/02/17 11:30 Consult to Physician [CONS] Routine Comment: Consulting Provider: [facility] Reason For Exam: Physician to Consult Discharging clinician: Marilu Mcginnis Medical - DS: Meds - Discharge Medications Prescriptions: Cefdinir 300 mg PO BID #26 cap LORazepam [Ativan] 0.5 mg PO TIDP PRN #30 tab PRN Reason: Anxiety/Sedation OLANZapine [Zyprexa] 5 mg PO HS #30 tablet Tamsulosin [Flomax] 0.4 mg PO BID #60 capsule traMADol [Ultram] 100 mg PO Q4HP PRN #90 tab PRN Reason: Pain Warfarin [Coumadin] 4 mg PO DAILY #30 tab Active and Home Medications: Home Medications No Known Home Meds [No Known Home Meds] 01/31/17 [History Confirmed 01/31/17 Last Taken Unknown] Medical - DS: Hosp Hospital course: Mr. Bae is a 86 year old man who apparently fell at home. ER evaluation revealed an acute right subtrochanteric hip fracture with slight displacement of the lesser trochanter, as well as a previous right total hip arthroplasty. The patient has moderate dementia, and cannot recall how or why he fell. Otherwise, he does not think that he has been ill lately. He denies being aware fever or chills, headaches or dizziness, new or ear symptoms, chest pain or palpitations, shortness of breath or wheezing or cough, abdominal pain, nausea or vomiting, diarrhea or constipation, or dysuria. He was admitted to the hospital for management of hip fracture. On Day of hospitalization , the patient was having a bit more pain, and was given IV Dilaudid. About an hour later the nurse found him somewhat obtunded and twitching all over. Extremities were cyanotic, and the patient had decreased mental status. O2 saturation at the time was reading about 70% but we were not sure the oximeter was accurate. Follow-up blood gas did confirm that the patient was hypoxic, with a PO2 of 40, and a PCO2 of 53. As we talked with him and did test on him, he did become a bit more arousable. The twitching was a little hard to figure out, and I thought perhaps he was having an allergic reaction to the Dilaudid, so Benadryl was given. He was also given topical nitroglycerin, IV Lasix, and albuterol nebulizer treatment, and oxygen, while we were working him up. He was then transferred over to telemetry for closer monitoring. EKG did not show acute changes. D-dimer is elevated, but this would be expected in the setting of his hip fracture. Troponin is normal. BNP is a bit elevated at 500. patient improved overall but still remained confused and hypoxic. He had fever but was othewise stable and underwent the hip surgery on the 02 of February. The patients post op course was complicated with acute hypoxic respiratory failure, Aspiration pneumonia, and newly diagnosed Pulmonary embolism. His mental status was waxing and waning throughout the hospital stay. The patient seems to be very sensitive to opiate pain meds and even a low dose given for severe pain would knock him out completely. After nearly 2 weeks of close monitoring the patient clinically improved. he still has dementia and has some behavioral issues where he tries to take his clothes off during sun downing, but otherwise has remained stable. Hip Fracture: Treated by Dr Bourne, no post op issues, did develop PE in the post op period which is being treated. Patient will follow up with ortho in 2 weeks. Given that he has been extremely sensitive to opiates, his post op pain management is being done with scheduled tylenol 1gm q6h, celebrex 200mg qd and tramadol 100mg q4hr prn. He seems to be doing well with this regime. Pulmonary embolism: On anticoagulation with coumadin, INR on discharge is 2.2, he will be on 4mg of warfarin, and he will need total of 3 -6 months of coumadin treatment. If he is active and ambulatory then 3 months should suffice , should he remain bed bound then he will benefit from a longer course of anticoagulation (6 months) This can be determined by the patients PCP Aspiration pna: He had aspiration pna, in the post op periond, needing bipap treatment. NG tube, and conservative management. He c ompleted the course of antibiotics while in the hospital Dementia with Behavioral issues: The patient has been having memory issues even before he presented to the hospital and fell, had poor activity level, his dementia complicated his stay in the hospital which resulted on a prolonged stay. Presently he is stable at baseline, but does have sundowning, he has been started on zyprexa 5mg qhs to help manage his symptoms, he is usually non aggressive, but tires to take his clothes off and his lee out. Risks benefit of using this medication has been discussed with family who agreed for its use. He will also be prescribed ativan 0.5mg tid prn Urinary retention: Patient has developed urinary retention in the post op period needing Lee placement, failed voiding trial in the hospital, will be discharged home with lee catheter. Folmax has been started at 0.4mg bid, outpatient urology follow up. UTI: UA positive, urine cx is gram neg bacillus, this was noted on day of discharge, given one dose of rocephin, to complete 14 days of antibiotics with oral cefdinir 300mg bid. Dysphagia, the patient has poor oral intake and at discharge is on Level 2 diet and think liquid Anemia: of chr disease and post op blood loss stable at this time, will have to be followed up by patients PCP to document return to baseline The patient is hemodynamically stable for discharge but still has behavorial issues where he tries to get out of bed and remove his clothes, he will be discharged to SNF today, The SNF team is aware of his medical and behavorial issues and plan to keep him in a Dementia unit Discharge diagnosis: Hip Fracture, Dementia with behavorial issues, Pneumonia, Pulmonary Embolis - Time Spent with Patient Total time spent providing and/or coordinating discharge services: Greater than 30 minutes Medical - DS: Exam - Constitutional Vitals: Vital Signs Temp Pulse Resp BP BP Pulse Ox 02/18/17 08:00 94 02/18/17 03:02 97.6 F 106 H 24 H 107/60 92 02/18/17 00:00 98.0 F 93 H 24 H 143/78 93 02/17/17 20:00 97.8 F 102 H 24 H 138/74 94 02/17/17 14:51 98.1 F 18 108/65 95 02/17/17 10:58 97.6 F 76 20 120/73 97 Intake and Output 02/17/17 02/18/17 02/18/17 21:59 05:59 13:59 Intake Total 360 / 360 0 / 0 Output Total 500 / 500 250 / 250 Balance -140 / -140 -250 / -250 Intake: Oral 360 / 360 0 / 0 Output: Urine Catheter Amount 500 / 500 250 / 250 Other: Weight 165 lb Additional comments: Constitutional; Afebrile, but not very cooperative, alert, does follow some command Eyes- No icterus, , No periorbital swelling Ears- Ext ear normal, hearing normal to conversation. Neck- Midline trachea, supple Respiratory system: Air Entry equal on both sides, No crackles or wheezing, no rhonchi. CVS- Rate rhythm regular, S1,S2 heard, no gallop, no rub. Abdomen- Soft nontender abdomen, no organomegaly, no tenderness, no guarding or rigidity, [employer]- AOOx1, moving all extremities, no gross focal deficit noted. Medical - DS: Data Procedures and tests throughout hospitalization: Hip X ray IMPRESSION: Acute right subtrochanteric hip fracture Previous right total hip arthroplasty cxr IMPRESSION: No acute abnormality. No interval change Hip X ray IMPRESSION: Right hip revision by cerclage wires. The subtrochanteric fracture remains anatomically aligned CTA chest IMPRESSION: 1. Solitary embolus to the superior segment right lower lobe pulmonary artery. 2. Mild enlargement of the central pulmonary arteries suggesting mild pulmonary hypertension. 3. Moderate sized vague groundglass infiltrates diffusely throughout both lungs. Suspect aspiration or infection. Small bilateral pleural effusions also noted Abdominal X ray IMPRESSION: Moderate stool confined to the hepatic flexure of the colon - GI tract otherwise normal. Right L5-S1 paraspinous calcifications appearing rapidly over the last week are likely undigested calcific particles in the GI tract Head CT IMPRESSION: Moderate atrophy and chronic ischemic changes in the cerebral white matter - expected for age. No hemorrhage or other acute intracerebral abnormality 17 mm polyp right middle ethmoid air cell and moderate right maxillary sinusitis CXR chest Impression: bilateral interstitial lung disease. This could be due to inflammation, pulmonary vascular congestion or pulmonary fibrosis. There has been no change from the recent exams. Echo LV normal size LVF normal borderline Pulm HTN Labs on day of discharge: Labs from last 24 hours 02/18/17 02/18/17 02/18/17 04:40 04:40 04:40 WBC 10.1 RBC 3.16 L Hgb 9.9 L Hct 29.4 L MCV 93.2 MCH 31.5 MCHC 33.8 RDW 18.1 H Plt Count 347 MPV 7.6 Gran % 86.1 H Lymph % (Auto) 7.5 L [place] % (Auto) 5.4 Eos % (Auto) 1.0 Baso % (Auto) 0 Gran # 8.7 H Lymph # (Auto) 0.8 L [place] # (Auto) 0.5 Eos # (Auto) 0.1 Baso # (Auto) 0 PT 25.0 H INR 2.2 H Sodium 143 Potassium 4.0 Chloride 103 Carbon Dioxide 24 Anion Gap 16.0 BUN 28 H Creatinine 0.8 GFR Calculation 80 Glucose 94 Calcium 8.6 Total Bilirubin 1.4 H AST 40 H ALT 38 Alkaline Phosphatase 102 Total Protein 6.4 Albumin 3.4 Globulin 3.0 Albumin/Globulin Ratio 1.1 Urine Color Urine Appearance Urine pH Ur Specific [place] Urine Protein Urine Glucose (UA) Urine Ketones Urine Occult Blood Urine Nitrate Urine Bilirubin Urine Urobilinogen Ur Leukocyte Esterase Urine RBC Urine WBC Ur Squamous Epith Cells Urine Bacteria Urine Mucus Ur Culture Indicated? 02/17/17 09:00 WBC RBC Hgb Hct MCV MCH MCHC RDW Plt Count MPV Gran % Lymph % (Auto) [place] % (Auto) Eos % (Auto) Baso % (Auto) Gran # Lymph # (Auto) [place] # (Auto) Eos # (Auto) Baso # (Auto) PT INR Sodium Potassium Chloride Carbon Dioxide Anion Gap BUN Creatinine GFR Calculation Glucose Calcium Total Bilirubin AST ALT Alkaline Phosphatase Total Protein Albumin Globulin Albumin/Globulin Ratio Urine Color Devora Urine Appearance Hazy Urine pH 5.0 Ur Specific [place] 1.026 Urine Protein 30 A Urine Glucose (UA) Negative Urine Ketones 5/tr A Urine Occult Blood >=1.0 A Urine Nitrate Neg Urine Bilirubin Neg Urine Urobilinogen 4.0 A Ur Leukocyte Esterase 75 A Urine RBC 179 H Urine WBC 60 H Ur Squamous Epith Cells 0 Urine Bacteria Few A Urine Mucus Many A Ur Culture Indicated? Yes Preliminary micro results at discharge 02/14/17 08:11 Blood Culture - Preliminary Blood 02/14/17 08:02 Blood Culture - Preliminary Blood 02/17/17 09:00 Urine Culture - Preliminary Urine - Lee Gram negative bacillus Medical - DS: A/P - Patient/Caregiver Discharge Instructions Activity: as per physical therapy, increase activity as tolerated Diet: Dysphagia Advanced Additional Instructions: Discharge Instructions: Do the exercises at home that physical therapy gave you. Wear comfortable clothing for your physical therapy. Weight bearing as tolerated. You may start showering on post op day #2. To avoid constipation while taking any narcotic pain medication, take an over the counter stool softener/laxative. Use ice packs as directed, on for 20 minutes at a time throughout the day. This and elevation will help with pain and swelling. Call your physician for fevers above 100.5 or pain not controlled by medication. Your prescriptions are with your discharge information. Some medications were electronically transmitted to your pharmacy of choice. Dysphagia 2 diet with think liquid Pt is high risk for fall and behavorial issue High risk for aspiration OT/PT/ST at [facility] Check INR in 3 days follow up with results to PCP Antibiotics cefdinir is for 13 more days Patient celebrex is only for 30 days, discuss with PCP before continuing longer. Follow up with PCP in 1 week Follow up with urology in 2 weeks Follow up with ORtho in 2 weeks Go to the ER if fever, chest pain, shortness of breath or any other concerning symptom. Prescriptions: Cefdinir 300 mg PO BID #26 cap LORazepam [Ativan] 0.5 mg PO TIDP PRN #30 tab PRN Reason: Anxiety/Sedation OLANZapine [Zyprexa] 5 mg PO HS #30 tablet Tamsulosin [Flomax] 0.4 mg PO BID #60 capsule traMADol [Ultram] 100 mg PO Q4HP PRN #90 tab PRN Reason: Pain Warfarin [Coumadin] 4 mg PO DAILY #30 tab Other Amb Orders: OT Discharge Order Location: Determined By Patient Physical Therapy at Discharge - General Location: Determined By Patient ST Discharge Order Location: Determined By Patient - Follow up Plan Follow up with: John Bourne MD [Physician] - (Call/schedule for a one month post surgery follow up.) Bradley Whelan MD [Primary Care Provider] - Disposition: er SNF Prognosis: Fair Rehab Potential: Fair I certify that the patient requires SNF services: Yes Overall status at discharge: patient is progressing back to baseline Medical - DS: Qual - VTE Deep Vein Thrombosis/Pulmonary Embolism Present on Admission: No
[2017-02-18] MEDS ORDERED: LORazepam 2 MG/ML VIAL IV ONE (13:55)
[2017-02-18] MEDS ORDERED: LORazepam 2 MG/ML VIAL ONE (13:58)
== END 2017-02-18 14:45 | DRG 999 ==
LOC: ED 17:18 → MEDSUR 21:50 → ICU 02-01 12:51 → MEDSUR 02-14 15:46
PROVIDERS: ADMIT Internal Medicine; ATTEND Internal Medicine